=== PATIENT | male | born 1935 | race Caucasian/White ===

== ENCOUNTER → 2016-09-18 | Outpatient (CLI) | payer BC ==
[~2016-09-18] MED LIST: ACET-1256 PO; ALFU10TA30 PO; ALPHTAB4 PO; ASCA500 PO; ASPEC81 PO; CALCTAB13 PO; CHOL100010 PO; DVN80 PO; GLUC10007 PO; MECL1TAB42 PO; MELA1TAB9 PO; MRLP17 PO; MULT-506 PO; NTRGSL/4 UT; OMEG10007 PO
--- NOTE | 2016-09-18 12:08 | DIAGNOSTIC IMAGING REPORT ---
RENAL ULTRASOUND HISTORY: ACUTE CYSTITIS W/ HEMATURIA, BILATERAL FLANK PAIN COMPARISON: None. FINDINGS: Right kidney: 10.4 cm. No hydronephrosis. Normal corticomedullary differentiation and cortical thickness. Left kidney: 10.2 cm. No hydronephrosis. Normal corticomedullary differentiation and cortical thickness. Bladder: No bladder wall thickening. The bilateral ureteral jets were identified. Low level echoes identified within the bladder suggesting complex fluid. IMPRESSION: 1. Normal kidneys. 2. Low level echoes within the bladder suggesting complex fluid/blood products. Recommend correlation with urinalysis. Electronically signed by: Chin Saunders M.D. 09/18/2016 12:07 PM Dictated Date/Time: 09/18/2016 12:05 PM
== END | disposition home or self-care (01) ==
LOC: C.ULTR 11:23
PROVIDERS: ATTEND Family Medicine
DX: N30.01 Acute cystitis with hematuria (principal); R93.41 Abnormal radiologic findings on diagnostic imaging of renal pelvis, ureter, or bladder

== ENCOUNTER → 2016-10-08 | Outpatient (CLI) | payer BC | END | disposition home or self-care (01) | LOC: C.LABSPEC 16:55 | PROVIDERS: ATTEND Nurse Practitioner Adult Health | DX: R31.0 Gross hematuria (principal) ==

== ENCOUNTER → 2016-10-14 | Outpatient (CLI) | payer BC ==
[~2016-10-14] MED LIST changes: +ALFU10TA2 PO; -ALFU10TA30 PO; +OPTIRAY 320 IV PRN
--- NOTE | 2016-10-14 16:58 | DIAGNOSTIC IMAGING REPORT ---
CT OF THE ABDOMEN AND PELVIS WITH AND WITHOUT CONTRAST HEMATURIA PROTOCOL CLINICAL HISTORY: Gross hematuria. COMPARISON STUDY: Renal ultrasound September 28, 2016. TECHNIQUE: Unenhanced and split bolus phase imaging of the abdomen and pelvis was performed. Injection of 119 cc Optiray [address] DOSE: 2120.46 mGycm FINDINGS: Lung bases are clear. There is mild cardiomegaly. There is multifocal pericardial calcification. 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 Brachytherapy seeds are noted within the prostate. No enlarged abdominal or pelvic lymph nodes are identified. No upper tract urothelial lesions are identified. No solid renal lesions are present. A small capsular abnormality along the spleen is chronic. There is no evidence for a bowel obstruction. No suspicious osseous lesions are present. IMPRESSION: 1. 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 2. No acute process within the abdomen or pelvis. Electronically signed by: Chinmay Wooten M.D. 10/14/2016 4:57 PM Dictated Date/Time: 10/14/2016 2:31 PM
== END | disposition home or self-care (01) ==
LOC: C.CTS 13:17
PROVIDERS: ATTEND Nurse Practitioner Adult Health
DX: R31.0 Gross hematuria (principal); Z96.643 Presence of artificial hip joint, bilateral

== ENCOUNTER 2017-06-18 02:29 | Observation (INO) | payer BC ==
[~2017-06-18] VITALS: Ht 170.2 cm; Wt 93.7 kg
[~2017-06-18 02:29] MED LIST changes: -OPTIRAY 320 IV PRN
[2017-06-18 03:42] LABS: BASO % 0.4 %; BASO ABS # 0.03 K/uL (0-0.2); COMPLETE YES; EOS % 4.7 %; HEMATOCRIT 38.6 % (42-52); IG% 0.1 %; LYMPH % 35.5 %; LYMPH ABS # 2.58 K/uL (1.2-3.4); MEAN CELL VOLUME 104.6 fL (80-100); MEAN CORPUSCULAR HEMOGLOBIN 36.3 pg (25-34); MEAN CORPUSCULAR HGB CONC 34.7 g/dl (32-36); MEAN PLATELET VOLUME 10.4 fL (7.4-10.4); MONO % 13.4 %; NEUT % 45.9 %; PLATELET COUNT 164 K/uL (130-400); RED BLOOD COUNT 3.69 M/uL (4.7-6.1); WHITE BLOOD COUNT 7.26 K/uL (4.8-10.8)
[2017-06-18 03:47] LABS: PARTIAL THROMBOPLASTIN RATIO 0.9; PROTHROMBIN TIME (PATIENT) 10.7 SECONDS (9.0-12.0)
[2017-06-18 03:52] LABS: ALT/SGPT 55 U/L (12-78); AST/SGOT 36 U/L (15-37); BLOOD UREA NITROGEN 22 mg/dl (7-18); BUN/CREATININE RATIO 23.3 (10-20); CALCIUM 8.9 mg/dl (8.5-10.1); CARBON DIOXIDE 30 mmol/L (21-32); CHLORIDE 105 mmol/L (98-107); CREATININE 0.96 mg/dl (0.60-1.40); GLUCOSE 102 mg/dl (70-99); SODIUM 137 mmol/L (136-145)
[2017-06-18 03:57] LABS: ALKALINE PHOSPHATASE 66 U/L (45-117); CKMB/CK RATIO 3.5 (0-3.0)
[2017-06-18] MEDS ORDERED: ALFU10TA2 PO (04:41)
[2017-06-18] MEDS ORDERED: ASPI81TA28 PO (04:41)
[2017-06-18] MEDS ORDERED: CALC-354 PO (04:42)
[2017-06-18] MEDS ORDERED: GLUC-172 PO (04:43)
[2017-06-18] MEDS ORDERED: CHOL1000 PO (04:43)
[2017-06-18] MEDS ORDERED: MULTCHW PO (04:43)
[2017-06-18] MEDS ORDERED: HYDR1AER23 PR (04:44)
[2017-06-18] MEDS ORDERED: ACT/35 PO (04:44)
[2017-06-18] MEDS ORDERED: POLY335019 PO (04:44)
--- NOTE | 2017-06-18 04:54 | EMERGENCY ROOM VISIT NOTE ---
History Report prepared by Juan Carlos: Iman Pickett Under the Supervision of: Dr. Peggy Linn D.O. First contact with patient: 02:36 Chief Complaint: CHEST PAIN Stated Complaint: CHEST PAIN Nursing Triage Summary: At 0140 Pt states he developed mid-abdominal pain that moved into his chest and down right arm. Also c/o right arm numbness. History of Present Illness The patient is an 81 year old male who presents to the Emergency Room with complaints of persistent chest pain starting around 0040 today. The patient started having some abdominal pain when he was going to bed around 0040. He noticed that the pain moved up into his chest. The pain was constant and did not resolve. He waited 1 hour before calling EMS. He was given 4 baby aspirin and nitro which did not help. He felt the abdominal pain worsened with the medications. The chest pain does not radiate into his back or arm. The pain seemed to improve slightly while he was here, but it is now coming back again. He currently rates his discomfort as a 3-4/10 in severity. He has chronic right arm numbness which seemed to worsen with the chest pain. He still has some slight abdominal pain. He denies any diaphoresis, SOB, fever, nausea, vomiting, diarrhea, constipation, bloody stool, urinary symptoms, or weakness. He had chest pain 12 years ago at which time he had a stent. He has not had any cardiac issues since. He denies any history of GI problems. Source of History: patient Onset: 0040 Position: chest Symptom Intensity: 3-4/10 Quality: other (pain) Timing: other (persistent) Associated Symptoms: + abdominal pain, + numbness, No fevers, No diaphoresis , No SOB, No nausea, No vomiting, No hematochezia, No diarrhea, No urinary symptoms, No weakness Note: Pt denies constipation. Review of Systems See HPI for pertinent positives & negatives. A total of 10 systems reviewed and were otherwise negative. Past Medical & Surgical Medical Problems: (1) Chest pain Family History No pertinent family history stated. Social History Smoking Status: Never Smoker Marital Status: Housing Status: lives with significant other Occupation Status: retired Current/Historical Medications Scheduled Alfuzosin Hcl (Uroxatral), 10 MG PO DAILY Ascorbic Acid (Vitamin C), 1,000 MG PO QAM Aspirin (Aspirin Ec), 81 MG PO DAILY Calcium Carbonate-Cholecalcife (Caltrate 600+D), 1 TAB PO BID Cholecalciferol (Vitamin D3), 1 TAB PO DAILY Fish Oil ([place]-3), 1,000 MG PO QAM Glucosamine Sulfate (Glucosamine), 500 MG PO DAILY Hydrocortisone/Pramoxine (Proctofoam Hc), 1 APPL MT QID Multiple Vitamins W/ Minerals (Centrum Silver), 1 TAB PO DAILY Polyethylene Glycol 3350 (Miralax), 17 GM PO DAILY Ranitidine Hcl (Zantac), 1 TAB PO BID Risedronate Sod (Actonel), 35 MG PO WK Valsartan (Diovan), 80 MG PO QAM Scheduled PRN Acetaminophen (Tylenol), 1,000 MG PO DAILY PRN for Pain Lfqzj-U-Gjprvfrkylphu (Beano), 1 TAB PO DAILY PRN for GAS Meclizine Hcl (Meclizine Hcl), 1 TAB PO TID PRN for DIZZINESS Melatonin-Pyridoxine (Melatonin), 1 TAB PO HS PRN for Insomnia Nitroglycerin (Nitrostat), 0.4 MG UT UD PRN for Chest Pain Allergies Coded Allergies: Perflutren (Verified Allergy, Unknown, BODY GOT HOT AND BACK SPASMS, ) REACTION TO INJECTION IN BACK (DEFINITY TEST) AFTER FAILING A TREADMILL STRESS TEST - PT UNSURE NAME OF MEDICATION - PT STATES WENT ON TO PERFORMED NUCLEAR STRESS TEST Propylene Glycol (Verified Allergy, Unknown, BODY GOT HOT AND BACK SPASMS , 06/18/17) REACTION TO INJECTION IN BACK (DEFINITY TEST) AFTER FAILING A TREADMILL STRESS TEST - PT UNSURE NAME OF MEDICATION - PT STATES WENT ON TO PERFORMED NUCLEAR STRESS TEST Ragweed (Verified Allergy, Unknown, UNKNOWN, 06/18/17) Physical Exam Vital Signs Date Time Temp Pulse Resp B/P (MAP) Pulse Ox O2 Delivery O2 Flow Rate FiO2 06/18/17 05:50 36.8 61 20 150/84 Room Air 06/18/17 05:30 60 18 139/87 95 Room Air 06/18/17 04:30 60 18 129/71 98 Room Air 06/18/17 03:30 64 20 127/71 95 Room Air 06/18/17 03:00 68 13 135/73 98 Room Air 06/18/17 02:44 66 06/18/17 02:39 36.6 65 18 153/94 97 Room Air 97 06/18/17 02:39 97 Room Air Physical Exam HEENT: Head - normocephalic and atraumatic Pupils are equal, round, and reactive to light. Extraocular eye muscles are intact, and sclera are anicteric. Nose - moist nasal mucosa without discharge. Mouth - moist buccal mucosa. Oropharynx is nonerythematous and there is no tonsillar exudate or edema noted. Neck: Supple; no JVD, nuchal rigidity, cervical lymphadenopathy, or auscultated bruits. Heart: Regular rate and rhythm. There is a normal S1 and S2 with no murmurs, clicks, or gallops appreciated. Lungs: Clear to auscultation bilaterally with no wheezes, rales, or rhonchi. Abdomen: Soft, completely nontender, nondistended, with good bowel sounds. There are no palpable pulsatile masses or hepatosplenomegaly. There is no guarding, rigidity, or rebound noted. Extremities: No evidence of cyanosis, clubbing, or edema. There are easily palpable peripheral pulses. Skin: warm and dry with good turgor and no rashes. Medical Decision & Procedures ER Provider Diagnostic Interpretation: X-ray results as stated below per interpretation by me: Portable Chest X-ray: No obvious pleural effusion or pulmonary infiltrate. Laboratory Results 06/18/17 02:28 Red Blood Count 3.69, Mean Corpuscular Volume 104.6, Mean Corpuscular Hemoglobin 36.3, Mean Corpuscular Hemoglobin Concent 34.7, Mean Platelet Volume 10.4, Neutrophils (%) (Auto) 45.9, Lymphocytes (%) (Auto) 35.5, Monocytes (%) ( Auto) 13.4, Eosinophils (%) (Auto) 4.7, Basophils (%) (Auto) 0.4, Neutrophils # (Auto) 3.33, Lymphocytes # (Auto) 2.58, Monocytes # (Auto) 0.97, Eosinophils # ( Auto) 0.34, Basophils # (Auto) 0.03 06/18/17 02:28 Test 06/18/17 02:28 White Blood Count 7.26 K/uL (4.8-10.8) Red Blood Count 3.69 M/uL (4.7-6.1) Hemoglobin 13.4 g/dL (14.0-18.0) Hematocrit 38.6 % (42-52) Mean Corpuscular Volume 104.6 fL (80-100) Mean Corpuscular Hemoglobin 36.3 pg (25-34) Mean Corpuscular Hemoglobin Concent 34.7 g/dl (32-36) Platelet Count 164 K/uL (130-400) Mean Platelet Volume 10.4 fL (7.4-10.4) Neutrophils (%) (Auto) 45.9 % Lymphocytes (%) (Auto) 35.5 % Monocytes (%) (Auto) 13.4 % Eosinophils (%) (Auto) 4.7 % Basophils (%) (Auto) 0.4 % Neutrophils # (Auto) 3.33 K/uL (1.4-6.5) Lymphocytes # (Auto) 2.58 K/uL (1.2-3.4) Monocytes # (Auto) 0.97 K/uL (0.11-0.59) Eosinophils # (Auto) 0.34 K/uL (0-0.5) Basophils # (Auto) 0.03 K/uL (0-0.2) RDW Standard Deviation 47.8 fL (36.4-46.3) RDW Coefficient of Variation 12.5 % (11.5-14.5) Immature Granulocyte % (Auto) 0.1 % Immature Granulocyte # (Auto) 0.01 K/uL (0.00-0.02) Prothrombin Time 10.7 SECONDS (9.0-12.0) Prothromb Time International Ratio 1.0 (0.9-1.1) Activated Partial Thromboplast Time 24.3 SECONDS (21.0-31.0) Partial Thromboplastin Ratio 0.9 Anion Gap 2.0 mmol/L (3-11) Est Creatinine Clear Calc Drug Dose 65.9 ml/min Estimated GFR () 85.6 Estimated GFR (Non- 73.8 BUN/Creatinine Ratio 23.3 (10-20) Calcium Level 8.9 mg/dl (8.5-10.1) Total Bilirubin 0.3 mg/dl (0.2-1) Direct Bilirubin < 0.1 mg/dl (0-0.2) Aspartate Amino Transf (AST/SGOT) 36 U/L (15-37) Alanine Aminotransferase (ALT/SGPT) 55 U/L (12-78) Alkaline Phosphatase 66 U/L (45-117) Total Creatine Kinase 66 U/L (39-308) Creatine Kinase MB 2.3 ng/ml (0.5-3.6) Creatine Kinase MB Ratio 3.5 (0-3.0) Pro-B-Type Natriuretic Peptide 105 pg/ml (0-1800) Total Protein 7.1 gm/dl (6.4-8.2) Albumin 3.5 gm/dl (3.4-5.0) Lipase 80 U/L (73-393) Laboratory results per my review. Medications Administered Medications (Trade) Dose Ordered Sig/Elroy Route Start Time Stop Time Status Last Admin Dose Admin Fentanyl Citrate (Fentanyl Inj) 50 mcg NOW STAT IV 06/18/17 04:56 06/18/17 04:57 DC 06/18/17 05:28 50 MCG Procedure Medications: Fentanyl Inj 50 mcg IV. ECG Indication: chest pain Rate (beats per minute): 66 Rhythm: normal sinus Findings: 1st degree AV block, ST depression (slight in 1 and aVL), other (T wave flattening anterior and lateral) Comparison ECG Date: 12-Oct-2013 Change: Changes are new. ED Course 0238: The patient was evaluated by the student at this time. We discussed findings, differential, and treatment plan. A twelve-lead EKG was obtained and reviewed. 0331: The patient was evaluated in room A9B. A complete history and physical examination were performed. Nursing notes and previous electronic medical records were reviewed. IV lock was established and labs were drawn as above. The patient had a chest x-ray as described above. 0420: The patient was reevaluated by the student. He has not had any change in his pain. 0450: I reevaluated the patient. He is still having 3/10 pain. I discussed findings and results with him. He verbalized agreement of the treatment plan. The patient will be evaluated for further management and care. 0456: Fentanyl Inj 50 mcg IV. 0500: I discussed the patient's case with Dr. Nichols, [facility] hospitalist. The patient will be evaluated for further management. Medical Decision The patient is an 81 year old male who presents to the ED with chest pain. Differential diagnosis includes GERD, cardiac ischemia, STEMI, acute coronary syndrome, costochondritis, pleurisy. Labs: white count 7.2, stable H&H, BUN 22, creatinine 0.9, glucose 102, LFTs and lipase normal, troponin negative, normal coags. This is an 81-year-old male patient who presents to the emergency department with substernal chest discomfort. The patient had no other significant associated symptoms. Cardiac enzymes were negative but the patient did have some subtle EKG changes. I discussed the case with the [facility] hospitalist. The patient received some pain meds for the discomfort in the mid chest. He was comfortable at this time. Vitals remained stable. Medication Reconcilliation Current Medication List: was personally reviewed by me Blood Pressure Screening Patient's blood pressure: Normal blood pressure Blood pressure disposition: Did not require urgent referral Consults Time Called: 0455 Consulting Physician: Dr. Nichols [facility] hospitalist Returned Call: 0500 Discussed the patient's case. The patient will be evaluated for further management. Impression Primary Impression: Substernal chest pain Scribe Attestation The scribe's documentation has been prepared under my direction and personally reviewed by me in its entirety. I confirm that the note above accurately reflects all work, treatment, procedures, and medical decision making performed by me. Departure Information Dispostion Being Evaluated By Hospitalist Prescriptions Ranitidine Hcl (ZANTAC) 150 Mg Tab 1 TAB PO BID for 30 Days, #60 TAB 0 Refills Prov: Patrick Peralta, D.O. 06/18/17 Referrals Stan Banks MD (PCP) Patient Instructions My [facility]
[2017-06-18] MEDS ORDERED: FENTANYL CITRATE INJ 50 MCG/1 ML 2 ML VIAL IV STA (04:56)
[2017-06-18 05:50] VITALS: BP 150/84; PULSE 61; TEMP 36.8; Ht 170.2 cm; Wt 93.7 kg
[2017-06-18] MEDS ORDERED: MoRPHine SULFATE 2 MG/ML CARP IV PRN (06:00)
[2017-06-18] MEDS ORDERED: ACETAMINOPHEN 325 MG TAB PO PRN (06:00)
[2017-06-18] MEDS ORDERED: POLYETHYLENE (MIRALAX) 17 GM PACK PO PRN (06:00)
[2017-06-18] MEDS ORDERED: MECLIZINE HCL 12.5 MG TAB PO PRN (06:00)
[2017-06-18] MEDS ORDERED: MAGNESIUM HYDROXIDE SUSP 30 ML UDC PO PRN (06:00)
[2017-06-18] MEDS ORDERED: NITROGLYCERIN 0.4 MG SL PER TAB CHARGE SL PRN (06:00)
[2017-06-18] MEDS ORDERED: ONDANSETRON INJ 2 MG/ML 2 ML VIAL IV PRN (06:00)
--- NOTE | 2017-06-18 06:22 | History and Physical ---
History & Physical Date & Time of Service: Jun 18, 2017 at 06:05 Chief Complaint: Chest Pain Primary Care Physician: Stan Banks MD History of Present Illness Source: patient 81 y/o M Hx HTN, HPL, CAD - stent placement in 2004. Pt developed upper abdominal pain early AM which then localized to his central chest. He denies accompanying SOB, N/V or diaphoresis. Past Medical/Surgical History 1) CAD - presented with CP in 2004 leading to stent placement. He has not had any related issues since that time. 2) HTN 3) HPL 4) GERD 5) Osteoporosis Family History Noncontributory due to pts age Social History Nonsmoker, does not drink, maintains complete independence Smoking Status: Never Smoker Immunizations History of Influenza Vaccine: Yes Influenza Vaccine Date: Mar 06, 2013 History of Tetanus Vaccine?: Unknown History of Pneumococcal: Yes Pneumococcal Date: Feb 23, 2007 History of Hepatitis B Vaccine: Unknown Multi-Drug Resistant Organisms History of MDRO: No Allergies Coded Allergies: Perflutren (Verified Allergy, Unknown, BODY GOT HOT AND BACK SPASMS, ) REACTION TO INJECTION IN BACK (DEFINITY TEST) AFTER FAILING A TREADMILL STRESS TEST - PT UNSURE NAME OF MEDICATION - PT STATES WENT ON TO PERFORMED NUCLEAR STRESS TEST Propylene Glycol (Verified Allergy, Unknown, BODY GOT HOT AND BACK SPASMS , 06/18/17) REACTION TO INJECTION IN BACK (DEFINITY TEST) AFTER FAILING A TREADMILL STRESS TEST - PT UNSURE NAME OF MEDICATION - PT STATES WENT ON TO PERFORMED NUCLEAR STRESS TEST Ragweed (Verified Allergy, Unknown, UNKNOWN, 06/18/17) Home Medications Scheduled Alfuzosin Hcl (Uroxatral), 10 MG PO DAILY Ascorbic Acid (Vitamin C), 1,000 MG PO QAM Aspirin (Aspirin Ec), 81 MG PO DAILY Calcium Carbonate-Cholecalcife (Caltrate 600+D), 1 TAB PO BID Cholecalciferol (Vitamin D3), 1 TAB PO DAILY Fish Oil ([place]-3), 1,000 MG PO QAM Glucosamine Sulfate (Glucosamine), 500 MG PO DAILY Hydrocortisone/Pramoxine (Proctofoam Hc), 1 APPL [place] QID Multiple Vitamins W/ Minerals (Centrum Silver), 1 TAB PO DAILY Polyethylene Glycol 3350 (Miralax), 17 GM PO DAILY Risedronate Sod (Actonel), 35 MG PO WK Valsartan (Diovan), 80 MG PO QAM Scheduled PRN Acetaminophen (Tylenol), 1,000 MG PO DAILY PRN for Pain Pylot-A-Asgblaozisbrd (Beano), 1 TAB PO DAILY PRN for GAS Meclizine Hcl (Meclizine Hcl), 1 TAB PO TID PRN for DIZZINESS Melatonin-Pyridoxine (Melatonin), 1 TAB PO HS PRN for Insomnia Nitroglycerin (Nitrostat), 0.4 MG UT UD PRN for Chest Pain Review of Systems Constitutional: No fever, No chills, No sweats Eyes: No worsening of vision ENT: No hearing loss, No unusual epistaxis, No nasal symptoms Respiratory: No cough, No sputum, No wheezing Cardiovascular: + chest pain, No orthopnea, No PND Abdomen: No pain, No vomiting Musculoskeletal: No joint pain, No muscle pain Genitourinary - Male: No hematuria, No dysuria, No urinary frequency Neurologic: No memory loss, No paralysis, No weakness Psychiatric: No depression symptoms Endocrine: No fatigue Hematologic / Lymphatic: No abnormal bleeding/bruising Integumentary: No rash Allergic / Immunologic: No environmental allergies Physical Exam Vital Signs Date Time Temp Pulse Resp B/P (MAP) Pulse Ox O2 Delivery O2 Flow Rate FiO2 06/18/17 05:30 60 18 139/87 95 Room Air 06/18/17 04:30 60 18 129/71 98 Room Air 06/18/17 03:30 64 20 127/71 95 Room Air 06/18/17 03:00 68 13 135/73 98 Room Air 06/18/17 02:44 66 06/18/17 02:39 36.6 65 18 153/94 97 Room Air 97 06/18/17 02:39 97 Room Air General Appearance: + pertinent finding (Pleasant elderly male in no distress) Head: normocephalic Eyes: normal inspection, EOMI ENT: normal ENT inspection, + pertinent finding (Pt is hard of hearing) Neck: supple, no JVD Respiratory/Chest: chest non-tender, lungs clear, normal breath sounds Cardiovascular: regular rate, rhythm, no edema, no gallop Abdomen/GI: normal bowel sounds, non tender, soft Back: normal inspection, no CVA tenderness, no muscle spasm, normal range of motion Extremities/Musculoskelatal: normal inspection Neurologic/Psych: rack cleaner II-XII nml as tested, no motor/sensory deficits, alert, normal mood/affect, normal reflexes, oriented x 3 Skin: normal color, warm/dry Diagnostics Laboratory Results Results Past 24 Hours Test 06/18/17 02:28 Range/Units White Blood Count 7.26 4.8-10.8 K/uL Red Blood Count 3.69 4.7-6.1 M/uL Hemoglobin 13.4 14.0-18.0 g/dL Hematocrit 38.6 42-52 % Mean Corpuscular Volume 104.6 80-100 fL Mean Corpuscular Hemoglobin 36.3 25-34 pg Mean Corpuscular Hemoglobin Concent 34.7 32-36 g/dl Platelet Count 164 130-400 K/uL Mean Platelet Volume 10.4 7.4-10.4 fL Neutrophils (%) (Auto) 45.9 % Lymphocytes (%) (Auto) 35.5 % Monocytes (%) (Auto) 13.4 % Eosinophils (%) (Auto) 4.7 % Basophils (%) (Auto) 0.4 % Neutrophils # (Auto) 3.33 1.4-6.5 K/uL Lymphocytes # (Auto) 2.58 1.2-3.4 K/uL Monocytes # (Auto) 0.97 0.11-0.59 K/uL Eosinophils # (Auto) 0.34 0-0.5 K/uL Basophils # (Auto) 0.03 0-0.2 K/uL RDW Standard Deviation 47.8 36.4-46.3 fL RDW Coefficient of Variation 12.5 11.5-14.5 % Immature Granulocyte % (Auto) 0.1 % Immature Granulocyte # (Auto) 0.01 0.00-0.02 K/uL Prothrombin Time 10.7 9.0-12.0 SECONDS Prothromb Time International Ratio 1.0 0.9-1.1 Activated Partial Thromboplast Time 24.3 21.0-31.0 SECONDS Partial Thromboplastin Ratio 0.9 Sodium Level 137 136-145 mmol/L Potassium Level 4.0 3.5-5.1 mmol/L Chloride Level 105 98-107 mmol/L Carbon Dioxide Level 30 21-32 mmol/L Anion Gap 2.0 3-11 mmol/L Blood Urea Nitrogen 22 7-18 mg/dl Creatinine 0.96 0.60-1.40 mg/dl Est Creatinine Clear Calc Drug Dose 65.9 ml/min Estimated GFR () 85.6 Estimated GFR (Non- 73.8 BUN/Creatinine Ratio 23.3 10-20 Random Glucose 102 70-99 mg/dl Calcium Level 8.9 8.5-10.1 mg/dl Total Bilirubin 0.3 0.2-1 mg/dl Direct Bilirubin < 0.1 0-0.2 mg/dl Aspartate Amino Transf (AST/SGOT) 36 15-37 U/L Alanine Aminotransferase (ALT/SGPT) 55 12-78 U/L Alkaline Phosphatase 66 45-117 U/L Total Creatine Kinase 66 39-308 U/L Creatine Kinase MB 2.3 0.5-3.6 ng/ml Creatine Kinase MB Ratio 3.5 0-3.0 Troponin I < 0.015 0-0.045 ng/ml Pro-B-Type Natriuretic Peptide 105 0-1800 pg/ml Total Protein 7.1 6.4-8.2 gm/dl Albumin 3.5 3.4-5.0 gm/dl Lipase 80 73-393 U/L EKG NSR Impression Assessment and Plan 81 y/o M Hx HTN, HPL, CAD - stent placement in 2004. Pt developed upper abdominal pain early AM which then localized to his central chest. He denies accompanying SOB, N/V or diaphoresis. 1) CP - will obtain serial enzymes. NTG provided PRN, he will rremain on ASA. Dr Kelley is his certified pharmacy tech and should be contacted prior to planning additional testing. It is noted that he does not take a Statin - presumably due to sensitivity although this will need clarification. 2) HTN - cont Valsartan 3) HPL - currently untreated - address with primary or certified pharmacy tech Full code - Heparin prophylaxis Total time for this admit including review opf labs, meds, available records - discussion with pt and ER attending - 35 min Level of Care Telemetry VTE Prophylaxis VTE Risk Assessment Done? Y/N: Yes Risk Level: Moderate Given or contraindicated: Unfractionated heparin SQ
[2017-06-18 06:32] VITALS: O2SAT 95
--- NOTE | 2017-06-18 06:36 | DIAGNOSTIC IMAGING REPORT ---
CHEST ONE VIEW PORTABLE CLINICAL HISTORY: Atypical chest pain COMPARISON STUDY: 04/19/2013 FINDINGS: The cardiac and mediastinal contours are normal. There is no evidence of focal pulmonary consolidation. There is no evidence of failure. No pleural effusions are visualized.[ There are advanced arthritic changes in the left shoulder. There are postsurgical changes of a right shoulder arthroplasty. There is a calcified granuloma within the left mid to lower lung zone. IMPRESSION: No active disease in the chest. Electronically signed by: Mickey Longo M.D. 06/18/2017 6:35 AM Dictated Date/Time: 06/18/2017 6:35 AM
[2017-06-18] MEDS ORDERED: IV FLUIDS COMPLETED PRN (07:00)
[2017-06-18 07:58] VITALS: BP 151/71; PULSE 60; TEMP 36.6; O2SAT 98
[2017-06-18] MEDS ORDERED: ASPIRIN 81 MG ECTAB PO SCH (09:00)
[2017-06-18] MEDS ORDERED: VALSARTAN 80 MG TAB PO SCH (09:00)
[2017-06-18] MEDS ORDERED: ALFUZosin TAB 10 MG TAB PO SCH ×2 (09:00→21:00)
[2017-06-18] MEDS ORDERED: NURSING VERBAL MED ORDER ONE (11:00)
[2017-06-18 12:05] VITALS: BP 154/89; PULSE 64; TEMP 36.6; O2SAT 97
[2017-06-18] MEDS ORDERED: HEPARIN SOD 5000 UNIT/0.5 ML CARP SQ SCH (14:00)
[2017-06-18] MEDS ORDERED: RANI150T3 PO (15:03)
[2017-06-18 15:07] VITALS: BP 154/89; PULSE 64; TEMP 36.6; O2SAT 97
--- NOTE | 2017-06-18 15:08 | Discharge Instructions ---
Discharge Instructions Date of Service Jun 18, 2017. Admission Reason for Admission: Chest Pain Discharge Discharge Diagnosis / Problem: Chest pain rule out acute coronary syndrome Discharge Goals Goal(s): Decrease discomfort, Improve function, Increase independence, Improve disease control, Learn about illness, Diagnostic testing, Therapeutic intervention Activity Recommendations Activity Limitations: resume your previous activity Exercise/Sports Limitations: as tolerated . Instructions / Follow-Up Instructions / Follow-Up Patient presented with chest pain Likely atypical in nature, likely related to reflux Can discharge home Prescription sent to pharmacy for zantac 150 mg tablet twice a day If worsening chest pain, please report to ER Current Hospital Diet Patient's current hospital diet: Discharge Diet Recommended Diet: AHA Diet (Heart Healthy) Pending Studies Studies pending at discharge: no Medical Emergencies . Who to Call and When: Medical Emergencies: If at any time you feel your situation is an emergency, please call 911 immediately. . Non-Emergent Contact Non-Emergency issues call your: Primary Care Provider Call Non-Emergent contact if: your pain is worsening . . "Provider Documentation" section prepared by Patrick Peralta. . VTE Core Measure Inpt VTE Proph given/why not?: Unfractionated heparin SQ
--- NOTE | 2017-06-18 15:38 | Discharge Summary ---
Discharge Summary Date of Service Jun 18, 2017. Discharge Summary Admission Date: Jun 18, 2017 at 05:54 Discharge Date: Jun 18, 2017 Discharge Disposition: Home Principal Diagnosis: Chest pain Immunizations: Have You Had Influenza Vaccine: Yes Influenza Vaccine Date: Mar 06, 2013 History of Tetanus Vaccine?: Unknown History of Pneumococcal: Yes Pneumococcal Date: Feb 23, 2007 History of Hepatitis B Vaccine: Unknown Medication Reconciliation New Medications: Ranitidine Hcl (Zantac) 150 Mg Tab 1 TAB PO BID for 30 Days, #60 TAB 0 Refills Continued Medications: Acetaminophen (Tylenol) 500 Mg Tab 1000 MG PO DAILY PRN for Pain, TAB Alfuzosin Hcl (Uroxatral) 10 Mg Tab 10 MG PO DAILY, TAB Ruuso-A-Ihsndfzcetzbi (Beano) 1 Tab Tab 1 TAB PO DAILY PRN for GAS Ascorbic Acid (Vitamin C) 500 Mg Tab 1000 MG PO QAM Aspirin (Aspirin Ec) 81 Mg Tab 81 MG PO DAILY Calcium Carbonate-Cholecalcife (Caltrate 600+D) 1 Tab Tab 1 TAB PO BID Cholecalciferol (Vitamin D3) 1,000 Unit Tab 1 TAB PO DAILY, TAB 3 Refills Fish Oil (Tomball-3) 1 Ea Cap 1000 MG PO QAM Glucosamine Sulfate (Glucosamine) 500 Mg Cap 500 MG PO DAILY Hydrocortisone/Pramoxine (Proctofoam Hc) Aer 1 APPL ME QID Meclizine Hcl (Meclizine Hcl) 25 Mg Tab 1 TAB PO TID PRN for DIZZINESS Melatonin-Pyridoxine (Melatonin) 1 Tab Tab 1 TAB PO HS PRN for Insomnia Multiple Vitamins W/ Minerals (Centrum Silver) 1 Chw Chw 1 TAB PO DAILY Nitroglycerin (Nitrostat) 0.4 Mg Tab 0.4 MG UT UD PRN for Chest Pain Polyethylene Glycol 3350 (Miralax) 1 Pow Pow 17 GM PO DAILY, GM Risedronate Sod (Actonel) 35 Mg Tab 35 MG PO WK, TAB Valsartan (Diovan) 80 Mg Tab 80 MG PO QAM, TAB Discharge Exam Review of Systems: Constitutional: No fever, No chills, No sweats, No weakness Eyes: No worsening of vision, No eye pain, No redness, No discharge ENT: No hearing loss, No unusual epistaxis, No nasal symptoms, No sore throat, No tinnitus, No trouble swallowing Respiratory: No cough, No sputum, No wheezing, No shortness of breath Cardiovascular: No chest pain, No orthopnea, No PND, No edema Abdomen: No pain, No nausea, No vomiting, No diarrhea Musculoskeletal: No joint pain, No muscle pain, No swelling, No calf pain Genitourinary - Male: No hematuria, No dysuria, No urinary frequency, No urinary urgency Neurologic: No memory loss, No paralysis, No weakness, No numbness/tingling Psychiatric: No depression symptoms, No anhedonism, No anxiety, No insomnia Endocrine: No fatigue, No excessive thirst, No excessive urination Integumentary: No rash, No itch Physical Exam: General Appearance: WD/WN, no apparent distress Eyes: normal inspection, PERRL, EOMI, sclerae normal ENT: normal ENT inspection, hearing grossly normal, TMs normal, pharynx normal Neck: supple, no adenopathy, thyroid normal, no JVD Respiratory/Chest: chest non-tender, lungs clear, normal breath sounds, no respiratory distress Cardiovascular: regular rate, rhythm, no edema, no gallop, no JVD Abdomen / GI: normal bowel sounds, non tender, soft, no organomegaly Extremities: normal inspection, no calf tenderness, normal capillary refill , no pedal edema 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 Pt developed upper abdominal pain early AM which then localized to his central chest. He denies accompanying SOB, N/V or diaphoresis. 1) Chest pain - EKG NSR, serial trop x 2 sets WNL. Central chest pain at rest, worse at night, but started in upper quadrants in abd and proceeded upwards. Likely GI in nature. DC on zantac 150 mg PO BID 2) HTN - cont Valsartan 3) HPL - currently untreated - address with primary or academic guidance specialist Full code - Heparin prophylaxis Total Time Spent: Greater than 30 minutes This includes examination of the patient, discharge planning, medication reconciliation, and communication with other providers. Discharge Instructions Please refer to the electronic Patient Visit Report (Discharge Instructions) for additional information. Additional Copies To Stan Banks MD
== END 2017-06-18 16:32 | disposition home or self-care (01) ==
LOC: EDBD 02:29 → C.EDA 02:30 → C.2T 05:54 → ENRESERV 06:19
PROVIDERS: ADMIT Internal Medicine; ATTEND Internal Medicine
DX: R07.89 Other chest pain (principal); I10 Essential (primary) hypertension; I25.10 Atherosclerotic heart disease of native coronary artery without angina pectoris; K21.9 Gastro-esophageal reflux disease without esophagitis; M81.0 Age-related osteoporosis without current pathological fracture; Z79.82 Long term (current) use of aspirin

== ENCOUNTER → 2017-10-22 | Outpatient (CLI) | payer BC ==
[~2017-10-22] MED LIST changes: +ACT/35 PO; -ASPEC81 PO; +ASPI81TA28 PO; +CALC-354 PO; -CALCTAB13 PO; +CHOL1000 PO; -CHOL100010 PO; +GLUC-172 PO; -GLUC10007 PO; +HYDR1AER23 PR; -MRLP17 PO; -MULT-506 PO; +MULTCHW PO; +POLY335019 PO; +RANI150T3 PO
== END | disposition home or self-care (01) ==
LOC: C.LABVPSUW 09:18
PROVIDERS: ATTEND Urology
DX: R31.9 Hematuria, unspecified (principal); R39.9 Unspecified symptoms and signs involving the genitourinary system

== ENCOUNTER 2020-06-04 23:29 | Inpatient (IN) ==
[2020-06-04] MEDS ORDERED: SODIUM CHLORIDE 0.9% 1000ML 1,000 ML IV ONE (23:53)
--- NOTE | 2020-06-05 | Emergency Department Note ---
Impression & Plan Sepsis, Acute UTI (urinary tract infection), Acidosis, lactic, Atrial fib/flutter, transient ED Provider Note Name: BJ ARNETT Age: 84 Sex: M Arrives Via: Ambulance Informant: Patient ED Provider: Jluis Doherty MD Chief Complaint: Shaking Impression: Sepsis Acute UTI Acidosis, Lactic Atrial Fib/Flutter, transient Medical Decision Making: Pleasant 84 yr old male with history of CAD, HTN, DLP arrives for evaluation of rigors and chills. Rigors on my initial evaluation and ill appearing. Labs, cultures obtained. Looking much improved with IV fluids. Noted though to be having episodes of tachycardia which on repeat EKG appear to be brief episodes of Aflutter. No cp, sob, syncope no other symptoms with these. With further fluids noted to have less episodes of these. Trop negative and no evidence ACS. Likely brought on by sepsis thus will hold on anticoagulant at this time. UA reveals UTI consistent with his complaint of increased urination the last few days and urgency. WBC OK though lactate elevated in setting of infection and ri gors will treat as sepsis. He was given 30ml/kg IV fluids. He feels much improved with these as well as 2 gm IV rocephin given. Abdomen soft on initial and repeat evaluations. Lungs clear with normal CXR. Covid negative without exposures nor sob, cp, cough. Hospitalist in to evaluate further given findings. Prior Medical Record and Triage/Nursing Notes reviewed by Me Additional history obtained from chart Differentials:Viral syndrome, otitis, pharyngitis, pneumonia, influenza, meningitis, urinary tract infection, sepsis, bacteremia, as well as other p athologies. Vital Signs: reviewed and remarkable for Tachy Interventions: Saline lock, NSS bolus IV, Rocephin 2gm IV Labs:Reviewed and remarkable for elevated lactic acid Imaging:X ray results are stated below per my interpretation: Chest: 1 view: No infiltrate, no effusion, normal cardiac border. EKG:Per My Interpretation: Indication Sepsis: NSR 93 bpm, qtc 412. No Ectopy. No Ischemia. Compared to EKG 06/18/17, no significant changes. Per My Interpretation: Indication Rhythm Change from arrival: NSR with transient Aflutter 135 bpm, qtc 489. No Ectopy. No Ischemia. Compared to EKG earlier on 06/04/20 aflutter is new Cardiac/Tele Monitoring: Cardiac Monitoring: An Order was placed for continuous cardiac monitoring. The monitor shows a rate of 90 with a normal sinus rhythm with episode of Aflutter 150 bpm Consults:Dr Aretha CLARK Hospitalist Plan: Disposition:Hospitalization. Condition: Good Prescriptions:None PDMP: n/a History of Present Illness:84 yr old male arrives for evaluation of shaking. Patient notes several hours of feeling like his legs are cold. Notes this started while watching TV. After getting in to bed leg didn't warm up. He started feeling shakes and tremors over the last hour. Mild associated nausea. States he feels very weak and shaky with trying to stand. No trauma/injuries/falls/loc. No chest pain, sob, cough (other than chronic for years), syncope, back pain, abdominal pain, diarrhea, rashes, leg swelling, headache, neck pain, sore throat, loss smell nor other symptoms. Notes he has not been able to taste for several months to years. Took tylenol earlier without improvement. Nothing makes better nor worse. No sick contacts. No known covid exposures. ROS: See above HPI for pertinent positives & negatives. A total of 10 systems reviewed and were otherwise negative. Past Medical History:CAD, DLP, HTN, Prostate cancer, arthritis Past Surgical History:Right shoulder, hip replacements, cardiac stents Family History:Father/Mother - CAD Social History:Lives with with at [place], no smoker, no drugs, no alcohol Home Medications:See Below Allergies:IV dye, perflutren, propylene glycol, sanjay inhibitor Vitals:Blood Pressure: 179/90, Pulse 90, RR 16, T 36.3C, O2 99% on RA Physical Exam: GENERAL: Patient is unwell appearing and in moderate distress with diffuse rigors EYES: No scleral icterus, unremarkable pupils. ENT: Mucous membranes moist, no nasal congestion. NECK: No masses appreciated, nomeningismus, trachea is midline. RESPIRATORY: No dyspnea. Clear to auscultation and equal bilaterally. No wheeze, no rhonchi. CARDIOVASCULAR: Tachy.No murmurs, rubs, gallops appreciated. GASTROINTESTINAL: Abdomen soft, non-tender, no peritonitis.Bowel sounds positive.No masses appreciated. BACK: No midline tenderness, no CVA tenderness EXTREMITIES: Normal motion all extremities, no cyanosis, no edema. NEUROLOGIC: Alert and oriented, no acute motor or sensory deficits, no focal weakness, cranial nerves grossly intact. SKIN: No rash, no jaundice, no diaphoresis. PSYCH: Appropriate GCS: 15 ED Course: Times/Reassessments: Improved with fluids. Critical Care: I have personally spent 35 minutes of critical care time in the direct management of this patient. Septic with UTI with lactic acidosis and aflutter RVR requiring Fluid resus. This was a life/limb threatening event. This 35 minutes is in excess of all separately billable procedures. Jluis Doherty MD Past Med/Surg History Medical History (Updated 06/05/20 @ 03:31 by Neil Carias MD) Coronary artery disease FH: bilateral hip replacements Hip pain, bilateral Hx of prostatic malignancy Hyperlipidemia Lumbar pain Osteoarthritis Osteoporosis Restless leg syndrome Shoulder pain, bilateral Surgical History H/O heart artery stent History of arthroplasty of right shoulder Family History Father Cardiac disorder Mother Cardiac disorder Social History Smoking Status: Never smoker Hx Alcohol Use: No Hx Substance Use: No Communication Ability: Effective Visual Impairment: No Limitations Hearing Ability: Hard of Hearing Lath Hand Required: No Beliefs That Will Affect Care: None Current Living Situation Comment: [place] current occupational status: retired Feels Safe at Home: Yes Allergies Allergies Allergy/AdvReac Type Severity Reaction Status Date / Time Iodinated Contrast Media Allergy Intermediate " Feels Verified 06/05/20 00:11 [Iodinated Contrast- Oral eliza hot and IV Dye] and painful" perflutren Allergy Unknown BODY GOT Verified 06/05/20 00:11 HOT AND BACK SPASMS propylene glycol Allergy Unknown BODY GOT Verified 06/05/20 00:11 HOT AND BACK SPASMS ragweed pollen Allergy Unknown UNKNOWN Verified 06/05/20 00:11 SANJAY Inhibitors AdvReac Cough Verified 06/05/20 00:11 Home Meds Home Medications Medication Instructions Recorded Confirmed glucosamine sulfate 500 mg capsule 500 mg PO DAILY cap 12/22/18 06/05/20 rzneaxhi-mbn-zozjj acid 300 1 tab PO DAILY 12/22/18 06/05/20 mcg-lycopene 600 mcg-lutein 300 mcg tablet polyethylene glycol 3350 17 17 gm PO DAILY 12/22/18 06/05/20 gram/dose oral powder cholecalciferol (vitamin D3) 25 1,000 units PO DAILY 02/24/19 06/05/20 mcg (1,000 unit) capsule meclizine 25 mg tablet 12.5 mg PO TID PRN tab 02/24/19 06/05/20 risedronate 35 mg tablet 35 mg PO WEEKLY tab 02/24/19 06/05/20 melatonin 3 mg capsule 3 mg PO HS PRN 10/19/19 06/05/20 nitroglycerin 0.4 mg sublingual 0.4 mg SL .DISSOLVE 1 TABLET UNDER 10/19/19 06/05/20 tablet THE TONGUE NEEDED FOR CHEST PAIN. PRN ascorbic acid (vitamin C) 1 g PO DAILY 06/05/20 06/05/20 aspirin [Aspir-Low] 81 mg PO DAILY 06/05/20 06/05/20 calcium carbonate-vitamin D3 1 tab PO BID 06/05/20 06/05/20 [Calcium 600 + D(3)] duloxetine 20 mg PO DAILY 06/05/20 06/05/20 olmesartan 10 mg PO DAILY 06/05/20 06/05/20 omega 2-yql-ykp-fish oil [Fish Oil] 1 cap PO DAILY 06/05/20 06/05/20 Previous Rx's Medication Instructions Recorded celecoxib 100 mg capsule 100 mg PO BID #180 cap 03/28/19 alfuzosin 10 mg tablet,extended 10 mg PO DAILY #90 tab 09/29/19 release 24 hr Results & Data (ED) Vital Signs Vital Signs - 24 hr 06/04/20 23:42 06/05/20 00:30 06/05/20 03:03 Temperature 36.3 C L Temperature Source Oral Pulse Rate 90 91 H Pulse Rate [Right Finger] 90 Pulse Rhythm Regular Pulse Strength Normal Respiratory Rate 16 16 18 Respiratory Depth Normal Normal Blood Pressure 179/90 H 134/71 Blood Pressure [Right Arm] 132/74 Blood Pressure Mean 119 Blood Pressure Mean [Right Arm] 93 Blood Pressure Position Lying Pulse Oximetry 99 100 97 Oxygen Delivery Method Room Air Room Air Room Air Sepsis Recent Fever Within 48 Hours No Sepsis New/Unexplained Change in Mental Status No Sepsis Action Taken by Nursing No Action Required Laboratory Data Result diagrams: 06/05/20 00:17 06/05/20 00:17 Lab Results 06/05/20 06/05/20 06/05/20 Range/Units 00:17 00:17 00:17 WBC 9.45 (4.8-10.8) K/uL RBC 3.27 L (4.7-6.1) M/uL Hgb 11.5 L (14.0-18.0) g/dL Hct 33.8 L (42-52) % MCV 103.4 H (80-100) fL MCH 35.2 H (25-34) pg MCHC 34.0 (32-36) g/dL RDW Std Deviation 46.5 H (36.4-46.3) fL RDW Coeff of Saeed 12.3 (11.5-14.5) % Plt Count 160 (130-400) K/uL MPV 10.4 (7.4-10.4) fL Immature Gran % (Auto) 0.1 % Neut % (Auto) 75.3 % Lymph % (Auto) 13.5 % Christian % (Auto) 9.4 % Eos % (Auto) 1.6 % Baso % (Auto) 0.1 % Neut # (Auto) 7.11 H (1.4-6.5) K/uL Lymph # (Auto) 1.28 (1.2-3.4) K/uL Christian # (Auto) 0.89 H (0.11-0.59) K/uL Eos # (Auto) 0.15 (0-0.5) K/uL Baso # (Auto) 0.01 (0-0.2) K/uL Immature Gran # (Auto) 0.01 (0.00-0.02) K/uL PT 11.3 (9.0-12.0) Seconds INR 1.1 (0.9-1.1) Sodium (136-145) mmol/L Potassium (3.5-5.1) mmol/L Chloride (98-107) mmol/L Carbon Dioxide (21-32) mmol/L Anion Gap (3-11) BUN (7-18) mg/dl Creatinine (0.6-1.4) mg/dl Est Cr Clr Drug Dosing ml/min Est GFR ( Amer) Est GFR (Non-Af Amer) BUN/Creatinine Ratio (10-20) Glucose (70-99) mg/dl Lactate 2.9 H* (0.4-2.0) mmol/L Calcium (8.5-10.1) mg/dl Magnesium (1.8-2.4) mg/dl Total Bilirubin (0.2-1) mg/dl Direct Bilirubin (0-0.2) mg/dl AST (15-37) U/L ALT (12-78) U/L Alkaline Phosphatase (45-117) U/L Troponin I (0-0.045) ng/ml Total Protein (6.4-8.2) gm/dl Albumin (3.4-5.0) gm/dl Urine Color Urine Appearance (Clear) Urine pH (4.5-7.5) Ur Specific [place] (1.000-1.030) Urine Protein (Negative) Urine Glucose (UA) (Negative) Urine Ketones (Negative) Urine Blood (Negative) Urine Nitrite (Negative) Urine Bilirubin (Negative) Urine Urobilinogen (Negative) Ur Leukocyte Esterase (Negative) Urine WBC (Auto) (0-5) /hpf Urine RBC (Auto) (0-4) /hpf U Hyaline Cast (Auto) (0-5) /lpf U Epithel Cells (Auto) (0-5) /lpf Urine Bacteria (Auto) (Negative) SARS-CoV-2 Ag (Rapid) (Negative) 06/05/20 06/05/20 06/05/20 Range/Units 00:17 00:55 Unknown WBC (4.8-10.8) K/uL RBC (4.7-6.1) M/uL Hgb (14.0-18.0) g/dL Hct (42-52) % MCV (80-100) fL MCH (25-34) pg MCHC (32-36) g/dL RDW Std Deviation (36.4-46.3) fL RDW Coeff of Saeed (11.5-14.5) % Plt Count (130-400) K/uL MPV (7.4-10.4) fL Immature Gran % (Auto) % Neut % (Auto) % Lymph % (Auto) % Christian % (Auto) % Eos % (Auto) % Baso % (Auto) % Neut # (Auto) (1.4-6.5) K/uL Lymph # (Auto) (1.2-3.4) K/uL Christian # (Auto) (0.11-0.59) K/uL Eos # (Auto) (0-0.5) K/uL Baso # (Auto) (0-0.2) K/uL Immature Gran # (Auto) (0.00-0.02) K/uL PT (9.0-12.0) Seconds INR (0.9-1.1) Sodium 139 (136-145) mmol/L Potassium 4.6 (3.5-5.1) mmol/L Chloride 106 (98-107) mmol/L Carbon Dioxide 27 (21-32) mmol/L Anion Gap 6.0 (3-11) BUN 28 H (7-18) mg/dl Creatinine 0.95 (0.6-1.4) mg/dl Est Cr Clr Drug Dosing 61.6 ml/min Est GFR ( Amer) 84.9 Est GFR (Non-Af Amer) 73.2 BUN/Creatinine Ratio 29.4 H (10-20) Glucose 124 H (70-99) mg/dl Lactate (0.4-2.0) mmol/L Calcium 9.7 (8.5-10.1) mg/dl Magnesium 1.7 L (1.8-2.4) mg/dl Total Bilirubin 0.6 (0.2-1) mg/dl Direct Bilirubin 0.2 (0-0.2) mg/dl AST 73 H (15-37) U/L ALT 73 (12-78) U/L Alkaline Phosphatase 85 (45-117) U/L Troponin I < 0.015 (0-0.045) ng/ml Total Protein 7.1 (6.4-8.2) gm/dl Albumin 3.1 L (3.4-5.0) gm/dl Urine Color Yellow Urine Appearance Cloudy A (Clear) Urine pH 8.5 H (4.5-7.5) Ur Specific [place] 1.017 (1.000-1.030) Urine Protein Negative (Negative) Urine Glucose (UA) Negative (Negative) Urine Ketones Negative (Negative) Urine Blood Negative (Negative) Urine Nitrite Positive A (Negative) Urine Bilirubin Negative (Negative) Urine Urobilinogen Negative (Negative) Ur Leukocyte Esterase 1+ H (Negative) Urine WBC (Auto) 10-30 H (0-5) /hpf Urine RBC (Auto) 0-4 (0-4) /hpf U Hyaline Cast (Auto) 1-5 (0-5) /lpf U Epithel Cells (Auto) 0-5 (0-5) /lpf Urine Bacteria (Auto) 3+ H (Negative) SARS-CoV-2 Ag (Rapid) Negative (Negative) Administered Medications Discontinued Medications Sodium Chloride (Nss 1000ml) 1,000 mls @ 999 mls/hr IV .Q1H1M ONE Stop: 06/05/20 00:53 Last Infusion: 06/05/20 03:06 Dose: 0 mls/hr Documented by: [id number] Admin: 06/05/20 00:28 Dose: 999 mls/hr Documented by: [id number] Ceftriaxone Sodium (Rocephin) 2,000 mg in 70 mls @ 140 mls/hr IV NOW STA Stop: 06/05/20 01:47 Last Infusion: 06/05/20 03:06 Dose: 0 mls/hr Documented by: [id number] Admin: 06/05/20 01:37 Dose: 140 mls/hr Documented by: [id number] Sodium Chloride (Nss 1000ml) 1,000 mls @ 999 mls/hr IV .Q1H1M ONE Stop: 06/05/20 02:18 Last Infusion: 06/05/20 03:06 Dose: 0 mls/hr Documented by: [id number] Admin: 06/05/20 01:36 Dose: 999 mls/hr Documented by: [id number] Sodium Chloride (Nss 1000ml) 500 mls @ 999 mls/hr IV .Q31M ONE Stop: 06/05/20 01:48 Last Infusion: 06/05/20 03:06 Dose: 0 mls/hr Documented by: [id number] Admin: 06/05/20 01:37 Dose: 999 mls/hr Documented by: [id number] Discharge Plan Visit Data Chief Complaint: Illness Stated Complaint: FEELS COLD/LOSS OF APPETITE ED Provider: Jluis Doherty Discharge Problem: Sepsis, Acute UTI (urinary tract infection), Acidosis, lactic, Atrial fib/flutter, transient Patient Disposition: Admitted As Inpatient Discharge Instructions Interventions: ED Discharge Assessment Last Done: 06/05/20 03:03 Forms Stand Alone Forms: My [facility] Prescriptions Prescriptions: No Action glucosamine sulfate 500 mg capsule 500 mg PO DAILY RF: 0 Centrum Silver Men 300-600-300 mcg tablet 1 tab PO DAILY RF: 0 polyethylene glycol 3350 [Miralax] 17 gram/dose powder 17 gm PO DAILY RF: 0 meclizine 25 mg tablet 12.5 mg PO TID PRN (Reason: Vertigo) RF: 0 risedronate [Actonel] 35 mg tablet 35 mg PO WEEKLY RF: 0 celecoxib [Celebrex] 100 mg capsule 100 mg PO BID Qty: 180 RF: 0 cholecalciferol (vitamin D3) 1,000 unit capsule 1,000 units PO DAILY RF: 0 alfuzosin [Uroxatral] 10 mg tablet extended release 24 hr 10 mg PO DAILY Qty: 90 RF: 0 melatonin 3 mg capsule 3 mg PO HS PRN (Reason: Insomnia) RF: 0 nitroglycerin 0.4 mg tablet, sublingual 0.4 mg SL .DISSOLVE 1 TABLET UNDER THE TONGUE NEEDED FOR CHEST PAIN. PRN (Reason: Chest Pain) RF: 0 duloxetine 20 mg capsule,delayed release(DR/EC) 20 mg PO DAILY RF: 0 olmesartan 20 mg tablet 10 mg PO DAILY RF: 0 ascorbic acid (vitamin C) 1,000 mg Tablet 1 g PO DAILY RF: 0 aspirin [Aspir-Low] 81 mg Tablet,Delayed Release (Dr/Ec) 81 mg PO DAILY RF: 0 calcium carbonate-vitamin D3 [Calcium 600 + D(3)] 600 mg(1,500mg) -400 unit Tablet 1 tab PO BID RF: 0 omega 0-ugz-rik-fish oil [Fish Oil] 1,000 mg (120 mg-180 mg) Capsule 1 cap PO DAILY RF: 0 Referrals Referrals: [facility] [Primary Care Provider] - Discharge Problem: Sepsis Qualifiers: Sepsis type: sepsis due to unspecified organism Sepsis acute organ dysfunction status: with acute organ dysfunction Severe sepsis acute organ dysfunction type: unspecified Severe sepsis shock status: without septic shock Qualified Code(s): A41.9 - Sepsis, unspecified organism
[2020-06-05 00:37] LABS: Basophils # (auto) 0.01 K/uL (0-0.2); Basophils % (auto) 0.1 %; Eosinophils # (auto) 0.15 K/uL (0-0.5); Eosinophils % (auto) 1.6 %; Hematocrit (blood only) 33.8 % (42-52); Hemoglobin 11.5 g/dL (14.0-18.0); Immature Granulocytes # (auto) 0.01 K/uL (0.00-0.02); Immature Granulocytes % (auto) 0.1 %; Lymphocytes # (auto) 1.28 K/uL (1.2-3.4); Lymphocytes % (auto) 13.5 %; Mean Corpuscular Hemoglobin 35.2 pg (25-34); Mean Corpuscular Volume 103.4 fL (80-100); Mean Platelet Volume 10.4 fL (7.4-10.4); Monocytes # (auto) 0.89 K/uL (0.11-0.59); Monocytes % (auto) 9.4 %; Neutrophils # (auto) 7.11 K/uL (1.4-6.5); Neutrophils % (auto) 75.3 %; Platelet Count 160 K/uL (130-400); RDW Coefficient of Variation 12.3 % (11.5-14.5); RDW Standard Deviation 46.5 fL (36.4-46.3); Red Blood Count 3.27 M/uL (4.7-6.1); White Blood Count 9.45 K/uL (4.8-10.8)
[2020-06-05 00:53] LABS: INR 1.1 (0.9-1.1); Prothrombin Time 11.3 Seconds (9.0-12.0)
[2020-06-05 00:55] LABS: Alanine Aminotransferase 73 U/L (12-78); Albumin Level 3.1 gm/dl (3.4-5.0); Aspartate Aminotransferase 73 U/L (15-37); BUN Creatinine Ratio 29.4 (10-20); Bilirubin Direct 0.2 mg/dl (0-0.2); Blood Urea Nitrogen 28 mg/dl (7-18); Calcium 9.7 mg/dl (8.5-10.1); Carbon Dioxide 27 mmol/L (21-32); Chloride 106 mmol/L (98-107); Creatinine Clr Calc Pharmacy 61.6 ml/min; Est GFR (African American) 84.9; Est GFR (Non-African American) 73.2; Glucose 124 mg/dl (70-99); Magnesium 1.7 mg/dl (1.8-2.4); Potassium 4.6 mmol/L (3.5-5.1); Sodium 139 mmol/L (136-145)
[2020-06-05 00:59] LABS: Alkaline Phosphatase 85 U/L (45-117); Bilirubin,Total 0.6 mg/dl (0.2-1); Total Protein 7.1 gm/dl (6.4-8.2); Troponin I < 0.015 ng/ml (0-0.045)
[2020-06-05 01:02] LABS: Appearance Urine Cloudy (Clear); Bacteria Urine Automated 3+ (Negative); Bilirubin Urine Negative (Negative); Blood Urine Negative (Negative); Color Urine Yellow; Epithelial Cell Urine Auto 0-5 /lpf (0-5); Glucose Urine UA Negative (Negative); Ketones Urine Negative (Negative); Leukocyte Esterase Urine 1+ (Negative); Nitrite Urine Positive (Negative); Protein Urine Negative (Negative); RBC Urine Automated 0-4 /hpf (0-4); Specific Gravity Urine 1.017 (1.000-1.030); Urobilinogen Urine Negative (Negative); pH Urine 8.5 (4.5-7.5)
[2020-06-05] MEDS ORDERED: SODIUM CHLORIDE 0.9% 1000ML 500 ML IV ONE (01:18)
[2020-06-05] MEDS ORDERED: SODIUM CHLORIDE 0.9% 1000ML 1,000 ML IV ONE (01:18)
[2020-06-05] MEDS ORDERED: cefTRIAXone SODIUM 2,000 MG/70 ML BAG IV STA (01:18)
--- NOTE | 2020-06-05 02:27 | History & Physical Report ---
Date of Service June 05, 2020 Assessment & Plan (1) Sepsis due to urinary tract infection: Given 2.5 L of normal saline in the ED. Continue ceftriaxone 1 g IV daily begun in the ED. Follow urine culture and sensitivities. Follow blood culture and sensitivities. Placed on NSS + KCl 20 mEq at 80 mils per hour Zofran 4 mg IV every 6 hours as needed Present on Admission?: Yes (2) Atrial fib/flutter, transient: Transient A. fib flutter/CAD Continue aspirin 81 mg daily, olmesartan 10 mg daily, and nitroglycerin sublingual as needed Improved with IV fluid hydration as noted above. Self-limited in the ED. Admit to monitored bed Give magnesium sulfate 2 g IV x1 now NSS + KCl 20 mEq at 80 mils per hour Repeat laboratories in a.m. Present on Admission?: Yes (3) Coronary artery disease: See above Present on Admission?: Yes (4) Hyperlipidemia: Continue omega-3 fish oil 1 capsule daily Present on Admission?: Yes (5) Hx of prostatic malignancy: Continue alfuzosin 10 mg p.o. daily. Present on Admission?: Yes History of Present Illness Chief Complaint: The patient is referred from the [facility] at [facility] for assessment of rigors and chills, with increased urination frequency and urgency. Primary Care Provider: [facility] The patient is an 84-year-old male resident of the [facility] of [facility], with a past medical history including coronary disease, right total shoulder arthroplasty, bilateral hip replacements, stented coronary artery, RLS, prostate cancer, lumbar pain, osteoporosis, and hyperlipidemia. He presents to the emergency department with symptoms of increased urine for urinary frequency and urgency over the past couple days, rigors and chills, and reports that he has had generalized achiness for a few months. In the emergency department the patient was noted on monitor by ED staff to be in episodic atrial flutter, it was self-limited, and seemed to improve with the 2 and half liters of normal saline he was given. Significant laboratories included: Hemoglobin 11.5, glucose 124, lactate 2.9, magnesium 1.7, AST 73, albumin 3.1 and an abnormal urinalysis. He was noted to be SARSCoV-2 Ag (Rapid) negative in the ED. Allergies Allergy/AdvReac Type Severity Reaction Status Date / Time Iodinated Contrast Media Allergy Intermediate " Feels Verified 06/05/20 00:11 [Iodinated Contrast- Oral eliza hot and IV Dye] and painful" perflutren Allergy Unknown BODY GOT Verified 06/05/20 00:11 HOT AND BACK SPASMS propylene glycol Allergy Unknown BODY GOT Verified 06/05/20 00:11 HOT AND BACK SPASMS ragweed pollen Allergy Unknown UNKNOWN Verified 06/05/20 00:11 SANJAY Inhibitors AdvReac Cough Verified 06/05/20 00:11 Home Medications Medication Instructions Recorded Confirmed Type glucosamine sulfate 500 mg capsule 500 mg PO DAILY cap 12/22/18 06/05/20 History sfuphwli-maa-hvmsn acid 300 1 tab PO DAILY 12/22/18 06/05/20 History mcg-lycopene 600 mcg-lutein 300 mcg tablet polyethylene glycol 3350 17 17 gm PO DAILY 12/22/18 06/05/20 History gram/dose oral powder cholecalciferol (vitamin D3) 25 1,000 units PO DAILY 02/24/19 06/05/20 History mcg (1,000 unit) capsule meclizine 25 mg tablet 12.5 mg PO TID PRN tab 02/24/19 06/05/20 History risedronate 35 mg tablet 35 mg PO WEEKLY tab 02/24/19 06/05/20 History celecoxib 100 mg capsule 100 mg PO BID #180 cap 03/28/19 06/05/20 Rx alfuzosin 10 mg tablet,extended 10 mg PO DAILY #90 tab 09/29/19 06/05/20 Rx release 24 hr melatonin 3 mg capsule 3 mg PO HS PRN 10/19/19 06/05/20 History nitroglycerin 0.4 mg sublingual 0.4 mg SL .DISSOLVE 1 TABLET UNDER 10/19/19 06/05/20 History tablet THE TONGUE NEEDED FOR CHEST PAIN. PRN ascorbic acid (vitamin C) 1 g PO DAILY 06/05/20 06/05/20 History aspirin [Aspir-Low] 81 mg PO DAILY 06/05/20 06/05/20 History calcium carbonate-vitamin D3 1 tab PO BID 06/05/20 06/05/20 History [Calcium 600 + D(3)] duloxetine 20 mg PO DAILY 06/05/20 06/05/20 History olmesartan 10 mg PO DAILY 06/05/20 06/05/20 History omega 9-wov-ufd-fish oil [Fish Oil] 1 cap PO DAILY 06/05/20 06/05/20 History Past Med/Surg History Medical History (Updated 06/05/20 @ 03:31 by Neil Carias MD) Coronary artery disease FH: bilateral hip replacements Hip pain, bilateral Hx of prostatic malignancy Hyperlipidemia Lumbar pain Osteoarthritis Osteoporosis Restless leg syndrome Shoulder pain, bilateral Surgical History H/O heart artery stent History of arthroplasty of right shoulder Family History Father Cardiac disorder Mother Cardiac disorder Social History Smoking Status: Never smoker Hx Alcohol Use: No Hx Substance Use: No Communication Ability: Effective Visual Impairment: No Limitations Hearing Ability: Hard of Hearing 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 Supervisor Required: No Beliefs That Will Affect Care: None Current Living Situation Comment: [place] current occupational status: retired Feels Safe at Home: Yes Review of Systems Review of Systems: The patient denies chest pain, palpitations, shortness of breath, dyspnea on exertion, cough, lower extremity swelling, sore throat, sweats, nausea, vomiting, diarrhea , constipation, abdominal pain, pelvic pain, blood in urine or stool, lightheadedness, dizziness, headache, memory loss, loss of consciousness, rash, abnormal bruising or bleeding, imbalance, focal weakness, numbness or tingling in arms or legs, neck pain, or night sweats. The review of systems is otherwise negative other than for that already noted above, and at least 10 systems have been reviewed. Physical Exam Physical Exam: The patient is awake, alert and oriented 3, well developed and well nourished, normocephalic and atraumatic, lying in bed and in no acute distress. HEENT--PERRL, EOMI, mucous membranes and oropharynx dry. Neck--supple. No JVD. No bruits. Thyroid normal, trachea midline, no adenopathy. Heart--normal S1 and S2. No murmurs, rubs or gallops. Lungs--clear bilaterally, no respiratory distress, no accessory muscle use. Abdomen--normal bowel sounds and soft. Nontender. Nondistended. Extremities--no cyanosis or clubbing. No edema. Dermatologic--normal skin turgor, normal color, no abnormal lymph nodes, no rash. Neurologic--cranial nerves II through XII grossly intact. Rheumatologic--normal range of motion. Psychiatric--normal affect. Results & Data Results & Data ([facility]) Vital Signs (Past 12 Hours) Vital Signs Temp Pulse Pulse Resp BP BP Pulse Ox 06/05/20 00:30 90 16 132/74 100 06/04/20 23:42 97.3 F L 90 16 179/90 H 99 Laboratory Results Laboratory Results WBC 9.45 K/uL (4.8-10.8) 06/05/20 00:17 RBC 3.27 M/uL (4.7-6.1) L 06/05/20 00:17 Hgb 11.5 g/dL (14.0-18.0) L 06/05/20 00:17 Hct 33.8 % (42-52) L 06/05/20 00:17 MCV 103.4 fL (80-100) H 06/05/20 00:17 MCH 35.2 pg (25-34) H 06/05/20 00:17 MCHC 34.0 g/dL (32-36) 06/05/20 00:17 RDW Std Deviation 46.5 fL (36.4-46.3) H 06/05/20 00:17 RDW Coeff of Saeed 12.3 % (11.5-14.5) 06/05/20 00:17 Plt Count 160 K/uL (130-400) 06/05/20 00:17 MPV 10.4 fL (7.4-10.4) 06/05/20 00:17 Immature Gran % (Auto) 0.1 % 06/05/20 00:17 Neut % (Auto) 75.3 % 06/05/20 00:17 Lymph % (Auto) 13.5 % 06/05/20 00:17 Rice % (Auto) 9.4 % 06/05/20 00:17 Eos % (Auto) 1.6 % 06/05/20 00:17 Baso % (Auto) 0.1 % 06/05/20 00:17 Neut # (Auto) 7.11 K/uL (1.4-6.5) H 06/05/20 00:17 Lymph # (Auto) 1.28 K/uL (1.2-3.4) 06/05/20 00:17 Rice # (Auto) 0.89 K/uL (0.11-0.59) H 06/05/20 00:17 Eos # (Auto) 0.15 K/uL (0-0.5) 06/05/20 00:17 Baso # (Auto) 0.01 K/uL (0-0.2) 06/05/20 00:17 Immature Gran # (Auto) 0.01 K/uL (0.00-0.02) 06/05/20 00:17 PT 11.3 Seconds (9.0-12.0) 06/05/20 00:17 INR 1.1 (0.9-1.1) 06/05/20 00:17 Sodium 139 mmol/L (136-145) 06/05/20 00:17 Potassium 4.6 mmol/L (3.5-5.1) 06/05/20 00:17 Chloride 106 mmol/L (98-107) 06/05/20 00:17 Carbon Dioxide 27 mmol/L (21-32) 06/05/20 00:17 Anion Gap 6.0 (3-11) 06/05/20 00:17 BUN 28 mg/dl (7-18) H 06/05/20 00:17 Creatinine 0.95 mg/dl (0.6-1.4) 06/05/20 00:17 Est Cr Clr Drug Dosing 61.6 ml/min 06/05/20 00:17 Est GFR ( Amer) 84.9 06/05/20 00:17 Est GFR (Non-Af Amer) 73.2 06/05/20 00:17 BUN/Creatinine Ratio 29.4 (10-20) H 06/05/20 00:17 Glucose 124 mg/dl (70-99) H 06/05/20 00:17 Lactate 2.9 mmol/L (0.4-2.0) H* 06/05/20 00:17 Calcium 9.7 mg/dl (8.5-10.1) 06/05/20 00:17 Magnesium 1.7 mg/dl (1.8-2.4) L 06/05/20 00:17 Total Bilirubin 0.6 mg/dl (0.2-1) 06/05/20 00:17 Direct Bilirubin 0.2 mg/dl (0-0.2) 06/05/20 00:17 AST 73 U/L (15-37) H 06/05/20 00:17 ALT 73 U/L (12-78) 06/05/20 00:17 Alkaline Phosphatase 85 U/L (45-117) 06/05/20 00:17 Troponin I < 0.015 ng/ml (0-0.045) 06/05/20 00:17 Total Protein 7.1 gm/dl (6.4-8.2) 06/05/20 00:17 Albumin 3.1 gm/dl (3.4-5.0) L 06/05/20 00:17 Urine Color Yellow 06/05/20 00:55 Urine Appearance Cloudy (Clear) A 06/05/20 00:55 Urine pH 8.5 (4.5-7.5) H 06/05/20 00:55 Ur Specific [place] 1.017 (1.000-1.030) 06/05/20 00:55 Urine Protein Negative (Negative) 06/05/20 00:55 Urine Glucose (UA) Negative (Negative) 06/05/20 00:55 Urine Ketones Negative (Negative) 06/05/20 00:55 Urine Blood Negative (Negative) 06/05/20 00:55 Urine Nitrite Positive (Negative) A 06/05/20 00:55 Urine Bilirubin Negative (Negative) 06/05/20 00:55 Urine Urobilinogen Negative (Negative) 06/05/20 00:55 Ur Leukocyte Esterase 1+ (Negative) H 06/05/20 00:55 Urine WBC (Auto) 10-30 /hpf (0-5) H 06/05/20 00:55 Urine RBC (Auto) 0-4 /hpf (0-4) 06/05/20 00:55 U Hyaline Cast (Auto) 1-5 /lpf (0-5) 06/05/20 00:55 U Epithel Cells (Auto) 0-5 /lpf (0-5) 06/05/20 00:55 Urine Bacteria (Auto) 3+ (Negative) H 06/05/20 00:55 SARS-CoV-2 Ag (Rapid) Negative (Negative) 06/05/20 Unknown Code Status & VTE Plan Code Status Full code VTE Prophylaxis Plan VTE Prophylaxis will be ordered: Yes PG Care Time/CCT Total # of Minutes Spent Total Time Spent with Patient: Total time spent is greater than 50% in coordination of care (as documented) at patient's floor/unit and/or counseling patient: Coding Level of Care Code 27870 Initial Inpt Care Lvl 3 Diagnoses Sepsis due to urinary tract infection A41.9; N39.0 Atrial fib/flutter, transient Coronary artery disease I25.10 Hyperlipidemia E78.5 Hx of prostatic malignancy Z85.46
[2020-06-05] MEDS ORDERED: MAGNESIUM SULFATE / D5W 1 GM/100 ML BAG IV STA (03:35)
[2020-06-05] MEDS ORDERED: ACETAMINOPHEN 325 MG TAB PO PRN (04:47)
[2020-06-05] MEDS ORDERED: MECLIZINE HCL 25 MG TAB PO PRN (04:47)
[2020-06-05] MEDS ORDERED: ONDANSETRON INJ 2 MG/ML 2 ML VIAL IV PRN (04:47)
[2020-06-05] MEDS ORDERED: NITROGLYCERIN SL 0.4 MG/TAB TAB SL PRN ×2 (04:47)
[2020-06-05] MEDS ORDERED: MELATONIN 3 MG TAB PO PRN (05:04)
[2020-06-05] MEDS: MAGNESIUM SULFATE / D5W 1 GM/100 ML BAG IV SCH ×2 (06:13→08:18)
[2020-06-05] MEDS: ENOXAPARIN INJ 30 MG/0.3 ML SYR SQ SCH (06:13)
[2020-06-05] MEDS: NSS + 20MEQ KCL 20 MEQ/1,000 ML BAG IV SCH ×2 (06:14→20:53)
--- NOTE | 2020-06-05 06:49 | XRay Report ---
XR chest 1V portable HISTORY: 84 years-old Male Sepsis acute sepsis COMPARISON: Chest radiograph 06/18/2017 TECHNIQUE: Portable AP view of the chest FINDINGS: Calcified hilar lymph nodes. Cardiac silhouette is normal in size. No pneumothorax, pleural effusion, airspace consolidation or overt pulmonary edema. Unchanged calcified granuloma of the left midlung, 6 mm. Severe left glenohumeral osteoarthritis. Ossified bodies project over the left proximal humeral diaphysis. Right shoulder arthroplasty. Demineralized appearance of the bones with degenerative fournier ges of the spine. IMPRESSION: No acute process. ACT 112: Negative or not required by law. The above report was generated using voice recognition software. It may contain grammatical, syntax o r spelling errors. Electronically signed by: Bonifacio Garcia M.D. 06/05/2020 6:48 AM
[2020-06-05] MEDS: CALCIUM 600MG + VIT D 400 IU TAB PO SCH ×2 (08:20→20:51)
[2020-06-05] MEDS: OMEGA-3 (PURIFIED FISH OIL) 1 GM CAP PO SCH (08:21)
[2020-06-05] MEDS: CEROVITE ADV FORMULA TAB PO SCH (08:22)
[2020-06-05] MEDS: ASCORBIC ACID 500 MG TAB PO SCH (08:22)
[2020-06-05] MEDS: OLMESARTAN MEDOXOMIL 20 MG TAB PO SCH (08:22)
[2020-06-05] MEDS: DULoxetine HCL 20 MG CAP PO SCH (08:23)
[2020-06-05] MEDS: ASPIRIN 81 MG ECTAB PO SCH (08:23)
[2020-06-05] MEDS: CHOLECALCIFEROL 1,000 UNITS 25 MCG TAB PO SCH (08:23)
[2020-06-05] MEDS: POLYETHYLENE (MIRALAX) 17 GM PACK PO SCH (08:24)
[2020-06-05] MEDS: ALFUZOSIN HCL 10 MG TAB PO SCH (08:24)
[2020-06-05] MEDS: GLUCOSAMINE SULFATE 500 MG CAP PO SCH (08:24)
--- NOTE | 2020-06-05 14:17 | History & Physical Bridge Note ---
Date of Service June 05, 2020 History & Physical Bridge Note I have examined the patient, reviewed the History & Physical and in the interval since the performance of the History & Physical I have noted the following changes of clinical significance: no changes noted Doing well this morning. Very responsive and pleasant. No major pain. Already back in sinus rhythm. - Continue ceftriaxone while we await cultures - For afib, will need to discuss anticoagulation with the patient prior to discharge and consider beta-mikki if needed. - Will speak with Dr. Kelley who is his home crm consultant. He and his is not sure if he has ever had afib or not.
[2020-06-06] MEDS: cefTRIAXone SODIUM 2,000 MG in DEXTROSE 5% 50 ML IV SCH (01:20)
--- NOTE | 2020-06-06 04:47 | Electrocardiogram Report ---
Test Reason : Blood Pressure : / mmHG Vent. Rate : 093 BPM Atrial Rate : 093 BPM P-R Int : 150 ms QRS Dur : 076 ms QT Int : 332 ms P-R-T Axes : 000 -08 047 degrees QTc Int : 412 ms Normal sinus rhythm Normal ECG When compared with ECG of 18-JUN-2017 02:35, TN interval has decreased Nonspecific T wave abnormality no longer evident in Inferior leads Confirmed by Je Dye ([id number]) on 06/06/2020 4:47:12 AM Referred By: [facility] Confirmed By:Je Dye
--- NOTE | 2020-06-06 04:48 | Electrocardiogram Report ---
Test Reason : Blood Pressure : / mmHG Vent. Rate : 135 BPM Atrial Rate : 150 BPM P-R Int : 000 ms QRS Dur : 072 ms QT Int : 326 ms P-R-T Axes : 000 -18 -01 degrees QTc Int : 489 ms Atrial fibrillation with rapid ventricular response Nonspecific ST abnormality Abnormal ECG When compared with ECG of 05-JUN-2020 00:09, Atrial fibrillation has replaced Sinus rhythm Confirmed by Je Dye ([id number]) on 06/06/2020 4:48:17 AM Referred By: [facility] Confirmed By:Je Dye
[2020-06-06] MEDS: ENOXAPARIN INJ 30 MG/0.3 ML SYR SQ SCH (05:44)
[2020-06-06] MEDS: CEROVITE ADV FORMULA TAB PO SCH (08:52)
[2020-06-06] MEDS: ASCORBIC ACID 500 MG TAB PO SCH (08:52)
[2020-06-06] MEDS: CALCIUM 600MG + VIT D 400 IU TAB PO SCH ×2 (08:52→21:27)
[2020-06-06] MEDS: OLMESARTAN MEDOXOMIL 20 MG TAB PO SCH (08:53)
[2020-06-06] MEDS: DULoxetine HCL 20 MG CAP PO SCH (08:56)
[2020-06-06] MEDS: ASPIRIN 81 MG ECTAB PO SCH (08:57)
[2020-06-06] MEDS: POLYETHYLENE (MIRALAX) 17 GM PACK PO SCH (08:57)
[2020-06-06] MEDS: ALFUZOSIN HCL 10 MG TAB PO SCH (08:57)
[2020-06-06] MEDS: CHOLECALCIFEROL 1,000 UNITS 25 MCG TAB PO SCH (08:57)
[2020-06-06] MEDS: OMEGA-3 (PURIFIED FISH OIL) 1 GM CAP PO SCH (08:58)
[2020-06-06] MEDS: GLUCOSAMINE SULFATE 500 MG CAP PO SCH (08:58)
[2020-06-06] MEDS: NSS + 20MEQ KCL 20 MEQ/1,000 ML BAG IV SCH ×2 (08:59→20:54)
[2020-06-06 09:03] LABS: Hematocrit (blood only) 30.3 % (42-52); Hemoglobin 10.1 g/dL (14.0-18.0); Mean Corpuscular Hemoglobin 34.7 pg (25-34); Mean Corpuscular Hgb Conc 33.3 g/dL (32-36); Mean Corpuscular Volume 104.1 fL (80-100); Mean Platelet Volume 10.1 fL (7.4-10.4); Platelet Count 129 K/uL (130-400); RDW Coefficient of Variation 12.6 % (11.5-14.5); RDW Standard Deviation 48.1 fL (36.4-46.3); Red Blood Count 2.91 M/uL (4.7-6.1); White Blood Count 5.29 K/uL (4.8-10.8)
[2020-06-06 09:36] LABS: BUN Creatinine Ratio 28.1 (10-20); Calcium 8.7 mg/dl (8.5-10.1); Creatinine Clr Calc Pharmacy 84.4 ml/min; Est GFR (African American) 104.9; Est GFR (Non-African American) 90.5; Magnesium 1.8 mg/dl (1.8-2.4); Phosphorus 3.1 mg/dl (2.5-4.9); Potassium 4.3 mmol/L (3.5-5.1)
--- NOTE | 2020-06-06 22:38 | Hospitalist Progress Note ---
Date of Service June 06, 2020 Assessment & Plan (1) Sepsis due to urinary tract infection: Given 2.5 L of normal saline in the ED. Continue ceftriaxone 1 g IV daily begun in the ED. Follow urine culture and sensitivities. Follow blood culture and sensitivities. will continue with his antibiotics, awaiting cultures. Zofran 4 mg IV every 6 hours as needed (2) Atrial fib/flutter, transient: Transient A. fib flutter/CAD Continue aspirin 81 mg daily, olmesartan 10 mg daily, and nitroglycerin sublingual as needed Improved with IV fluid hydration as noted above. Self-limited in the ED. Admit to monitored bed HR appears better. will monitor his HR for now. (3) Coronary artery disease: See above (4) Hyperlipidemia: Continue omega-3 fish oil 1 capsule daily (5) Hx of prostatic malignancy: Continue alfuzosin 10 mg p.o. daily. Admission and Anticipated Discharge Date Admission Date: June 05, 2020 Subjective Patient reports feeling well. He has no new complaints at this time. Review of Systems Review of Systems: The patient denies chest pain, palpitations, shortness of breath, dyspnea on exertion, cough, lower extremity swelling, sore throat, sweats, nausea, vomiting, diarrhea , constipation, abdominal pain, pelvic pain, blood in urine or stool, lightheadedness, dizziness, headache, memory loss, loss of consciousness, rash, abnormal bruising or bleeding, imbalance, focal weakness, numbness or tingling in arms or legs, neck pain, or night sweats. The review of systems is otherwise negative other than for that already noted above, and at least 10 systems have been reviewed. Physical Exam Physical Exam: The patient is karla in bed and in no acute distress. HEENT--PERRL, EOMI, mucous membranes and oropharynx dry. Neck--supple. No JVD. No bruits. Thyroid normal, trachea midline, no adeno patria. Heart--normal S1 and S2. No murmurs, rubs or gallops. Lungs--clear bilaterally, no respiratory distress, no accessory muscle use. Abdomen--normal bowel sounds and soft. Nontender. Nondistended. Extremities--no cyanosis or clubbing. No edema. Dermatologic--normal skin turgor, normal color, no abnormal lymph nodes, no rash. Neurologic--cranial nerves II through XII grossly intact. Rheumatologic--normal range of motion. Psychiatric--normal affect. AAO x3. Results & Data Results & Data ([facility]) Vital Signs (Past 12 Hours) Vital Signs Temp Pulse Resp BP Pulse Ox 06/06/20 19:00 36.7 C 76 20 159/80 H 96 06/06/20 15:00 36.7 C 74 18 152/76 H 98 06/06/20 11:26 36.7 C 74 18 150/77 H 97 PG Care Time/CCT Total # of Minutes Spent Total Time Spent with Patient: Total time spent is greater than 50% in coordination of care (as documented) at patient's floor/unit and/or counseling patient: Coding Level of Care Code 85473 Subseq Hosp Care Lvl 3 Diagnoses Sepsis due to urinary tract infection A41.9; N39.0 Atrial fib/flutter, transient Coronary artery disease I25.10 Hyperlipidemia E78.5 Hx of prostatic malignancy Z85.46 Time Spent (min) 35
[2020-06-07] MEDS ORDERED: CEFDINIR 300 MG CAP PO SCH
[2020-06-07] MEDS: cefTRIAXone SODIUM 2,000 MG in DEXTROSE 5% 50 ML IV SCH (01:28)
[2020-06-07] MEDS: ENOXAPARIN INJ 30 MG/0.3 ML SYR SQ SCH (06:32)
[2020-06-07 08:27] LABS: Basophils # (auto) 0.01 K/uL (0-0.2); Basophils % (auto) 0.2 %; Eosinophils # (auto) 0.27 K/uL (0-0.5); Hematocrit (blood only) 30.3 % (42-52); Hemoglobin 10.2 g/dL (14.0-18.0); Lymphocytes # (auto) 1.43 K/uL (1.2-3.4); Lymphocytes % (auto) 26.3 %; Mean Corpuscular Hemoglobin 34.9 pg (25-34); Mean Corpuscular Hgb Conc 33.7 g/dL (32-36); Mean Corpuscular Volume 103.8 fL (80-100); Mean Platelet Volume 10.1 fL (7.4-10.4); Monocytes # (auto) 0.73 K/uL (0.11-0.59); Monocytes % (auto) 13.4 %; Neutrophils # (auto) 2.99 K/uL (1.4-6.5); Neutrophils % (auto) 55.1 %; Platelet Count 132 K/uL (130-400); RDW Coefficient of Variation 12.2 % (11.5-14.5); RDW Standard Deviation 46.6 fL (36.4-46.3); Red Blood Count 2.92 M/uL (4.7-6.1); White Blood Count 5.43 K/uL (4.8-10.8)
[2020-06-07] MEDS: NSS + 20MEQ KCL 20 MEQ/1,000 ML BAG IV SCH (09:23)
[2020-06-07] MEDS: OLMESARTAN MEDOXOMIL 20 MG TAB PO SCH (09:28)
[2020-06-07] MEDS: DULoxetine HCL 20 MG CAP PO SCH (09:31)
[2020-06-07] MEDS: POLYETHYLENE (MIRALAX) 17 GM PACK PO SCH (09:32)
[2020-06-07] MEDS: ASPIRIN 81 MG ECTAB PO SCH (09:32)
[2020-06-07] MEDS: GLUCOSAMINE SULFATE 500 MG CAP PO SCH (09:32)
[2020-06-07] MEDS: ALFUZOSIN HCL 10 MG TAB PO SCH (09:33)
[2020-06-07] MEDS: OMEGA-3 (PURIFIED FISH OIL) 1 GM CAP PO SCH (09:33)
[2020-06-07] MEDS: CEROVITE ADV FORMULA TAB PO SCH (09:33)
[2020-06-07] MEDS: ASCORBIC ACID 500 MG TAB PO SCH (09:34)
[2020-06-07] MEDS: CHOLECALCIFEROL 1,000 UNITS 25 MCG TAB PO SCH (09:34)
[2020-06-07 09:39] LABS: BUN Creatinine Ratio 22.1 (10-20); Calcium 8.8 mg/dl (8.5-10.1); Creatinine Clr Calc Pharmacy 90.2 ml/min; Est GFR (African American) 104.2; Est GFR (Non-African American) 89.9; Potassium 4.3 mmol/L (3.5-5.1)
[2020-06-07 09:40] LABS: Magnesium 1.8 mg/dl (1.8-2.4); Phosphorus 3.8 mg/dl (2.5-4.9)
[2020-06-07] MEDS: CALCIUM 600MG + VIT D 400 IU TAB PO SCH (10:14)
--- NOTE | 2020-06-11 07:49 | Discharge Summary ---
Date of Service June 07, 2020 Admission HPI Per Admitting Provider The patient is an 84-year-old male resident of the [facility], with a past medical history including coronary disease, right total shoulder arthroplasty, bilateral hip replacements, stented coronary artery, RLS, prostate cancer, lumbar pain, osteoporosis, and hyperlipidemia. He presents to the emergency department with symptoms of increased urine for urinary frequency and urgency over the past couple days, rigors and chills, and reports that he has had generalized achiness for a few months. In the emergency department the patient was noted on monitor by ED staff to be in episodic atrial flutter, it was self-limited, and seemed to improve with the 2 and half liters of normal saline he was given. Significant laboratories included: Hemoglobin 11.5, glucose 124, lactate 2.9, magnesium 1.7, AST 73, albumin 3.1 and an abnormal urinalysis. He was noted to be SARSCoV-2 Ag (Rapid) negative in the ED. Principal Diagnosis sepsis due to UTI Discharge Exam The patient is karla in bed and in no acute distress. HEENT--PERRL, EOMI, mucous membranes and oropharynx dry. Neck--supple. No JVD. No bruits. Thyroid normal, trachea midline, no adenopathy. Heart--normal S1 and S2. No murmurs, rubs or gallops. Lungs--clear bilaterally, no respiratory distress, no accessory muscle use. Abdomen--normal bowel sounds and soft. Nontender. Nondistended. Extremities--no cyanosis or clubbing. No edema. Dermatologic--normal skin turgor, normal color, no abnormal lymph nodes, no rash. Neurologic--cranial nerves II through XII grossly intact. Rheumatologic--normal range of motion. Psychiatric--normal affect. AAO x3. Discharge Data Allergies Allergy/AdvReac Type Severity Reaction Status Date / Time Iodinated Contrast Media Allergy Intermediate " Feels Verified 06/05/20 00:11 [Iodinated Contrast- Oral eliza hot and IV Dye] and painful" perflutren Allergy Unknown BODY GOT Verified 06/05/20 00:11 HOT AND BACK SPASMS propylene glycol Allergy Unknown BODY GOT Verified 06/05/20 00:11 HOT AND BACK SPASMS ragweed pollen Allergy Unknown UNKNOWN Verified 06/05/20 00:11 SANJAY Inhibitors AdvReac Cough Verified 11/24/20 00:11 Consultations 06/05/20 01:19 ED Decision to Admit Stat 06/05/20 04:47 Consult Case Management - Discharge Planning Routine Hospital Course (1) Sepsis due to urinary tract infection: treated with ceftriaxone 1 g IV daily. cultures returned: citrobacter koseri. Ok to discharge on cephalosporin. (2) Atrial fib/flutter, transient: Transient A. fib flutter/CAD Continue aspirin 81 mg daily, olmesartan 10 mg daily, and nitroglycerin sublingual as needed Improved with IV fluid hydration as noted above. Self-limited in the ED. Admit to monitored bed HR appears better. (3) Coronary artery disease: See above (4) Hyperlipidemia: Continue omega-3 fish oil 1 capsule daily (5) Hx of prostatic malignancy: Continue alfuzosin 10 mg p.o. daily. Total Time Total Time Spent Total Time Spent (In Minutes): 32 Total Time Includes: Examination of the Patient, Discharge Planning and Medication Reconciliation Discharge Plan Discharge Items Patient Disposition: Home - Self-Care Reason For Visit: SEPSIS D/T UTI, ATRIAL FLUTTER Discharge Diagnosis: Sepsis/ UTI Activity: Resume your previous activity Non-emergency contact: Primary Care Provider Call non-emergency contact if: you have any medication questions Follow-up/Referrals: [facility]ks[facility] Blanca Abraham [Primary Care Provider] - Diet: Heart Healthy Addtl Attending Provider Instructions: You have been hospitalized for an acute medical problem. During your stay at [facility], we have made an effort to correct the problem that brought you to the hospital while keeping you as comfortable as possible. Medications were used to bring your condition under control and your discharge instructions will include directions for any medications you should take after leaving the hospital. Please make sure you see your Primary Care Provider as part of your follow up plan. Start first dose of antibiotic tonight after dinner. Pending Studies at Discharge: No Stand-Alone Forms: [facility], Smoking Cessation Medications and DC Order Prescriptions: New cefdinir 300 mg capsule 300 mg PO BID 11 Days Qty: 22 RF: 0 Continued glucosamine sulfate 500 mg capsule 500 mg PO DAILY RF: 0 Centrum Silver Men 300-600-300 mcg tablet 1 tab PO DAILY RF: 0 polyethylene glycol 3350 [Miralax] 17 gram/dose powder 17 gm PO DAILY RF: 0 meclizine 25 mg tablet 12.5 mg PO TID PRN (Reason: Vertigo) RF: 0 risedronate [Actonel] 35 mg tablet 35 mg PO WEEKLY RF: 0 celecoxib [Celebrex] 100 mg capsule 100 mg PO BID Qty: 180 RF: 0 cholecalciferol (vitamin D3) 1,000 unit capsule 1,000 units PO DAILY RF: 0 alfuzosin [Uroxatral] 10 mg tablet extended release 24 hr 10 mg PO DAILY Qty: 90 RF: 0 melatonin 3 mg capsule 3 mg PO HS PRN (Reason: Insomnia) RF: 0 nitroglycerin 0.4 mg tablet, sublingual 0.4 mg SL .DISSOLVE 1 TABLET UNDER THE TONGUE NEEDED FOR CHEST PAIN. PRN (Reason: Chest Pain) RF: 0 duloxetine 20 mg capsule,delayed release(DR/EC) 20 mg PO DAILY RF: 0 olmesartan 20 mg tablet 10 mg PO DAILY RF: 0 ascorbic acid (vitamin C) 1,000 mg Tablet 1 g PO DAILY RF: 0 aspirin 81 mg Tablet,Delayed Release (Dr/Ec) 81 mg PO DAILY RF: 0 calcium carbonate-vitamin D3 [Calcium 600 + D(3)] 600 mg(1,500mg) -400 unit Tablet 1 tab PO BID RF: 0 omega 1-ofn-sgk-fish oil [Fish Oil] 1,000 mg (120 mg-180 mg) Capsule 1 cap PO DAILY RF: 0 Discharge Orders: Discharge Order (Routine); Ordered 06/07/20 Ordered By: Kyler Zepeda Admission Data Admit Date/Time: 06/05/20 02:26 Attending Provider: Kyler Zepeda Admit Provider: Neil Carias Primary Care Provider: [facility] Other Providers: Emre Carbajal Other Interventions: Discharge Summary Assessment (RN) Last Done: 06/07/20 11:19 Coding Level of Care Code D/C Day Management >30 mins Diagnoses Sepsis due to urinary tract infection A41.9; N39.0 Atrial fib/flutter, transient Coronary artery disease I25.10 Hyperlipidemia E78.5 Hx of prostatic malignancy Z85.46
== END 2020-06-07 13:11 | disposition home or self-care (01) | DRG 872 ==
LOC: ED 23:29 → SUATTDRO 06-05 02:26 → 2W 06-05 02:26

== ENCOUNTER 2020-09-05 18:13 | Inpatient (IN) ==
[2020-09-05] MEDS ORDERED: METOPROLOL TARTRATE 1 MG/ML VIAL IV STA ×2 (18:33→20:25)
--- NOTE | 2020-09-05 18:38 | Emergency Department Note ---
Impression & Plan Atrial fibrillation with rapid ventricular response, Elevated troponin ED Provider Note INFORMANT: Patient ED PROVIDER(S): Jacques Bills MD CHIEF COMPLAINT: Chest pain PLAN: Disposition: Admitted Condition: Good Outpatient prescription management: none Referral: None MEDICAL DECISION MAKING: Patient presented with chest pain. He was found to be in rapid atrial fibrillation. Blood work was obtained. He was given IV Lopressor which helped control his rate. He was feeling better with this. Patient was given oral metoprolol and had Nitropaste applied. He had already taken aspirin. The patient's CBC and chemistry panel were unremarkable except a mild anemia. The patient did have mildly positive troponin. Consultation was made with the hospitalist service, Dr. Carvajal. Patient was admitted for further management. Triage Nursing notes reviewed and agree them. Vital Signs: reviewed and remarkable for tachycardia Differential diagnosis: Cardiac ischemia, aortic dissection, pulmonary embolism, pneumothorax, pneumonia, pericarditis, myocarditis, esophageal rupture, GERD, cholecystitis, pancreatitis, musculoskeletal, as well as other pathologies. Diagnostics interpreted by me: ECG: Twelve-lead ECG reveals rapid atrial fibrillation with rapid ventricular response at 135 bpm. There is no ST elevation or depression. Nonspecific ST. Normal axis and QRS. Cardiac Monitoring:Cardiac monitoring ordered by me: The patient was placed on continuous cardiac monitoring and observed. It revealed atrial fibrillation at 160 bpm. Imaging studies: Chest x-ray. Findings: A chest x-ray was performed and revealed no pneumothorax, effusion, infiltrate, pulmonary edema, free air under the diaph ragm, or wide mediastinum. Impression: No acute disease. Consultation(s): none HPI: The patient is a 84 year old male who presents to the Emergency Room with complaints of chest pain. This started 1700 this evening and is fluctuating. The patient also notes the following associated symptoms, palpitations, shortness of breath. The patient has taken 1 nitro and 4 baby aspirin for relieving factors. Current pain is rated as 5/10. Patient was found to be hypertensive and in rapid atrial fibrillation by EMS. He was transported to the ER for further management. The patient does have a history of CAD. Possibly a history of A. fib as well. Pt denies LOC, headache, fevers, chills, diaphoresis, visual changes, neck pain, breathing difficulties, nausea, vomiting, abdominal pain, back pain, melena, hematochezia, numbness, weakness, lymphadenopathy, rash, or other complaints. ROS: See above HPI for pertinent positives & negatives. A total of 10 systems reviewed and were otherwise negative. PAST MEDICAL HISTORY:See Below , hypertension, CAD PAST SURGICAL HISTORY:See Below, FAMILY HISTORY:See Below SOCIAL HISTORY:See Below, [facility] HOME MEDICATIONS:See Below ALLERGIES:See Below VITALS:See Below PHYSICAL EXAMINATION: GENERAL: Awake, alert, uncomfortable-appearing, in no distress HENT: Normocephalic, atraumatic. Oropharynx unremarkable. EYES: Normal conjunctiva. Sclera non-icteric. NECK: Inspection normal. Non-tender. Supple. No nuchal rigidity. FROM. No masses. RESPIRATORY: Clear to auscultation. No wheezes. No rales. Normal respiratory effort. CARDIAC: Tachycardic rate. Irregular rhythm. No murmurs. No rubs. Extremities warm and well perfused. Pulses equal. No JVD. GI: Soft, non-distended. No tenderness to palpation. No rebound or guarding. No masses. RECTAL: Deferred. MUSCULOSKELETAL: Atraumatic. Chest examination reveals no tenderness. The back is symmetrical on inspection without obvious abnormality. There is no CVA tenderness to palpation. No joint edema. LOWER EXTREMITIES: Calves are equal size bilaterally and non-tender. No edema. No discoloration. NEURO: Normal sensorium. No sensory or motor deficits noted. SKIN: No rash or jaundice noted. ED COURSE: [Critical Care:] I have personally spent greater than 25 minutes of critical care time in the direct management of this patient. This includes bedside care, interpretation of diagnostic studies, and testing, discussion with consultants, patient, and other required patient management activities. These minutes are in excess of all separately billable procedures. Jacques Bills MD Past Med/Surg History Medical History (Updated 09/06/20 @ 02:22 by Jacques Bills MD) Acidosis, lactic Atrial fib/flutter, transient Coronary artery disease FH: bilateral hip replacements Hip pain, bilateral Hx of prostatic malignancy Hyperlipidemia Lumbar pain Osteoarthritis Osteoporosis Restless leg syndrome Shoulder pain, bilateral Surgical History H/O heart artery stent History of arthroplasty of right shoulder Family History Father Cardiac disorder Mother Cardiac disorder Social History Smoking Status: Never smoker Hx Alcohol Use: No Hx Substance Use: No Preferred Language: Macedonian Communication Ability: Effective Visual Impairment: No Limitations Hearing Ability: Hard of Hearing Safety Assistant Required: No Beliefs That Will Affect Care: None marital status: Current Living Situation: Spouse and Personal Care Facility Current Living Situation Comment: [facility] current occupational status: retired How many Children do You have: 2 Other Information That Helps Us Care for You: No Feels Safe at Home: Yes Safety Concerns: Feels Safe At This Time Assistive Devices: Glasses, Hearing Aid - Left and Hearing Aid - Right Allergies Allergies Allergy/AdvReac Type Severity Reaction Status Date / Time Iodinated Contrast Media Allergy Intermediate " Feels Verified 09/05/20 21:17 [Iodinated Contrast- Oral eliza hot and IV Dye] and painful" perflutren Allergy Unknown BODY GOT Verified 06/05/20 00:11 HOT AND BACK SPASMS propylene glycol Allergy Unknown BODY GOT Verified 06/05/20 00:11 HOT AND BACK SPASMS ragweed pollen Allergy Unknown UNKNOWN Verified 09/05/20 21:17 SANJAY Inhibitors AdvReac Cough Verified 09/05/20 21:17 Home Meds Home Medications Medication Instructions Recorded Confirmed glucosamine sulfate 500 mg capsule 500 mg PO DAILY cap 12/22/18 09/05/20 [id number] acid 300 1 tab PO DAILY 12/22/18 09/05/20 mcg-lycopene 600 mcg-lutein 300 mcg tablet polyethylene glycol 3350 17 17 gm PO DAILY 12/22/18 09/05/20 gram/dose oral powder cholecalciferol (vitamin D3) 25 1,000 units PO DAILY 02/24/19 09/05/20 mcg (1,000 unit) capsule meclizine 25 mg tablet 12.5 mg PO TID PRN tab 02/24/19 09/05/20 risedronate 35 mg tablet 35 mg PO WEEKLY tab 02/24/19 06/05/20 melatonin 3 mg capsule 3 mg PO HS PRN 10/19/19 09/05/20 nitroglycerin 0.4 mg sublingual 0.4 mg SL DIRECTED PRN 10/19/19 09/05/20 tablet ascorbic acid (vitamin C) 1,000 mg PO DAILY 06/05/20 09/05/20 aspirin 81 mg PO DAILY 06/05/20 09/05/20 calcium carbonate-vitamin D3 0.5 tab PO BID 06/05/20 09/05/20 [Calcium 600 + D(3)] duloxetine 20 mg PO DAILY 06/05/20 09/05/20 olmesartan 10 mg PO DAILY 06/05/20 09/05/20 omega 5-[id number]-[id number]-fish oil [Fish Oil] 1 cap PO DAILY 06/05/20 09/05/20 acetaminophen 1,000 mg PO DIRECTED PRN 09/05/20 09/05/20 Previous Rx's Medication Instructions Recorded celecoxib 100 mg capsule 100 mg PO BID #180 cap 03/28/19 alfuzosin 10 mg tablet,extended 10 mg PO DAILY #90 tab 09/29/19 release 24 hr Results & Data (ED) Vital Signs Vital Signs - 24 hr 09/05/20 18:19 09/05/20 18:26 09/05/20 18:29 Temperature 36.7 C Temperature Source Oral Pulse Rate 136 H 125 H 130 H Pulse Rate from SpO2 Sensor Respiratory Rate 16 20 24 Respiratory Effort / Characteristics Non-Labored Respiratory Depth Normal Blood Pressure 166/107 H 166/107 H Blood Pressure Mean 126 126 Blood Pressure Position Sitting Pulse Oximetry 100 Oxygen Delivery Method Room Air Sepsis Recent Fever Within 48 Hours No Sepsis New/Unexplained Change in Mental Status No Sepsis Action Taken by Nursing Physician Notified 09/05/20 18:30 09/05/20 18:40 09/05/20 18:50 Temperature Temperature Source Pulse Rate 133 H 122 H 134 H Pulse Rate from SpO2 Sensor 128 H 130 H Respiratory Rate 21 22 15 Respiratory Effort / Characteristics Respiratory Depth Blood Pressure Blood Pressure Mean Blood Pressure Position Pulse Oximetry 100 100 Oxygen Delivery Method Sepsis Recent Fever Within 48 Hours Sepsis New/Unexplained Change in Mental Status Sepsis Action Taken by Nursing 09/05/20 19:00 09/05/20 19:10 09/05/20 19:14 Temperature Temperature Source Pulse Rate 130 H 123 H 126 H Pulse Rate from SpO2 Sensor 119 H 124 H 127 H Respiratory Rate 25 H 20 21 Respiratory Effort / Characteristics Respiratory Depth Blood Pressure 147/88 H Blood Pressure Mean 107 Blood Pressure Position Pulse Oximetry 99 100 100 Oxygen Delivery Method Sepsis Recent Fever Within 48 Hours Sepsis New/Unexplained Change in Mental Status Sepsis Action Taken by Nursing 09/05/20 19:15 09/05/20 19:20 09/05/20 19:30 Temperature Temperature Source Pulse Rate 120 H 119 H 103 H Pulse Rate from SpO2 Sensor 129 H 102 H 103 H Respiratory Rate 27 H 21 18 Respiratory Effort / Characteristics Respiratory Depth Blood Pressure Blood Pressure Mean Blood Pressure Position Pulse Oximetry 100 98 100 Oxygen Delivery Method Sepsis Recent Fever Within 48 Hours Sepsis New/Unexplained Change in Mental Status Sepsis Action Taken by Nursing 09/05/20 19:31 09/05/20 19:32 09/05/20 19:40 Temperature Temperature Source Pulse Rate 97 H 99 H 104 H Pulse Rate from SpO2 Sensor 95 H 105 H Respiratory Rate 16 18 19 Respiratory Effort / Characteristics Respiratory Depth Blood Pressure 134/86 Blood Pressure Mean 102 Blood Pressure Position Pulse Oximetry 100 100 Oxygen Delivery Method Sepsis Recent Fever Within 48 Hours Sepsis New/Unexplained Change in Mental Status Sepsis Action Taken by Nursing 09/05/20 19:50 09/05/20 20:00 09/05/20 20:01 Temperature Temperature Source Pulse Rate 112 H 101 H 106 H Pulse Rate from SpO2 Sensor Respiratory Rate 29 H 23 22 Respiratory Effort / Characteristics Respiratory Depth Blood Pressure 164/94 H Blood Pressure Mean 117 Blood Pressure Position Pulse Oximetry Oxygen Delivery Method Sepsis Recent Fever Within 48 Hours Sepsis New/Unexplained Change in Mental Status Sepsis Action Taken by Nursing 09/05/20 20:02 09/05/20 20:10 09/05/20 20:20 Temperature Temperature Source Pulse Rate 111 H 112 H 120 H Pulse Rate from SpO2 Sensor Respiratory Rate 25 H 26 H 26 H Respiratory Effort / Characteristics Respiratory Depth Blood Pressure Blood Pressure Mean Blood Pressure Position Pulse Oximetry Oxygen Delivery Method Sepsis Recent Fever Within 48 Hours Sepsis New/Unexplained Change in Mental Status Sepsis Action Taken by Nursing 09/05/20 20:30 09/05/20 20:31 Temperature Temperature Source Pulse Rate 100 H 107 H Pulse Rate from SpO2 Sensor Respiratory Rate 25 H 23 Respiratory Effort / Characteristics Respiratory Depth Blood Pressure 154/80 H Blood Pressure Mean 104 Blood Pressure Position Pulse Oximetry 99 Oxygen Delivery Method Room Air Sepsis Recent Fever Within 48 Hours Sepsis New/Unexplained Change in Mental Status Sepsis Action Taken by Nursing Laboratory Data Result diagrams: 09/05/20 18:45 09/05/20 18:45 Lab Results 09/05/20 09/05/20 09/05/20 Range/Units 18:45 18:45 18:45 WBC 7.53 (4.8-10.8) K/uL RBC 3.22 L (4.7-6.1) M/uL Hgb 11.2 L (14.0-18.0) g/dL Hct 32.5 L (42-52) % MCV 100.9 H (80-100) fL MCH 34.8 H (25-34) pg MCHC 34.5 (32-36) g/dL RDW Std Deviation 47.0 H (36.4-46.3) fL RDW Coeff of Saeed 12.7 (11.5-14.5) % Plt Count 210 (130-400) K/uL MPV 10.6 H (7.4-10.4) fL Immature Gran % (Auto) 0.1 % Neut % (Auto) 55.6 % Lymph % (Auto) 34.3 % [place] % (Auto) 8.4 % Eos % (Auto) 1.3 % Baso % (Auto) 0.3 % Neut # (Auto) 4.19 (1.4-6.5) K/uL Lymph # (Auto) 2.58 (1.2-3.4) K/uL [place] # (Auto) 0.63 H (0.11-0.59) K/uL Eos # (Auto) 0.10 (0-0.5) K/uL Baso # (Auto) 0.02 (0-0.2) K/uL Immature Gran # (Auto) 0.01 (0.00-0.02) K/uL PT (9.0-12.0) Seconds INR (0.9-1.1) APTT (21.0-31.0) Seconds PTT Ratio Sodium 137 (136-145) mmol/L Potassium 4.8 (3.5-5.1) mmol/L Chloride 104 (98-107) mmol/L Carbon Dioxide 24 (21-32) mmol/L Anion Gap 9.0 (3-11) BUN 24 H (7-18) mg/dl Creatinine 0.97 (0.6-1.4) mg/dl Est Cr Clr Drug Dosing 54.8 ml/min Est GFR ( Amer) 82.7 Est GFR (Non-Af Amer) 71.4 BUN/Creatinine Ratio 24.8 H (10-20) Glucose 182 H (70-99) mg/dl Calcium 10.0 (8.5-10.1) mg/dl Phosphorus 1.7 L (2.5-4.9) mg/dl Magnesium 1.9 (1.8-2.4) mg/dl Total Bilirubin 0.5 (0.2-1) mg/dl AST 76 H (15-37) U/L ALT 77 (12-78) U/L Alkaline Phosphatase 82 (45-117) U/L Troponin I 0.064 H* (0-0.045) ng/ml Total Protein 7.1 (6.4-8.2) gm/dl Albumin 2.9 L (3.4-5.0) gm/dl Globulin 4.2 H (2.5-4.0) gm/dl Albumin/Globulin Ratio 0.7 L (0.9-2) Lipase 48 L (73-393) U/L COVID-19 Eval Order SARS-CoV-2, RNA, NAAT (NEGATIVE) 09/05/20 09/05/20 09/05/20 Range/Units 18:45 20:00 20:00 WBC (4.8-10.8) K/uL RBC (4.7-6.1) M/uL Hgb (14.0-18.0) g/dL Hct (42-52) % MCV (80-100) fL MCH (25-34) pg MCHC (32-36) g/dL RDW Std Deviation (36.4-46.3) fL RDW Coeff of Saeed (11.5-14.5) % Plt Count (130-400) K/uL MPV (7.4-10.4) fL Immature Gran % (Auto) % Neut % (Auto) % Lymph % (Auto) % [place] % (Auto) % Eos % (Auto) % Baso % (Auto) % Neut # (Auto) (1.4-6.5) K/uL Lymph # (Auto) (1.2-3.4) K/uL [place] # (Auto) (0.11-0.59) K/uL Eos # (Auto) (0-0.5) K/uL Baso # (Auto) (0-0.2) K/uL Immature Gran # (Auto) (0.00-0.02) K/uL PT 11.2 (9.0-12.0) Seconds INR 1.1 (0.9-1.1) APTT 22.7 (21.0-31.0) Seconds PTT Ratio 0.9 Sodium (136-145) mmol/L Potassium (3.5-5.1) mmol/L Chloride (98-107) mmol/L Carbon Dioxide (21-32) mmol/L Anion Gap (3-11) BUN (7-18) mg/dl Creatinine (0.6-1.4) mg/dl Est Cr Clr Drug Dosing ml/min Est GFR ( Amer) Est GFR (Non-Af Amer) BUN/Creatinine Ratio (10-20) Glucose (70-99) mg/dl Calcium (8.5-10.1) mg/dl Phosphorus (2.5-4.9) mg/dl Magnesium (1.8-2.4) mg/dl Total Bilirubin (0.2-1) mg/dl AST (15-37) U/L ALT (12-78) U/L Alkaline Phosphatase (45-117) U/L Troponin I (0-0.045) ng/ml Total Protein (6.4-8.2) gm/dl Albumin (3.4-5.0) gm/dl Globulin (2.5-4.0) gm/dl Albumin/Globulin Ratio (0.9-2) Lipase (73-393) U/L COVID-19 Eval Order Covid19 IDNow [id number] SARS-CoV-2, RNA, NAAT NEGATIVE (NEGATIVE) Administered Medications Heparin Sodium/Dextrose (Heparin Sodium/Dextrose) 25,000 units in 500 mls @ 26 mls/hr IV .[id number] [facility]; Protocol Stop: 10/05/20 22:04 Last Admin: 09/05/20 23:12 Dose: 1,300 units/hr, 26 mls/hr Documented by: [id number] Cosigned by: [id number] Discontinued Medications Metoprolol Tartrate (Metoprolol Tartrate 1 Mg/Ml Vial) 5 mg IV NOW STA Stop: 09/05/20 18:34 Last Admin: 09/05/20 19:14 Dose: 5 mg Documented by: [id number] Metoprolol Tartrate (Metoprolol Tartrate 50 Mg Tab) 25 mg PO NOW STA Stop: 09/05/20 19:52 Last Admin: 09/05/20 19:57 Dose: 25 mg Documented by: [id number] Metoprolol Tartrate (Metoprolol Tartrate 1 Mg/Ml Vial) 5 mg IV NOW STA Stop: 09/05/20 20:26 Last Admin: 09/05/20 20:42 Dose: 5 mg Documented by: [id number] Morphine Sulfate (Morphine Sulfate 2 Mg/Ml Carp) 1 mg IV NOW STA Stop: 09/05/20 20:26 Last Admin: 09/05/20 20:41 Dose: 1 mg Documented by: [id number] Nitroglycerin (Nitroglycerin 2% Ointment 30gm Tube) 0.5 inch EXT NOW STA Stop: 09/05/20 19:41 Last Admin: 09/05/20 19:57 Dose: 0.5 inch Documented by: [id number] Discharge Plan Visit Data Chief Complaint: Chest Pain Stated Complaint: CHEST PAIN ED Provider: Jacques Bills Discharge Problem: Atrial fibrillation with rapid ventricular response, Elevated troponin Patient Disposition: Admitted As Inpatient Discharge Instructions Interventions: ED Discharge Assessment Last Done: 09/05/20 21:46
[2020-09-05 18:53] LABS: Basophils # (auto) 0.02 K/uL (0-0.2); Basophils % (auto) 0.3 %; Eosinophils % (auto) 1.3 %; Hematocrit (blood only) 32.5 % (42-52); Hemoglobin 11.2 g/dL (14.0-18.0); Immature Granulocytes # (auto) 0.01 K/uL (0.00-0.02); Immature Granulocytes % (auto) 0.1 %; Lymphocytes # (auto) 2.58 K/uL (1.2-3.4); Lymphocytes % (auto) 34.3 %; Mean Corpuscular Hemoglobin 34.8 pg (25-34); Mean Corpuscular Hgb Conc 34.5 g/dL (32-36); Mean Corpuscular Volume 100.9 fL (80-100); Mean Platelet Volume 10.6 fL (7.4-10.4); Monocytes # (auto) 0.63 K/uL (0.11-0.59); Monocytes % (auto) 8.4 %; Neutrophils # (auto) 4.19 K/uL (1.4-6.5); Neutrophils % (auto) 55.6 %; Platelet Count 210 K/uL (130-400); RDW Coefficient of Variation 12.7 % (11.5-14.5); Red Blood Count 3.22 M/uL (4.7-6.1); White Blood Count 7.53 K/uL (4.8-10.8)
[2020-09-05 19:16] LABS: Albumin Level 2.9 gm/dl (3.4-5.0); BUN Creatinine Ratio 24.8 (10-20); Creatinine Clr Calc Pharmacy 54.8 ml/min; Est GFR (African American) 82.7; Est GFR (Non-African American) 71.4; Potassium 4.8 mmol/L (3.5-5.1)
[2020-09-05 19:23] LABS: Albumin Globulin Ratio 0.7 (0.9-2); Bilirubin,Total 0.5 mg/dl (0.2-1); Globulin 4.2 gm/dl (2.5-4.0); Total Protein 7.1 gm/dl (6.4-8.2); Troponin I 0.064 ng/ml (0-0.045)
--- NOTE | 2020-09-05 19:26 | XRay Report ---
XR chest 1V portable HISTORY: 84 years-old Male Chest Pain . Acute atypical chest pain COMPARISON: Chest radiograph 06/05/2020 TECHNIQUE: Portable AP view the chest FINDINGS: Severe left glenohumeral osteoarthritis with multiple loose bodies projecting over the left humeral n kali. Right shoulder total joint arthroplasty. Spondylitic spurring of the spine. Cardiac mediastinal and hilar silhouettes are within normal limits. Calcified left hilar lymph nodes. Calcified plaque of the thoracic aortic arch. Calcific granuloma of the left midlung. No pneumothorax, pleural effusion, overt pulmonary edema or airspace consolidation typical for pneumonia. Mild chronic interstitial coa rsening. IMPRESSION: No acute process. ACT 112: Negative or not required by law. The above report was generated using voice recognition software. It may contain grammatical, syntax o r spelling errors. Electronically signed by: Bonifacio Garcia M.D. 09/05/2020 7:25 PM
[2020-09-05] MEDS ORDERED: NITROGLYCERIN 2% OINTMENT 30GM TUBE EXT STA (19:40)
[2020-09-05] MEDS ORDERED: METOPROLOL TARTRATE 50 MG TAB PO STA (19:51)
[2020-09-05] MEDS ORDERED: MoRPHine SULFATE 2 MG/ML CARP IV STA (20:25)
--- NOTE | 2020-09-05 20:37 | History & Physical Report ---
Date of Service September 05, 2020 Assessment & Plan (1) NSTEMI (non-ST elevated myocardial infarction): 84yo C male with history of CAD, AF presenting with CP, EKG changes and mildly elevated troponin (0.064 --> 3.91 at time of note completion). Patient is currently CP free. Findings concerning for NSTEMI -Admitted to PCU -Trend troponin -Heparin gtt -2D echo -Continue ASA -Metoprolol 5mg IV q 5 minutes as needed for tachycardia -Nitro PRN -Morphine PRN pain -EKG as needed with chest pain -Cardiology consultation appreciated - will keep patient NPO for possible cardiac catheterization in AM Present on Admission?: Yes (2) Atrial fibrillation with rapid ventricular response: Rate improved with IV and PO Metoprolol -IV metoprolol PRN -Patient not on anticoagulation. Heparin gtt as above Present on Admission?: Yes (3) Coronary artery disease: Chronic. Concern for NSTEMI at present. -Management as above -Continue ASA, fish oil and olmesartan. Uncertain why no statin or BB at home Present on Admission?: Yes History of Present Illness Chief Complaint: chest pain Primary Care Provider: [facility] Guerrero Sauceda is an 84yo C male with history of CAD, PAF presenting with acute onset chest pain and abdominal pain. Patient was eating dinner around 17:00 this evening when he developed bandlike chest discomfort, 10/10 in severity with radiation into bilateral arms. Patient had associated diaphoresis. He took a Nitro at home with no relief - medication was , however. AF on arrival. Still with CP, however, improved. ER Course: ASA en route, Nitro paste, Metoprolol Allergies Allergy/AdvReac Type Severity Reaction Status Date / Time Iodinated Contrast Media Allergy Intermediate " Feels Verified 09/05/20 21:17 [Iodinated Contrast- Oral eliza hot and IV Dye] and painful" perflutren Allergy Unknown BODY GOT Verified 06/05/20 00:11 HOT AND BACK SPASMS propylene glycol Allergy Unknown BODY GOT Verified 06/05/20 00:11 HOT AND BACK SPASMS ragweed pollen Allergy Unknown UNKNOWN Verified 09/05/20 21:17 SANJAY Inhibitors AdvReac Cough Verified 09/05/20 21:17 Home Medications Medication Instructions Recorded Confirmed Type glucosamine sulfate 500 mg capsule 500 mg PO DAILY cap 12/22/18 09/05/20 History diyrmxsg-dyb-bwimd acid 300 1 tab PO DAILY 12/22/18 09/05/20 History mcg-lycopene 600 mcg-lutein 300 mcg tablet polyethylene glycol 3350 17 17 gm PO DAILY 12/22/18 09/05/20 History gram/dose oral powder cholecalciferol (vitamin D3) 25 1,000 units PO DAILY 02/24/19 09/05/20 History mcg (1,000 unit) capsule meclizine 25 mg tablet 12.5 mg PO TID PRN tab 02/24/19 09/05/20 History risedronate 35 mg tablet 35 mg PO WEEKLY tab 02/24/19 06/05/20 History celecoxib 100 mg capsule 100 mg PO BID #180 cap 03/28/19 06/05/20 Rx alfuzosin 10 mg tablet,extended 10 mg PO DAILY #90 tab 09/29/19 09/05/20 Rx release 24 hr melatonin 3 mg capsule 3 mg PO HS PRN 10/19/19 09/05/20 History nitroglycerin 0.4 mg sublingual 0.4 mg SL DIRECTED PRN 10/19/19 09/05/20 History tablet ascorbic acid (vitamin C) 1,000 mg PO DAILY 06/05/20 09/05/20 History aspirin 81 mg PO DAILY 06/05/20 09/05/20 History calcium carbonate-vitamin D3 0.5 tab PO BID 06/05/20 09/05/20 History [Calcium 600 + D(3)] duloxetine 20 mg PO DAILY 06/05/20 09/05/20 History olmesartan 10 mg PO DAILY 06/05/20 09/05/20 History omega 8-ple-qjp-fish oil [Fish Oil] 1 cap PO DAILY 06/05/20 09/05/20 History acetaminophen 1,000 mg PO DIRECTED PRN 09/05/20 09/05/20 History Past Med/Surg History Medical History (Updated 09/06/20 @ 03:43 by Bambi Carvajal DO) Acidosis, lactic Atrial fib/flutter, transient Coronary artery disease FH: bilateral hip replacements Hip pain, bilateral Hx of prostatic malignancy Hyperlipidemia Lumbar pain Osteoarthritis Osteoporosis Restless leg syndrome Shoulder pain, bilateral Surgical History H/O heart artery stent History of arthroplasty of right shoulder Family History Father Cardiac disorder Mother Cardiac disorder Social History Smoking Status: Never smoker Hx Alcohol Use: No Hx Substance Use: No Preferred Language: Persian Communication Ability: Effective Visual Impairment: No Limitations Hearing Ability: Hard of Hearing [employer] Consultant Required: No Beliefs That Will Affect Care: None marital status: Current Living Situation: Spouse and Personal Care Facility Current Living Situation Comment: lives with at [facility] current occupational status: retired How many Children do You have: 2 Other Information That Helps Us Care for You: No Feels Safe at Home: Yes Safety Concerns: Feels Safe At This Time Assistive Devices: Glasses, Hearing Aid - Left and Hearing Aid - Right Review of Systems Review of Systems: All systems reviewed & are unremarkable except as noted in HPI & below Physical Exam Physical Exam: General: patient resting comfortably, NAD, non-toxic in appearance, AA&O x 4 Skin: warm, dry, intact, no rashes or lesions HEENT: NC/AT, PERRL, EOMI, anicteric sclera, conjunctiva without injection, external ear normal to inspection and nontender, nares patent, moist mucus membranes, dentition intact, no oropharyngeal lesions, neck supple, trachea midline, no LAD, no thyromegaly, no JVD Heart: +S1/S2, irregularly irregular, no m/r/g Lungs: equal air entry bilaterally, no rales/rhonchi/wheezes Abd: +BS, soft, NT/ND, no masses/organomegaly/ascites Ext: warm, 2+ pulses in UE/LE bilaterally, no clubbing/cyanosis or edema Neuro: nonfocal, patient AA&O x 4, speech intact, no facial droop, moving all extremities on command with equal strength 5/5 Results & Data Results & Data ([facility]) Vital Signs (Past 12 Hours) Vital Signs Temp Pulse Resp BP Pulse Ox 09/05/20 20:01 106 H 22 164/94 H 09/05/20 20:00 101 H 23 09/05/20 19:50 112 H 29 H 09/05/20 19:40 104 H 19 09/05/20 19:32 99 H 18 100 09/05/20 19:31 97 H 16 134/86 100 09/05/20 19:30 103 H 18 100 09/05/20 19:20 119 H 21 98 09/05/20 19:15 120 H 27 H 100 09/05/20 19:14 126 H 21 147/88 H 100 09/05/20 19:10 123 H 20 100 09/05/20 19:00 130 H 25 H 99 09/05/20 18:50 134 H 15 100 09/05/20 18:40 122 H 22 100 09/05/20 18:30 133 H 21 09/05/20 18:29 36.7 C 130 H 24 166/107 H 100 09/05/20 18:26 125 H 20 09/05/20 18:19 136 H 16 166/107 H Laboratory Results Lab Results 09/05/20 09/05/20 09/05/20 Range/Units 18:45 18:45 18:45 WBC 7.53 (4.8-10.8) K/uL RBC 3.22 L (4.7-6.1) M/uL Hgb 11.2 L (14.0-18.0) g/dL Hct 32.5 L (42-52) % MCV 100.9 H (80-100) fL MCH 34.8 H (25-34) pg MCHC 34.5 (32-36) g/dL RDW Std Deviation 47.0 H (36.4-46.3) fL RDW Coeff of Saeed 12.7 (11.5-14.5) % Plt Count 210 (130-400) K/uL MPV 10.6 H (7.4-10.4) fL Immature Gran % (Auto) 0.1 % Neut % (Auto) 55.6 % Lymph % (Auto) 34.3 % Lake % (Auto) 8.4 % Eos % (Auto) 1.3 % Baso % (Auto) 0.3 % Neut # (Auto) 4.19 (1.4-6.5) K/uL Lymph # (Auto) 2.58 (1.2-3.4) K/uL Lake # (Auto) 0.63 H (0.11-0.59) K/uL Eos # (Auto) 0.10 (0-0.5) K/uL Baso # (Auto) 0.02 (0-0.2) K/uL Immature Gran # (Auto) 0.01 (0.00-0.02) K/uL PT (9.0-12.0) Seconds INR (0.9-1.1) APTT (21.0-31.0) Seconds PTT Ratio Sodium 137 (136-145) mmol/L Potassium 4.8 (3.5-5.1) mmol/L Chloride 104 (98-107) mmol/L Carbon Dioxide 24 (21-32) mmol/L Anion Gap 9.0 (3-11) BUN 24 H (7-18) mg/dl Creatinine 0.97 (0.6-1.4) mg/dl Est Cr Clr Drug Dosing 54.8 ml/min Est GFR ( Amer) 82.7 Est GFR (Non-Af Amer) 71.4 BUN/Creatinine Ratio 24.8 H (10-20) Glucose 182 H (70-99) mg/dl Calcium 10.0 (8.5-10.1) mg/dl Phosphorus 1.7 L (2.5-4.9) mg/dl Magnesium 1.9 (1.8-2.4) mg/dl Total Bilirubin 0.5 (0.2-1) mg/dl AST 76 H (15-37) U/L ALT 77 (12-78) U/L Alkaline Phosphatase 82 (45-117) U/L Troponin I 0.064 H* (0-0.045) ng/ml Total Protein 7.1 (6.4-8.2) gm/dl Albumin 2.9 L (3.4-5.0) gm/dl Globulin 4.2 H (2.5-4.0) gm/dl Albumin/Globulin Ratio 0.7 L (0.9-2) Lipase 48 L (73-393) U/L Nasal Screen MRSA (PCR) (Negative) COVID-19 Eval Order SARS-CoV-2, RNA, NAAT (NEGATIVE) 09/05/20 09/05/20 09/05/20 Range/Units 18:45 20:00 20:00 WBC (4.8-10.8) K/uL RBC (4.7-6.1) M/uL Hgb (14.0-18.0) g/dL Hct (42-52) % MCV (80-100) fL MCH (25-34) pg MCHC (32-36) g/dL RDW Std Deviation (36.4-46.3) fL RDW Coeff of Saeed (11.5-14.5) % Plt Count (130-400) K/uL MPV (7.4-10.4) fL Immature Gran % (Auto) % Neut % (Auto) % Lymph % (Auto) % Lake % (Auto) % Eos % (Auto) % Baso % (Auto) % Neut # (Auto) (1.4-6.5) K/uL Lymph # (Auto) (1.2-3.4) K/uL Lake # (Auto) (0.11-0.59) K/uL Eos # (Auto) (0-0.5) K/uL Baso # (Auto) (0-0.2) K/uL Immature Gran # (Auto) (0.00-0.02) K/uL PT 11.2 (9.0-12.0) Seconds INR 1.1 (0.9-1.1) APTT 22.7 (21.0-31.0) Seconds PTT Ratio 0.9 Sodium (136-145) mmol/L Potassium (3.5-5.1) mmol/L Chloride (98-107) mmol/L Carbon Dioxide (21-32) mmol/L Anion Gap (3-11) BUN (7-18) mg/dl Creatinine (0.6-1.4) mg/dl Est Cr Clr Drug Dosing ml/min Est GFR ( Amer) Est GFR (Non-Af Amer) BUN/Creatinine Ratio (10-20) Glucose (70-99) mg/dl Calcium (8.5-10.1) mg/dl Phosphorus (2.5-4.9) mg/dl Magnesium (1.8-2.4) mg/dl Total Bilirubin (0.2-1) mg/dl AST (15-37) U/L ALT (12-78) U/L Alkaline Phosphatase (45-117) U/L Troponin I (0-0.045) ng/ml Total Protein (6.4-8.2) gm/dl Albumin (3.4-5.0) gm/dl Globulin (2.5-4.0) gm/dl Albumin/Globulin Ratio (0.9-2) Lipase (73-393) U/L Nasal Screen MRSA (PCR) (Negative) COVID-19 Eval [facility] SARS-CoV-2, RNA, NAAT NEGATIVE (NEGATIVE) 09/06/20 09/06/20 Range/Units 00:22 00:26 WBC (4.8-10.8) K/uL RBC (4.7-6.1) M/uL Hgb (14.0-18.0) g/dL Hct (42-52) % MCV (80-100) fL MCH (25-34) pg MCHC (32-36) g/dL RDW Std Deviation (36.4-46.3) fL RDW Coeff of Saeed (11.5-14.5) % Plt Count (130-400) K/uL MPV (7.4-10.4) fL Immature Gran % (Auto) % Neut % (Auto) % Lymph % (Auto) % Lake % (Auto) % Eos % (Auto) % Baso % (Auto) % Neut # (Auto) (1.4-6.5) K/uL Lymph # (Auto) (1.2-3.4) K/uL Lake # (Auto) (0.11-0.59) K/uL Eos # (Auto) (0-0.5) K/uL Baso # (Auto) (0-0.2) K/uL Immature Gran # (Auto) (0.00-0.02) K/uL PT (9.0-12.0) Seconds INR (0.9-1.1) APTT (21.0-31.0) Seconds PTT Ratio Sodium (136-145) mmol/L Potassium (3.5-5.1) mmol/L Chloride (98-107) mmol/L Carbon Dioxide (21-32) mmol/L Anion Gap (3-11) BUN (7-18) mg/dl Creatinine (0.6-1.4) mg/dl Est Cr Clr Drug Dosing ml/min Est GFR ( Amer) Est GFR (Non-Af Amer) BUN/Creatinine Ratio (10-20) Glucose (70-99) mg/dl Calcium (8.5-10.1) mg/dl Phosphorus (2.5-4.9) mg/dl Magnesium (1.8-2.4) mg/dl Total Bilirubin (0.2-1) mg/dl AST (15-37) U/L ALT (12-78) U/L Alkaline Phosphatase (45-117) U/L Troponin I 3.910 H* (0-0.045) ng/ml Total Protein (6.4-8.2) gm/dl Albumin (3.4-5.0) gm/dl Globulin (2.5-4.0) gm/dl Albumin/Globulin Ratio (0.9-2) Lipase (73-393) U/L Nasal Screen MRSA (PCR) Negative (Negative) COVID-19 Eval Order SARS-CoV-2, RNA, NAAT (NEGATIVE) Diagnostic Findings XR chest 1V portable HISTORY: 84 years-old Male Chest Pain . Acute atypical chest pain COMPARISON: Chest radiograph 06/05/2020 TECHNIQUE: Portable AP view the chest FINDINGS: Severe left glenohumeral osteoarthritis with multiple loose bodies projecting over the left humeral neck. Right shoulder total joint arthroplasty. Spondylitic spurring of the spine. Cardiac mediastinal and hilar silhouettes are within normal limits. Calcified left hilar lymph nodes. Calcified plaque of the thoracic aortic arch. Calcific granuloma of the left midlung. No pneumothorax, pleural effusion, overt pulmonary edema or airspace consolidation typical for pneumonia. Mild chronic interstitial coarsening. IMPRESSION: No acute process. ACT 112: Negative or not required by law. The above report was generated using voice recognition software. It may contain grammatical, syntax or spelling errors. Electronically signed by: Bonifacio Garcia M.D. 09/05/2020 7:25 PM Dictated: 09/05/201923Transcribed: 09/05/201923 ECG Additional Comments: EKG with atrial fibrillation, rate of 135, QRS=74, XJh=092, nonspecific ST changes, no STEMI PG Care Time/CCT Total # of Minutes Spent Total Time Spent with Patient: Total time spent is greater than 50% in coordination of care (as documented) at patient's floor/unit and/or counseling patient: Coding Level of Care Code 93358 Initial Inpt Care Lvl 3 Diagnoses NSTEMI (non-ST elevated myocardial infarction) I21.4 Atrial fibrillation with rapid ventricular response I48.91 Coronary artery disease I25.10 Coronary Disease-Associated Artery/Lesion type: [place] artery [place] vs. transplanted heart: [place] heart Associated angina: angina presence unspecified (1) Coronary artery disease Coronary Disease-Associated Artery/Lesion type: [place] artery [place] vs. transplanted heart: [place] heart Associated angina: angina presence unspecified Qualified Code(s): I25.10 - Atherosclerotic heart disease of [place] coronary artery without angina pectoris
[2020-09-05] MEDS ORDERED: METOPROLOL TARTRATE 1 MG/ML VIAL IV PRN (21:38)
[2020-09-05] MEDS ORDERED: ACETAMINOPHEN 325 MG TAB PO PRN (21:38)
[2020-09-05] MEDS ORDERED: ONDANSETRON INJ 2 MG/ML 2 ML VIAL IV PRN (21:38)
[2020-09-05] MEDS ORDERED: NITROGLYCERIN SL 0.4 MG/TAB TAB SL PRN (21:38)
[2020-09-05] MEDS ORDERED: MoRPHine SULFATE 2 MG/ML CARP IV PRN (21:38)
[2020-09-05] MEDS ORDERED: Heparin IV Adult Wt-Based Standard *NO* Bolus Protocol IV SCH (21:45)
[2020-09-05] MEDS ORDERED: ACETAMINOPHEN 500 MG TAB PO PRN (21:50)
[2020-09-05] MEDS ORDERED: MELATONIN 3 MG TAB PO PRN (21:51)
[2020-09-05 21:57] LABS: Magnesium 1.9 mg/dl (1.8-2.4); Phosphorus 1.7 mg/dl (2.5-4.9)
[2020-09-05 22:34] LABS: INR 1.1 (0.9-1.1); Partial Thromboplastin Ratio 0.9; Partial Thromboplastin Time 22.7 Seconds (21.0-31.0); Prothrombin Time 11.2 Seconds (9.0-12.0)
[2020-09-05] MEDS: HEPARIN SODIUM/DEXTROSE 25,000 UNITS/500 ML BAG IV SCH (23:12)
[2020-09-06 06:51] LABS: Partial Thromboplastin Ratio 1.9
[2020-09-06 07:18] LABS: Partial Thromboplastin Time 49.8 Seconds (21.0-31.0)
[2020-09-06] MEDS: ALFUZOSIN HCL 10 MG TAB PO SCH (08:12)
[2020-09-06] MEDS: ASPIRIN 81 MG ECTAB PO SCH (08:12)
[2020-09-06] MEDS: POLYETHYLENE (MIRALAX) 17 GM PACK PO SCH (08:12)
[2020-09-06] MEDS: OMEGA-3 (PURIFIED FISH OIL) 1 GM CAP PO SCH (08:12)
[2020-09-06] MEDS: GLUCOSAMINE SULFATE 500 MG CAP PO SCH (08:12)
[2020-09-06] MEDS: DULoxetine HCL 20 MG CAP PO SCH (08:15)
[2020-09-06] MEDS ORDERED: OLMESARTAN MEDOXOMIL 20 MG TAB PO SCH (09:00)
[2020-09-06 09:05] LABS: Basophils # (auto) 0.01 K/uL (0-0.2); Basophils % (auto) 0.1 %; Eosinophils # (auto) 0.07 K/uL (0-0.5); Eosinophils % (auto) 0.8 %; Hematocrit (blood only) 30.2 % (42-52); Hemoglobin 10.5 g/dL (14.0-18.0); Immature Granulocytes # (auto) 0.02 K/uL (0.00-0.02); Immature Granulocytes % (auto) 0.2 %; Lymphocytes # (auto) 3.15 K/uL (1.2-3.4); Lymphocytes % (auto) 38.1 %; Mean Corpuscular Hemoglobin 34.5 pg (25-34); Mean Corpuscular Hgb Conc 34.8 g/dL (32-36); Mean Corpuscular Volume 99.3 fL (80-100); Mean Platelet Volume 10.3 fL (7.4-10.4); Monocytes # (auto) 1.15 K/uL (0.11-0.59); Monocytes % (auto) 13.9 %; Neutrophils # (auto) 3.87 K/uL (1.4-6.5); Neutrophils % (auto) 46.9 %; Platelet Count 184 K/uL (130-400); RDW Coefficient of Variation 13.3 % (11.5-14.5); RDW Standard Deviation 48.2 fL (36.4-46.3); Red Blood Count 3.04 M/uL (4.7-6.1); White Blood Count 8.27 K/uL (4.8-10.8)
[2020-09-06 09:37] LABS: Albumin Level 2.7 gm/dl (3.4-5.0); BUN Creatinine Ratio 35.1 (10-20); Calcium 10.1 mg/dl (8.5-10.1); Creatinine Clr Calc Pharmacy 50.4 ml/min; Est GFR (African American) 84.9; Est GFR (Non-African American) 73.2; Potassium 3.8 mmol/L (3.5-5.1)
[2020-09-06 09:53] LABS: Albumin Globulin Ratio 0.7 (0.9-2); Bilirubin,Total 1.3 mg/dl (0.2-1); Globulin 3.7 gm/dl (2.5-4.0); Total Protein 6.4 gm/dl (6.4-8.2)
[2020-09-06] MEDS ORDERED: SODIUM PHOSPHATE 3 MMOL/1 ML INFUSION IV STA (10:19)
--- NOTE | 2020-09-06 10:24 | Hospitalist Progress Note ---
Date of Service September 06, 2020 Assessment & Plan (1) NSTEMI (non-ST elevated myocardial infarction): 84yo C male with history of CAD s/p stent to OM3, HLD, HTN and A-fib (not on anticoag) who was admitted with chest pain, thought to be consistent with an NSTEMI. - Trops peaked at 15, downtrending - EKG showing ST segment depressions on admision - Echo - study limited, normal LV systolic function and EF noted - on heparin drip - cards consulted, plan for cath tomorrow - metoprolol tartrate initiated - continue ASA - risk factors include known CAD, HTN, HLD (2) Atrial fibrillation with rapid ventricular response: - present on admission EKG - rate control achieved with IV Metoprolol - started on oral metoprolol tartrate - Patient not on chronic anticoagulation. On Heparin gtt as above - [id number] 3, HAS-BLED 2. Would recommend anticoagulation upon discharge for stroke prevention (3) Hypertension: - home dose olmesartan held in anticipation of cath - BP running low today at 105/55. Recommend no further nitroglyceirn use (4) Elevated troponin: - peaked at 15, now downtrending - suspect secondary to NSTEMI as above (5) Coronary artery disease: - history of stent placed in OM3 in 2012 - home regimen consists of daily baby ASA, metoprolol and ARB - patient is not on a statin - unclear reason. consider starting at discharge - HbA1c ordered (6) Hypophosphatemia: - level low at 1.7 on admission - replacement ordered (7) Hyperlipidemia: - on a home fish oil supplement - unclear why patient is not on a statin; consider starting on admission - lipid panel ordered Diet: Heart Health; NPO after midnight Dispo: Tele DVT ppx: on heparin ggt Code: DNR/DNI Admission and Anticipated Discharge Date Admission Date: September 05, 2020 Supervising Physician Co-Signing Physician Notes Patient seen and examined with PGY-2 Dr. Barnes. Agree with history, exam fi ndings, assessment and plan of care as outlined. In brief, Mr. Sauceda is an 84 year old male with history of CAD and AFib admitted with chest pain and epigastric pain that started the evening of adm ission while eating. Admitted with NSTEMI. Today, reports that chest pain has resolved. Denies dyspnea. VS and nursing notes reviewed. Well appearing. 1. NSTEMI. Troponins 0.064-->3.91-->15-->13.9. EKG on admission without ischemic changes. Repeat EKG this morning with inverted t waves in V3-6. Continue heparin gtt, nitro PRN. LDL 68, A1C < 6.5. TTE was limited but showed preserved EF, no major wall motion abnormalities. Holding ARB. Start metoprolol. NPO at midnight for cath tomorrow. Does have a contrast alllery--pred and benadryl per cardiology prior to cath. Appreciate cardiology recommendations. 2. afib with RVR. RVR resolved with metoprolol. Now rate controlled. CHADS VASC = 4. Await results of cath, but may need to consider anticoagulation. 3. hypophos. repleated. 4. elevated AST. Likely secondary to elevated trop. Will repeat CMP in the AM. Dispo: pending cardiac cath tomorrow. Subjective chest pain has resolved. Further history reveals pain started after eating dinner last night. He endorsees a feeling of heartburn. + associated SOB, nausea and diaphoresis. would like to have him go to the [facility] for rehab after hospital stay if able ([facility]). Lifetime non-smoker Review of Systems Gastrointestinal: + heartburn Physical Exam Constitutional: WD/WN, vitals as above cooperative; no acute distress Eyes: + anicteric sclerae ENMT: external ear and nose normal, oropharynx normal Neck: normal visual inspection and trachea midline Respiratory: normal respiratory effort, lungs clear to auscultation Auscultation: no crackles and no wheezes Cardiovascular: RRR, no murmur, no edema Heart Sounds: normal S1 and normal S2 Extremities: no pedal edema Chest (Breasts): Additional Comments: chest wall non-tender Gastrointestinal (Abdomen): normal bowel sounds, soft, nontender, no hepatosplenomegaly Skin: no rashes, warm and dry Psychiatric: A+Ox3, euthymic affect Results & Data Results & Data ([facility]) Vital Signs (Past 12 Hours) Vital Signs Temp Pulse Pulse Resp BP BP Pulse Ox 09/06/20 08:40 85 09/06/20 07:35 36.7 C 80 18 111/48 L 98 09/06/20 07:00 87 09/06/20 03:28 36.4 C L 109 H 18 103/61 100 09/06/20 00:00 36.4 C L 106 H 20 142/81 H 100 09/05/20 22:40 106 H Resident Activity Tracking Resident Involvement: Resident Care Provided Care Provided: Adult [facility] Medicine (1) Coronary artery disease Associated angina: angina presence unspecified Coronary Disease-Associated Artery/Lesion type: [place] artery [place] vs. transplanted heart: [place] heart Qualified Code(s): I25.10 - Atherosclerotic heart disease of [place] coronary artery without angina pectoris
[2020-09-06] MEDS ORDERED: SODIUM PHOSPHATE 21 MMOL in SODIUM CHLORIDE 0.9% 500 ML IV ONE (10:45)
--- NOTE | 2020-09-06 10:53 | XCELERA ---
[id number]
[2020-09-06] MEDS: MAGNESIUM SULFATE / D5W 1 GM/100 ML BAG IV SCH ×2 (10:57→13:00)
[2020-09-06] MEDS: SODIUM CHLORIDE 0.9% 1000ML 1,000 ML IV SCH (10:57)
[2020-09-06 13:00] LABS: Estimated Average Glucose 111 mg/dl; Hemoglobin A1C 5.5 % (4.5-5.6)
[2020-09-06] MEDS ORDERED: PANTOprazole 40 MG TAB PO ONE (13:00)
[2020-09-06 13:10] LABS: Chol HDL Ratio 3; Cholesterol 118 mg/dl (0-200); HDL Cholesterol 35 mg/dl; LDL Cholesterol Calculated 68 mg/dl; Triglycerides 74 mg/dl (0-150); VLDL Cholesterol 15 mg/dl
--- NOTE | 2020-09-06 16:47 | Electrocardiogram Report ---
Test Reason : Blood Pressure : / mmHG Vent. Rate : 135 BPM Atrial Rate : 156 BPM P-R Int : 000 ms QRS Dur : 074 ms QT Int : 278 ms P-R-T Axes : 000 006 096 degrees QTc Int : 417 ms Atrial fibrillation with rapid ventricular response Nonspecific ST and T wave abnormality Abnormal ECG When compared with ECG of 05-JUN-2020 01:33, ST elevation has replaced ST depression in Inferior leads Nonspecific T wave abnormality no longer evident in Inferior leads Nonspecific T wave abnormality now evident in Lateral leads Confirmed by Kayode Galdamez ([id number]) on 09/06/2020 4:47:29 PM Referred By: [facility] Confirmed By:Glenn Galdamez
--- NOTE | 2020-09-06 16:52 | Electrocardiogram Report ---
Test Reason : Blood Pressure : / mmHG Vent. Rate : 091 BPM Atrial Rate : 091 BPM P-R Int : 168 ms QRS Dur : 084 ms QT Int : 390 ms P-R-T Axes : 008 -05 099 degrees QTc Int : 479 ms Normal sinus rhythm with sinus arrhythmia Nonspecific T wave abnormality Abnormal ECG When compared with ECG of 05-SEP-2020 18:19, (unconfirmed) Sinus rhythm has replaced Atrial fibrillation ST no longer elevated in Inferior leads Nonspecific T wave abnormality, worse in Lateral leads Confirmed by Kayode Galdamez ([id number]) on 09/06/2020 4:52:35 PM Referred By: [facility] Confirmed By:Glenn Galdamez
--- NOTE | 2020-09-06 17:03 | Cardiology Consultation ---
Date of Consultation September 06, 2020 Assessment & Plan (1) NSTEMI (non-ST elevated myocardial infarction): 1. Coronary disease status post angioplasty and stenting of OM3 with a residdual 40% mid LAD lesion. 2. Negative nuclear stress test for ischemia preoperatively 04/2013 3. Lyperlipidemia 4. Hypertension 5. Normal biventricular size and function with ejection fraction in the range of 70% by echo June 2019. 6. Significant osteoarthritis impacting his quality of life Mr. Sauceda presented with chest pain 10/10 and his troponin peaked at 15.1. The pain across his chest has now resolved, he has 2/10 pain across his upper belly, no further diaphoresis or nausea. He appears comfortable though tired in bed. His echo was technically difficulty but showed normal left ventricular function. ECG this morning showed normal sinus rhythm with sinus arrhythmia with nonspecific T wave abnormality. Discussed his case with Dr. Bailon from interventional cardiology who will plan to take patient to medical lab assistant tomorrow. - continue heparin gtt - NPO after MN - hold olmesartan for cath - start metoprolol tartrate 12.5 mg bid - Patient has a iodine contrast allergy - will give 50 mg prednisone 13h prior, then 7h prior, then 1h prior to cath, will give famotidine 20 mg bid, and 50 mg po Benedryl tonight and tomorrow morning. - will hold off on nitro paste given low normal bps - if patient has increase in pain overnight would give Plavix load - Continue ASA (2) Atrial fibrillation with rapid ventricular response: (3) Coronary artery disease: (4) Hyperlipidemia: (5) Hypertension: History of Present Illness Reason for Consultation: Chest pain Requesting Physician: Dr. Adriana Carvajal Attending Physician: Nino Dillon DO History of Present Illness Mr. Sauceda presented evening of 09/05 for chest pain 10/10 that went across his chest, bilateral arms and upper belly. He did have associated nausea and sob. His troponin peaked at 15.1, it has begun to trend back down this afternoon. He continues to have some lightheadedness/vertigo but this is chronic. He was initially in A fib RVR on admission, he converted to SR at 0415 this morning and his rates have been controlled today. 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 Allergies Allergy/AdvReac Type Severity Reaction Status Date / Time Iodinated Contrast Media Allergy Intermediate " Feels Verified 09/05/20 21:17 [Iodinated Contrast- Oral eliza hot and IV Dye] and painful" perflutren Allergy Unknown BODY GOT Verified 06/05/20 00:11 HOT AND BACK SPASMS propylene glycol Allergy Unknown BODY GOT Verified 06/05/20 00:11 HOT AND BACK SPASMS ragweed pollen Allergy Unknown UNKNOWN Verified 09/05/20 21:17 SANJAY Inhibitors AdvReac Cough Verified 09/05/20 21:17 Home Medications Medication Instructions Recorded Confirmed Type glucosamine sulfate 500 mg capsule 500 mg PO DAILY cap 12/22/18 09/05/20 History mfpgexml-dxx-uohnj acid 300 1 tab PO DAILY 12/22/18 09/05/20 History mcg-lycopene 600 mcg-lutein 300 mcg tablet polyethylene glycol 3350 17 17 gm PO DAILY 12/22/18 09/05/20 History gram/dose oral powder cholecalciferol (vitamin D3) 25 1,000 units PO DAILY 02/24/19 09/05/20 History mcg (1,000 unit) capsule meclizine 25 mg tablet 12.5 mg PO TID PRN tab 02/24/19 09/05/20 History risedronate 35 mg tablet 35 mg PO WEEKLY tab 02/24/19 06/05/20 History celecoxib 100 mg capsule 100 mg PO BID #180 cap 03/28/19 06/05/20 Rx alfuzosin 10 mg tablet,extended 10 mg PO DAILY #90 tab 09/29/19 09/05/20 Rx release 24 hr melatonin 3 mg capsule 3 mg PO HS PRN 10/19/19 09/05/20 History nitroglycerin 0.4 mg sublingual 0.4 mg SL DIRECTED PRN 10/19/19 09/05/20 History tablet ascorbic acid (vitamin C) 1,000 mg PO DAILY 06/05/20 09/05/20 History aspirin 81 mg PO DAILY 06/05/20 09/05/20 History calcium carbonate-vitamin D3 0.5 tab PO BID 06/05/20 09/05/20 History [Calcium 600 + D(3)] duloxetine 20 mg PO DAILY 06/05/20 09/05/20 History olmesartan 10 mg PO DAILY 06/05/20 09/05/20 History omega 8-neq-dio-fish oil [Fish Oil] 1 cap PO DAILY 06/05/20 09/05/20 History acetaminophen 1,000 mg PO DIRECTED PRN 09/05/20 09/05/20 History Patient History Medical History (Updated 09/06/20 @ 17:26 by HERI Mosley) Acidosis, lactic Atrial fib/flutter, transient Coronary artery disease FH: bilateral hip replacements Hip pain, bilateral Hx of prostatic malignancy Hyperlipidemia Lumbar pain Osteoarthritis Osteoporosis Restless leg syndrome Shoulder pain, bilateral Surgical History H/O heart artery stent History of arthroplasty of right shoulder Family History Father Cardiac disorder Mother Cardiac disorder Social History Smoking Status: Never smoker Hx Alcohol Use: No Hx Substance Use: No Preferred Language: Nauruan Communication Ability: Effective Visual Impairment: No Limitations Hearing Ability: Hard of Hearing Insecticide Sprayer Required: No Beliefs That Will Affect Care: None marital status: Current Living Situation: Spouse and Personal Care Facility Current Living Situation Comment: lives with at [facility] current occupational status: retired How many Children do You have: 2 Other Information That Helps Us Care for You: No Feels Safe at Home: Yes Safety Concerns: Feels Safe At This Time Assistive Devices: Glasses, Hearing Aid - Bilateral and Walker Review of Systems Respiratory: + cough; no dyspnea Cardiovascular: + lightheadedness; no chest pain, no palpitations and no edema (right calf > left which patient reports is his baseline ) Gastrointestinal: + abdominal pain; no nausea Physical Exam Constitutional: WD/WN, vitals as above Respiratory: normal respiratory effort and + cough (dry); no respiratory distress Auscultation: lungs clear to auscultation bilaterally Cardiovascular: RRR, no murmur, no edema Gastrointestinal (Abdomen): Inspection/Auscultation: abdomen normal to inspection; abdomen not distended Percussion/Palpation: abdomen nontender Skin: no rashes, warm and dry Neurologic: moves all extremities and awake Psychiatric: A+Ox3, euthymic affect Results & Data ([facility]) Vital Signs (Past 12 Hours) Vital Signs Temp Pulse Pulse Resp BP Pulse Ox 09/06/20 15:46 36.5 C 88 18 105/55 L 97 09/06/20 14:56 88 09/06/20 11:30 36.7 C 76 18 109/41 L 97 09/06/20 08:40 85 09/06/20 07:35 36.7 C 80 18 111/48 L 98 09/06/20 07:00 87 (1) Coronary artery disease Associated angina: angina presence unspecified Coronary Disease-Associated Artery/Lesion type: [place] artery [place] vs. transplanted heart: [place] heart Qualified Code(s): I25.10 - Atherosclerotic heart disease of [place] coronary artery without angina pectoris
[2020-09-06] MEDS: HEPARIN SODIUM/DEXTROSE 25,000 UNITS/500 ML BAG IV SCH (18:07)
[2020-09-06] MEDS: FAMOTIDINE 20 MG TAB PO SCH (20:37)
[2020-09-06] MEDS: diphenhydrAMINE Capsule 25 MG CAP PO SCH (20:38)
[2020-09-06] MEDS: METOPROLOL TARTRATE 25 MG TAB PO SCH (20:38)
[2020-09-06] MEDS: predniSONE 50 MG TAB PO SCH (20:40)
[2020-09-07] MEDS: predniSONE 50 MG TAB PO SCH ×2 (02:09→15:47)
[2020-09-07] MEDS: SODIUM CHLORIDE 0.9% 1000ML 1,000 ML IV SCH (02:11)
[2020-09-07 07:05] LABS: Hematocrit (blood only) 27.5 % (42-52); Hemoglobin 9.4 g/dL (14.0-18.0); Immature Granulocytes # (auto) 0.01 K/uL (0.00-0.02); Immature Granulocytes % (auto) 0.3 %; Lymphocytes # (auto) 0.92 K/uL (1.2-3.4); Lymphocytes % (auto) 28.2 %; Mean Corpuscular Hemoglobin 34.2 pg (25-34); Mean Corpuscular Hgb Conc 34.2 g/dL (32-36); Mean Platelet Volume 10.4 fL (7.4-10.4); Monocytes % (auto) 3.1 %; Neutrophils # (auto) 2.23 K/uL (1.4-6.5); Neutrophils % (auto) 68.4 %; Partial Thromboplastin Ratio 4.2; Platelet Count 169 K/uL (130-400); RDW Coefficient of Variation 13.6 % (11.5-14.5); RDW Standard Deviation 49.4 fL (36.4-46.3); Red Blood Count 2.75 M/uL (4.7-6.1); White Blood Count 3.26 K/uL (4.8-10.8)
[2020-09-07 07:11] LABS: BUN Creatinine Ratio 40.2 (10-20); Creatinine Clr Calc Pharmacy 61.3 ml/min; Est GFR (African American) 96.1; Est GFR (Non-African American) 82.9; Potassium 4.4 mmol/L (3.5-5.1)
[2020-09-07 07:19] LABS: Partial Thromboplastin Time 111.1 Seconds (21.0-31.0)
[2020-09-07] MEDS: DULoxetine HCL 20 MG CAP PO SCH (08:37)
--- NOTE | 2020-09-07 08:37 | Hospitalist Progress Note ---
Date of Service September 07, 2020 Assessment & Plan (1) NSTEMI (non-ST elevated myocardial infarction): 84yo C male with history of CAD s/p stent to OM3, HLD, HTN and A-fib (not on anticoag) who was admitted with chest pain, thought to be consistent with an NSTEMI. - Trops peaked at 15, and down trended to 13.9 yesterday - EKG showing ST segment depressions on admission - Echo - study limited, normal LV systolic function and EF noted - on heparin drip - cards consulted, plan for cath today - metoprolol tartrate initiated - continue ASA - risk factors include known age,CAD, HTN, HLD. Hgb A1C of 5.5, not diabetic. (2) Atrial fibrillation with rapid ventricular response: - present on admission EKG - rate control achieved with IV Metoprolol - started on oral metoprolol tartrate BID - Patient not on chronic anticoagulation. On Heparin gtt as above - [id number] 3, HAS-BLED 2. Would recommend anticoagulation upon discharge for stroke prevention - HR WNL overnight (3) Hypertension: - home dose olmesartan held in anticipation of cath today - BP running softly low at 105/55. With recommendation of holding NTG use starting 09/06, BP this AM 121/62 WNL. (4) Elevated troponin: - peaked at 15, then downtrended - suspect secondary to NSTEMI as above (5) Coronary artery disease: - history of stent placed in 3 in 2012 - home regimen consists of daily baby ASA, metoprolol and ARB - patient is not on a statin - unclear reason. consider starting at discharge - HbA1c 5.5% (6) Hypophosphatemia: - 2/ level low at 1.7 on admission, replaced (7) Hyperlipidemia: - on a home fish oil supplement - unclear why patient is not on a statin; consider starting on admission - lipid panel with LDL 68 and HDL 35 Diet: Heart Health Dispo: Tele DVT ppx: on heparin ggt Code: DNR/DNI Admission and Anticipated Discharge Date Admission Date: September 05, 2020 Supervising Physician Co-Signing Physician Notes Attending attestation Pt seen and examined in concert with Dr. Burch. In agreement with the documented findings as noted in the resident documentation with any exceptions or additions as noted here. Resting in bed with resolution of central chest pressure present on admission. On examination, S1/S2 nl IRR no MCG. CTAB. Abd NT/ND BS+ve NSTEMI - cardiology consultation - continue metoprolol, ASA. Per cardiology recs, Plavix load and IMDUR if BP can tolerate. AF w/ RVR - continue metoprolol. [id number] 3, HAS-BLED 2 would recommend AC HTN - still mildly elevated while off olmesartan, space to use IMDUR Else see resident documentation as noted. Subjective Mr. Sauceda had no acute events overnight. He notes that chest pain has completely resolved. He denies shortness of breath, nausea. He noted that he was waiting for someone to assist him to use toilet. He notes he slept well overnight. Physical Exam Constitutional: cooperative; no acute distress sitting in bed side chair, sleeping but easily arousable Eyes: PERRL, conjunctivae normal, anicteric sclerae ENMT: external ear and nose normal, oropharynx normal Neck: normal visual inspection and trachea midline Respiratory: no respiratory distress, no labored breathing and does not use accessory muscles Auscultation: + diminished lung sounds (poor respiratory effort) Cardiovascular: Rate/Rhythm: regular rate and regular rhythm Musculoskeletal: Head/Neck/Chest: normocephalic and head atraumatic Skin: no rashes, warm and dry Neurologic: moves all extremities Psychiatric: appears sleepy but is easily arousable, was alert and oriented on team rounds about one hour later and appeared at baseline. Results & Data Results & Data ([facility]) Vital Signs (Past 12 Hours) Vital Signs Temp Pulse Resp BP BP Pulse Ox 09/07/20 07:27 36.6 C 87 19 121/62 97 09/07/20 04:28 36.4 C L 92 H 18 134/67 96 Laboratory Results Laboratory Results - last 24 hr 09/06/20 09/06/20 09/06/20 12:20 12:20 12:20 WBC RBC Hgb Hct MCV MCH MCHC RDW Std Deviation RDW Coeff of Saeed Plt Count MPV Immature Gran % (Auto) Neut % (Auto) Lymph % (Auto) [place] % (Auto) Eos % (Auto) Baso % (Auto) Neut # (Auto) Lymph # (Auto) [place] # (Auto) Eos # (Auto) Baso # (Auto) Immature Gran # (Auto) APTT PTT Ratio Sodium Potassium Chloride Carbon Dioxide Anion Gap BUN Creatinine Est Cr Clr Drug Dosing Est GFR ( Amer) Est GFR (Non-Af Amer) BUN/Creatinine Ratio Glucose Estimat Average Glucose 111 Hemoglobin A1c 5.5 Calcium AST Troponin I 13.900 H* Triglycerides 74 Cholesterol 118 LDL Cholesterol, Calc 68 VLDL Cholesterol, Calc 15 HDL Cholesterol 35 Cholesterol/HDL Ratio 3 09/07/20 09/07/20 09/07/20 06:05 06:05 06:05 WBC 3.26 L D RBC 2.75 L Hgb 9.4 L Hct 27.5 L MCV 100.0 MCH 34.2 H MCHC 34.2 RDW Std Deviation 49.4 H RDW Coeff of Saeed 13.6 Plt Count 169 MPV 10.4 Immature Gran % (Auto) 0.3 Neut % (Auto) 68.4 Lymph % (Auto) 28.2 [place] % (Auto) 3.1 Eos % (Auto) 0.0 Baso % (Auto) 0.0 Neut # (Auto) 2.23 Lymph # (Auto) 0.92 L [place] # (Auto) 0.10 L Eos # (Auto) 0.00 Baso # (Auto) 0.00 Immature Gran # (Auto) 0.01 APTT 111.1 H* PTT Ratio 4.2 Sodium 139 Potassium 4.4 D Chloride 108 H Carbon Dioxide 25 Anion Gap 6.0 BUN 31 H Creatinine 0.78 Est Cr Clr Drug Dosing 61.3 Est GFR ( Amer) 96.1 Est GFR (Non-Af Amer) 82.9 BUN/Creatinine Ratio 40.2 H Glucose 151 H Estimat Average Glucose Hemoglobin A1c Calcium 9.0 AST 94 H Troponin I Triglycerides Cholesterol LDL Cholesterol, Calc VLDL Cholesterol, Calc HDL Cholesterol Cholesterol/HDL Ratio Medications Administered Alfuzosin HCl (Alfuzosin Hcl 10 Mg Tab) 10 mg PO DAILY [facility] Stop: 10/06/20 08:59 Last Admin: 09/07/20 08:41 Dose: 10 mg Documented by: [id number] Admin: 09/06/20 08:12 Dose: 10 mg Documented by: [id number] Aspirin (Aspirin 81 Mg Ectab) 81 mg PO DAILY [facility] Stop: 10/06/20 08:59 Last Admin: 09/07/20 08:38 Dose: 81 mg Documented by: [id number] Admin: 09/06/20 08:12 Dose: 81 mg Documented by: [id number] Duloxetine HCl (Duloxetine Hcl 20 Mg Cap) 20 mg PO DAILY [facility] Stop: 10/06/20 08:59 Last Admin: 09/07/20 08:37 Dose: 20 mg Documented by: [id number] Admin: 09/06/20 08:15 Dose: 20 mg Documented by: [id number] Famotidine (Famotidine 20 Mg Tab) 20 mg PO BID [facility] Stop: 10/06/20 20:59 Last Admin: 09/06/20 20:37 Dose: 20 mg Documented by: [id number] Fish Oil (Lester-3 (Purified Fish Oil) 1 Gm Cap) 1 gm PO DAILY [facility] Stop: 10/06/20 08:59 Last Admin: 09/07/20 08:41 Dose: Not Given Documented by: [id number] Admin: 09/06/20 08:12 Dose: 1 gm Documented by: [id number] Glucosamine Sulfate (Glucosamine Sulfate 500 Mg Cap) 500 mg PO DAILY [facility] Stop: 10/06/20 08:59 Last Admin: 09/07/20 08:39 Dose: Not Given Documented by: [id number] Admin: 09/06/20 08:12 Dose: 500 mg Documented by: [id number] Heparin Sodium/Dextrose (Heparin Sodium/Dextrose) 25,000 units in 500 mls @ 22 mls/hr IV .[id number] [facility]; Protocol Stop: 10/05/20 22:04 Last Titration: 09/07/20 07:34 Dose: 1,100 units/hr, 22 mls/hr Documented by: [id number] Cosigned by: [id number] Admin: 09/06/20 18:07 Dose: 1,300 units/hr, 26 mls/hr Documented by: [id number] Cosigned by: [id number] Titration: 09/06/20 18:07 Dose: 1,300 units/hr, 26 mls/hr Documented by: [id number] Cosigned by: [id number] Titration: 09/06/20 07:19 Dose: 1,300 units/hr, 26 mls/hr Documented by: [id number] Cosigned by: [id number] Titration: 09/06/20 07:12 Dose: 1,300 units/hr, 26 mls/hr Documented by: [id number] Cosigned by: [id number] Admin: 09/05/20 23:12 Dose: 1,300 units/hr, 26 mls/hr Documented by: [id number] Cosigned by: [id number] Metoprolol Tartrate (Metoprolol Tartrate 25 Mg Tab) 12.5 mg PO BID [facility] Stop: 10/06/20 20:59 Last Admin: 09/07/20 08:40 Dose: 12.5 mg Documented by: [id number] Admin: 09/06/20 20:38 Dose: 12.5 mg Documented by: [id number] Olmesartan (Olmesartan Medoxomil 20 Mg Tab) 10 mg PO DAILY [facility] Stop: 10/06/20 08:59 Last Admin: 09/06/20 08:12 Dose: 10 mg Documented by: [id number] Pantoprazole Sodium (Pantoprazole 40 Mg Tab) 40 mg PO QAM [facility] Stop: 10/07/20 08:59 Last Admin: 09/07/20 08:41 Dose: 40 mg Documented by: [id number] Polyethylene Glycol (Polyethylene (Miralax) 17 Gm Pack) 17 gm PO DAILY [facility] Stop: 10/06/20 08:59 Last Admin: 09/07/20 08:41 Dose: Not Given Documented by: [id number] Admin: 09/06/20 08:12 Dose: Not Given Documented by: [id number] Prednisone (Prednisone 50 Mg Tab) 50 mg PO 0200,0800,2000 [facility] Stop: 09/07/20 18:00 Last Admin: 09/07/20 02:09 Dose: 50 mg Documented by: [id number] Admin: 09/06/20 20:40 Dose: 50 mg Documented by: [id number] Resident Activity Tracking Resident Involvement: Resident Care Provided Care Provided: Adult Hospital Medicine (1) Coronary artery disease Associated angina: angina presence unspecified Coronary Disease-Associated Artery/Lesion type: [place] artery [place] vs. transplanted heart: [place] heart Qualified Code(s): I25.10 - Atherosclerotic heart disease of [place] coronary artery without angina pectoris
[2020-09-07] MEDS: ASPIRIN 81 MG ECTAB PO SCH (08:38)
[2020-09-07] MEDS: GLUCOSAMINE SULFATE 500 MG CAP PO SCH (08:39)
[2020-09-07] MEDS: METOPROLOL TARTRATE 25 MG TAB PO SCH ×2 (08:40→19:39)
[2020-09-07] MEDS: POLYETHYLENE (MIRALAX) 17 GM PACK PO SCH (08:41)
[2020-09-07] MEDS: ALFUZOSIN HCL 10 MG TAB PO SCH (08:41)
[2020-09-07] MEDS: PANTOprazole 40 MG TAB PO SCH (08:41)
[2020-09-07] MEDS: OMEGA-3 (PURIFIED FISH OIL) 1 GM CAP PO SCH (08:41)
--- NOTE | 2020-09-07 09:28 | Cardiology Consultation ---
Date of Consultation September 07, 2020 Assessment & Plan (1) NSTEMI (non-ST elevated myocardial infarction): 1. Coronary disease status post angioplasty and stenting of OM3 with a residdual 40% mid LAD lesion. 2. Negative nuclear stress test for ischemia preoperatively 04/2013 3. Lyperlipidemia 4. Hypertension 5. Normal biventricular size and function with ejection fraction in the range of 70% by echo June 2019. 6. Significant osteoarthritis impacting his quality of life Mr. Sauceda presented with chest pain 04/21 and his troponin peaked at 15.1. The pain across his chest has now resolved, he has 2/10 pain across his upper belly, no further diaphoresis or nausea. He appears comfortable though tired in bed. His echo was technically difficulty but showed normal left ventricular function. ECG this morning showed normal sinus rhythm with sinus arrhythmia with nonspecific T wave abnormality. Discussed his case with Dr. Bailon from interventional cardiology who will plan to take patient to lab rep tomorrow. - continue heparin gtt - NPO after MN - hold olmesartan for cath - start metoprolol tartrate 12.5 mg bid - Patient has a iodine contrast allergy - will give 50 mg prednisone 13h prior, then 7h prior, then 1h prior to cath, will give famotidine 20 mg bid, and 50 mg po Benedryl tonight and tomorrow morning. - will hold off on nitro paste given low normal bps - if patient has increase in pain overnight would give Plavix load - Continue ASA (2) Atrial fibrillation with rapid ventricular response: (3) Coronary artery disease: (4) Hyperlipidemia: (5) Hypertension: History of Present Illness Attending Physician: Gama Casiano MD Allergies Allergy/AdvReac Type Severity Reaction Status Date / Time Iodinated Contrast Media Allergy Intermediate " Feels Verified 09/05/20 21:17 [Iodinated Contrast- Oral eliza hot and IV Dye] and painful" perflutren Allergy Unknown BODY GOT Verified 06/05/20 00:11 HOT AND BACK SPASMS propylene glycol Allergy Unknown BODY GOT Verified 06/05/20 00:11 HOT AND BACK SPASMS ragweed pollen Allergy Unknown UNKNOWN Verified 09/05/20 21:17 SANJAY Inhibitors AdvReac Cough Verified 09/05/20 21:17 Home Medications Medication Instructions Recorded Confirmed Type glucosamine sulfate 500 mg capsule 500 mg PO DAILY cap 12/22/18 09/05/20 History pjdozear-xkr-aeoop acid 300 1 tab PO DAILY 12/22/18 09/05/20 History mcg-lycopene 600 mcg-lutein 300 mcg tablet polyethylene glycol 3350 17 17 gm PO DAILY 12/22/18 09/05/20 History gram/dose oral powder cholecalciferol (vitamin D3) 25 1,000 units PO DAILY 02/24/19 09/05/20 History mcg (1,000 unit) capsule meclizine 25 mg tablet 12.5 mg PO TID PRN tab 02/24/19 09/05/20 History risedronate 35 mg tablet 35 mg PO WEEKLY tab 02/24/19 06/05/20 History celecoxib 100 mg capsule 100 mg PO BID #180 cap 03/28/19 06/05/20 Rx alfuzosin 10 mg tablet,extended 10 mg PO DAILY #90 tab 09/29/19 09/05/20 Rx release 24 hr melatonin 3 mg capsule 3 mg PO HS PRN 10/19/19 09/05/20 History nitroglycerin 0.4 mg sublingual 0.4 mg SL DIRECTED PRN 10/19/19 09/05/20 History tablet ascorbic acid (vitamin C) 1,000 mg PO DAILY 06/05/20 09/05/20 History aspirin 81 mg PO DAILY 06/05/20 09/05/20 History calcium carbonate-vitamin D3 0.5 tab PO BID 06/05/20 09/05/20 History [Calcium 600 + D(3)] duloxetine 20 mg PO DAILY 06/05/20 09/05/20 History olmesartan 10 mg PO DAILY 06/05/20 09/05/20 History omega 0-yty-xas-fish oil [Fish Oil] 1 cap PO DAILY 06/05/20 09/05/20 History acetaminophen 1,000 mg PO DIRECTED PRN 09/05/20 09/05/20 History Patient History Medical History (Updated 09/06/20 @ 18:13 by Monica Barnes MD) Acidosis, lactic Atrial fib/flutter, transient Coronary artery disease FH: bilateral hip replacements Hip pain, bilateral Hx of prostatic malignancy Hyperlipidemia Lumbar pain Osteoarthritis Osteoporosis Restless leg syndrome Shoulder pain, bilateral Surgical History H/O heart artery stent History of arthroplasty of right shoulder Family History Father Cardiac disorder Mother Cardiac disorder Social History Smoking Status: Never smoker Hx Alcohol Use: No Hx Substance Use: No Preferred Language: Telugu Communication Ability: Effective Visual Impairment: No Limitations Hearing Ability: Hard of Hearing Job Compositor Required: No Beliefs That Will Affect Care: None marital status: Current Living Situation: Spouse and Personal Care Facility Current Living Situation Comment: lives with at [facility] current occupational status: retired How many Children do You have: 2 Other Information That Helps Us Care for You: No Feels Safe at Home: Yes Safety Concerns: Feels Safe At This Time Assistive Devices: Glasses, Hearing Aid - Left, Hearing Aid - Right and Walker Results & Data ([facility]) Vital Signs (Past 12 Hours) Vital Signs Temp Pulse Resp BP BP Pulse Ox 09/07/20 07:27 36.6 C 87 19 121/62 97 09/07/20 04:28 36.4 C L 92 H 18 134/67 96 (1) Coronary artery disease Coronary Disease-Associated Artery/Lesion type: [place] artery [place] vs. transplanted heart: [place] heart Associated angina: angina presence unspecified Qualified Code(s): I25.10 - Atherosclerotic heart disease of [place] coronary artery without angina pectoris
--- NOTE | 2020-09-07 10:21 | Cardiology Progress Note ---
Date of Service September 07, 2020 Assessment & Plan (1) NSTEMI (non-ST elevated myocardial infarction): 1. Coronary disease status post angioplasty and stenting of OM3 with a residdual 40% mid LAD lesion. 2. Negative nuclear stress test for ischemia preoperatively 04/2013 3. Lyperlipidemia 4. Hypertension 5. Normal biventricular size and function with ejection fraction in the range of 70% by echo June 2019. 6. Significant osteoarthritis impacting his quality of life Mr. Sauceda presented with chest pain 04/21 and his troponin peaked at 15.1. The pain across his chest has now resolved, no further diaphoresis or nausea. His echo was technically difficulty but showed normal left ventricular function. ECG 09/06 showed normal sinus rhythm with sinus arrhythmia with nonspecific T wave abnormality. Discussed his case with Dr. Bailon from interventional cardiology who will plan to take patient to laboratory [facility] 09/07. - continue heparin gtt - NPO until cath - hold olmesartan for cath - continue metoprolol tartrate 12.5 mg bid - Patient has a iodine contrast allergy - given 50 mg prednisone 13h prior, then 7h prior, then 1h prior to cath, famotidine 20 mg bid, and 50 mg po Benedryl - will hold off on nitro paste given low normal bps - Continue ASA (2) Atrial fibrillation with rapid ventricular response: Rates are controlled. Patient appears to be going in and out of A fib on the monitor which is not causing him to become symptomatic. The question will be whether to anticoagulate following his likely need for a stent today given that he will be on dual platelet therapy. He is a higher risk for bleeding and has a history of falls. CHADS- VASc is 4. At this point with his falls and vertigo, risks for anticoagulation likely outweigh benefit and would recommend dual platelet therapy following stent but not anticoagulation. (3) Coronary artery disease: (4) Hyperlipidemia: Will look back through patient's outpatient record to see if he has a history of not tolerating statins as he is not on them. Would also need patient to repeat lipid panel in 6-8 weeks when off of heparin gtt (5) Hypertension: Admission and Anticipated Discharge Date Admission Date: September 05, 2020 Subjective Mr. Sauceda has no further pain today, belly and chest pain have resolved. No sob. He is overall feeling well today Review of Systems Respiratory: + cough; no dyspnea Cardiovascular: as per Subjective / HPI Gastrointestinal: no abdominal pain and no nausea Physical Exam Constitutional: WD/WN, vitals as above Respiratory: normal respiratory effort, lungs clear to auscultation Cardiovascular: Rate/Rhythm: + irregularly irregular Heart Sounds: normal S1 and normal S2; no murmur Extremities: no edema Skin: no rashes, warm and dry Neurologic: moves all extremities and awake Psychiatric: A+Ox3, euthymic affect Results & Data ([facility]) Vital Signs (Past 12 Hours) Vital Signs Temp Pulse Resp BP BP Pulse Ox 09/07/20 07:27 36.6 C 87 19 121/62 97 09/07/20 04:28 36.4 C L 92 H 18 134/67 96 (1) Coronary artery disease Coronary Disease-Associated Artery/Lesion type: [place] artery [place] vs. transplanted heart: [place] heart Associated angina: angina presence unspecified Qualified Code(s): I25.10 - Atherosclerotic heart disease of [place] coronary artery without angina pectoris
[2020-09-07] MEDS: diphenhydrAMINE Capsule 25 MG CAP PO SCH (13:00)
[2020-09-07] MEDS: FAMOTIDINE 20 MG TAB PO SCH ×2 (13:00→19:39)
[2020-09-07] MEDS ORDERED: MIDAZOLAM HCL 1 MG/ML 2ML VIAL ONE (13:53)
[2020-09-07] MEDS ORDERED: fentaNYL citrate 100 MCG/2 ML VIAL ONE (13:54)
[2020-09-07] MEDS ORDERED: HEPARIN (PORCINE) 1000 UNIT/ML 10 ML (CATH LAB USE ONLY) ONE (13:54)
[2020-09-07] MEDS ORDERED: niCARdipine HCL INJ 2.5 MG/ML 10 ML AMP ONE (13:54)
[2020-09-07] MEDS ORDERED: NITROGLYCERIN/D5W 100MCG/ML 20ML SYR ONE (13:55)
[2020-09-07] MEDS ORDERED: diphenhydrAMINE Capsule 25 MG CAP PO SCH (14:00)
[2020-09-07] MEDS ORDERED: predniSONE 50 MG TAB PO ONE (14:00)
--- NOTE | 2020-09-07 14:14 | Pre Anesthesia Assessment ---
Date of Service September 07, 2020 Pre Sedation Assessment Vital Signs Temp Pulse Pulse Resp BP BP Pulse Ox 09/07/20 11:04 97.9 F 93 H 18 117/64 100 09/07/20 07:27 97.9 F 87 19 121/62 97 09/07/20 04:28 97.5 F L 92 H 18 134/67 96 09/06/20 19:31 97.7 F 96 H 18 104/55 L 99 09/06/20 15:46 97.7 F 88 18 105/55 L 97 09/06/20 14:56 88 Cardiovascular RRR, no murmur, no edema Respiratory normal respiratory effort, lungs clear to auscultation Pre-Sedation Airway Assessment Smoking Status: Never smoker Hx Sleep Apnea: No Hx Difficult Intubation: No Short, Thick Neck: No Thyromental Distance: > or= 3.5 Finger Breadths Oral Cavity: + WNL Mallampati Class: III ASA: ASA4 NPO Status Date of Last Intake of Fluids: 09/07/20 Time of Last Intake of Fluids: 08:00 Last Oral Intake of Fluids Comment: sip with meds Date of Last Intake of Solid Food: 09/06/20 Time of Last Intake of Solid Foods: 18:30 Procedure Planning Contraindications for Sedation: none Current Medications Reviewed: Yes Notes The planned sedation has been discussed with the patient. Informed Consent was obtained. I have identified the patient, determined the appropriateness of sedation and have assessed the patient immediately prior to the procedure. All medicine(s) and interventions are by my order.
--- NOTE | 2020-09-07 14:50 | Post Anesthesia Assessment ---
Date of Service September 07, 2020 Post Sedation Assessment Vital Signs Temp Pulse Pulse Resp BP BP Pulse Ox 09/07/20 11:04 97.9 F 93 H 18 117/64 100 09/07/20 07:27 97.9 F 87 19 121/62 97 09/07/20 04:28 97.5 F L 92 H 18 134/67 96 09/06/20 19:31 97.7 F 96 H 18 104/55 L 99 09/06/20 15:46 97.7 F 88 18 105/55 L 97 09/06/20 14:56 88 Recovery Score Activity: Moves 4 extremities Respiration: Deep Breath/Cough Circulation: +/-20% PreAnes Value Consciousness: Fully Awake Oxygen Saturation: O2 needed for >90% Discharge Sedation Level of Care: Fast Track Phase II Post Sedation Plan On clinical assessment, the patient appears to have tolerated the sedation without complications. Patient is recovering as anticipated. Patient will continue to be monitored by nursing and may be discharged when sedation discharge criteria are met per below protocol. Upon Completions of procedure up to 15 minutes continue every 5 minute vital signs and the P.A.R. score; then discharge to a Phase I or Fast Track to Phase II per the following guidelines: * Discharge Patient to appropriate Phase II area if PAR is 8 or greater or return to pre- procedure baseline. The post - procedure orders will be as directed. * If PAR score is less than 8 or not return to pre-procedure baseline then patient will follow Phase I monitoring till PAR is reached for Phase II. The Phase I may be done in procedure room or may call to secure a Phase I area. * If naloxone or flumazenil are used for reversal, hold in Phase I for continued monitoring from when last reversal dose was given for a minimum of 60 minutes or longer pending the nurse and/or physician discretion of patient condition before discharge to Phase II. Please call the Sedation Physician to re-evaluate and complete post-note for discharge to Phase II area. Do NOT discharge from procedure sedation or Phase 1 until post- sedation evaluation note is complete by procedure /sedation MD Sedation Discharge Instructions to be given to the patient at discharge to home.
[2020-09-07] MEDS ORDERED: SODIUM CHLORIDE 0.9% 1000ML 1,000 ML IV SCH (15:30)
--- NOTE | 2020-09-07 15:37 | Post Operative Brief Note ---
Cardiology Brief Post Op Date of Surgery September 07, 2020 Pre & Post Diagnosis Coronary artery disease Procedure -- Land Survey Technician Kayode Bailon MD Fmd Teacher Yrn Estimated Blood Loss 10 Findings See Below LM short without significant disease Small to medium caliber LAD 30-40% proximal LAD. High D1, D2 without significant disease. Large, dominant circumflex, no significant disease Small, non-dominant RCA, 95% proximal, RAMIRO 3 flow (acute culprit). Recommend medical management of small, non-dominant RCA Anesthesia Type RN Sedation Complications none Disposition Accompanied Patient To Recovery: No Disposition: PCU Overlapping Procedure I was present for: the critical portions of procedure. I was immediately available: during the entire case. Back up surgeon: was not required during procedure.
[2020-09-07] MEDS: HEPARIN SODIUM/DEXTROSE 25,000 UNITS/500 ML BAG IV SCH (15:47)
[2020-09-07] MEDS ORDERED: CLOPIDOGREL BISULFATE 300 MG TAB PO STA (16:53)
--- NOTE | 2020-09-07 23:26 | Cardiac Catheterization ---
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 Cardiac Status Clinical evaluation leading to the procedure CAD Presenation: Non STEMI Anginal Classification: CCS IV Heart Failure: No Cardiogenic Shock within 24 Hours: No Cardiac Arrest within 24 Hours: No Imaging Studies Past 6 Months: Yes Stress Studies Past 6 Months: No Diagnostic Physicians Name: Kayode Bailon MD Status: Elective Closure Device Percutaneous Entry Location: Radial Closure Device: Radial Band Recommendations: Medical Therapy and/or Counseling Intraprocedure Events Significant Disection: No Perforation: No Cardiac Cath Procedure Full Procedure Date September 07, 2020 Pre-Procedure Diagnosis Pre-Procedure Diagnosis: Non STEMI AUC Score AUC Score: 8 Post-Procedure Diagnosis Post-Procedure Diagnosis: Severe CAD and Normal Intracardiac Pressures Procedure(s) Performed Procedure(s) Performed: Coronary Angiography and Left Heart Cath Spa Technician Kayode Bailon MD Dockmaster(s) Yrn Estimated Blood Loss Estimated Blood Loss: 15 Medication(s) Medication(s): Fentanyl, Heparin, Lidocaine 1%, Nicardipine, Nitroglycerin and Versed Summary of Findings Indication: NSTEMI Access: 6F right radial artery Catheters: [place] Findings: LM -Short, no significant disease LAD -small to medium caliber, proximal segment with 30 to 40% disease, distal vessel without significant disease. Medium caliber high D1, D2 without significant disease. Circumflex -large, dominant circumflex without significant disease. RCA -small, nondominant, 95% proximal (acute culprit), RAMIRO-3 flow. LVEDP -11 Arterial Closure: TR band Summary: 1. 95% acute proximal stenosis in small, nondominant RCA 2. Mild to moderate nonobstructive proximal LAD disease (30 to 40%) 3. Normal intracardiac filling pressure Recommendations: Patient chest pain-free and troponin has peaked. Nondominant RCA is likely too small for stenting and recommend medical management. DAPT with aspirin, clopidogrel for 1 year post NSTEMI. Can discontinue heparin. Hemodynamics Rest Ao:: 120/60/106 Final Ao: 105/57/77 LV: 129/11 Recommendations Recommendations: Medical Therapy and/or Counseling Specimens Specimens: None Radiation Exposure (mGy) 674 Contrast (mls) 40 Fluids (cc crystalloids) Fluids (cc crystalloids): 100 Drains Drains: none Anesthesia moderate Procedural Complication(s) None Disposition PCU I attest to the content of the Intraoperative Record and any orders documented therein. Any exceptions are noted below. [facility] Card Cath Procedure Codes Cardiac Catheterization Procedure 1: Cardiovascular Cath Procedures: 55602 Coronaries and LHC (+/-LV) Moderate Sedation Procedure 1: Sedation/Anesthesia: 15470 Mod Sedation by the same physician;Init15 Min Child Age 5 & Up PG Care Time/CCT Total # of Minutes Spent Total Time Spent with Patient: Total time spent is greater than 50% in coordination of care (as documented) at patient's floor/unit and/or counseling patient:
[2020-09-08 06:28] LABS: Hematocrit (blood only) 27.3 % (42-52); Hemoglobin 9.3 g/dL (14.0-18.0); Mean Corpuscular Hemoglobin 34.7 pg (25-34); Mean Corpuscular Hgb Conc 34.1 g/dL (32-36); Mean Corpuscular Volume 101.9 fL (80-100); Platelet Count 169 K/uL (130-400); RDW Coefficient of Variation 13.5 % (11.5-14.5); RDW Standard Deviation 50.3 fL (36.4-46.3); Red Blood Count 2.68 M/uL (4.7-6.1); White Blood Count 11.41 K/uL (4.8-10.8)
[2020-09-08 07:01] LABS: Calcium 9.1 mg/dl (8.5-10.1); Creatinine Clr Calc Pharmacy 53.1 ml/min; Est GFR (African American) 90.6; Est GFR (Non-African American) 78.2; Potassium 4.1 mmol/L (3.5-5.1)
[2020-09-08] MEDS: METOPROLOL TARTRATE 25 MG TAB PO SCH ×2 (08:31→20:59)
[2020-09-08] MEDS: OMEGA-3 (PURIFIED FISH OIL) 1 GM CAP PO SCH (08:32)
[2020-09-08] MEDS: ALFUZOSIN HCL 10 MG TAB PO SCH (08:32)
[2020-09-08] MEDS: GLUCOSAMINE SULFATE 500 MG CAP PO SCH (08:32)
[2020-09-08] MEDS: FAMOTIDINE 20 MG TAB PO SCH ×2 (08:32→21:00)
[2020-09-08] MEDS: ASPIRIN 81 MG ECTAB PO SCH (08:33)
[2020-09-08] MEDS: PANTOprazole 40 MG TAB PO SCH (08:33)
[2020-09-08] MEDS: DULoxetine HCL 20 MG CAP PO SCH (08:33)
[2020-09-08] MEDS: POLYETHYLENE (MIRALAX) 17 GM PACK PO SCH (08:35)
[2020-09-08] MEDS: CLOPIDOGREL BISULFATE 75 MG TAB PO SCH (12:29)
--- NOTE | 2020-09-08 13:23 | Discharge Summary ---
Date of Service September 09, 2020 Admission HPI Per Admitting Provider Guerrero Sauceda is an 84yo C male with history of CAD, PAF presenting with acute onset chest pain and abdominal pain. Patient was eating dinner around 17:00 this evening when he developed bandlike chest discomfort, 10/10 in severity with radiation into bilateral arms. Patient had associated diaphoresis. He took a Nitro at home with no relief - medication was , however. AF on arrival. Still with CP, however, improved. ER Course: ASA en route, Nitro paste, Metoprolol Admission Exam Per Admitting Provider General: patient resting comfortably, NAD, non-toxic in appearance, AA&O x 4 Skin: warm, dry, intact, no rashes or lesions HEENT: NC/AT, PERRL, EOMI, anicteric sclera, conjunctiva without injection, external ear normal to inspection and nontender, nares patent, moist mucus membranes, dentition intact, no oropharyngeal lesions, neck supple, trachea midline, no LAD, no thyromegaly, no JVD Heart: +S1/S2, irregularly irregular, no m/r/g Lungs: equal air entry bilaterally, no rales/rhonchi/wheezes Abd: +BS, soft, NT/ND, no masses/organomegaly/ascites Ext: warm, 2+ pulses in UE/LE bilaterally, no clubbing/cyanosis or edema Neuro: nonfocal, patient AA&O x 4, speech intact, no facial droop, moving all extremities on command with equal strength 5/5 Principal Diagnosis NSTEMI Discharge Exam General: Alert, oriented. No acute distress Skin: No noted rashes or bruises Psych: Appropriate mood and affect Neuro: No gross deficits HEENT: NC/AT Chest: Nontender to palpation. CV: RRR, Normal s1, s2. Resp: Breath sounds clear bilaterally, no increased effort of breathing. Abdomen: Soft, nontender, nondistended. No guarding. Extremities: Trace edema in lower extremities bilaterally. Discharge Data Allergies Allergy/AdvReac Type Severity Reaction Status Date / Time Iodinated Contrast Media Allergy Intermediate " Feels Verified 09/05/20 21:17 [Iodinated Contrast- Oral eliza hot and IV Dye] and painful" perflutren Allergy Unknown BODY GOT Verified 06/05/20 00:11 HOT AND BACK SPASMS propylene glycol Allergy Unknown BODY GOT Verified 06/05/20 00:11 HOT AND BACK SPASMS ragweed pollen Allergy Unknown UNKNOWN Verified 09/05/20 21:17 SANJAY Inhibitors AdvReac Cough Verified 09/05/20 21:17 Consultations 09/05/20 19:40 ED Decision to Admit Stat 09/05/20 21:38 Consult Cardiology Routine 09/06/20 17:27 Consult Cardiology Routine 09/07/20 15:31 Consult Cardiac Rehabilitation Routine Procedures Performed Operation Date: 09/07/20 12:00 Actual Procedures p Cath, Left with Cors and Vent - Gmaa Bailon MD s Cineradiography w/Routine Exam - Gama Bailon MD Ordered Studies 09/07/20 07:52 CL Cath Imgs for PACS use only Routine 09/07/20 13:56 CL Cath Imgs for PACS use only Routine Hospital Course (1) NSTEMI (non-ST elevated myocardial infarction): 84yo C male with history of CAD s/p stent to OM3, HLD, HTN and A-fib (not on anticoag) who was admitted with chest pain, thought to be consistent with an NSTEMI. Stable for discharge to SNF. - Trops peaked at 15, and down trended to 13.9 - EKG showing ST segment depressions on admission - Echo - study limited, normal LV systolic function and EF noted - cards consulted, s/p cardiac cath on 09/07/2020. Noted 95% stenosis of RCA but too small for stent so advised medical management. -heparin discontinued -continue dual antiplatelet therapy with aspirin and plavix. -continue metoprolol tartrate 12.5mg -continue olmesartan 5mg and titrate up as needed. - risk factors include known age, CAD, HTN, HLD. Hgb A1C of 5.5, not diabetic. Atrial fibrillation with rapid ventricular response: - present on admission EKG - rate control achieved with IV Metoprolol and currently in sinus rhythm. - started on oral metoprolol tartrate 12.5mg BID - Patient not on chronic anticoagulation. Per cardiology, risk of bleed higher while on dual antiplatelet therapy, so anticoagulation not recommended for him. Hypertension: -Given normotensive pressures will restart home olmesartan at half the home dose. Discharged on olmesartan 5mg. Continue metoprolol tartrate 12.5mg BID Elevated troponin: - peaked at 15, then downtrended - suspect secondary to NSTEMI as above Coronary artery disease: - history of stent placed in OM3 in 2012 -s/p cardiac cath 09/07 as above. Noted 95% stenosis of RCA but too small for stent so advised medical management. - home regimen consists of daily baby ASA, metoprolol, ARB and now Plavix. - patient is not on a statin - unclear reason. He will follow up with cardiology for this. - HbA1c 5.5% Hypophosphatemia: -resolved - 09/06 level low at 1.7 on admission, replaced Hyperlipidemia: - on a home fish oil supplement - unclear why patient is not on a statin. he will follow up with Cardiology for this. - lipid panel with LDL 68 and HDL 35 (2) Atrial fibrillation with rapid ventricular response: (3) Hypertension: (4) Elevated troponin: (5) Coronary artery disease: (6) Hypophosphatemia: (7) Hyperlipidemia: Total Time Total Time Spent Total Time Spent (In Minutes): See attending attestation Discharge Plan Discharge Items Patient Disposition: Transfer [facility] Reason For Visit: CHEST PAIN, ELEVATED TROPONIN Discharge Diagnosis: NSTEMI Activity: Per Instructions section Non-emergency contact: Primary Care Provider and Jockey Agent Call non-emergency contact if: your symptoms worsen Follow-up/Referrals: Rohith Kelley DO [Physician] - [facility] [Primary Care Provider] - Diet: Heart Healthy Addtl Attending Provider Instructions: 84yo C male with history of CAD s/p stent to 3, HLD, HTN and A-fib (not on anticoag) who was admitted with chest pain, thought to be consistent with an NSTEMI. Stable for discharge to SNF. - Trops peaked at 15, and down trended to 13.9 - EKG showing ST segment depressions on admission - Echo - study limited, normal LV systolic function and EF noted - cards consulted, s/p cardiac cath on 09/07/2020. Noted 95% stenosis of RCA but too small for stent so advised medical management. -heparin discontinued -continue dual antiplatelet therapy with aspirin and plavix. -continue metoprolol tartrate 12.5mg -continue olmesartan 5mg and titrate up as needed. - risk factors include known age, CAD, HTN, HLD. Hgb A1C of 5.5, not diabetic. (2) Atrial fibrillation with rapid ventricular response: - present on admission EKG - rate control achieved with IV Metoprolol and currently in sinus rhythm. - started on oral metoprolol tartrate 12.5mg BID - Patient not on chronic anticoagulation. Per cardiology, risk of bleed higher while on dual antiplatelet therapy, so anticoagulation not recommended for him. (3) Hypertension: -Given normotensive pressures will restart home olmesartan at half the home dose. Discharged on olmesartan 5mg. Continue metoprolol tartrate 12.5mg BID (4) Elevated troponin: - peaked at 15, then downtrended - suspect secondary to NSTEMI as above (5) Coronary artery disease: - history of stent placed in 3 in 2012 -s/p cardiac cath 09/07 as above. Noted 95% stenosis of RCA but too small for stent so advised medical management. - home regimen consists of daily baby ASA, metoprolol, ARB and now Plavix. - patient is not on a statin - unclear reason. He will follow up with cardiology for this. - HbA1c 5.5% (6) Hypophosphatemia: -resolved - 09/06 level low at 1.7 on admission, replaced (7) Hyperlipidemia: - on a home fish oil supplement - unclear why patient is not on a statin. he will follow up with Cardiology for this. - lipid panel with LDL 68 and HDL 35 Pending Studies at Discharge: No Stand-Alone Forms: My [facility] Skilled Items Patient informed of condition?: Yes DNR: Yes Discharge Level of Care: Skilled Communicable Disease: No Discharge Prognosis: Stable Lines: None Urinary Catheter: No Medications and DC Order Prescriptions: New clopidogrel 75 mg Tablet 75 mg PO QAM 30 Days Qty: 30 RF: 0 olmesartan [Benicar] 5 mg Tablet 5 mg PO QAM Qty: 30 RF: 0 metoprolol tartrate 25 mg Tablet 12.5 mg PO BID Qty: 30 RF: 0 Continued glucosamine sulfate 500 mg capsule 500 mg PO DAILY RF: 0 Centrum Silver Men 300-600-300 mcg tablet 1 tab PO DAILY RF: 0 polyethylene glycol 3350 [Miralax] 17 gram/dose powder 17 gm PO DAILY RF: 0 meclizine 25 mg tablet 12.5 mg PO TID PRN (Reason: Vertigo) RF: 0 risedronate [Actonel] 35 mg tablet 35 mg PO WEEKLY RF: 0 celecoxib [Celebrex] 100 mg capsule 100 mg PO BID Qty: 180 RF: 0 cholecalciferol (vitamin D3) 1,000 unit capsule 1,000 units PO DAILY RF: 0 alfuzosin [Uroxatral] 10 mg tablet extended release 24 hr 10 mg PO DAILY Qty: 90 RF: 0 melatonin 3 mg capsule 3 mg PO HS PRN (Reason: Insomnia) RF: 0 nitroglycerin 0.4 mg tablet, sublingual 0.4 mg SL DIRECTED PRN (Reason: Chest Pain) RF: 0 acetaminophen 500 mg Tablet 1,000 mg PO DIRECTED PRN (Reason: Arthritis Pain) RF: 0 duloxetine 20 mg capsule,delayed release(DR/EC) 20 mg PO DAILY RF: 0 ascorbic acid (vitamin C) 1,000 mg Tablet 1,000 mg PO DAILY RF: 0 aspirin 81 mg Tablet,Delayed Release (Dr/Ec) 81 mg PO DAILY RF: 0 calcium carbonate-vitamin D3 [Calcium 600 + D(3)] 600 mg(1,500mg) -400 unit Tablet 0.5 tab PO BID RF: 0 omega [id number] oil [Fish Oil] 1,000 mg (120 mg-180 mg) Capsule 1 cap PO DAILY RF: 0 Discontinued olmesartan 20 mg tablet 10 mg PO DAILY RF: 0 Discharge Orders: Discharge Order (Routine); Ordered 09/09/20 Ordered By: June Guzman Admission Data Admit Date/Time: 09/05/20 20:36 Attending Provider: Gama Casiano Admit Provider: Bambi Carvajal Primary Care Provider: [facility] Other Providers: Bambi Carvajal ; Gama Galdamez ; Gama Bailon Other Interventions: Discharge Summary Assessment (RN) Last Done: 09/09/20 10:08 Supervising Physician Co-Signing Physician Notes Attending attestation Pt seen and examined in concert with Dr. Guzman. In agreement with the documented findings as noted in the resident documentation with any exceptions or additions as noted here. Presenting chest pain complaint remains resolved. On examination, S1/S2 nl IRR no MCG. CTAB. Abd NT/ND BS+ve NSTEMI - cardiology consultation - continue metoprolol, ASA. Tolerating Plavix s/p load and IMDUR. Continue olmesartan 5mg, uptitrate as tolerated in outpatient. AF w/ RVR - continue metoprolol. [id number] 3, HAS-BLED 2 but risks > benefits per cardiology HTN - controlled with addition of imdur off olmesartan. Monitor BP and avoid hypotension where possible. Else see resident documentation as noted. Total attending time spent with this patients case on day of discharge including counseling and coordination of care elements: 20 minutes. Resident Activity Tracking Resident Involvement: Resident Care Provided Care Provided: Adult Hospital Medicine
--- NOTE | 2020-09-08 16:21 | Hospitalist Progress Note ---
Date of Service September 08, 2020 Assessment & Plan (1) NSTEMI (non-ST elevated myocardial infarction): 84yo C male with history of CAD s/p stent to OM3, HLD, HTN and A-fib (not on anticoag) who was admitted with chest pain, thought to be consistent with an NSTEMI. Stable for discharge to the [facility]. - Trops peaked at 15, and down trended to 13.9 - EKG showing ST segment depressions on admission - Echo - study limited, normal LV systolic function and EF noted - cards consulted, s/p cardiac cath on 09/07/2020 -heparin discontinued -continue dual antiplatelet therapy with aspirin and plavix. -continue metoprolol tartrate 12.5mg - risk factors include known age,CAD, HTN, HLD. Hgb A1C of 5.5, not diabetic. (2) Atrial fibrillation with rapid ventricular response: - present on admission EKG - rate control achieved with IV Metoprolol and currently in sinus rhythm. - started on oral metoprolol tartrate 12.5mg BID - Patient not on chronic anticoagulation. Per cardiology, risk of bleed higher while on dual antiplatelet therapy, so anticoagulation not recommended for him. (3) Hypertension: -Given normotensive pressures will restart home olmesartan at half the home dose. olmesartan 5mg (4) Elevated troponin: - peaked at 15, then downtrended - suspect secondary to NSTEMI as above (5) Coronary artery disease: - history of stent placed in 3 in 2012 - home regimen consists of daily baby ASA, metoprolol and ARB - patient is not on a statin - unclear reason. -appreciate cardiology recs - HbA1c 5.5% (6) Hypophosphatemia: -resolved - /25 level low at 1.7 on admission, replaced (7) Hyperlipidemia: - on a home fish oil supplement - unclear why patient is not on a statin; appreciate cardiology recs. - lipid panel with LDL 68 and HDL 35 Diet: Heart Healthy Dispo: Tele DVT ppx: on aspirin/plavix Code: DNR/DNI Admission and Anticipated Discharge Date Admission Date: September 05, 2020 Supervising Physician Co-Signing Physician Notes Attending attestation Pt seen and examined in concert with Dr. Guzman. In agreement with the documented findings as noted in the resident documentation with any exceptions or additions as noted here. No further chest complaint symptoms. On examination, S1/S2 nl IRR no MCG. CTAB. Abd NT/ND BS+ve NSTEMI - cardiology consultation - continue metoprolol, ASA. Tolerating Plavix s/p load and IMDUR. Restart olmesartan. AF w/ RVR - continue metoprolol. [id number] 3, HAS-BLED 2 but risks > benefits per cardiology HTN - controlled with addition of imdur. Olmesartan restarted as above. Monitor BP and avoid hypotension where possible. Else see resident documentation as noted. Subjective Mr. Sauceda seen this AM, sattes he is doing well. Denied any chest pain, SOB or discomfort. Had been flipping into a fib overnight and had a run of PVCs yesterday evening as well. Review of Systems Constitutional: no fever, no chills and no sweats Eyes: no worsening vision Ear, Nose, Mouth, Throat: no nasal congestion Respiratory: no cough and no dyspnea Cardiovascular: no chest pain, no dyspnea, no palpitations and no edema Gastrointestinal: no nausea and no vomiting Neurologic: no headache(s) Psychiatric: + confusion Physical Exam Physical Exam: General: Alert, oriented. No acute distress Skin: No noted rashes or bruises Psych: Appropriate mood and affect Neuro: No gross deficits HEENT: NC/AT, Chest: Nontender to palpation. CV: RRR, Normal s1, s2. No murmurs appreciated Resp: Breath sounds clear bilaterally, no increased effort of breathing. Abdomen: Soft, nontender, nondistended. No guarding. Extremities: Trace edema in lower extremities bilaterally. Results & Data Results & Data ([facility]) Vital Signs (Past 12 Hours) Vital Signs Temp Pulse Resp BP BP Pulse Ox 09/08/20 15:06 36.4 C L 77 18 127/59 L 98 09/08/20 10:49 36.4 C L 89 18 124/59 L 96 09/08/20 08:01 36.4 C L 95 H 18 137/63 98 Resident Activity Tracking Resident Involvement: Resident Care Provided Care Provided: Adult Hospital Medicine (1) Coronary artery disease Associated angina: angina presence unspecified Coronary Disease-Associated Artery/Lesion type: [place] artery [place] vs. transplanted heart: [place] heart Qualified Code(s): I25.10 - Atherosclerotic heart disease of [place] coronary artery without angina pectoris
[2020-09-09] MEDS ORDERED: OLMESARTAN MEDOXOMIL 5 MG TAB PO SCH (09:00)
[2020-09-09] MEDS: METOPROLOL TARTRATE 25 MG TAB PO SCH (09:42)
[2020-09-09] MEDS: ALFUZOSIN HCL 10 MG TAB PO SCH (09:43)
[2020-09-09] MEDS: FAMOTIDINE 20 MG TAB PO SCH (09:43)
[2020-09-09] MEDS: CLOPIDOGREL BISULFATE 75 MG TAB PO SCH (09:43)
[2020-09-09] MEDS: GLUCOSAMINE SULFATE 500 MG CAP PO SCH (09:44)
[2020-09-09] MEDS: ASPIRIN 81 MG ECTAB PO SCH (09:44)
[2020-09-09] MEDS: POLYETHYLENE (MIRALAX) 17 GM PACK PO SCH (09:45)
[2020-09-09] MEDS: OMEGA-3 (PURIFIED FISH OIL) 1 GM CAP PO SCH (09:45)
[2020-09-09] MEDS: PANTOprazole 40 MG TAB PO SCH (09:46)
[2020-09-09] MEDS: DULoxetine HCL 20 MG CAP PO SCH (09:46)
== END 2020-09-09 10:41 ==
LOC: ED 18:13 → SUATTDRO 20:36 → 2E 20:36

== ENCOUNTER 2022-10-08 15:52 | Inpatient (IN) ==
[2022-10-08] MEDS ORDERED: fentaNYL citrate PF 100 MCG/2 ML VIAL IV STA ×2 (16:02→17:14)
--- NOTE | 2022-10-08 16:04 | Emergency Department Note ---
Impression & Plan Fall, Periprosthetic hip fracture, Osteoporosis, A-fib ED Provider Note Provider: Binh Melgar MD DATE OF SERVICE: 10/08/2022 CHIEF COMPLAINT: Fall HISTORY OF PRESENT ILLNESS: Patient is a 86-year-old gentleman past medical history including atrial fibrillation, UTI, bilateral hip replacements, and osteoarthritis and osteoporosis presenting here today after a fall. Was reaching to bend over to pick something up and lost his balance and fell forward striking his head on the ground. Denies loss of consciousness. Denies significant headache or dizziness right now. Denies any nausea or vomiting. States he was not on the ground for very long his lives with him at the [facility]. EMS was called and brought him here for further evaluation. No pain medicine prior to arrival. Significant pain located around the left hip with movement. Denies injury to the upper extremities or chest pain or shortness of breath. Denies abdominal pain or right lower leg pain. Pain of the left hip but not real pain of the left knee or left foot. States he had some transient numbness of his left foot that has resolved at this time. Reports a history again of hip replacements in the past by orthopedics and followed recently with orthopedics for left hip trochanteric bursitis. Left hip replacement from their note that was reviewed indicate replacement was approximately 17 years ago. PAST MEDICAL HISTORY: As noted above MEDICATIONS: Reviewed home medications includes aspirin, denies other blood thinners SOCIAL HISTORY: Lives with in assisted living PHYSICAL EXAM: GENERAL: alert and oriented in no acute distress on stretcher Head: Patient with evidence of an approximately 3 x 6 cm contusion with some swelling and probable hematoma of the right scalp forehead area without active bleeding. EYES: No injection, discharge or icterus. PERRL, EOMI. NECK: Trachea midline. Supple no significant midline tenderness ENT: Mucous membranes pink and moist. Pharynx without erythema or exudate. Midface is stable LUNGS: Airway patent. No retractions. Breath sounds clear with good air entry bilaterally. HEART: Irregular rate and rhythm. No chest wall tenderness ABDOMEN: Soft and non-tender, without guarding or rebound. Stable pelvis SKIN: Acyanotic, warm, dry, without rashes EXTREMITIES: Without swelling, tenderness or deformity except for some 1+ bilat eral lower extremity swelling. Palpable bilateral DP pulses although diminished in nature symmetrically. Feels gross sensation in lower legs. Soft compartments of the lower legs. Pain with ROM attempts at the left hip. NEUROLOGICAL: No focal deficits. No aphasia. No facial droop or slurred speech. Normal strength and tone in the extremities. Sensation to gross touch normal. Ambulatory. EK bpm atrial fibrillation without acute ST segment elevation or depression with QTc of 462 CONTINUOUS CARDIAC MONITORING: was ordered and showed a heart rate of 80s-100s bpm in atrial fibrillation GCS 15. Patient's laboratory studies and imaging reviewed. Differential includes Fracture, dislocation, contusion, intra-abdominal, pneumothorax, intrathoracic, intracranial, neurologic, compartment syndrome, rhabdomyolysis, as well as other pathologies. IMPRESSION/MEDICAL DECISION MAKIN-year-old gentleman on aspirin no other blood thinners presenting after a fall without LOC. Denies significant prodromal symptoms seems like he is more lost his balance. Was on the ground for any length of time and doubt rhabdomyolysis. Has evidence of a right forehead and scalp contusion and likely subcutaneous hematoma. On aspirin. Given the evidence of head trauma CT head obtained. Will obtain cervical spine x-ray given his age and history of osteoporosis as well. Denies significant chest pain. Reports significant pain around the left hip with movement. Intact sensation and movement of the toes in the left foot no significant tenderness of the left knee leg or ankle. We will obtain x-rays around the left hip. Does have a history of fracture here and replacement in the past. Stable pelvis otherwise. Benign abdomen. No significant chest wall tenderness but will obtain a chest x-ray. Low suspicion for acute intrathoracic or significant acute intra-abdominal pathology or bleeding from traumatic injury. Basic blood work will be obtained. Given some IV fentanyl for pain. Blood work with slight anemia chronic. No significant leukocytosis. No severe electrolyte abnormalities signs of renal dysfunction today. CT of the head per radiology with evidence of intracranial abnormality or fracture with a scalp hematoma. CT of the cervical spine does not report any significant traumatic injury of the demineralization by the report questions some limitations and sensitivity. Not having any significant midline tenderness or neck pain or other neurological symptoms and will defer additional work-up at this point. CT abdomen pelvis and hip shows a acute comminuted displaced periprosthetic fracture of the left femur without other acute intra-abdominal bleeding or trauma noted by report. Discussed with patient and his at bedside. Discussed with orthopedic team and Dr. Carvajal will evaluate for possible surgery on Thursday. Discussed with the hospitalist. DIAGNOSIS: Fall, head contusion, left periprosthetic hip fracture DISPOSITION: Hospitalist will evaluate Patient was agreeable with this plan. Past Med/Surg History Medical History Acidosis, lactic Atrial fib/flutter, transient Coronary artery disease FH: bilateral hip replacements Hip pain, bilateral Hx of prostatic malignancy Hyperlipidemia Lumbar pain Osteoarthritis Osteoporosis Prostate cancer Restless leg syndrome Shoulder pain, bilateral Urinary symptom or sign Surgical History H/O heart artery stent History of arthroplasty of right shoulder Family History Father Cardiac disorder Mother Cardiac disorder Social History Smoking Status: Never smoker Hx Alcohol Use: No Hx Substance Use: No Preferred Language: Ugandan Communication Ability: Effective Visual Impairment: No Limitations Hearing Ability: Hard of Hearing [place] Tm1 Developer Required: No Beliefs That Will Affect Care: None marital status: Current Living Situation: Spouse and Personal Care Facility Current Living Situation Comment: lives with at [facility] current occupational status: retired How many Children do You have: 2 Feels Safe at Home: Yes Assistive Devices: Glasses, Hearing Aid - Bilateral and Walker Allergies Allergies Allergy/AdvReac Type Severity Reaction Status Date / Time Iodinated Contrast Media Allergy Intermediate " Feels Verified 10/08/22 19:07 [Iodinated Contrast- Oral eliza hot and IV Dye] and painful" perflutren Allergy Unknown BODY GOT Verified 10/08/22 19:07 HOT AND BACK SPASMS propylene glycol Allergy Unknown BODY GOT Verified 10/08/22 19:07 HOT AND BACK SPASMS ragweed pollen Allergy Unknown UNKNOWN Verified 10/08/22 19:07 SANJAY Inhibitors AdvReac Intermediate Cough Verified 10/08/22 19:07 Home Meds Home Medications Medication Instructions Recorded Confirmed glucosamine sulfate 500 mg capsule 500 mg PO DAILY 12/22/18 10/08/22 [id number] acid 300 1 tab PO DAILY 12/22/18 10/08/22 mcg-lycopene 600 mcg-lutein 300 mcg tablet (Centrum Silver Men) melatonin 3 mg capsule 3 mg PO HS PRN Insomnia 10/19/19 10/08/22 nitroglycerin 0.4 mg sublingual 0.4 mg sublingual DIRECTED PRN 10/19/19 10/08/22 tablet Chest Pain aspirin 81 mg tablet,delayed 81 mg PO DAILY 06/05/20 10/08/22 release duloxetine 20 mg capsule,delayed 20 mg PO Q OTHER DAY 06/05/20 10/08/22 release omega 3-hld-mci-fish oil 1,000 mg 1 cap PO DAILY 06/05/20 10/08/22 (120 mg-180 mg) capsule (Fish Oil) acetaminophen 500 mg tablet 1,000 mg PO DIRECTED PRN 09/05/20 10/08/22 Arthritis Pain metoprolol succinate 25 mg 12.5 mg PO DAILY 10/08/22 10/08/22 tablet,extended release 24 hr polyethylene glycol 3350 17 17 g PO QPM 10/08/22 10/08/22 gram/dose oral powder (Miralax) pravastatin 20 mg tablet 20 mg PO DAILY 10/08/22 10/08/22 Previous Rx's Medication Instructions Recorded alfuzosin 10 mg tablet,extended 10 mg PO DAILY #90 tabs 03/21/22 release 24 hr (Uroxatral) Results & Data (ED) Vital Signs Vital Signs - 24 hr 10/08/22 15:55 10/08/22 16:24 10/08/22 16:24 Temperature 36.4 C L Temperature Source Oral Pulse Rate 93 H Pulse Rate [Apical] 80 Respiratory Rate 18 16 Respiratory Effort / Characteristics Non-Labored Respiratory Depth Normal Blood Pressure 147/100 H Blood Pressure [Right Arm] 157/94 H Blood Pressure Mean 115 Blood Pressure Mean [Right Arm] 115 Pulse Oximetry 98 99 99 Oxygen Delivery Method Room Air Room Air Room Air Sepsis Recent Fever Within 48 Hours No Sepsis New/Unexplained Change in Mental Status No Sepsis Action Taken by Nursing No Action Required 10/08/22 16:27 10/08/22 17:19 10/08/22 18:37 Temperature Temperature Source Pulse Rate 74 Pulse Rate [Apical] 83 101 H Respiratory Rate 16 18 Respiratory Effort / Characteristics Respiratory Depth Blood Pressure Blood Pressure [Right Arm] 135/90 110/87 Blood Pressure Mean Blood Pressure Mean [Right Arm] 105 94 Pulse Oximetry 97 100 Oxygen Delivery Method Room Air Room Air Sepsis Recent Fever Within 48 Hours Sepsis New/Unexplained Change in Mental Status Sepsis Action Taken by Nursing Laboratory Data 10/08/22 16:13 Lab Results 10/08/22 10/08/22 10/08/22 Range/Units 16:13 16:13 16:13 WBC 6.70 (4.8-10.8) K/ul RBC 3.25 L (4.70-6.10) M/uL Hgb 12.2 L (14.0-18.0) g/dl Hct 34.2 L (42.0-52.0) % MCV 105.2 H (80.0-100.0) fL MCH 37.5 H (25.0-34.0) pg MCHC 35.7 (32.0-36.0) g/dL RDW Std Deviation 50.1 H (36.4-46.3) fL RDW Coeff of Saeed 13.1 (11.5-14.5) % Plt Count 161 (130-400) K/uL MPV 10.4 (9.4-12.4) fL Immature Gran % (Auto) 0.3 % Neut % (Auto) 48.2 % Lymph % (Auto) 36.1 % Billings % (Auto) 13.4 % Eos % (Auto) 1.6 % Baso % (Auto) 0.4 % Neut # (Auto) 3.22 (1.40-6.50) K/uL Lymph # (Auto) 2.42 (1.2-3.4) K/uL Billings # (Auto) 0.90 H (0.11-0.59) K/uL Eos # (Auto) 0.11 (0-0.50) K/uL Baso # (Auto) 0.03 (0-0.2) K/uL Immature Gran # (Auto) 0.02 (0.01-0.20) K/uL PT 12.1 H (9.0-12.0) Seconds INR 1.1 (0.9-1.1) Sodium 138 (136-145) mmol/L Potassium 4.9 (3.5-5.1) mmol/L Chloride 105 (98-107) mmol/L Carbon Dioxide 27 (21-32) mmol/L Anion Gap 6 (3-11) BUN 20 (6-23) mg/dl Creatinine 0.77 (0.6-1.4) mg/dl Est Cr Clr Drug Dosing Not Reportable Est GFR ( Amer) 95.2 ml/min Est GFR (Non-Af Amer) 82.2 ml/min BUN/Creatinine Ratio 26.0 H (10-20) Glucose 107 H (70-99(Fasting)) mg/dl Calcium 9.4 (8.6-10.3) mg/dl Magnesium 2.0 (1.7-2.4) mg/dl Total Bilirubin 0.6 (0.2-1.0) mg/dl AST 47 H (13-39) U/L ALT 36 (7-52) U/L Alkaline Phosphatase 79 (34-104) U/L Total Protein 6.3 (6.0-8.3) gm/dl Albumin 3.5 (3.4-5.0) gm/dl Globulin 2.8 (2.5-4.0) gm/dl Albumin/Globulin Ratio 1.3 (0.9-2) SARS-CoV-2, RNA, NAAT (NEGATIVE) 10/08/22 10/08/22 Range/Units 17:35 19:27 WBC (4.8-10.8) K/ul RBC (4.70-6.10) M/uL Hgb (14.0-18.0) g/dl Hct (42.0-52.0) % MCV (80.0-100.0) fL MCH (25.0-34.0) pg MCHC (32.0-36.0) g/dL RDW Std Deviation (36.4-46.3) fL RDW Coeff of Saeed (11.5-14.5) % Plt Count (130-400) K/uL MPV (9.4-12.4) fL Immature Gran % (Auto) % Neut % (Auto) % Lymph % (Auto) % Billings % (Auto) % Eos % (Auto) % Baso % (Auto) % Neut # (Auto) (1.40-6.50) K/uL Lymph # (Auto) (1.2-3.4) K/uL Billings # (Auto) (0.11-0.59) K/uL Eos # (Auto) (0-0.50) K/uL Baso # (Auto) (0-0.2) K/uL Immature Gran # (Auto) (0.01-0.20) K/uL PT (9.0-12.0) Seconds INR (0.9-1.1) Sodium (136-145) mmol/L Potassium (3.5-5.1) mmol/L Chloride (98-107) mmol/L Carbon Dioxide (21-32) mmol/L Anion Gap (3-11) BUN (6-23) mg/dl Creatinine (0.6-1.4) mg/dl Est Cr Clr Drug Dosing Est GFR ( Amer) ml/min Est GFR (Non-Af Amer) ml/min BUN/Creatinine Ratio (10-20) Glucose (70-99(Fasting)) mg/dl Calcium (8.6-10.3) mg/dl Magnesium 2.0 (1.7-2.4) mg/dl Total Bilirubin (0.2-1.0) mg/dl AST (13-39) U/L ALT (7-52) U/L Alkaline Phosphatase (34-104) U/L Total Protein (6.0-8.3) gm/dl Albumin (3.4-5.0) gm/dl Globulin (2.5-4.0) gm/dl Albumin/Globulin Ratio (0.9-2) SARS-CoV-2, RNA, NAAT NEGATIVE (NEGATIVE) Administered Medications Sodium Chloride (Nss 1000ml) 1,000 mls @ 80 mls/hr IV .[id number] [facility] Stop: 10/09/22 09:31 Last Admin: 10/08/22 22:55 Dose: 80 mls/hr Documented By: MAC Metoprolol Succinate (Metoprolol Succ 25mg Ext Rel Tab) 12.5 mg PO QPM [facility] Stop: 11/07/22 21:01 Last Admin: 10/08/22 22:54 Dose: 12.5 mg Documented By: MAC Morphine Sulfate (Morphine Sulfate 2 Mg/Ml Carp) 2 mg IV Q3H PRN PRN Reason: Pain (7,8,9,10) Stop: 10/22/22 21:07 Last Admin: 10/08/22 21:12 Dose: 2 mg Documented By: DELIA Polyethylene Glycol (Polyethylene (Miralax) 17 Gm Pack) 17 gm PO QPM MARLENA Stop: 11/07/22 21:01 Last Admin: 10/08/22 22:54 Dose: 17 gm Documented By: JESÚS Discontinued Medications Fentanyl Citrate (Fentanyl Citrate Pf 100 Mcg/2 Ml Vial) 100 mcg IV NOW STA Stop: 10/08/22 16:03 Last Admin: 10/08/22 16:25 Dose: 100 mcg Documented By: DELIA Fentanyl Citrate (Fentanyl Citrate Pf 100 Mcg/2 Ml Vial) 50 mcg IV NOW STA Stop: 10/08/22 17:15 Last Admin: 10/08/22 17:40 Dose: 50 mcg Documented By: DELIA Sodium Chloride (Nss 1000ml) 500 mls @ 999 mls/hr IV .Q31M ONE Stop: 10/08/22 22:14 Last Infusion: 10/08/22 22:37 Dose: 0 mls/hr Documented By: Admin: 10/08/22 21:50 Dose: 999 mls/hr Documented By: DELIA Imaging Data Radiologist's Impression: Cervical Spine CT 10/08/22 16:02 CT SCAN OF THE CERVICAL SPINE CLINICAL HISTORY: Fall. COMPARISON STUDY: MRI of the cervical spine dated 09/26/2014 TECHNIQUE: CT scan of the cervical spine is performed from the skull base to the upper thoracic spine. Images are reviewed in the axial, sagittal, and coronal planes. IV contrast was not administered for this examination. A dose lowering technique was utilized adhering to the principles of ALARA. FINDINGS: Skeletal structures: The skeletal structures are heterogeneously osteopenic. There is no evidence of fracture or subluxation involving the cervical spine. Vertebral body height and alignment are maintained. Anterior osteophytes are seen throughout. There is straightening of the cervical lordosis. The odontoid process and lateral masses are intact. The atlantoaxial articulation is preserved noting advanced productive degenerative change. The spinous processes appear intact. Intervertebral discs: There is severe disc space narrowing at all cervical levels between C3-C4 and C7-T1. Central canal: Posterior disc osteophyte complexes are seen at all cervical levels between C3-C4 and C7-T1. This likely contributes to multilevel acquired compromise of the central canal. Soft tissues: The prevertebral and paraspinous soft tissues are within normal limits. There is calcification of the nuchal ligament. Calvarium: The visualized calvarium at the skull base appears intact. Brain parenchyma: Partially visualized brain parenchyma at the skull base is within normal limits. Sinuses and mastoids: There is trace mucosal thickening within the left maxillary antrum. The mastoid air cells are well pneumatized. Lung apices: Clear as visualized. IMPRESSION: 1. There is no CT evidence of fracture or subluxation involving the cervical spine. The skeletal structures are heterogeneous and significantly demineralized, making the examination difficult to interpret. Note that MRI is more sensitive for vertebral body fracture if there is clinical concern for occult injury. 2. Spondylotic change as above. ACT 112: Negative or not required by law. Electronically signed by: Julito Jovel M.D. 10/08/2022 5:[address] 10/08/22 16:02 CT SCAN OF THE BRAIN WITHOUT IV CONTRAST CLINICAL HISTORY: Fall. COMPARISON STUDY: MRI of the brain dated 10/24/2020. TECHNIQUE: Unenhanced axial CT scan of the brain is performed from the vertex to the skull base. A dose lowering technique was utilized adhering to the principles of ALARA. FINDINGS: Brain parenchyma: There is age-related involutional change noting mild to moderate subcortical and periventricular microangiopathic disease. There is no hemorrhage, mass effect, or evidence of acute territorial ischemia by CT criteria. Garcia-white matter differentiation is preserved. No extra-axial fluid collection is seen. Ventricles, sulci, cisterns: Prominent secondary to involutional change. Caval septum pellucidum is incidentally noted. Intracranial vasculature: There is mild atherosclerotic calcification of the cavernous carotid artery. Calvarium: The skeletal structures are osteopenic. No depressed calvarial fracture is seen. Soft tissues: There is a large right frontoparietal scalp hematoma. Sinuses and mastoids: There is trace mucosal thickening in the left maxillary sinus. The remaining paranasal sinuses are clear. The mastoid air cells are well pneumatized. Orbits: The bony orbits are grossly intact. There are bilateral ocular lens implants. IMPRESSION: 1. There is no hemorrhage, mass effect, or evidence of acute territorial ischemia by CT criteria. 2. Large right frontoparietal scalp hematoma. ACT 112: Negative or not required by law. Electronically signed by: Julito Jovel M.D. 10/08/2022 5:29 PM Hip/Pelvis X-Ray 10/08/22 16:02 SINGLE VIEW PELVIS; 2 VIEWS LEFT HIP CLINICAL HISTORY: Fall. FINDINGS: An AP view of the pelvis with AP and crosstable lateral views of the left hip are compared to study dated 12/01/2014 and correlated with pelvic CT da jaydon 06/04/2022. The skeletal structures are osteopenic. There is a periprosthetic fracture of the left proximal femur, best seen on the crosstable lateral views. No additional acute fracture is seen involving the right hip or the bony pelvis. Bilateral hip arthroplasties are in place. Sclerotic change is noted in the sacroiliac joints. Advanced lumbosacral spondylosis is partially imaged. Brachytherapy implants and phleboliths are noted in the pelvis. IMPRESSION: Periprosthetic fracture of the left proximal femur. Electronically signed by: Julito Jovel M.D. 10/08/2022 4:48 PM Chest X-Ray 10/08/22 16:06 SINGLE VIEW CHEST CLINICAL HISTORY: Fall. FINDINGS: An AP, portable, supine chest radiograph is compared to study dated 10/03/2020. The heart is mildly enlarged noting atherosclerotic calcification of the thoracic aorta. The pulmonary vasculature is noncongested. Calcified hilar nodes are again noted. Chronic interstitial thickening similar to previous. There is mild bibasilar scarring/atelectasis. Scattered calcified granulomas are observed. No airspace consolidation or large pleural effusion is identified No pneumothorax is seen. The bony thorax is grossly intact. A right shoulder ar throplasty is in place. Advanced arthritic change is seen in the left shoulder. IMPRESSION: Cardiomegaly with no acute cardiopulmonary abnormality. ACT 112: Negative or not required by law. Electronically signed by: Julito Jovel M.D. 10/08/2022 4:44 PM Abdomen/Pelvis CT 10/08/22 16:[address] WITHOUT CONTRAST; CT LEFT HIP WITHOUT CONTRAST CT DOSE: 2226.18 mGy.cm HISTORY: Acute pain of the abdomen and left hip status post fall fall, L hip/pelvis pain TECHNIQUE: Multiaxial CT images of the abdomen, pelvis and left hip were performed without contrast. A dose lowering technique was utilized adhering to the principles of ALARA. COMPARISON STUDY: Pelvis and hip radiographs of same day, CT abdomen and pelvis 06/04/2022 FINDINGS: CT ABDOMEN/PELVIS: Limited exam secondary to positioning and respiratory motion artifact. Mild c ardiomegaly. Prominent pericardial calcifications are noted in addition to extensive coronary arterial calcifications. Calcified granuloma of the inferior segment lingula. No pneumatosis or pneumoperitoneum. Scattered calcified granulomata of the spleen. Pancreatic parenchymal calcifications compatible with chronic pancreatitis. Moderate to severe pancreatic atrophy. Unremarkable adrenal glands. Distended gallbladder is unchanged. Cirrhotic liver. No hydronephrosis. Mild nonspecific urinary bladder wall thickening. Prostamegaly with brachytherapy seeds. Atherosclerosis of the aorta. No bowel obstruction or bowel wall thickening. Mild colonic fecal retention. Normal appendix. Pelvic structures are suboptimally visualized secondary to streak artifact from the bilateral hip total joint arthroplasties. Demineralized appearance of the bones with degenerative changes of the spine. CT LEFT HIP: There is an acute comminuted and displaced periprosthetic fracture of the proximal left hip which extends from the intertrochanteric distribution distally into the mid diaphysis. Fracture fragments are displaced anteriorly measuring up to 2.7 cm. No dislocation or additional acute fracture identified. IMPRESSION: 1. Acute comminuted and displaced periprosthetic fracture of the left femur extends from the intertrochanteric distribution distally into the mid diaphysis. 2. No acute intra-abdominal or intrapelvic abnormality. 3. Incidental findings as above. ACT 112: Negative or not required by law. The above report was generated using voice recognition software. It may contain grammatical, syntax or spelling errors. Electronically signed by: Polo Garcia M.D. 10/08/2022 5:[address] 10/08/22 16:[address] WITHOUT CONTRAST; CT LEFT HIP WITHOUT CONTRAST CT DOSE: 2226.18 mGy.cm HISTORY: Acute pain of the abdomen and left hip status post fall fall, L hip/pelvis pain TECHNIQUE: Multiaxial CT images of the abdomen, pelvis and left hip were performed without contrast. A dose lowering technique was utilized adhering to the principles of ALARA. COMPARISON STUDY: Pelvis and hip radiographs of same day, CT abdomen and pelvis 06/04/2022 FINDINGS: CT ABDOMEN/PELVIS: Limited exam secondary to positioning and respiratory motion artifact. Mild card iomegaly. Prominent pericardial calcifications are noted in addition to extensive coronary arterial calcifications. Calcified granuloma of the inferior segment lingula. No pneumatosis or pneumoperitoneum. Scattered calcified granulomata of the spleen. Pancreatic parenchymal calcifications compatible with chronic pancreatitis. Moderate to severe pancreatic atrophy. Unremarkable adrenal glands. Distended gallbladder is unchanged. Cirrhotic liver. No hydronephrosis. Mild nonspecific urinary bladder wall thickening. Prostamegaly with brachytherapy seeds. Atherosclerosis of the aorta. No bowel obstruction or bowel wall thickening. Mild colonic fecal retention. Normal appendix. Pelvic structures are suboptimally visualized secondary to streak artifact from the bilateral hip total joint arthroplasties. Demineralized appearance of the bones with degenerative changes of the spine. CT LEFT HIP: There is an acute comminuted and displaced periprosthetic fracture of the proximal left hip which extends from the intertrochanteric distribution distally into the mid diaphysis. Fracture fragments are displaced anteriorly measuring up to 2.7 cm. No dislocation or additional acute fracture identified. IMPRESSION: 1. Acute comminuted and displaced periprosthetic fracture of the left femur extends from the intertrochanteric distribution distally into the mid diaphysis. 2. No acute intra-abdominal or intrapelvic abnormality. 3. Incidental findings as above. ACT 112: Negative or not required by law. The above report was generated using voice recognition software. It may contain grammatical, syntax or spelling errors. Electronically signed by: Polo Garcia M.D. 10/08/2022 5:29 PM Discharge Plan Visit Data Chief Complaint: Fall Stated Complaint: FALL, HIP PAIN ED Provider: Binh Melgar Discharge Problem: Fall, Periprosthetic hip fracture, Osteoporosis, A-fib Patient Disposition: Admitted As Inpatient Discharge Instructions Interventions: ED Discharge Assessment Last Done: 10/08/22 21:02
--- NOTE | 2022-10-08 16:45 | XRay Report ---
SINGLE VIEW CHEST CLINICAL HISTORY: Fall. FINDINGS: An AP, portable, supine chest radiograph is compared to study dated 10/03/2020. The heart is mildly enlarged noting atherosclerotic calcification of the thoracic aorta. The pulmonary vasculatur e is noncongested. Calcified hilar nodes are again noted. Chronic interstitial thickening similar to previous. There is mild bibasilar scarring/atelectasis. Scattered calcified granulomas are observed. No airspace consolidation or large pleural effusion is identified No pneumothorax is seen. The bony t horax is grossly intact. A right shoulder arthroplasty is in place. Advanced arthritic change is seen in the left shoulder. IMPRESSION: Cardiomegaly with no acute cardiopulmonary abnormality. ACT 112: Negative or not required by law. Electronically signed by: Julito Jovel M.D. 10/08/2022 4:44 PM
--- NOTE | 2022-10-08 16:50 | XRay Report ---
SINGLE VIEW PELVIS; 2 VIEWS LEFT HIP CLINICAL HISTORY: Fall. FINDINGS: An AP view of the pelvis with AP and crosstable lateral views of the left hip are compared to study dated 12/01/2014 and correlated with pelvic CT dated 06/04/2022. The skeletal structures are osteopenic. There is a periprosthetic fracture of the left proximal femur, best seen on the crosstabl e lateral views. No additional acute fracture is seen involving the right hip or the bony pelvis. Paulino ateral hip arthroplasties are in place. Sclerotic change is noted in the sacroiliac joints. Advanced lumbosacral spondylosis is partially imaged. Brachytherapy implants and phleboliths are noted in the pelvis. IMPRESSION: Periprosthetic fracture of the left proximal femur. Electronically signed by: Julito Jovel M.D. 10/08/2022 4:48 PM
[2022-10-08 16:52] LABS: Basophils # (auto) 0.03 K/uL (0-0.2); Basophils % (auto) 0.4 %; Eosinophils # (auto) 0.11 K/uL (0-0.50); Eosinophils % (auto) 1.6 %; Hematocrit (blood only) 34.2 % (42.0-52.0); Hemoglobin 12.2 g/dl (14.0-18.0); Immature Granulocytes # (auto) 0.02 K/uL (0.01-0.20); Immature Granulocytes % (auto) 0.3 %; Lymphocytes # (auto) 2.42 K/uL (1.2-3.4); Lymphocytes % (auto) 36.1 %; Mean Corpuscular Hemoglobin 37.5 pg (25.0-34.0); Mean Corpuscular Hgb Conc 35.7 g/dL (32.0-36.0); Mean Corpuscular Volume 105.2 fL (80.0-100.0); Mean Platelet Volume 10.4 fL (9.4-12.4); Monocytes % (auto) 13.4 %; Neutrophils # (auto) 3.22 K/uL (1.40-6.50); Neutrophils % (auto) 48.2 %; Platelet Count 161 K/uL (130-400); RDW Coefficient of Variation 13.1 % (11.5-14.5); RDW Standard Deviation 50.1 fL (36.4-46.3); Red Blood Count 3.25 M/uL (4.70-6.10)
[2022-10-08 17:03] LABS: INR 1.1 (0.9-1.1); Prothrombin Time 12.1 Seconds (9.0-12.0)
[2022-10-08 17:21] LABS: Alanine Aminotransferase 36 U/L (7-52); Albumin Globulin Ratio 1.3 (0.9-2); Albumin Level 3.5 gm/dl (3.4-5.0); Alkaline Phosphatase 79 U/L (34-104); Anion Gap 6 (3-11); Aspartate Aminotransferase 47 U/L (13-39); Bilirubin,Total 0.6 mg/dl (0.2-1.0); Blood Urea Nitrogen 20 mg/dl (6-23); Calcium 9.4 mg/dl (8.6-10.3); Carbon Dioxide 27 mmol/L (21-32); Chloride 105 mmol/L (98-107); Est GFR (African American) 95.2 ml/min; Est GFR (Non-African American) 82.2 ml/min; Globulin 2.8 gm/dl (2.5-4.0); Glucose 107 mg/dl (70-99(Fasting)); Potassium 4.9 mmol/L (3.5-5.1); Sodium 138 mmol/L (136-145); Total Protein 6.3 gm/dl (6.0-8.3)
--- NOTE | 2022-10-08 17:24 | CT Scan Report ---
CT SCAN OF THE CERVICAL SPINE CLINICAL HISTORY: Fall. COMPARISON STUDY: MRI of the cervical spine dated 09/26/2014 TECHNIQUE: CT scan of the cervical spine is performed from the skull base to the upper thoracic spine . Images are reviewed in the axial, sagittal, and coronal planes. IV contrast was not administered fo r this examination. A dose lowering technique was utilized adhering to the principles of ALARA. FINDINGS: Skeletal structures: The skeletal structures are heterogeneously osteopenic. There is no evidence of fracture or subluxation involving the cervical spine. Vertebral body height and alignment are maintai abby. Anterior osteophytes are seen throughout. There is straightening of the cervical lordosis. The o dontoid process and lateral masses are intact. The atlantoaxial articulation is preserved noting adva nced productive degenerative change. The spinous processes appear intact. Intervertebral discs: There is severe disc space narrowing at all cervical levels between C3-C4 and C 7-T1. Central canal: Posterior disc osteophyte complexes are seen at all cervical levels between C3-C4 and C7-T1. This likely contributes to multilevel acquired compromise of the central canal. Soft tissues: The prevertebral and paraspinous soft tissues are within normal limits. There is calcif ication of the nuchal ligament. Calvarium: The visualized calvarium at the skull base appears intact. Brain parenchyma: Partially visualized brain parenchyma at the skull base is within normal limits. Sinuses and mastoids: There is trace mucosal thickening within the left maxillary antrum. The mastoid air cells are well pneumatized. Lung apices: Clear as visualized. IMPRESSION: 1. There is no CT evidence of fracture or subluxation involving the cervical spine. The skeletal stru ctures are heterogeneous and significantly demineralized, making the examination difficult to interpr et. Note that MRI is more sensitive for vertebral body fracture if there is clinical concern for occu lt injury. 2. Spondylotic change as above. ACT 112: Negative or not required by law. Electronically signed by: Julito Jovel M.D. 10/08/2022 5:21 PM
--- NOTE | 2022-10-08 17:30 | CT Scan Report ---
ABDOMEN AND PELVIS CT WITHOUT CONTRAST; CT LEFT HIP WITHOUT CONTRAST CT DOSE: 2226.18 mGy.cm HISTORY: Acute pain of the abdomen and left hip status post fall fall, L hip/pelvis pain TECHNIQUE: Multiaxial CT images of the abdomen, pelvis and left hip were performed without contrast. A dose lowering technique was utilized adhering to the principles of ALARA. COMPARISON STUDY: Pelvis and hip radiographs of same day, CT abdomen and pelvis 06/04/2022 FINDINGS: CT ABDOMEN/PELVIS: Limited exam secondary to positioning and respiratory motion artifact. Mild cardiomegaly. Prominent p ericardial calcifications are noted in addition to extensive coronary arterial calcifications. Calcif ied granuloma of the inferior segment lingula. No pneumatosis or pneumoperitoneum. Scattered calcified granulomata of the spleen. Pancreatic parenchymal calcifications compatible with chronic pancreatitis. Moderate to severe pancreatic atrophy. Unremarkable adrenal glands. Distended g allbladder is unchanged. Cirrhotic liver. No hydronephrosis. Mild nonspecific urinary bladder wall th ickening. Prostamegaly with brachytherapy seeds. Atherosclerosis of the aorta. No bowel obstruction o r bowel wall thickening. Mild colonic fecal retention. Normal appendix. Pelvic structures are subopti ashok visualized secondary to streak artifact from the bilateral hip total joint arthroplasties. Mel neralized appearance of the bones with degenerative changes of the spine. CT LEFT HIP: There is an acute comminuted and displaced periprosthetic fracture of the proximal left hip which ext ends from the intertrochanteric distribution distally into the mid diaphysis. Fracture fragments are displaced anteriorly measuring up to 2.7 cm. No dislocation or additional acute fracture identified. IMPRESSION: 1. Acute comminuted and displaced periprosthetic fracture of the left femur extends from the intertro chanteric distribution distally into the mid diaphysis. 2. No acute intra-abdominal or intrapelvic abnormality. 3. Incidental findings as above. ACT 112: Negative or not required by law. The above report was generated using voice recognition software. It may contain grammatical, syntax o r spelling errors. Electronically signed by: Polo Garcia M.D. 10/08/2022 5:29 PM
--- NOTE | 2022-10-08 17:30 | CT Scan Report ---
CT SCAN OF THE BRAIN WITHOUT IV CONTRAST CLINICAL HISTORY: Fall. COMPARISON STUDY: MRI of the brain dated 10/24/2020. TECHNIQUE: Unenhanced axial CT scan of the brain is performed from the vertex to the skull base. A do se lowering technique was utilized adhering to the principles of ALARA. FINDINGS: Brain parenchyma: There is age-related involutional change noting mild to moderate subcortical and pe riventricular microangiopathic disease. There is no hemorrhage, mass effect, or evidence of acute ter ritorial ischemia by CT criteria. Garcia-white matter differentiation is preserved. No extra-axial flui d collection is seen. Ventricles, sulci, cisterns: Prominent secondary to involutional change. Caval septum pellucidum is i ncidentally noted. Intracranial vasculature: There is mild atherosclerotic calcification of the cavernous carotid artery . Calvarium: The skeletal structures are osteopenic. No depressed calvarial fracture is seen. Soft tissues: There is a large right frontoparietal scalp hematoma. Sinuses and mastoids: There is trace mucosal thickening in the left maxillary sinus. The remaining pa ranasal sinuses are clear. The mastoid air cells are well pneumatized. Orbits: The bony orbits are grossly intact. There are bilateral ocular lens implants. IMPRESSION: 1. There is no hemorrhage, mass effect, or evidence of acute territorial ischemia by CT criteria. 2. Large right frontoparietal scalp hematoma. ACT 112: Negative or not required by law. Electronically signed by: Julito Jovel M.D. 10/08/2022 5:29 PM
--- NOTE | 2022-10-08 19:35 | History & Physical Report ---
Date of Service October 08, 2022 Assessment & Plan (1) Periprosthetic hip fracture: Plan: Guerrero Sauceda is an 86-year-old male with past medical history of paroxysmal A- fib, bilateral hip replacement, osteoarthritis, osteoporosis who presented due to a fall. Found to have a left periprosthetic hip fracture. Left periprosthetic hip fracture CT showing acute comminuted and displaced periprosthetic fracture of the left femur extending from the intertrochanteric distribution distally into the mid diaphysis We will provide analgesia as needed Ortho consult Per ED provider, Ortho planning for surgical intervention on Tuesday 10/10 n.p.o. at midnight on that date Atrial fibrillation Currently with rapid ventricular response at rate in low 100s to 120s Per [facility] chart review, patient's social problems specialist, Dr. Kelley, had recently discontinued patient's metoprolol However, given his current A-fib with RVR will continue metoprolol succinate 12.5 mg daily with hold parameters ordered to start tonight Prior to his scheduled dose, patient relatively hypotensive given NSS 500 cc bolus Plan to administer medication when blood pressure improves Patient not on anticoagulation due to recurrent falls CAD/hypertension/hyperlipidemia Continue aspirin 81 mg daily Metoprolol as above Continue pravastatin 20 mg daily Depression Continue home duloxetine 20 mg p.o. every other day BPH Continue home alfuzosin 10 mg daily Insomnia Melatonin as needed Chronic constipation MiraLAX 1 cap qPM DVT prophylaxis: No chemoprophylaxis at this time, SCDsdefer further to Ortho Diet: Heart healthy, n.p.o. at midnight 10/10 Dispo: Admit to med telemetry for A-fib monitoring CODE STATUS: DNR/DNI (2) Hyperlipidemia: (3) Atrial fibrillation with rapid ventricular response: History of Present Illness Primary Care Provider: Annemarie Tomas PA-C Guerrero Sauceda is an 86-year-old male with past medical history of paroxysmal A- fib, bilateral hip replacement, osteoarthritis, osteoporosis who presented today after a fall. He bent over to pick something up and lost his balance. Fell forward and did sustain some head trauma. He denies loss of consciousness, headache, dizziness, neurologic deficit at this time. No nausea or vomiting. [facility] and they do have assistance. He was brought by EMS. Work-up in the ED significant for acute comminuted and displaced periprosthetic fracture of the left femur extending from the intertrochanteric distribution distally into the mid diaphysis noted on CT and x-ray. Head CT negative for acute abnormalities. Cervical spine CT without CT evidence of fracture or subluxation skeletal structures are heterogeneous and significantly demineralized, making the examination difficult to interpret. MRI more sensitive for vertebral body fracture if there is clinical concern for occult injury. No acute abnormalities on blood work. EKG did show atrial fibrillation with rate of 88 at that time. However, patient has had a rapid ventricular response in the low 100s to 120s since that time. He denies chest pain, palpitations, nausea, vomiting, abdominal pain, shortness of breath, headache, dizziness. Allergies Allergy/AdvReac Type Severity Reaction Status Date / Time Iodinated Contrast Media Allergy Intermediate " Feels Verified 10/08/22 19:07 [Iodinated Contrast- Oral eliza hot and IV Dye] and painful" perflutren Allergy Unknown BODY GOT Verified 10/08/22 19:07 HOT AND BACK SPASMS propylene glycol Allergy Unknown BODY GOT Verified 10/08/22 19:07 HOT AND BACK SPASMS ragweed pollen Allergy Unknown UNKNOWN Verified 10/08/22 19:07 SANJAY Inhibitors AdvReac Intermediate Cough Verified 10/08/22 19:07 Home Medications Medication Instructions Recorded Confirmed Type glucosamine sulfate 500 mg capsule 500 mg PO DAILY 12/22/18 10/08/22 History bpbpdtok-kxd-dpvzn acid 300 1 tab PO DAILY 12/22/18 10/08/22 History mcg-lycopene 600 mcg-lutein 300 mcg tablet (Centrum Silver Men) melatonin 3 mg capsule 3 mg PO HS PRN Insomnia 10/19/19 10/08/22 History nitroglycerin 0.4 mg sublingual 0.4 mg sublingual DIRECTED PRN 10/19/19 10/08/22 History tablet Chest Pain aspirin 81 mg tablet,delayed 81 mg PO DAILY 06/05/20 10/08/22 History release duloxetine 20 mg capsule,delayed 20 mg PO Q OTHER DAY 06/05/20 10/08/22 History release omega 4-ofx-dot-fish oil 1,000 mg 1 cap PO DAILY 06/05/20 10/08/22 History (120 mg-180 mg) capsule (Fish Oil) acetaminophen 500 mg tablet 1,000 mg PO DIRECTED PRN 09/05/20 10/08/22 Histor y Arthritis Pain alfuzosin 10 mg tablet,extended 10 mg PO DAILY #90 tabs 03/21/22 10/08/22 Rx release 24 hr (Uroxatral) metoprolol succinate 25 mg 12.5 mg PO DAILY 10/08/22 10/08/22 History tablet,extended release 24 hr polyethylene glycol 3350 17 17 g PO QPM 10/08/22 10/08/22 History gram/dose oral powder (Miralax) pravastatin 20 mg tablet 20 mg PO DAILY 10/08/22 10/08/22 History Past Med/Surg History Medical History Acidosis, lactic Atrial fib/flutter, transient Coronary artery disease FH: bilateral hip replacements Hip pain, bilateral Hx of prostatic malignancy Hyperlipidemia Lumbar pain Osteoarthritis Osteoporosis Prostate cancer Restless leg syndrome Shoulder pain, bilateral Urinary symptom or sign Surgical History H/O heart artery stent History of arthroplasty of right shoulder Family History Father Cardiac disorder Mother Cardiac disorder Social History Smoking Status: Never smoker Hx Alcohol Use: No Hx Substance Use: No Preferred Language: Nepali Communication Ability: Effective Visual Impairment: No Limitations Hearing Ability: Hard of Hearing [employer] Associate Required: No Beliefs That Will Affect Care: None marital status: Current Living Situation: Spouse and Personal Care Facility Current Living Situation Comment: lives with at [facility] current occupational status: retired How many Children do You have: 2 Other Information That Helps Us Care for You: No Feels Safe at Home: Yes Safety Concerns: Feels Safe At This Time Assistive Devices: Cane, Walker and Wheelchair Review of Systems Review of Systems: Per HPI Physical Exam Physical Exam: GENERAL: Alert and oriented, cooperative. NAD. HEENT: PERRL, EOMI. Moist mucous membranes. NECK: No JVD. No lymphadenopathy. CHEST/LUNGS: CTAB A/P. No crackles, wheezes, rales, rhonchi. HEART: Irregularly irregular, no murmurs gallops or rubs. ABDOMEN: NT/ND, soft. BS+ x4 EXTREMITIES: 2+ pulses in bilateral lower extremities. Pain with motion of left hip. No cyanosis, no clubbing, no edema SKIN: Warm and dry. No rashes or lesions. PSYCHIATRIC: Euthymic affect, no SI, no pressured speech, no hallucinations NEUROLOGIC: No FND. CN II-XII grossly intact. Results & Data Results & Data Vital Signs (Past 12 Hours) Vital Signs Temp Pulse Pulse Resp BP BP Pulse Ox 10/08/22 18:37 101 H 18 110/87 100 10/08/22 17:19 83 16 135/90 97 10/08/22 16:27 74 10/08/22 16:24 99 10/08/22 16:24 80 16 157/94 H 99 10/08/22 15:55 36.4 C L 93 H 18 147/100 H 98 O2 Del Method 10/08/22 18:37 Room Air 10/08/22 17:19 Room Air 10/08/22 16:27 10/08/22 16:24 Room Air 10/08/22 16:24 Room Air 10/08/22 15:55 Room Air Code Status & VTE Plan VTE Prophylaxis Plan VTE Prophylaxis will be ordered: Yes Supervising Physician Co-Signing Physician Notes Attending addendum: I have physically seen this patient, have supervised the medical residents activities, and agree with the H&P unless as otherwise noted. Assessment and Plan: Left periprosthetic hip fracture- Acute comminuted and displaced periprosthetic fracture left femur noted on CT NPO Consult orthopedic surgery Per orthopedic discussion with the ED, potential surgery for Tuesday 10/10 Pain management as noted IV fluids Atrial fibrillation/CAD/hypertension- Admit to monitored bed Resume metoprolol Hold aspirin Depression- Continue duloxetine BPH- Continue alfuzosin Insomnia- Melatonin as needed Remaining orders and notations as noted Resident Activity Tracking Resident Involvement: Resident Care Provided Care Provided: Adult [facility] Medicine
[2022-10-08] MEDS ORDERED: ONDANSETRON INJ 2 MG/ML 2 ML VIAL IV PRN (21:02)
[2022-10-08] MEDS ORDERED: SODIUM CHLORIDE 0.9% 1000ML 1,000 ML IV SCH (21:02)
[2022-10-08] MEDS ORDERED: MoRPHine SULFATE 2 MG/ML CARP IV PRN (21:02)
[2022-10-08] MEDS ORDERED: NITROGLYCERIN SL 0.4 MG/TAB TAB SL PRN (21:02)
[2022-10-08] MEDS: MoRPHine SULFATE 2 MG/ML CARP IV PRN (21:12)
[2022-10-08] MEDS ORDERED: SODIUM CHLORIDE 0.9% 1000ML 500 ML IV ONE (21:44)
[2022-10-08] MEDS ORDERED: MELATONIN 3 MG TAB PO PRN (21:44)
[2022-10-08] MEDS: METOPROLOL SUCC 25MG EXT REL TAB PO SCH (22:54)
[2022-10-08] MEDS: POLYETHYLENE (MIRALAX) 17 GM PACK PO SCH (22:54)
[2022-10-09 01:51] LABS: Appearance Urine Clear (Clear); Bilirubin Urine Negative (Negative); Blood Urine Negative (Negative); Color Urine Dark Yellow; Glucose Urine UA Negative (Negative); Ketones Urine 1+ (Negative); Leukocyte Esterase Urine Negative (Negative); Nitrite Urine Negative (Negative); Protein Urine Negative (Negative); Specific Gravity Urine 1.018 (1.000-1.030); Urobilinogen Urine Negative (Negative); pH Urine >= 9.0 (4.5-7.5)
[2022-10-09 06:27] LABS: Basophils # (auto) 0.02 K/uL (0-0.2); Basophils % (auto) 0.2 %; Hematocrit (blood only) 29.4 % (42.0-52.0); Hemoglobin 10.3 g/dl (14.0-18.0); Immature Granulocytes # (auto) 0.05 K/uL (0.01-0.20); Immature Granulocytes % (auto) 0.4 %; Lymphocytes # (auto) 1.52 K/uL (1.2-3.4); Lymphocytes % (auto) 13.4 %; Mean Corpuscular Hemoglobin 37.5 pg (25.0-34.0); Mean Corpuscular Volume 106.9 fL (80.0-100.0); Mean Platelet Volume 10.2 fL (9.4-12.4); Monocytes % (auto) 9.7 %; Neutrophils # (auto) 8.68 K/uL (1.40-6.50); Neutrophils % (auto) 76.3 %; Platelet Count 158 K/uL (130-400); RDW Coefficient of Variation 13.7 % (11.5-14.5); Red Blood Count 2.75 M/uL (4.70-6.10); White Blood Count 11.37 K/ul (4.8-10.8)
[2022-10-09 06:53] LABS: Albumin Globulin Ratio 1.2 (0.9-2); Albumin Level 3.1 gm/dl (3.4-5.0); BUN Creatinine Ratio 31.3 (10-20); Bilirubin,Total 0.9 mg/dl (0.2-1.0); Calcium 8.6 mg/dl (8.6-10.3); Creatinine Clr Calc Pharmacy 59.2 ml/min; Est GFR (African American) 82.6 ml/min; Est GFR (Non-African American) 71.3 ml/min; Globulin 2.6 gm/dl (2.5-4.0); Potassium 5.5 mmol/L (3.5-5.1); Total Protein 5.7 gm/dl (6.0-8.3)
--- NOTE | 2022-10-09 07:18 | Orthopedic Consultation ---
Date of Service October 09, 2022 Assessment & Plan (1) Periprosthetic hip fracture: Patient has a periprosthetic femur fracture. He has been been admitted by the hospitalist service this is up and was going to require surgical fixation. The treatment options were explained and he would like to proceed. The risk meant the procedure were explained. This is an open reduction internal fixation of left periprosthetic femur fracture. Although the fracture is around the implant I am sure the implants fixed to some of the bone. I do think open reduction internal fixation is the best option for this gentleman considering his age and medical status. To try and remove this implant and place a diaphyseal fitting extended implant would be an extremely large perfusion procedure for this gentleman. I think we can appropriately treat this with open reduction internal fixation. The risk meant this procedure were explained to the patient and certainly are at risk of this a gentleman. He understands and desires to proceed. Informed consent was obtained. He is then a little bit of a rapid rate of his heart. We will get him medically optimized today and plan on this tomorrow. N.p.o. after midnight. DVT prophylax include teds SCDs and likely postoperative aspirin. History of Present Illness Reason for Consultation: . Left periprosthetic femur fracture. Requesting Physician: . Attending Physician: Archie Rush DO . 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 Patient is well- known to me from a previous right hip replacement that I did on him about 10 years ago. He has had some intermittent on and off hip pain and discomfort treated most recently by my physician trade sales assistant with some injections. Yesterday he was bent over lost his balance and fell and had the cute onset of pain in his left hip. She brought to emergency room where x-rays of the left hip periprosthetic femur fracture. He has been admitted by the hospitalist service. We have been asked to manage his hip problem. He has had some on and off hip pain but did not sound like it was really related to his hip replacement. This hip replacement was done about 18 years ago. Allergies Allergy/AdvReac Type Severity Reaction Status Date / Time Iodinated Contrast Media Allergy Intermediate " Feels Verified 10/08/22 19:07 [Iodinated Contrast- Oral eliza hot and IV Dye] and painful" perflutren Allergy Unknown BODY GOT Verified 10/08/22 19:07 HOT AND BACK SPASMS propylene glycol Allergy Unknown BODY GOT Verified 10/08/22 19:07 HOT AND BACK SPASMS ragweed pollen Allergy Unknown UNKNOWN Verified 10/08/22 19:07 SANJAY Inhibitors AdvReac Intermediate Cough Verified 10/08/22 19:07 Home Medications Medication Instructions Recorded Confirmed Type glucosamine sulfate 500 mg capsule 500 mg PO DAILY 12/22/18 10/08/22 History lopfeobt-tki-xhkgg acid 300 1 tab PO DAILY 12/22/18 10/08/22 History mcg-lycopene 600 mcg-lutein 300 mcg tablet (Centrum Silver Men) melatonin 3 mg capsule 3 mg PO HS PRN Insomnia 10/19/19 10/08/22 History nitroglycerin 0.4 mg sublingual 0.4 mg sublingual DIRECTED PRN 10/19/19 10/08/22 History tablet Chest Pain aspirin 81 mg tablet,delayed 81 mg PO DAILY 06/05/20 10/08/22 History release duloxetine 20 mg capsule,delayed 20 mg PO Q OTHER DAY 06/05/20 10/08/22 History release omega 8-ecv-asy-fish oil 1,000 mg 1 cap PO DAILY 06/05/20 10/08/22 History (120 mg-180 mg) capsule (Fish Oil) acetaminophen 500 mg tablet 1,000 mg PO DIRECTED PRN 09/05/20 10/08/22 History Arthritis Pain alfuzosin 10 mg tablet,extended 10 mg PO DAILY #90 tabs 03/21/22 10/08/22 Rx release 24 hr (Uroxatral) metoprolol succinate 25 mg 12.5 mg PO DAILY 10/08/22 10/08/22 History tablet,extended release 24 hr polyethylene glycol 3350 17 17 g PO QPM 10/08/22 10/08/22 History gram/dose oral powder (Miralax) pravastatin 20 mg tablet 20 mg PO DAILY 10/08/22 10/08/22 History Past Med/Surg History Medical History Acidosis, lactic Atrial fib/flutter, transient Coronary artery disease FH: bilateral hip replacements Hip pain, bilateral Hx of prostatic malignancy Hyperlipidemia Lumbar pain Osteoarthritis Osteoporosis Prostate cancer Restless leg syndrome Shoulder pain, bilateral Urinary symptom or sign Surgical History H/O heart artery stent History of arthroplasty of right shoulder Family History Father Cardiac disorder Mother Cardiac disorder Social History Smoking Status: Never smoker Hx Alcohol Use: No Hx Substance Use: No Preferred Language: Burundian Communication Ability: Effective Visual Impairment: No Limitations Hearing Ability: Hard of Hearing [place] Required: No Beliefs That Will Affect Care: None marital status: Current Living Situation: Spouse and Personal Care Facility Current Living Situation Comment: lives with at [facility] current occupational status: retired How many Children do You have: 2 Other Information That Helps Us Care for You: No Feels Safe at Home: Yes Safety Concerns: Feels Safe At This Time Assistive Devices: Cane, Glasses, Hearing Aid - Bilateral and Wheelchair Review of Systems All systems reviewed & are unremarkable except as noted in HPI & below. Physical Exam . Physical examination reveals a pleasant elderly male. He is lying in bed. He looks in moderate discomfort. Examination of the left lower extremity reveals the leg to be slightly shortened and externally rotated. There is some moderate thigh swelling. He can dorsiflex and plantarflex his foot appropriate currently. He is neurologically intact. Has marked pain with any type of hip motion. Results & Data Results & Data Laboratory Results . Diagnostic Findings . X-rays of the left hip and pelvis and femur reveal a left periprosthetic femur fracture. Extends from up in the trochanteric area to just around the distal end of the prosthesis. Is somewhat comminuted. Just some displaced and some nondisplaced. The hip replacement otherwise looks to be in acceptable position. Previously it looked a well fixed. PG Care Time/CCT Total # of Minutes Spent Total Time Spent with Patient: Total time spent is greater than 50% in coordination of care (as documented) at patient's floor/unit and/or counseling patient: Coding Level of Care Code 15538 IN/OBS CONSULT LVL 5,80M Diagnoses Periprosthetic hip fracture M97.8XXA; Z96.649 Encounter type: initial encounter (1) Periprosthetic hip fracture Encounter type: initial encounter Qualified Code(s): M97.8XXA - Periprosthetic fracture around other internal prosthetic joint, initial encounter; Z96.649 - Presence of unspecified artificial hip joint
[2022-10-09] MEDS: GLUCOSAMINE SULFATE 500 MG CAP PO SCH (08:21)
[2022-10-09] MEDS: ALFUZOSIN HCL 10 MG TAB PO SCH (08:22)
[2022-10-09] MEDS: OMEGA-3 (PURIFIED FISH OIL) 1 GM CAP PO SCH (08:22)
[2022-10-09] MEDS: CEROVITE ADV FORMULA TAB PO SCH (08:22)
[2022-10-09] MEDS: PRAVASTATIN SOD 20 MG TAB PO SCH (08:22)
[2022-10-09] MEDS: ASPIRIN 81 MG ECTAB PO SCH (08:22)
--- NOTE | 2022-10-09 08:22 | Hospitalist Progress Note ---
Date of Service October 09, 2022 Assessment & Plan (1) Periprosthetic hip fracture: Plan: Guerrero Sauceda is an 86-year-old male with past medical history of paroxysmal A- fib, bilateral hip replacement, osteoarthritis, osteoporosis who presented due to a fall. Found to have a left periprosthetic hip fracture. Left periprosthetic hip fracture CT showing acute comminuted and displaced periprosthetic fracture of the left femur extending from the intertrochanteric distribution distally into the mid diaphysis PRN morphine for pain control Ortho consult, planning for surgical intervention on Tuesday 10/10 n.p.o. at midnight on that date Atrial fibrillation on admit rapid ventricular response at rate in low 100s to 120s Per 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 Kelley, had recently discontinued patient's metoprolol However, given his current A-fib with RVR will continue metoprolol succinate 12.5 mg daily with hold parameters given NSS 500 cc bolus in ED for hypotension, continue to monitor Patient not on anticoagulation due to recurrent falls CAD/hypertension/hyperlipidemia Continue aspirin 81 mg daily Metoprolol as above Continue pravastatin 20 mg daily Depression Continue home duloxetine 20 mg p.o. every other day BPH Continue home alfuzosin 10 mg daily Insomnia Melatonin as needed Chronic constipation MiraLAX 1 cap qPM DVT prophylaxis: No chemoprophylaxis at this time, SCDsdefer further to Ortho Diet: Heart healthy, n.p.o. at midnight 10/10 Dispo: Admit to med telemetry for A-fib monitoring CODE STATUS: DNR/DNI (2) Hyperlipidemia: (3) Atrial fibrillation with rapid ventricular response: Admission and Anticipated Discharge Date Admission Date: October 08, 2022 Supervising Physician Co-Signing Physician Notes I personally examined the patient and verified all ingram points of history and exam, discussed case, and agree with decision making with Dr Argueta. Sleeping. Appears comfortable. Given that he is overall stable, for surgery tomorrow, and has a significant amount of pain with movement, allowed patient to rest. Vitals noted, in general he is resting comfortably appears to be in no distress. Breathing unlabored no accessory muscle use good effort spontaneously. Otherwise exam as above. Periprosthetic hip fracturepresumed osteoporoticfor surgery tomorrow. Outpatient bone health management. Acute blood loss anemia expectedno indications for transfusion. Atrial fibrillation now rate reasonably controlled. Otherwise as above. Subjective Patient seen at bedside, calm comfortable cooperative. States his pain is under control so long as he does not move, understands that his surgery is scheduled for tomorrow. 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 Patient states he has ongoing lightheadedness and word finding difficulties since before his fall. For afib patient follows Dr. Kelley, uncertain why he was taken off metoprolol originally states his usually handles medical stuff. Physical Exam Constitutional: WD/WN, vitals as above Eyes: PERRL, conjunctivae normal, anicteric sclerae ENMT: external ear and nose normal, oropharynx normal Neck: trachea midline, no thyromegaly Respiratory: normal respiratory effort, lungs clear to auscultation Cardiovascular: RRR, no murmur, no edema pedal pulse faint but palpable in b/l LE, both feet chronically colder with discoloration on skin of b/l lower legs, no swelling noted Gastrointestinal (Abdomen): Inspection/Auscultation: abdomen normal to inspection Percussion/Palpation: abdomen soft; abdomen nontender Musculoskeletal: able to move b/l feet and toes Skin: no rashes, warm and dry Neurologic: CN's II-XI intact bilaterally sensation intact in b/l lower extremities Results & Data Results & Data Vital Signs (Past 12 Hours) Vital Signs Temp Pulse Pulse Resp BP Pulse Ox O2 Del Method 10/09/22 08:00 36.8 C 97 H 18 99/64 L 96 Room Air 10/09/22 04:00 36.8 C 107 H 18 96/59 L 96 Room Air 10/08/22 23:00 111 H 10/08/22 22:32 36.4 C L 113 H 18 112/80 99 Room Air 10/08/22 22:03 36.4 C L 107 H 18 125/88 97 Room Air 10/08/22 21:41 103 H 16 91/57 L 98 Room Air 10/08/22 21:03 109 H 20 103/66 100 Room Air Resident Activity Tracking Resident Involvement: Resident Care Provided Care Provided: Adult Hospital Medicine (1) Periprosthetic hip fracture Encounter type: initial encounter Qualified Code(s): M97.8XXA - Periprosthetic fracture around other internal prosthetic joint, initial encounter; Z96.649 - Presence of unspecified artificial hip joint
[2022-10-09] MEDS: MoRPHine SULFATE 2 MG/ML CARP IV PRN ×2 (13:40→17:55)
[2022-10-09 15:59] LABS: BUN Creatinine Ratio 35.4 (10-20); Calcium 8.5 mg/dl (8.6-10.3); Creatinine Clr Calc Pharmacy 59.2 ml/min; Est GFR (African American) 82.6 ml/min; Est GFR (Non-African American) 71.3 ml/min; Potassium 5.1 mmol/L (3.5-5.1)
--- NOTE | 2022-10-09 17:09 | Billing Data ---
Date of Service October 09, 2022 Coding Level of Care Code 63167 SUB INP/OBS CARE
--- NOTE | 2022-10-09 19:50 | Billing Data ---
Date of Service October 09, 2022 Coding Level of Care Code 56358 INT INP/OBS CARE
[2022-10-09] MEDS: POLYETHYLENE (MIRALAX) 17 GM PACK PO SCH (20:38)
[2022-10-09] MEDS: METOPROLOL SUCC 25MG EXT REL TAB PO SCH (20:38)
--- NOTE | 2022-10-09 21:55 | Electrocardiogram Report ---
Test Reason : Blood Pressure : / mmHG Vent. Rate : 088 BPM Atrial Rate : 101 BPM P-R Int : 000 ms QRS Dur : 078 ms QT Int : 382 ms P-R-T Axes : 000 -10 048 degrees QTc Int : 462 ms Atrial fibrillation Low voltage QRS Abnormal ECG When compared with ECG of 04-JUN-2022 12:16, No significant change was found Confirmed by Je Dye ([id number]) on 10/09/2022 9:55:03 PM Referred By: Confirmed By:Je Dye
[2022-10-10] MEDS: MoRPHine SULFATE 2 MG/ML CARP IV PRN ×2 (03:10→09:43)
[2022-10-10 07:20] LABS: Hematocrit (blood only) 27.3 % (42.0-52.0); Hemoglobin 9.5 g/dl (14.0-18.0); Mean Corpuscular Hemoglobin 37.8 pg (25.0-34.0); Mean Corpuscular Hgb Conc 34.8 g/dL (32.0-36.0); Mean Corpuscular Volume 108.8 fL (80.0-100.0); Mean Platelet Volume 10.2 fL (9.4-12.4); Platelet Count 135 K/uL (130-400); RDW Coefficient of Variation 13.5 % (11.5-14.5); RDW Standard Deviation 54.3 fL (36.4-46.3); Red Blood Count 2.51 M/uL (4.70-6.10); White Blood Count 10.79 K/ul (4.8-10.8)
--- NOTE | 2022-10-10 07:25 | Progress Notes ---
SUBJECTIVE: This is an 86-year-old gentleman admitted with a left periprosthetic femur fracture, sta tus post a fall. He has no new complaints this morning. Complains of isolated left thigh pain. Den ies any chest pain or shortness of breath. OBJECTIVE: VITAL SIGNS: Temperature is 36.8. Vital signs are stable. GENERAL: Shows a pleasant, elderly male. He looks pretty sleepy this morning. EXTREMITIES: Examination of the left leg reveals leg to be slightly shortened and externally rotated . He does have some moderate thigh swelling. He can dorsiflex and plantarflex his foot appropriatel y. LABORATORY DATA: Labs are pending. ASSESSMENT: An 86-year-old gentleman with a left periprosthetic femur fracture. PLAN: We will take him to the operating room today and do an ORIF of a left periprosthetic femur fra cture. Informed consent has been obtained. This is a fairly high risk procedure for this gentleman, but best option to mobilize him and get him better. All questions answered. Job ID: [id number]
--- NOTE | 2022-10-10 07:26 | Hospitalist Progress Note ---
Date of Service October 10, 2022 Assessment & Plan (1) Periprosthetic hip fracture: Plan: 86yo male with paroxysmal afib, HTN, HLD, bilateral hip replacement, osteoarthritis, and osteoporosis who presented after a fall, then to have a left periprosthetic hip fracture. Left periprosthetic hip fracture CT showed an acute comminuted and displaced periprosthetic fracture of the left femur extending from the intertrochanteric distribution distally into the mid diaphysis Orthopedic surgery consulted, planning to take patient to the OR today (10/10/22) Morphine as-needed for pain control Atrial fibrillation On admission, patient was in afib with RVR (rates 100-120s) Of note, patient's metoprolol had been recently discontinued by his basic acoustic analyst (Dr. Kelley); however, given patient was in RVR on admission, metoprolol 12.5mg daily was added Patient is not on anticoagulation due to recurrent falls Continue telemetry monitoring HTN, HLD, CAD Continue home ASA and pravastatin Metoprolol added as noted above BPH: continue home alfuzosin MDD: continue home duloxetine Chronic constipation: continue miralax 1 cap qPM Insomnia: melatonin prn FEN: heart healthy diet Code status: DNR/DNI DVT ppx: SCDs PT/OT: ordered Dispo: med/telemetry; awaiting symptomatic/functional improvement prior to DC (2) Hyperlipidemia: (3) Atrial fibrillation with rapid ventricular response: Admission and Anticipated Discharge Date Admission Date: October 08, 2022 Subjective Patient seen and evaluated at bedside this morning. Patient reports feeling well and has no acute complaints. Hip pain is minimal at rest and moderate with any movement. Patient denies other concerns or complaints at this time including CP, SOB, abdominal pain, nausea, vomiting, lightheadedness, dizziness, and diarrhea. Review of Systems Review of Systems: See HPI Physical Exam Physical Exam: Constitutional: well-appearing, no acute distress CV: irregularly irregular rhythm, no murmur appreciated, extremities well-perfu sed, no LE edema Resp: CTABL, no wheezes/rales/rhonchi appreciated, no increased work of breathing MSK: left hip tender to palpation Skin: warm, dry, no rash appreciated Neuro: alert, oriented, no focal neurologic deficit appreciated Results & Data Results & Data Vital Signs (Past 12 Hours) Vital Signs Temp Pulse Resp BP Pulse Ox O2 Del Method 10/10/22 02:59 36.8 C 99 H 16 113/66 96 Room Air 10/10/22 02:45 36.8 C 99 H 16 113/66 96 Room Air 10/09/22 22:53 36.7 C 104 H 18 108/70 95 Room Air 10/09/22 19:32 36.6 C 104 H 18 116/75 94 Room Air Resident Activity Tracking Resident Involvement: Resident Care Provided Care Provided: Adult Hospital Medicine (1) Periprosthetic hip fracture Encounter type: initial encounter Qualified Code(s): M97.8XXA - Periprosthetic fracture around other internal prosthetic joint, initial encounter; Z96.649 - Presence of unspecified artificial hip joint
[2022-10-10 07:36] LABS: BUN Creatinine Ratio 42.4 (10-20); Calcium 8.4 mg/dl (8.6-10.3); Creatinine Clr Calc Pharmacy 60.4 ml/min; Est GFR (African American) 91.4 ml/min; Est GFR (Non-African American) 78.9 ml/min; Potassium 5.2 mmol/L (3.5-5.1)
[2022-10-10] MEDS: OMEGA-3 (PURIFIED FISH OIL) 1 GM CAP PO SCH ×2 (09:39→09:49)
[2022-10-10] MEDS: ASPIRIN 81 MG ECTAB PO SCH ×2 (09:39→09:49)
[2022-10-10] MEDS: PRAVASTATIN SOD 20 MG TAB PO SCH ×2 (09:39→09:49)
[2022-10-10] MEDS: GLUCOSAMINE SULFATE 500 MG CAP PO SCH ×2 (09:39→09:49)
[2022-10-10] MEDS: CEROVITE ADV FORMULA TAB PO SCH ×2 (09:39→09:49)
[2022-10-10] MEDS: DULoxetine HCL 20 MG CAP PO SCH ×2 (09:39→09:49)
[2022-10-10] MEDS: ALFUZOSIN HCL 10 MG TAB PO SCH ×2 (09:39→09:49)
[2022-10-10] MEDS ORDERED: ONDANSETRON INJ 2 MG/ML 2 ML VIAL ONE (11:52)
[2022-10-10] MEDS ORDERED: ROCURONIUM BROMIDE 10 MG/ML 5 ML VIAL IV ONE ×2 (11:52→13:46)
[2022-10-10] MEDS ORDERED: fentaNYL citrate PF 100 MCG/2 ML VIAL ONE ×2 (11:52→15:43)
[2022-10-10] MEDS ORDERED: LIDOCAINE 2% MPF LOCAL 5 ML VIAL ONE (11:52)
[2022-10-10] MEDS ORDERED: PROPOFOL IV EMULSION 10 MG/ML 20 ML VIAL IV ONE (11:52)
[2022-10-10] MEDS ORDERED: ePHEDrine sulfate 50 MG/ML AMP IV PRN (11:54)
[2022-10-10] MEDS ORDERED: ONDANSETRON INJ 2 MG/ML 2 ML VIAL IV PRN ×2 (11:54→18:11)
[2022-10-10] MEDS ORDERED: fentaNYL citrate PF 100 MCG/2 ML VIAL IV PRN (11:54)
[2022-10-10] MEDS ORDERED: ATROPINE SULFATE 0.1 MG/ML 10ML SYR IV PRN (11:54)
--- NOTE | 2022-10-10 11:54 | Anesthesiology Consultation ---
Date of Service October 10, 2022 Assessment & Plan Chart Review Chart Review: Acceptable Risk for Surgery and Patient NOT seen in Pre Admission Testing Consults Requested none ASA ASA3 Proposed Anesthesia Anesthesia Type: General Risk / Benefits Reviewed With: PT / POA / Parent / Guardian, Accepts Plan and Informed Consent Obtained History Surgery Operation Date: 10/10/22 12:00 Proposed Procedures p Open Reduction Internal Fixation Left Periprosthetic Femur Fracture - Hao Carvajal MD Height/Weight Height: 5 ft 8 in Weight: 81.6 kg Allergies Allergy/AdvReac Type Severity Reaction Status Date / Time Iodinated Contrast Media Allergy Intermediate " Feels Verified 10/08/22 19:07 [Iodinated Contrast- Oral eliza hot and IV Dye] and painful" perflutren Allergy Unknown BODY GOT Verified 10/08/22 19:07 HOT AND BACK SPASMS propylene glycol Allergy Unknown BODY GOT Verified 10/08/22 19:07 HOT AND BACK SPASMS ragweed pollen Allergy Unknown UNKNOWN Verified 10/08/22 19:07 SANJAY Inhibitors AdvReac Intermediate Cough Verified 10/08/22 19:07 Medications Home Medications Medication Instructions Recorded Confirmed Last Taken glucosamine sulfate 500 mg capsule 500 mg PO DAILY 12/22/18 10/08/22 12/01/20 [id number]-[id number] acid 300 1 tab PO DAILY 12/22/18 10/08/22 12/01/20 mcg-lycopene 600 mcg-lutein 300 mcg tablet (Centrum Silver Men) melatonin 3 mg capsule 3 mg PO HS PRN Insomnia 10/19/19 10/08/22 Unknown nitroglycerin 0.4 mg sublingual 0.4 mg sublingual DIRECTED PRN 10/19/19 10/08/22 Unknown tablet Chest Pain aspirin 81 mg tablet,delayed 81 mg PO DAILY 06/05/20 10/08/22 12/01/20 release duloxetine 20 mg capsule,delayed 20 mg PO Q OTHER DAY 06/05/20 10/08/22 11/30/20 release omega 7-mwd-nzs-fish oil 1,000 mg 1 cap PO DAILY 06/05/20 10/08/22 12/01/20 (120 mg-180 mg) capsule (Fish Oil) acetaminophen 500 mg tablet 1,000 mg PO DIRECTED PRN 09/05/20 10/08/22 Unknown Arthritis Pain alfuzosin 10 mg tablet,extended 10 mg PO DAILY #90 tabs 03/21/22 10/08/22 Unknown release 24 hr (Uroxatral) metoprolol succinate 25 mg 12.5 mg PO DAILY 10/08/22 10/08/22 Unknown tablet,extended release 24 hr polyethylene glycol 3350 17 17 g PO QPM 10/08/22 10/08/22 Unknown gram/dose oral powder (Miralax) pravastatin 20 mg tablet 20 mg PO DAILY 10/08/22 10/08/22 Unknown Active Medications Generic Name Dose Route Start Last Admin Trade Name Freq PRN Reason Stop Dose Admin Alfuzosin HCl 10 mg 10/09/22 09:00 10/10/22 09:49 Alfuzosin Hcl 10 Mg Tab PO 11/08/22 08:59 Not Given DAILY MARLENA Aspirin 81 mg 10/09/22 09:00 10/10/22 09:49 Aspirin 81 Mg Ectab PO 11/08/22 08:59 Not Given DAILY MARLENA Duloxetine HCl 20 mg 10/10/22 09:00 10/10/22 09:49 Duloxetine Hcl 20 Mg Cap PO 11/09/22 08:59 Not Given Q2D@0900 [facility] Fish Oil 1 gm 10/09/22 09:00 10/10/22 09:49 Eldridge-3 (Purified Fish Oil) 1 Gm Cap PO 11/08/22 08:59 Not Given DAILY MARLENA Glucosamine Sulfate 500 mg 10/09/22 09:00 10/10/22 09:49 Glucosamine Sulfate 500 Mg Cap PO 11/08/22 08:59 Not Given DAILY MARLENA Melatonin 3 mg 10/08/22 21:44 10/09/22 20:38 Melatonin 3 Mg Tab PO 11/07/22 21:43 3 mg HS PRN Administration Insomnia Metoprolol Succinate 12.5 mg 10/08/22 21:02 10/09/22 20:38 Metoprolol Succ 25mg Ext Rel Tab PO 11/07/22 21:01 12.5 mg QPM MARLENA Administration Morphine Sulfate 2 mg 10/08/22 21:08 10/10/22 09:43 Morphine Sulfate 2 Mg/Ml Carp IV 10/22/22 21:07 2 mg Q3H PRN Administration Pain (7,8,9,10) Morphine Sulfate 1 mg 10/08/22 21:02 10/09/22 20:52 Morphine Sulfate 2 Mg/Ml Carp IV 10/22/22 21:01 1 mg Q3H PRN Administration Pain (4,5,6) & Pre PT Multivitamins/Minerals 1 tab 10/09/22 09:00 10/10/22 09:49 Cerovite Adv Formula Tab PO 11/08/22 08:59 Not Given DAILY MARLENA Polyethylene Glycol 17 gm 10/08/22 21:02 10/09/22 20:38 Polyethylene (Miralax) 17 Gm Pack PO 11/07/22 21:01 17 gm QPM MARLENA Administration Pravastatin Sodium 20 mg 10/09/22 09:00 10/10/22 09:49 Pravastatin Sod 20 Mg Tab PO 11/08/22 08:59 Not Given DAILY MARLENA NPO Date Last Intake of Fluids: 10/09/22 Time Last Intake of Fluids: 23:59 Date Last Intake of Solids: 10/09/22 Time Last Intake of Solids: 18:00 Past Medical History Medical History Acidosis, lactic Atrial fib/flutter, transient Coronary artery disease FH: bilateral hip replacements Hip pain, bilateral Hx of prostatic malignancy Hyperlipidemia Lumbar pain Osteoarthritis Osteoporosis Prostate cancer Restless leg syndrome Shoulder pain, bilateral Urinary symptom or sign Exercise / Class Metabolic Activity II 4-5 Yardwork/Stairs/Walk up hill Past Family History Family History Father Cardiac disorder Mother Cardiac disorder Past Surgical History Surgical History H/O heart artery stent History of arthroplasty of right shoulder Past Anesthesia History No Hx of Anesthesia Complications and No Family Hx of Anesthesia Complications History of PONV No Hx of PONV and No Hx of Motion Sickness Social History Smoking Status: Never smoker Hx Alcohol Use: No Hx Substance Use: No substance use type: does not use Physical Exam Vital Signs Last Vital Signs Temp 37.9 C H 10/10/22 11:16 Pulse 98 H 10/10/22 11:16 Resp 22 10/10/22 11:16 BP 119/62 10/10/22 11:16 Pulse Ox 100 10/10/22 11:16 O2 Del Method Room Air 10/10/22 11:16 ENMT Mouth: no dentition abnormality Thyromental Distance: > or= 3.5 Finger Breadths Mallampati Class: II Neck normal visual inspection Respiratory normal respiratory effort Auscultation: lungs clear to auscultation bilaterally Cardiovascular Rate/Rhythm: regular rate; + abnormal rhythm (a-futter on monitor) Psychiatric Orientation: alert Testing Laboratory Results 10/10/22 06:50 10/10/22 06:50 PT 12.1 Seconds (9.0-12.0) H 10/08/22 16:13 INR 1.1 (0.9-1.1) 10/08/22 16:13 Urine Color Dark Yellow 10/09/22 01:31 Urine Appearance Clear (Clear) 10/09/22 01:31 Urine pH >= 9.0 (4.5-7.5) H 10/09/22 01:31 Ur Specific [place] 1.018 (1.000-1.030) 10/09/22 01:31 Urine Protein Negative (Negative) 10/09/22 01:31 Urine Glucose (UA) Negative (Negative) 10/09/22 01:31 Urine Ketones 1+ (Negative) H 10/09/22 01:31 Urine Nitrite Negative (Negative) 10/09/22 01:31 Ur Leukocyte Esterase Negative (Negative) 10/09/22 01:31 Blood Type A Positive 10/08/22 22:39 Antibody Screen NEGATIVE 10/08/22 22:39
[2022-10-10] MEDS ORDERED: BUPIVACAINE/EPINEPHRINE 0.5% MPF 1:200,000 30 ML VIAL ONE (12:02)
[2022-10-10] MEDS ORDERED: TRANEXAMIC ACID / 0.7% NACL 1000MG/100ML BAG IV ONE (13:14)
[2022-10-10] MEDS ORDERED: ceFAZolin 2000MG 2,000 MG/15 ML SYR IV ONE (13:33)
[2022-10-10] MEDS ORDERED: ceFAZolin 330 MG/ML 1 GM VIAL ONE (13:39)
[2022-10-10] MEDS ORDERED: PHENYLEPHRINE HCL 10 MG/ML VIAL ONE (13:39)
[2022-10-10] MEDS ORDERED: ACETAMINOPHEN 1000 MG/100 ML IV IV ONE (14:15)
[2022-10-10] MEDS ORDERED: LABETALOL HCL IV 5 MG/ML 20ML IV ONE (14:47)
--- NOTE | 2022-10-10 16:00 | Fluoroscopy Report ---
FL femur LT 2V CLINICAL HISTORY: LT ORIF PERIPROSTHETIC FX COMPARISON STUDY: Left hip 10/08/2022. FLUOROSCOPY TIME: 112 seconds. FLUOROSCOPY IMAGES: 6 Ka,r: 3.3 mGy FINDINGS: A lateral cortical plate transfixed with screws and multiple cerclage wires surrounding the proximal femoral periprosthetic fracture. The hardware appears intact. Alignment appears near-anatom ic. A left total hip arthroplasties again noted. IMPRESSION: Fluoroscopic assistance as above. ACT 112: Negative or not required by law. Electronically signed by: Chin Saunders M.D. 10/10/2022 3:59 PM
--- NOTE | 2022-10-10 16:25 | Operative Report ---
PG Post Operative Report Pre & Post Diagnosis Operation Date: 10/10/22 12:00 Pre-Op Diagnosis: Left periprosthetic femur/HIP FX. Post-Op Diagnosis: Left periprosthetic femur/HIP FX I identified the patient and participated in the time-out.: Yes Procedure Operation Date: 10/10/22 12:00 Actual Procedures p Open Reduction Internal Fixation Left Periprosthetic Femur Fracture(Left) - Hao Carvajal MD Surgeon Hao Carvajal MD Manager Sales Support Andreas Sales PA-C Estimated Blood Loss 200 Findings Consistent with Post-Op Diagnosis Fluids 2100 cc Specimens None Anesthesia Type General Complications none Disposition Accompanied Patient To Recovery: No Indications Patient is an 86-year-old gentleman who said history of bilateral hip replacements. He sustained a fall about 2 days ago when he stumbled up. The cute onset of pain was unable to ambulate. X-rays revealed slightly displaced comminuted Justice B periprosthetic femur fracture. The patient was medically optimized indicated for surgical management. Description of Procedure Operative implants consisted of: 1. Synthes at 3.5/4.5 proximal femoral 9 hole periprosthetic locking plate with a greater trochanteric ring attachment plate. 2. 3.5 variable-angle locking screws x4. 3. 3.5 fully threaded cortical screws x2. 4. 5.0 variable locking screws x3 5. 4.5 cortical screws x2. 6. Synthes 4.5 mm cables x7. 7. Arte Manifiesto cable pins for the plate x3. The patient was taken the operating, identified, placed on the operating table supine position protectors were properly padded. IV antibiotics arrived by anesthesia team. Patient also received 1 g of tranexamic acid. A general anesthetic was implemented. A Goldsmith catheter was then placed in a sterile fashion. The left lower extremity was then scrubbed with Hibiclens, prepped with ChloraPrep and then draped in usual sterile fashion. A direct lateral approach to the proximal femur was then performed through a large longitudinal incision. Sharp dissection Through subcutaneous tissues to the IT band. He did have quite a bit of edema in the subcu tissues. The IT band was incised longitudinally. The vastus lateralis was retracted anteriorly. I did inject locally with 40 cc of half percent Marcaine with epinephrine primarily to limit bleeding. Vastus lateralis was retracted anteriorly. The fracture was exposed. I applied some longitudinal traction to the fracture and then the knee rotated and reduced this and held it with a reduction 2 reduction clamps. We then placed 3 a Synthes cables around the fracture site. Position these were verified and felt to be optimal. We then used the Synthes periprosthetic proximal femoral locking plate with the trochanteric extension. This was fixed initially proximally with 2 cortical screws to the trochanter and then distally with some cortical screws to snugged down to the bone. Once position was verified we filled an additional screw holes with the both variable angle locking screws along with fixed angle locking screws. I also placed for additional cables approximately to maximize stability. I was fully aware that the trochanter was pulled off and we did not grasp this piece as I could palpate that medially it was pretty far medially and I was concerned about potential damage to the femoral artery and I did not think it would provide any increased ability based on the very osteoporotic nature of this. Once all the hardware was placed and lateral final x-rays were obtained. The reduction was perfect. Attention was then drawn toward closing. The wounds irrigated cosigns of pulsatile lavage solution. The IT band was then closed with combination #1 Vicryl #1 PDS suture in a running fashion for the subcutaneous tissues then closed with 2 Dexon suture in buried interrupted fashion skin was closed with skin marin. A Prevena VAC dressing was applied. The patient then to brought out of general incision transferred to the recovery room in stable condition. Patient tolerated procedure well no complications. Andreas Salse, physician assistant quality manager, was present for the entire procedure. His assistance was required for proper patient positioning, prepping and draping, surgical exposure, retraction, reduction of the fracture, placement of the hardware, closure of the incision site and placement of the sterile wound VAC. I attest to the content of the Intraoperative Record and any orders documented therein. Any exceptions are noted below.
--- NOTE | 2022-10-10 17:16 | XRay Report ---
XR femur LT 2V routine CLINICAL HISTORY: S/P surgery TECHNIQUE: 2 radiographic views of the left femur were obtained. Comparison: Comparison is made to hip fluoroscopy 10/10/2022 FINDINGS: Postoperative changes of lateral cortical plate placement with multiple cerclage wires and fixation s crews noted. Patient is status post total hip arthroplasty. IMPRESSION: Expected postoperative appearance. ACT 112: Negative or not required by law. Electronically signed by: Monico Naranjo M.D. 10/10/2022 5:15 PM
[2022-10-10] MEDS ORDERED: ALUMINUM/MAGNESIUM SUSP 30 ML UDC PO PRN (18:11)
[2022-10-10] MEDS ORDERED: MAGNESIUM HYDROXIDE SUSP 30 ML UDC PO PRN (18:11)
[2022-10-10] MEDS ORDERED: NALOXONE HCL 0.4 MG/1 ML VIAL/CARP IV PRN (18:11)
[2022-10-10] MEDS ORDERED: HYDROmorphone INJ 0.5 MG/0.5 ML SYR IV PRN (18:11)
[2022-10-10] MEDS ORDERED: METOCLOPRAMIDE HCL INJ 5 MG/ML 2 ML VIAL IV PRN (18:11)
[2022-10-10] MEDS ORDERED: bisacodyL 10 MG SUPP PR PRN (18:11)
[2022-10-10] MEDS ORDERED: traMADol HCL 50 MG TABLET PO PRN (18:11)
[2022-10-10] MEDS ORDERED: TAMSULOSIN HCL 0.4 MG CAP PO PRN (18:11)
--- NOTE | 2022-10-10 18:38 | Anesthesiology Progress Note ---
Date of Service October 10, 2022 Anesthesia Post Procedure Vital Signs Vital Signs: Temp Pulse Pulse Pulse Resp BP Pulse Ox 10/10/22 18:10 10/10/22 18:10 36.4 C L 100 H 18 123/81 100 10/10/22 17:20 99 H 23 129/79 94 10/10/22 17:10 101 H 14 118/73 94 10/10/22 17:00 101 H 15 123/84 96 10/10/22 17:30 100 H 15 111/64 98 10/10/22 16:50 100 H 16 125/78 95 10/10/22 16:30 105 H 15 106/71 100 10/10/22 16:40 98 H 14 114/74 100 10/10/22 16:20 37.2 C 91 H 22 100/62 100 10/10/22 11:16 37.9 C H 98 H 22 119/62 100 10/10/22 08:21 100 H 10/10/22 07:24 36.4 C L 104 H 18 107/61 96 10/10/22 02:59 36.8 C 99 H 16 113/66 96 10/10/22 02:45 36.8 C 99 H 16 113/66 96 10/09/22 22:53 36.7 C 104 H 18 108/70 95 10/09/22 19:32 36.6 C 104 H 18 116/75 94 O2 Del Method O2 Flow Rate 10/10/22 18:10 Nasal Cannula 2 10/10/22 18:10 Nasal Cannula 3 10/10/22 17:20 Nasal Cannula 2 10/10/22 17:10 Nasal Cannula 2 10/10/22 17:00 Nasal Cannula 2 10/10/22 17:30 Nasal Cannula 2 10/10/22 16:50 Nasal Cannula 2 10/10/22 16:30 Oxymask 9 10/10/22 16:40 Nasal Cannula 2 10/10/22 16:20 Oxymask 9 10/10/22 11:16 Room Air 10/10/22 08:21 10/10/22 07:24 Room Air 10/10/22 02:59 Room Air 10/10/22 02:45 Room Air 10/09/22 22:53 Room Air 10/09/22 19:32 Room Air Pain Intensity Left Hip: Pain Intensity: 5 Transfer of Care Handoff Completed per policy Notes Mental Status: alert / awake / arousable and participated in evaluation Patient Amnestic to Procedure: Yes Nausea / Vomiting: adequately controlled Pain: adequately controlled Airway Patency, RR, SpO2: stable & adequate BP & HR: stable & adequate Hydration State: stable & adequate Anesthetic Complications: no major complications apparent and Pt Satisfied with anesthetic care
--- NOTE | 2022-10-10 18:53 | Billing Data ---
Date of Service October 10, 2022 Coding Level of Care Code 99645 SUB INP/OBS CARE
[2022-10-10] MEDS: SODIUM CHLORIDE 0.9% 1000ML 1,000 ML IV SCH (20:20)
[2022-10-10] MEDS: KETOROLAC TROMETHAMINE 15 MG/ML VIAL IV SCH (20:22)
[2022-10-10] MEDS: ceFAZolin 2000MG 2,000 MG/15 ML SYR IV SCH (20:26)
[2022-10-10] MEDS: DOCUSATE SODIUM 100 MG CAP PO SCH (20:51)
[2022-10-10] MEDS: ACETAMINOPHEN 500 MG TAB PO SCH (20:52)
[2022-10-10] MEDS: SENNA 8.6 MG TAB PO SCH (20:52)
[2022-10-10] MEDS: POLYETHYLENE (MIRALAX) 17 GM PACK PO SCH (20:52)
[2022-10-10] MEDS: METOPROLOL SUCC 25MG EXT REL TAB PO SCH (20:53)
[2022-10-10] MEDS ORDERED: TRANEXAMIC ACID / 0.7% NACL 1,000 MG/100 ML BAG IV SCH (22:30)
[2022-10-11] MEDS: MoRPHine SULFATE 2 MG/ML CARP IV PRN ×2 (00:15→10:16)
[2022-10-11] MEDS: KETOROLAC TROMETHAMINE 15 MG/ML VIAL IV SCH ×4 (01:20→17:30)
[2022-10-11] MEDS: ceFAZolin 2000MG 2,000 MG/15 ML SYR IV SCH (05:41)
[2022-10-11] MEDS: SODIUM CHLORIDE 0.9% 1000ML 1,000 ML IV SCH (05:41)
[2022-10-11] MEDS: ACETAMINOPHEN 500 MG TAB PO SCH ×3 (05:42→20:50)
[2022-10-11 07:14] LABS: Hematocrit (blood only) 22.5 % (42.0-52.0); Hemoglobin 7.5 g/dl (14.0-18.0); Mean Corpuscular Hemoglobin 37.5 pg (25.0-34.0); Mean Corpuscular Hgb Conc 33.3 g/dL (32.0-36.0); Mean Corpuscular Volume 112.5 fL (80.0-100.0); Mean Platelet Volume 10.6 fL (9.4-12.4); Platelet Count 140 K/uL (130-400); RDW Coefficient of Variation 13.9 % (11.5-14.5); RDW Standard Deviation 56.4 fL (36.4-46.3); White Blood Count 12.96 K/ul (4.8-10.8)
[2022-10-11 07:32] LABS: BUN Creatinine Ratio 45.2 (10-20); Calcium 7.8 mg/dl (8.6-10.3); Creatinine Clr Calc Pharmacy 60.3 ml/min; Est GFR (African American) 85.9 ml/min; Est GFR (Non-African American) 74.1 ml/min; Potassium 5.2 mmol/L (3.5-5.1)
--- NOTE | 2022-10-11 07:42 | Hospitalist Progress Note ---
Date of Service October 11, 2022 Assessment & Plan (1) Periprosthetic hip fracture: Plan: 86yo male with paroxysmal afib, HTN, HLD, bilateral hip replacement, osteoarthritis, and osteoporosis who presented after a fall, then to have a left periprosthetic hip fracture. Left periprosthetic hip fracture CT showed an acute comminuted and displaced periprosthetic fracture of the left femur extending from the intertrochanteric distribution distally into the mid diaphysis Underwent left periprosthetic hip replacement (10/10) Pain control: APAP 1000mg PO q8h scheduled Morphine 1mg IV q3h prn moderate pain Morphine 2mg IV q3h prn moderate-severe pain Dilaudid 0.5mg IV q4h prn severe pain Atrial fibrillation On admission, patient was in afib with RVR (rates 100-120s) Of note, patient's metoprolol had been recently discontinued by his building energy retrofit technician (Dr. Kelley); however, given patient was in RVR on admission, metoprolol 12.5mg daily was added Patient is not on anticoagulation due to recurrent falls Continue telemetry monitoring HTN, HLD, CAD Continue home ASA and pravastatin Metoprolol added as noted above BPH: continue home alfuzosin MDD: continue home duloxetine Chronic constipation: continue miralax 1 cap qPM Insomnia: melatonin prn FEN: heart healthy diet Code status: DNR/DNI DVT ppx: SCDs PT/OT: ordered Dispo: med/telemetry; awaiting symptomatic/functional improvement prior to DC (2) Hyperlipidemia: (3) Atrial fibrillation with rapid ventricular response: Admission and Anticipated Discharge Date Admission Date: October 08, 2022 Supervising Physician Co-Signing Physician Notes I personally examined the patient and verified all ingram points of history and exam, discussed case, and agree with decision making with Dr Betts. pain reasaonably well controlled. family updated at bedside. Vitals noted, in general awake and talkative, no distress. cardio reg no r/m/g lungs cta b/l no rr//w good effort skin no rashes no pallor or icterus Periprosthetic hip fracturepresumed osteoporoticnow post op, stable. pain reasonably well controlled. PT/OT almost certainly will need rehab. Outpatient bone health management. Acute blood loss anemia expectedstill no indications for transfusion but Hgb somewhat lower - continue to follow. Atrial fibrillation remains reasonably controlled. DVT proph asa and SCDs. Otherwise as above. Subjective Patient seen and evaluated at bedside this morning. Patient complains only of minimal left hip pain at rest, worse with movement. Overall patient feels well and has no additional concerns or complaints. Patient denies CP, SOB, abdominal pain, nausea, vomiting, lightheadedness, dizziness, and diarrhea. Review of Systems Review of Systems: See HPI Physical Exam Physical Exam: Constitutional: well-appearing, no acute distress CV: irregularly irregular rhythm, no murmur appreciated, extremities well- perfused Resp: CTABL, no wheezes/rales/rhonchi appreciated, no increased work of breathing MSK: left hip dressing in place Neuro: alert, oriented, no focal neurologic deficit appreciated Results & Data Results & Data Vital Signs (Past 12 Hours) Vital Signs Temp Pulse Pulse Resp BP BP Pulse Ox 10/11/22 07:28 36.8 C 88 18 115/71 100 10/11/22 04:25 36.9 C 99 H 18 127/83 96 10/10/22 23:05 36.6 C 102 H 18 111/66 100 10/10/22 23:25 O2 Del Method O2 Flow Rate 10/11/22 07:28 Nasal Cannula 3 10/11/22 04:25 Nasal Cannula 3 10/10/22 23:05 Nasal Cannula 3 10/10/22 23:25 Room Air Resident Activity Tracking Resident Involvement: Resident Care Provided Care Provided: Adult Hospital Medicine (1) Periprosthetic hip fracture Encounter type: initial encounter Qualified Code(s): M97.8XXA - Periprosthetic fracture around other internal prosthetic joint, initial encounter; Z96.649 - Presence of unspecified artificial hip joint
[2022-10-11] MEDS ORDERED: dexAMETHasone 10 MG in SYRINGE 0 ML IV SCH (08:00)
--- NOTE | 2022-10-11 08:35 | Progress Notes ---
SUBJECTIVE: An 86-year-old gentleman postoperative day 1 from an ORIF of a left periprosthetic femur fracture. He is doing okay this morning. Seems a bit groggy, but he is awake and responding approp riately and answers questions appropriately. He denies much in the way of pain. OBJECTIVE: VITAL SIGNS: Temperature 36.8. Vital signs are stable. GENERAL: Physical exam shows a pleasant, elderly male. He is sitting up in his bed this morning. H e responds appropriately, but pretty groggy. EXTREMITIES: Examination of the left leg reveals the leg to be well aligned. The Prevena dres sing is in place. He has got moderate thigh swelling. Certainly no worse than it was before surgery . He can dorsiflex and plantarflex his foot appropriately. LABORATORY DATA: Hemoglobin 7.5, hematocrit 22.5. Electrolytes are stable. Potassium is just a lit tle bit elevated. ASSESSMENT: An 86-year-old elderly gentleman, postoperative day 1 from open reduction and internal f ixation of a fairly large periprosthetic femur fracture surgery. He is doing quite well considering everything. His hemoglobin is down, which is not unexpected and consistent with blood loss. His arya n is controlled. He is neurologically intact. He is a bit groggy, which is not too unexpected eithe r. PLAN: 1. DVT prophylaxis includes thigh-high TEDs, SCDs and we would recommend a baby aspirin twice a day. He does have atrial fibrillation, but not on anticoagulation. 2. PT/OT. He is touch weightbearing on this left leg for the next 6 weeks. 3. Wound care. He has got a Prevena dressing in place. We will leave that on for 7 days. 4. Medical management as per medicine service. 5. Disposition. He will likely need a stay at the [facility] postoperatively. Management may be transfe r early next week. Job ID: [id number]
[2022-10-11] MEDS: ALFUZOSIN HCL 10 MG TAB PO SCH (08:58)
[2022-10-11] MEDS: PRAVASTATIN SOD 20 MG TAB PO SCH (08:58)
[2022-10-11] MEDS: GLUCOSAMINE SULFATE 500 MG CAP PO SCH (08:58)
[2022-10-11] MEDS: CEROVITE ADV FORMULA TAB PO SCH (08:58)
[2022-10-11] MEDS: OMEGA-3 (PURIFIED FISH OIL) 1 GM CAP PO SCH (08:58)
[2022-10-11] MEDS: ASPIRIN 81 MG ECTAB PO SCH (08:58)
[2022-10-11] MEDS: MULTIVITAMIN TAB PO SCH (08:59)
[2022-10-11] MEDS: DOCUSATE SODIUM 100 MG CAP PO SCH ×2 (09:03→20:50)
--- NOTE | 2022-10-11 17:52 | Billing Data ---
Date of Service October 11, 2022 Coding Level of Care Code 79062 SUB INP/OBS CARE
[2022-10-11] MEDS: SENNA 8.6 MG TAB PO SCH (20:50)
[2022-10-11] MEDS: METOPROLOL SUCC 25MG EXT REL TAB PO SCH (20:51)
[2022-10-11] MEDS: POLYETHYLENE (MIRALAX) 17 GM PACK PO SCH (20:51)
[2022-10-12] MEDS: KETOROLAC TROMETHAMINE 15 MG/ML VIAL IV SCH ×3 (00:21→13:02)
[2022-10-12] MEDS: ACETAMINOPHEN 500 MG TAB PO SCH ×3 (05:10→21:13)
[2022-10-12 06:36] LABS: BUN Creatinine Ratio 58.1 (10-20); Creatinine Clr Calc Pharmacy 65.7 ml/min; Est GFR (Non-African American) 78.5 ml/min; Potassium 5.1 mmol/L (3.5-5.1)
--- NOTE | 2022-10-12 06:39 | Hospitalist Progress Note ---
Date of Service October 12, 2022 Assessment & Plan (1) Periprosthetic hip fracture: Plan: 86yo male with paroxysmal afib, HTN, HLD, bilateral hip replacement, osteoarthritis, and osteoporosis who presented after a fall, then to have a left periprosthetic hip fracture. Left periprosthetic hip fracture CT showed an acute comminuted and displaced periprosthetic fracture of the left femur extending from the intertrochanteric distribution distally into the mid diaphysis Underwent left periprosthetic hip replacement (10/10) Pain control: APAP 1000mg PO q8h scheduled Morphine 1mg IV q3h prn moderate pain Morphine 2mg IV q3h prn moderate-severe pain Dilaudid 0.5mg IV q4h prn severe pain Acute anemia 10/12: patient's Hgb fell from 7.5 to 7.0 (pre-op Hgb was 9.5) Patient reports fatigue but is otherwise asymptomatic and hemodynamically stable Will transfuse 1u pRBC - consent signed Will recheck H/H ~2 hours after transfusion completes Trend CBC Atrial fibrillation On admission, patient was in afib with RVR (rates 100-120s) Of note, patient's metoprolol had been recently discontinued by his direct marketing analyst (Dr. Kelley); however, given patient was in RVR on admission, metoprolol 12.5mg daily was added Patient is not on anticoagulation due to recurrent falls Continue telemetry monitoring HTN, HLD, CAD Continue home ASA and pravastatin Metoprolol added as noted above BPH: continue home alfuzosin MDD: continue home duloxetine Chronic constipation: continue miralax 1 cap qPM Insomnia: melatonin prn FEN: heart healthy diet Code status: DNR/DNI DVT ppx: SCDs PT/OT: ordered Dispo: med/telemetry; awaiting symptomatic/functional improvement prior to DC (2) Hyperlipidemia: (3) Atrial fibrillation with rapid ventricular response: Admission and Anticipated Discharge Date Admission Date: October 08, 2022 Subjective Patient seen and evaluated at bedside this morning. Patient reports fatigue this morning but otherwise feels well. Patient reports he is pain-free at rest but movement causes left hip pain, though he does note the pain is manageable. Patient is hoping his can come in today. Patient denies CP, SOB, abdominal pain, nausea, vomiting, lightheadedness, dizziness, and diarrhea. Review of Systems Review of Systems: See HPI Physical Exam Physical Exam: Constitutional: tired-appearing, no acute distress CV: irregularly irregular rhythm, no murmur appreciated, extremities well- perfused Resp: CTABL, no wheezes/rales/rhonchi appreciated, no increased work of breathing MSK: left hip dressing in place Neuro: alert, oriented, no focal neurologic deficit appreciated Results & Data Results & Data Vital Signs (Past 12 Hours) Vital Signs Temp Pulse Pulse Resp BP Pulse Ox O2 Del Method 10/12/22 03:58 36.8 C 84 16 163/77 H 94 Room Air 10/12/22 00:00 36.5 C 93 H 18 104/68 93 Room Air 10/11/22 19:00 37.0 C 91 H 18 107/60 95 Room Air Resident Activity Tracking Resident Involvement: Resident Care Provided Care Provided: Adult Hospital Medicine (1) Periprosthetic hip fracture Encounter type: initial encounter Qualified Code(s): M97.8XXA - Periprosthetic fracture around other internal prosthetic joint, initial encounter; Z96.649 - Presence of unspecified artificial hip joint
[2022-10-12 07:27] LABS: Hematocrit (blood only) 20.6 % (42.0-52.0); Mean Corpuscular Hemoglobin 37.8 pg (25.0-34.0); Mean Corpuscular Volume 111.4 fL (80.0-100.0); Mean Platelet Volume 10.7 fL (9.4-12.4); Nucleated RBC # (auto) 0.07 K/uL (0-0.12); Nucleated RBC % (auto) 0.5 %; Platelet Count 143 K/uL (130-400); RDW Coefficient of Variation 14.2 % (11.5-14.5); RDW Standard Deviation 56.7 fL (36.4-46.3); Red Blood Count 1.85 M/uL (4.70-6.10); White Blood Count 14.41 K/ul (4.8-10.8)
[2022-10-12] MEDS ORDERED: SODIUM CHLORIDE 0.9% 250 ML IV PRN (08:12)
[2022-10-12] MEDS: GLUCOSAMINE SULFATE 500 MG CAP PO SCH (08:55)
[2022-10-12] MEDS: OMEGA-3 (PURIFIED FISH OIL) 1 GM CAP PO SCH (08:55)
[2022-10-12] MEDS: ASPIRIN 81 MG ECTAB PO SCH (08:55)
[2022-10-12] MEDS: DOCUSATE SODIUM 100 MG CAP PO SCH ×2 (08:55→21:13)
[2022-10-12] MEDS: ALFUZOSIN HCL 10 MG TAB PO SCH (08:55)
[2022-10-12] MEDS: DULoxetine HCL 20 MG CAP PO SCH (08:55)
[2022-10-12] MEDS: CEROVITE ADV FORMULA TAB PO SCH (08:56)
[2022-10-12] MEDS: MULTIVITAMIN TAB PO SCH (08:56)
[2022-10-12] MEDS: PRAVASTATIN SOD 20 MG TAB PO SCH (08:56)
--- NOTE | 2022-10-12 15:38 | Billing Data ---
Date of Service October 12, 2022 Coding Level of Care Code 03197 SUB INP/OBS CARE
[2022-10-12 16:07] LABS: Hematocrit (blood only) 23.7 % (42.0-52.0); Hemoglobin 8.2 g/dl (14.0-18.0)
[2022-10-12] MEDS: POLYETHYLENE (MIRALAX) 17 GM PACK PO SCH (21:10)
[2022-10-12] MEDS: SENNA 8.6 MG TAB PO SCH (21:13)
[2022-10-12] MEDS: METOPROLOL SUCC 25MG EXT REL TAB PO SCH (21:13)
[2022-10-13] MEDS: ACETAMINOPHEN 500 MG TAB PO SCH ×3 (06:06→21:37)
--- NOTE | 2022-10-13 08:05 | Hospitalist Progress Note ---
Date of Service October 13, 2022 Assessment & Plan (1) Periprosthetic hip fracture: Plan: 86yo male with paroxysmal afib, HTN, HLD, bilateral hip replacement, osteoarthritis, and osteoporosis who presented after a fall, then to have a left periprosthetic hip fracture. Left periprosthetic hip fracture CT showed an acute comminuted and displaced periprosthetic fracture of the left femur extending from the intertrochanteric distribution distally into the mid diaphysis Underwent left periprosthetic hip replacement (10/10) Pain control: APAP 1000mg PO q8h scheduled Morphine 1mg IV q3h prn moderate pain Morphine 2mg IV q3h prn moderate-severe pain - outpatient bone health management Delirium -ongoing 2 days with hallucinations, oriented only to self -likely 2/2 to recent surgery, hospitalization, pain medication Acute blood loss anemia /: patient's Hgb fell from 7.5 to 7.0 (pre-op Hgb was 9.5) transfused 1u pRBC hbg recheck 8.7 Trend CBC Atrial fibrillation On admission, patient was in afib with RVR (rates 100-120s) Of note, patient's metoprolol had been recently discontinued by his real estate investor (Dr. Kelley); however, given patient was in RVR on admission, metoprolol 12.5mg daily was added Patient is not on anticoagulation due to recurrent falls Continue telemetry monitoring HTN, HLD, CAD Continue home ASA and pravastatin Metoprolol added as noted above BPH: continue home alfuzosin MDD: continue home duloxetine Chronic constipation: continue miralax 1 cap qPM Insomnia: melatonin prn FEN: heart healthy diet Code status: DNR/DNI DVT ppx: SCDs PT/OT: ordered Dispo: med/telemetry; awaiting symptomatic/functional improvement prior to DC (2) Hyperlipidemia: (3) Atrial fibrillation with rapid ventricular response: Admission and Anticipated Discharge Date Admission Date: October 08, 2022 Supervising Physician Co-Signing Physician Notes Resident Physician Supervision Note: I independently interviewed and examined the patient and verified the ingram history and physical, reviewed labs and image studies and agree with resident findings and care plan. Subjective Patient seen at bedside, asleep easily arousable to voice. Patient denies any pain at this time, states he is eating well, has equal sensation in both legs. Per nursing he has had increased confusion hallucinations overnight all weekend. Review of Systems Review of Systems: All systems reviewed & are unremarkable except as noted in HPI & below Physical Exam Constitutional: well developed, well nourished, cooperative and comfortable Eyes: PERRL, conjunctivae normal, anicteric sclerae ENMT: external ear and nose normal, oropharynx normal Neck: trachea midline, no thyromegaly Respiratory: normal respiratory effort, lungs clear to auscultation Cardiovascular: Rate/Rhythm: + irregularly irregular Gastrointestinal (Abdomen): Inspection/Auscultation: abdomen normal to inspection Percussion/Palpation: abdomen soft; abdomen nontender Musculoskeletal: wound dressing intact on left hip Skin: no rashes, warm and dry Neurologic: sensation intact in b/l feet, able to move both feet Results & Data Results & Data Vital Signs (Past 12 Hours) Vital Signs Temp Pulse Pulse Resp BP Pulse Ox O2 Del Method 10/13/22 07:23 37.1 C 104 H 18 115/65 96 Room Air 10/13/22 07:14 92 H 10/13/22 03:00 36.8 C 114 H 18 122/82 99 Room Air 10/12/22 23:12 36.9 C 91 H 18 131/80 96 Room Air 10/12/22 22:41 115 H Resident Activity Tracking Resident Involvement: Resident Care Provided Care Provided: Adult Hospital Medicine (1) Periprosthetic hip fracture Encounter type: initial encounter Qualified Code(s): M97.8XXA - Periprosthetic fracture around other internal prosthetic joint, initial encounter; Z96.649 - Presence of unspecified artificial hip joint
[2022-10-13 08:43] LABS: Hematocrit (blood only) 25.2 % (42.0-52.0); Hemoglobin 8.7 g/dl (14.0-18.0); Mean Corpuscular Hemoglobin 36.1 pg (25.0-34.0); Mean Corpuscular Hgb Conc 34.5 g/dL (32.0-36.0); Mean Corpuscular Volume 104.6 fL (80.0-100.0); Mean Platelet Volume 10.2 fL (9.4-12.4); Nucleated RBC # (auto) 0.23 K/uL (0-0.12); Platelet Count 169 K/uL (130-400); RDW Coefficient of Variation 18.3 % (11.5-14.5); Red Blood Count 2.41 M/uL (4.70-6.10); White Blood Count 11.51 K/ul (4.8-10.8)
[2022-10-13] MEDS: CEROVITE ADV FORMULA TAB PO SCH (08:56)
[2022-10-13] MEDS: PRAVASTATIN SOD 20 MG TAB PO SCH (08:56)
[2022-10-13] MEDS: GLUCOSAMINE SULFATE 500 MG CAP PO SCH (08:56)
[2022-10-13] MEDS: OMEGA-3 (PURIFIED FISH OIL) 1 GM CAP PO SCH (08:56)
[2022-10-13] MEDS: ALFUZOSIN HCL 10 MG TAB PO SCH (08:56)
[2022-10-13] MEDS: DOCUSATE SODIUM 100 MG CAP PO SCH ×2 (08:57→21:37)
[2022-10-13] MEDS: MULTIVITAMIN TAB PO SCH (08:57)
[2022-10-13] MEDS: ASPIRIN 81 MG ECTAB PO SCH (08:57)
[2022-10-13 10:19] LABS: BUN Creatinine Ratio 58.2 (10-20); Calcium 8.1 mg/dl (8.6-10.3); Creatinine Clr Calc Pharmacy 72.2 ml/min; Est GFR (African American) 94.2 ml/min; Est GFR (Non-African American) 81.3 ml/min
[2022-10-13] MEDS: METOPROLOL SUCC 25MG EXT REL TAB PO SCH (21:36)
[2022-10-13] MEDS: SENNA 8.6 MG TAB PO SCH (21:37)
[2022-10-13] MEDS: POLYETHYLENE (MIRALAX) 17 GM PACK PO SCH (21:38)
[2022-10-14] MEDS: ACETAMINOPHEN 500 MG TAB PO SCH ×3 (06:12→21:26)
[2022-10-14 07:01] LABS: Hematocrit (blood only) 24.1 % (42.0-52.0); Hemoglobin 8.1 g/dl (14.0-18.0); Mean Corpuscular Hemoglobin 36.5 pg (25.0-34.0); Mean Corpuscular Hgb Conc 33.6 g/dL (32.0-36.0); Mean Corpuscular Volume 108.6 fL (80.0-100.0); Nucleated RBC # (auto) 0.14 K/uL (0-0.12); Nucleated RBC % (auto) 1.6 %; Platelet Count 156 K/uL (130-400); RDW Coefficient of Variation 18.5 % (11.5-14.5); RDW Standard Deviation 69.3 fL (36.4-46.3); Red Blood Count 2.22 M/uL (4.70-6.10); White Blood Count 8.84 K/ul (4.8-10.8)
[2022-10-14 07:20] LABS: Creatinine Clr Calc Pharmacy 90.4 ml/min; Est GFR (African American) 102.8 ml/min; Est GFR (Non-African American) 88.7 ml/min
--- NOTE | 2022-10-14 07:33 | Hospitalist Progress Note ---
Date of Service October 14, 2022 Assessment & Plan (1) Periprosthetic hip fracture: Plan: 86yo male with paroxysmal afib, HTN, HLD, bilateral hip replacement, osteoarthritis, and osteoporosis who presented after a fall, then to have a left periprosthetic hip fracture. Left periprosthetic hip fracture CT showed an acute comminuted and displaced periprosthetic fracture of the left femur extending from the intertrochanteric distribution distally into the mid diaphysis Underwent left periprosthetic hip replacement (10/10) Pain control: APAP 1000mg PO q8h scheduled Morphine 1mg IV q3h prn moderate pain Morphine 2mg IV q3h prn moderate-severe pain - outpatient bone health management - per ortho: Prevena VAC dressing on for 1 week post-surgery, Delirium -ongoing since thursday with hallucinations, oriented only to self -likely /2 to recent surgery, hospitalization, pain medication Acute blood loss anemia 10/12: patient's Hgb fell from 7.5 to 7.0 (pre-op Hgb was 9.5) transfused 1u pRBC hbg recheck 8.1 Trend CBC Atrial fibrillation On admission, patient was in afib with RVR (rates 100-120s) Of note, patient's metoprolol had been recently discontinued by his works manager (Dr. Kelley); however, given patient was in RVR on admission, metoprolol 12.5mg daily was added Patient is not on anticoagulation due to recurrent falls Continue telemetry monitoring HTN, HLD, CAD Continue home ASA and pravastatin Metoprolol added as noted above BPH: continue home alfuzosin MDD: continue home duloxetine Chronic constipation: continue miralax 1 cap qPM Insomnia: melatonin prn FEN: heart healthy diet Code status: DNR/DNI DVT ppx: SCDs PT/OT: ordered Dispo: med/telemetry; awaiting symptomatic/functional improvement prior to DC (2) Hyperlipidemia: (3) Atrial fibrillation with rapid ventricular response: Admission and Anticipated Discharge Date Admission Date: October 08, 2022 Supervising Physician Co-Signing Physician Notes Resident Physician Supervision Note: I independently interviewed and examined the patient and verified the ingram history and physical, reviewed labs and image studies and agree with resident findings and care plan. Subjective Patient seen at bedside, asleep. Arousable to voice, quickly falls back asleep. Denies any pain at this time, states his left hip is not bothering him. Per nursing he was still confused when woken up in the middle of the night but otherwise slept through the night. Physical Exam Constitutional: WD/WN, vitals as above well developed, well nourished, cooperative and comfortable Eyes: PERRL, conjunctivae normal, anicteric sclerae ENMT: external ear and nose normal, oropharynx normal Neck: trachea midline, no thyromegaly Respiratory: normal respiratory effort, lungs clear to auscultation Cardiovascular: RRR, no murmur, no edema Gastrointestinal (Abdomen): Inspection/Auscultation: abdomen normal to inspection Percussion/Palpation: abdomen soft; abdomen nontender Skin: no rashes, warm and dry Results & Data Results & Data Vital Signs (Past 12 Hours) Vital Signs Temp Pulse Pulse Resp BP BP Pulse Ox 10/14/22 02:47 36.9 C 115 H 18 122/72 98 10/13/22 22:39 36.8 C 118 H 18 128/72 97 10/13/22 23:06 119 H 10/13/22 19:35 36.4 C L 94 H 18 144/79 H 98 O2 Del Method 10/14/22 02:47 Room Air 10/13/22 22:39 Room Air 10/13/22 23:06 10/13/22 19:35 Room Air Resident Activity Tracking Resident Involvement: Resident Care Provided Care Provided: Adult Hospital Medicine (1) Periprosthetic hip fracture Encounter type: initial encounter Qualified Code(s): M97.8XXA - Per iprosthetic fracture around other internal prosthetic joint, initial encounter; Z96.649 - Presence of unspecified artificial hip joint
[2022-10-14] MEDS: CEROVITE ADV FORMULA TAB PO SCH (08:53)
[2022-10-14] MEDS: PRAVASTATIN SOD 20 MG TAB PO SCH (08:53)
[2022-10-14] MEDS: MULTIVITAMIN TAB PO SCH (08:53)
[2022-10-14] MEDS: ALFUZOSIN HCL 10 MG TAB PO SCH (08:53)
[2022-10-14] MEDS: OMEGA-3 (PURIFIED FISH OIL) 1 GM CAP PO SCH (08:53)
[2022-10-14] MEDS: DULoxetine HCL 20 MG CAP PO SCH (08:53)
[2022-10-14] MEDS: GLUCOSAMINE SULFATE 500 MG CAP PO SCH (08:53)
[2022-10-14] MEDS: ASPIRIN 81 MG ECTAB PO SCH (08:53)
[2022-10-14] MEDS: DOCUSATE SODIUM 100 MG CAP PO SCH ×2 (08:54→19:57)
--- NOTE | 2022-10-14 13:11 | Progress Notes ---
SUBJECTIVE: An 86-year-old gentleman now postop day 4 from open reduction internal fixation of a lef t periprosthetic femur fracture. He is quite confused today. He seems to be aware of that as well. He denies much pain. No chest pain or shortness of breath. OBJECTIVE: VITAL SIGNS: Temperature 36.8. Vital signs, fairly stable. ____ tachycardia about 103. EXTREMITIES: Examination of the left leg reveals the leg to be well aligned. The Prevena VAC dressi ngs in place. Swelling seems to be improving. He can dorsiflex and plantarflex his foot appropriate ly and he does follow commands. LABORATORY DATA: Hemoglobin 8.1. Hematocrit 24.1. Electrolytes are stable. ASSESSMENT: An 86-year-old gentleman with multiple medical comorbidities, postop day 4 from open red uction internal fixation of a left periprosthetic femur fracture. He has been a bit anemic, but noth ing out of the ordinary for this type of injury and surgery. He does not appear symptomatic currentl y. He is quite confused. Pain seems to be controlled. PLAN: 1. DVT prophylaxis includes thigh-high TEDs, SCDs, and recommend an aspirin twice a day. He has not been on anticoagulation at this time for atrial fibrillation. 2. Pain control, seems to be under control. I would really limit narcotics as this may contribute t o this confusion. 3. PT/OT. He can touch weightbear on this leg. He is going to be touch weightbearing for 6 weeks. 4. Wound care. The Prevena VAC dressing on for 1 week post-surgery, then we will remove and place a dry bandage. 5. Disposition: He is orthopedically okay for discharge any time, medically stable. He is certainl y quite confused and not ready for transfer yet. Likely need a rehab transfer/rehab stay. 6. Medical management as per the medicine service. Whether he needs blood, we will leave up to them . He does not appear symptomatic. Job ID: [id number]
[2022-10-14] MEDS: SENNA 8.6 MG TAB PO SCH (19:57)
[2022-10-14] MEDS: POLYETHYLENE (MIRALAX) 17 GM PACK PO SCH (19:57)
[2022-10-14] MEDS: METOPROLOL SUCC 25MG EXT REL TAB PO SCH (21:27)
[2022-10-15] MEDS: ACETAMINOPHEN 500 MG TAB PO SCH (05:35)
[2022-10-15 06:53] LABS: Hematocrit (blood only) 26.1 % (42.0-52.0); Hemoglobin 8.9 g/dl (14.0-18.0); Mean Corpuscular Hemoglobin 37.4 pg (25.0-34.0); Mean Corpuscular Hgb Conc 34.1 g/dL (32.0-36.0); Mean Corpuscular Volume 109.7 fL (80.0-100.0); Mean Platelet Volume 9.7 fL (9.4-12.4); Nucleated RBC # (auto) 0.08 K/uL (0-0.12); Platelet Count 149 K/uL (130-400); RDW Coefficient of Variation 18.6 % (11.5-14.5); RDW Standard Deviation 71.3 fL (36.4-46.3); Red Blood Count 2.38 M/uL (4.70-6.10); White Blood Count 8.04 K/ul (4.8-10.8)
[2022-10-15 07:09] LABS: Calcium 7.9 mg/dl (8.6-10.3); Creatinine Clr Calc Pharmacy 97.5 ml/min; Est GFR (African American) 105.5 ml/min; Potassium 4.2 mmol/L (3.5-5.1)
--- NOTE | 2022-10-15 07:58 | Hospitalist Progress Note ---
Date of Service October 15, 2022 Assessment & Plan Admission and Anticipated Discharge Date Admission Date: October 08, 2022 Results & Data Results & Data Vital Signs (Past 12 Hours) Vital Signs Temp Pulse Pulse Resp BP Pulse Ox O2 Del Method 10/15/22 07:44 37.3 C 94 H 16 134/82 99 Room Air 10/15/22 07:17 87 10/15/22 03:31 36.5 C 100 H 18 134/90 98 Room Air 10/15/22 00:00 120 H 10/14/22 22:30 36.4 C L 97 H 16 126/77 97 Room Air
[2022-10-15] MEDS: CEROVITE ADV FORMULA TAB PO SCH (09:15)
[2022-10-15] MEDS: GLUCOSAMINE SULFATE 500 MG CAP PO SCH (09:15)
[2022-10-15] MEDS: ASPIRIN 81 MG ECTAB PO SCH (09:15)
[2022-10-15] MEDS: ALFUZOSIN HCL 10 MG TAB PO SCH (09:15)
[2022-10-15] MEDS: PRAVASTATIN SOD 20 MG TAB PO SCH (09:15)
[2022-10-15] MEDS: OMEGA-3 (PURIFIED FISH OIL) 1 GM CAP PO SCH (09:15)
[2022-10-15] MEDS: DOCUSATE SODIUM 100 MG CAP PO SCH (09:16)
[2022-10-15] MEDS: MULTIVITAMIN TAB PO SCH (09:16)
--- NOTE | 2022-10-15 10:20 | Discharge Summary ---
Date of Service October 15, 2022 Admission HPI Per Admitting Provider Guerrero Sauceda is an 86-year-old male with past medical history of paroxysmal A- fib, bilateral hip replacement, osteoarthritis, osteoporosis who presented today after a fall. He bent over to pick something up and lost his balance. Fell forward and did sustain some head trauma. He denies loss of consciousness, headache, dizziness, neurologic deficit at this time. No nausea or vomiting. [facility] and [facility] do have assistance. He was brought by EMS. Work-up in the ED significant for acute comminuted and displaced periprosthetic fracture of the left femur extending from the intertrochanteric distribution distally into the mid diaphysis noted on CT and x-ray. Head CT negative for acute abnormalities. Cervical spine CT without CT evidence of fracture or subluxation skeletal structures are heterogeneous and significantly demineralized, making the examination difficult to interpret. MRI more sensitive for vertebral body fracture if there is clinical concern for occult injury. No acute abnormalities on blood work. EKG did show atrial fibrillation with rate of 88 at that time. However, patient has had a rapid ventricular response in the low 100s to 120s since that time. He denies chest pain, palpitations, nausea, vomiting, abdominal pain, shortness of breath, headache, dizziness. Admission Exam Per Admitting Provider GENERAL: Alert and oriented, cooperative. NAD. HEENT: PERRL, EOMI. Moist mucous membranes. NECK: No JVD. No lymphadenopathy. CHEST/LUNGS: CTAB A/P. No crackles, wheezes, rales, rhonchi. HEART: Irregularly irregular, no murmurs gallops or rubs. ABDOMEN: NT/ND, soft. BS+ x4 EXTREMITIES: 2+ pulses in bilateral lower extremities. Pain with motion of left hip. No cyanosis, no clubbing, no edema SKIN: Warm and dry. No rashes or lesions. PSYCHIATRIC: Euthymic affect, no SI, no pressured speech, no hallucinations NEUROLOGIC: No FND. CN II-XII grossly intact. Principal Diagnosis ORIF Left Periprosthetic Femur Fracture Discharge Exam Constitutional: well developed, well nourished, cooperative and comfortable Eyes: PERRL, conjunctivae normal, anicteric sclerae ENMT: external ear and nose normal, oropharynx normal Neck: trachea midline, no thyromegaly Respiratory: normal respiratory effort, lungs clear to auscultation Cardiovascular: Rate/Rhythm: + irregularly irregular Gastrointestinal (Abdomen): Inspection/Auscultation: abdomen normal to inspection Percussion/Palpation: abdomen soft; abdomen nontender Musculoskeletal: wound dressing intact on left hip Skin: no rashes, warm and dry Neurologic: sensation intact in b/l feet, able to move both feet Discharge Data Allergies Allergy/AdvReac Type Severity Reaction Status Date / Time Iodinated Contrast Media Allergy Intermediate " Feels Verified 10/08/22 19:07 [Iodinated Contrast- Oral eliza hot and IV Dye] and painful" perflutren Allergy Unknown BODY GOT Verified 10/08/22 19:07 HOT AND BACK SPASMS propylene glycol Allergy Unknown BODY GOT Verified 10/08/22 19:07 HOT AND BACK SPASMS ragweed pollen Allergy Unknown UNKNOWN Verified 10/08/22 19:07 SANJAY Inhibitors AdvReac Intermediate Cough Verified 10/08/22 19:07 Consultations 10/08/22 19:33 ED Decision to Admit Stat 10/08/22 19:33 Consult Orthopedic Surgery Routine Procedures Performed Operation Date: 10/10/22 12:00 Actual Procedures p Open Reduction Internal Fixation Left Periprosthetic Femur Fracture(Left) - Hao Carvajal MD Ordered Studies 10/08/22 16:02 CT cervical spine wo con Stat CT head/brain wo con Stat 10/08/22 16:38 CT abd pelvis wo con Stat CT hip LT wo con Stat 10/10/22 12:00 FL femur LT 2V Routine Hospital Course (1) Periprosthetic hip fracture: 86yo male with paroxysmal afib, HTN, HLD, bilateral hip replacement, osteoarthritis, and osteoporosis who presented after a fall, then to have a left periprosthetic hip fracture. Left periprosthetic hip fracture CT showed an acute comminuted and displaced periprosthetic fracture of the left femur extending from the intertrochanteric distribution distally into the mid diaphysis Underwent left periprosthetic hip replacement (10/10) Pain control: APAP 1000mg PO q8h scheduled PRN morphine 1-2mg q3h in hospital, not needed since 10/11 - outpatient bone health management - per ortho: Proveena wound VAC Management - leave in in place for 7 days from OR Date After 7 days - remove VAC and place dry dressing over incision sit e...change daily Increased ASA 81mg to BID for DVT prophylaxis - will add famotidine 10mg BID for GI prophylaxis given aspirin usage Delirium -ongoing since thursday with hallucinations, oriented only to self -likely 2/2 to recent surgery, hospitalization, pain medication -at time of discharge not confused. Suspect underlying dementia. 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 Kelley); however, given patient was in RVR on admission, metoprolol 12.5mg daily was added, will continue with metoprolol 12.5mg daily at this time. Patient is not on anticoagulation due to recurrent falls HTN, HLD, CAD Continue pravastatin Metoprolol added as noted above BPH: continue home alfuzosin MDD: continue home duloxetine Chronic constipation: continue miralax 1 cap qPM Insomnia: melatonin prn (2) Hyperlipidemia: (3) Atrial fibrillation with rapid ventricular response: Total Time Total Time Spent Total Time Spent (In Minutes): see attending attestation Discharge Plan Discharge Items Patient Disposition: Transfer Shelter Fac Reason For Visit: FALL, L HIP FX Discharge Diagnosis: ORIF Left Periprosthetic Femur Fracture Activity: Per Instructions section Activity Comment: Toe-touch Weightbearing left leg for 6 weeks Weightbearing: Left toe touch Weightbearing Comment: Toe-touch weightbearing left leg for 6 weeks Non-emergency contact: Primary Care Provider Call non-emergency contact if: you have any medication questions, your symptoms worsen, your pain is concerning for you and you have a fever Follow-up/Referrals: Hao Carvajal MD [Physician] - (Orthopedic follow-up 2-3 weeks from surgery date. No sooner than 2 weeks. Better closer to 3 weeks.) Annemarie Tomas PA-C [Primary Care Provider] - Diet: Regular Addtl Attending Provider Instructions: 86yo male with paroxysmal afib, HTN, HLD, bilateral hip replacement, osteoarthritis, and osteoporosis who presented after a fall, then to have a left periprosthetic hip fracture. Left periprosthetic hip fracture CT showed an acute comminuted and displaced periprosthetic fracture of the left femur extending from the intertrochanteric distribution distally into the mid diaphysis Underwent left periprosthetic hip replacement (10/10) Pain control: APAP 1000mg PO q8h scheduled PRN morphine 1-2mg q3h in hospital - outpatient bone health management - per ortho: Proveena wound VAC Management - leave in in place for 7 days from OR Date After 7 days - remove VAC and place dry dressing over incision site...change daily Increased ASA 81mg to BID for DVT prophylaxis - will add famotidine 10mg BID for GI prophylaxis given aspirin usage Delirium -ongoing since thursday with hallucinations, oriented only to self -likely 2/2 to recent surgery, hospitalization, pain medication -at time of discharge more oriented Acute blood loss anemia /: patient's Hgb fell from 7.5 to 7.0 (pre-op Hgb was 9.5) transfused 1u pRBC hbg recheck 8.1 Atrial fibrillation On admission, patient was in afib with RVR (rates 100-120s) Of note, patient's metoprolol had been recently discontinued by his 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 Kelley); however, given patient was in RVR on admission, metoprolol 12.5mg daily was added, will continue with metoprolol 12.5mg daily at this time. Patient is not on anticoagulation due to recurrent falls HTN, HLD, CAD Continue pravastatin Metoprolol added as noted above BPH: continue home alfuzosin MDD: continue home duloxetine Chronic constipation: continue miralax 1 cap qPM Insomnia: melatonin prn Pending Studies at Discharge: No Stand-Alone Forms: My [facility] Skilled Items Patient informed of condition?: Yes DNR: Yes Discharge Level of Care: Acute rehab Communicable Disease: No Discharge Prognosis: Stable Lines: None Urinary Catheter: No Medications and DC Order Prescriptions: New docusate sodium 100 mg Capsule 100 mg PO BID 15 Days Qty: 30 0RF sennosides [Senokot] 8.6 mg Tablet 17.2 mg PO HS 15 Days Qty: 30 0RF famotidine 10 mg tablet 10 mg PO BID 30 Days Qty: 60 0RF Continued glucosamine sulfate 500 mg capsule 500 mg PO DAILY Centrum Silver Men 300-600-300 mcg tablet 1 tab PO DAILY melatonin 3 mg capsule 3 mg PO HS PRN (Reason: Insomnia) nitroglycerin 0.4 mg tablet, sublingual 0.4 mg SL DIRECTED PRN (Reason: Chest Pain) Rx Instructions: PLACE ONE TABLET UNDER THE TONGUE EVERY 5 MINUTES FOR UP TO 3 DOSES OVER 15 MINUTES IF NEEDED FOR CHEST PAIN alfuzosin [Uroxatral] 10 mg tablet extended release 24 hr 10 mg PO DAILY Qty: 90 3RF acetaminophen 500 mg Tablet 1,000 mg PO DIRECTED PRN (Reason: Arthritis Pain) duloxetine 20 mg capsule,delayed release(DR/EC) 20 mg PO Q OTHER DAY omega 0-plo-tms-fish oil [Fish Oil] 1,000 mg (120 mg-180 mg) Capsule 1 cap PO DAILY pravastatin 20 mg tablet 20 mg PO DAILY metoprolol succinate 25 mg tablet extended release 24 hr 12.5 mg PO DAILY polyethylene glycol 3350 [Miralax] 17 gram/dose Powder 17 g PO QPM Changed aspirin 81 mg Tablet,Delayed Release (Dr/Ec) 81 mg PO BID 30 Days Qty: 60 0RF Discharge Orders: Discharge Order (Routine); Ordered 10/15/22 Ordered By: Rose Mary Argueta Admission Data Admit Date/Time: 10/08/22 19:30 Attending Provider: Evelin Little Admit Provider: Kayden Love Primary Care Provider: Annemarie Tomas Other Providers: [facility] Flor Abraham ; Neil Carias ; Hao Carvajal ; Archie Rush Other Interventions: Discharge Summary Assessment (RN) Last Done: 10/15/22 12:30 Supervising Physician Co-Signing Physician Notes Resident Physician Supervision Note: I independently interviewed and examined the patient and verified the ingram history and physical, reviewed labs and image studies and agree with resident findings and care plan. Resident Activity Tracking Resident Involvement: Resident Care Provided Care Provided: Adult Hospital Medicine
[2022-10-15] MEDS ORDERED: ASPIRIN 81 MG ECTAB PO SCH (21:00)
== END 2022-10-15 13:36 | DRG 480 ==
LOC: ED 15:52 → SUATTDRO 19:30 → EDINP 19:30 → 2W 21:02

== ENCOUNTER 2024-07-11 16:53 | Inpatient (IN) ==
[2024-07-11 17:21] LABS: Basophils # (auto) 0.05 K/uL (0.00-0.20); Basophils % (auto) 0.4 %; Eosinophils # (auto) 0.14 K/uL (0.00-0.50); Eosinophils % (auto) 1.2 %; Hematocrit (blood only) 37.4 % (42.0-52.0); Immature Granulocytes # (auto) 0.07 K/uL (0.01-0.20); Immature Granulocytes % (auto) 0.6 %; Lymphocytes % (auto) 11.4 %; Mean Corpuscular Hemoglobin 36.4 pg (25.0-34.0); Mean Corpuscular Hgb Conc 34.8 g/dL (32.0-36.0); Mean Corpuscular Volume 104.8 fL (80.0-100.0); Mean Platelet Volume 9.9 fL (9.4-12.4); Monocytes # (auto) 0.63 K/uL (0.11-0.59); Monocytes % (auto) 5.5 %; Neutrophils # (auto) 9.24 K/uL (1.40-6.50); Neutrophils % (auto) 80.9 %; Platelet Count 164 K/uL (130-400); RDW Coefficient of Variation 13.2 % (11.5-14.5); RDW Standard Deviation 51.6 fL (36.4-46.3); Red Blood Count 3.57 M/uL (4.70-6.10); White Blood Count 11.43 K/ul (4.8-10.8)
[2024-07-11 17:38] LABS: Alanine Aminotransferase 51 U/L (7-52); Albumin Globulin Ratio 0.8 (0.9-2); Albumin Level 3.2 gm/dl (3.4-5.0); Alkaline Phosphatase 93 U/L (34-104); Anion Gap 6 (3-11); Aspartate Aminotransferase 73 U/L (13-39); BUN Creatinine Ratio 25.4 (10-20); Bilirubin,Total 0.9 mg/dl (0.2-1.0); Blood Urea Nitrogen 16 mg/dl (6-23); Calcium 9.4 mg/dl (8.6-10.3); Carbon Dioxide 29 mmol/L (21-32); Chloride 94 mmol/L (98-107); Glucose 147 mg/dl (70-99(Fasting)); Magnesium 1.5 mg/dl (1.7-2.4); Potassium 4.6 mmol/L (3.5-5.1); Sodium 129 mmol/L (136-145); Total Protein 7.2 gm/dl (6.0-8.3)
[2024-07-11 17:44] LABS: Troponin I High Sensitivity 20.3 pg/ml (0-20)
[2024-07-11] MEDS: ACETAMINOPHEN 1,000 MG/100 ML VIAL IV STA (17:49)
[2024-07-11] MEDS: SODIUM CHLORIDE 0.9% 1,000 ML IV ONE (17:51)
[2024-07-11 17:52] LABS: INR 1.1 (0.9-1.1); Partial Thromboplastin Ratio 0.9; Partial Thromboplastin Time 23 Seconds (21-31); Prothrombin Time 11.9 Seconds (9.0-12.0)
[2024-07-11] MEDS ORDERED: VANCOMYCIN CONSULT ACTIVE PRN (18:03)
[2024-07-11 18:13] LABS: Base Excess VBG 5.6 mEq/L; HCO3 VBG 31 mmol/L; Oxygen Saturation VBG 65.7 %; PCO2 VBG 45 mmHg (38-50); PO2 VBG 37 mmHg; pH VBG 7.44 (7.36-7.41)
--- NOTE | 2024-07-11 18:13 | XRay Report ---
Clinical History: Sepsis Technique: A frontal view of the chest was obtained Comparison is made to the prior examination dated 03/27/2023 Findings: There is mild patchy opacity in the left lower lobe. The heart size is within normal limits. No pleural effusion or pneumothorax is seen. There is an unchanged calcified granuloma in the left lower lung No fracture is noted. There is a right shoulder arthroplasty. There is severe left glenohumeral osteoarthritis Impression: Possible mild left lower lobe pneumonia Electronically signed by Marcos Hodgson 07-11-2024 6:12 PM
[2024-07-11] MEDS: PIPERACILLIN/TAZOBACTAM 4.5 GM/100 ML BAG IV ONE (18:14)
[2024-07-11] MEDS: MAGNESIUM SULFATE / D5W 1 GM/100 ML BAG IV ONE ×2 (18:15→21:40)
[2024-07-11] MEDS: SODIUM CHLORIDE 0.9% 500 ML IV ONE (18:16)
[2024-07-11 18:40] LABS: Adenovirus PCR Not Detected (NotDetected); Bordetella parapertussis PCR Not Detected (NotDetected); Bordetella pertussis PCR Not Detected (NotDetected); Chlamydia pneumoniae PCR Not Detected (NotDetected); Coronavirus 229E PCR Not Detected (NotDetected); Coronavirus CoV-2 (COVID19)PCR Not Detected (NotDetected); Coronavirus HKU1 PCR Not Detected (NotDetected); Coronavirus NL63 PCR Not Detected (NotDetected); Coronavirus OC43PCR Not Detected (NotDetected); Human Metapneumovirus PCR Not Detected (NotDetected); Influenza A (H3) PCR DETECTED (NotDetected); Influenza B PCR Not Detected (NotDetected); Mycoplasma pneumoniae PCR Not Detected (NotDetected); Parainfluenza Virus 1 PCR Not Detected (NotDetected); Parainfluenza Virus 2 PCR Not Detected (NotDetected); Parainfluenza Virus 3 PCR Not Detected (NotDetected); Parainfluenza Virus 4 PCR Not Detected (NotDetected); Respiratory Syncytial VirusPCR Not Detected (NotDetected); Rhinovirus/Enterovirus PCR Not Detected (NotDetected)
[2024-07-11 18:49] LABS: Amorphous Sediment Urine Present (None Prsent); Appearance Urine Turbid (Clear); Bacteria Urine Automated 4+ (None Seen); Bilirubin Urine Negative (Negative); Blood Urine 3+ (Negative); Cast Urine Automated >20 /lpf (0-2); Color Urine Dark Yellow; Glucose Urine UA Negative (Negative); Ketones Urine Trace (Negative); Leukocyte Esterase Urine 3+ (Negative); Nitrite Urine Positive (Negative); Protein Urine 2+ (Negative); RBC Urine Automated >20 /hpf (0-2); Specific Gravity Urine 1.023 (1.000-1.030); Urobilinogen Urine Negative (Negative); WBC Urine Automated >50 /hpf (0-5)
[2024-07-11] MEDS: VANCOMYCIN HCL 1,500 MG in SODIUM CHLORIDE 0.9% 500 ML IV ONE (18:54)
[2024-07-11] MEDS: OSELTAMIVIR PHOSPHATE 75 MG CAP PO STA (19:11)
--- NOTE | 2024-07-11 19:23 | Emergency Department Note ---
Impression & Plan Sepsis due to urinary tract infection, Influenza A, Fever, AMS (altered mental status) ED Provider Note NAME: BJ ARNETT AGE: 88 SEX: Male INFORMANT: Patient ED PROVIDER(S): Jacques Bills MD CHIEF COMPLAINT: Illness PLAN: Disposition: Admitted Outpatient prescription management: none Referral: None MEDICAL DECISION MAKING: Patient presented. He has fever. Workup was initiated. Sepsis approach taken. Patient has a very mild left lower lobe infiltrate. He does have an elevated white blood cell count. He was hydrated. He does have an elevated lactate and cardiac troponin. ECG did show a tachycardia without ischemia. Patient had improvement of his tachycardia with treatment of his fever with IV Tylenol as well as the IV fluids. Patient's magnesium was low and was repleted. He was empirically covered with Zosyn and vancomycin after cultures. The patient was feeling better on reassessment. Patient was found to have influenza on [employer] testing. Patient was given Tamiflu. Consultation was made with Dr. Neil Carias of the [facility] service. Patient was evaluated in the ER for further management. 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 Vital Signs: reviewed and remarkable for fever and tachycardia Additional History obtained from: Patient's noted he was very confused today. She was unable to care for him. Chronic Medical/Social Conditions affecting care: Indwelling Goldsmith catheter Prior/ Outside/ External records reviewed: none Differential Diagnosis: Sepsis, UTI, pneumonia, viral syndrome, metabolic, electrolyte abnormalities, cardiac sources, intracerebral event, toxicologic, neurologic, as well as other pathologies. Diagnostics, independently interpreted by me: ECG: Twelve-lead ECG reveals a flutter with variable block at 124 bpm. Left axis deviation and low voltage QRS. No ST elevation. Cardiac Monitoring:Cardiac monitoring ordered by me: The patient was placed on continuous cardiac monitoring and observed. It revealed a A-fib at 109 bpm. Medical decision rules: none Imaging studies: Chest x-ray reveals findings of possible left lower lobe pneumonia. Prior shoulder replacement noted. HPI: 88 year old Male arrives for evaluation of illness. This started over the last 2 days and is worsening. The patient also notes the following associated symptoms, cough, shortness of breath, fevers, chills. states the patient had weakness and confusion today. 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 He felt hot to the touch and she checked his temperature and it was 99. He had some loose stool as well. The patient has found no relieving factors. Current pain is rated as 0/10. Pt denies LOC, headache, visual changes, neck pain, chest pain, nausea, vomiting, abdominal pain, back pain, melena, hematochezia, numbness, rash, or other complaints. PAST MEDICAL HISTORY: See Below, UTI, BPH, urinary retention PAST SURGICAL HISTORY: See Below, SOCIAL HISTORY: See Below, , retired. HOME MEDICATIONS: See Below ALLERGIES: See Below VITALS: See Below PHYSICAL EXAMINATION: GENERAL: Awake, alert, well-appearing, in no distress HENT: Normocephalic, atraumatic. Oropharynx unremarkable. EYES: Normal conjunctiva. Sclera non-icteric. NECK: Inspection normal. Non-tender. Supple. No nuchal rigidity. FROM. No masses. RESPIRATORY: Clear to auscultation. No wheezes. No rales. Normal respiratory effort. CARDIAC: Normal rate. Normal rhythm. No murmurs. No rubs. Extremities warm and well perfused. Pulses equal. No JVD. GI: Soft, non-distended. No tenderness to palpation. No rebound or guarding. No masses. RECTAL: Deferred. MUSCULOSKELETAL: Atraumatic. Chest examination reveals no tenderness. The back is symmetrical on inspection without obvious abnormality. There is no CVA tenderness to palpation. No joint edema. LOWER EXTREMITIES: Calves are equal size bilaterally and non-tender. No edema. No discoloration. NEURO: Normal sensorium. No sensory or motor deficits noted. SKIN: No rash or jaundice noted. PROCEDURES: none CRITICAL CARE: I have personally spent 35 minutes of critical care time in the direct management of this patient. This includes bedside care, interpretation of diagnostic studies, and testing, discussion with consultants, patient, and family members, and other required patient management activities. These minutes are in excess of all separately billable procedures. OBSERVATION NOTE: none Past Med/Surg History Problem List (Updated 07/12/24 @ 19:38 by Sachin Marion MD) A-fib DVT prophylaxis Hyponatremia Catheter-associated urinary tract infection Acute metabolic encephalopathy Bacteremia Chronic indwelling Goldsmith catheter AMS (altered mental status) (Acute) Fever (Acute) Influenza A (Acute) Urinary retention Periprosthetic hip fracture (Acute) Bilateral primary osteoarthritis of knee Bilateral knee pain Trochanteric tendinitis of left hip Prostate cancer Urinary symptom or sign Hypophosphatemia (Acute) Hypertension NSTEMI (non-ST elevated myocardial infarction) Atrial fibrillation with rapid ventricular response (Acute) Elevated troponin (Acute) Sepsis due to urinary tract infection (Acute) Sepsis (Acute) Acute UTI (urinary tract infection) (Acute) Coronary artery disease History of arthroplasty of right shoulder FH: bilateral hip replacements H/O heart artery stent Restless leg syndrome Hx of prostatic malignancy Hip pain, bilateral Shoulder pain, bilateral Lumbar pain Osteoporosis (Acute) Osteoarthritis Hyperlipidemia Chest pain Medical History (Updated 07/12/24 @ 19:38 by Sachin Marion MD) Fall Atrial fib/flutter, transient Acidosis, lactic Family History Father Cardiac disorder Mother Cardiac disorder Social History Smoking Status: Unknown if ever smoked Hx Alcohol Use: No Hx Substance Use: No Preferred Language: Yi Communication Ability: Effective Visual Impairment: No Limitations Hearing Ability: Hard of Hearing Flight Software Test Engineer Required: No Beliefs That Will Affect Care: None marital status: Current Living Situation: Spouse and Personal Care Facility Current Living Situation Comment: lives with [facility] current occupational status: retired How many Children do You have: 2 Feels Safe at Home: Yes Assistive Devices: Cane, Walker and Wheelchair Allergies Allergies Allergy/AdvReac Type Severity Reaction Status Date / Time Iodinated Contrast Media Allergy Intermediate " Feels Verified 06/20/24 14:13 [Iodinated Contrast- Oral eliza hot and IV Dye] and painful" perflutren Allergy Unknown BODY GOT Verified 06/20/24 14:13 HOT AND BACK SPASMS propylene glycol Allergy Unknown BODY GOT Verified 06/20/24 14:13 HOT AND BACK SPASMS ragweed pollen Allergy Unknown UNKNOWN Verified 06/20/24 14:13 SANJAY Inhibitors AdvReac Intermediate Cough Verified 06/20/24 14:13 Home Meds Home Medications Medication Instructions Recorded Confirmed [id number] 300 mcg-K 60 1 tab PO DAILY 12/22/18 07/11/24 mcg-lycop 600 mcg-lutein 300 mcg tablet (Centrum Silver Men) nitroglycerin 0.4 mg sublingual 0.4 mg sublingual DIRECTED PRN 10/19/19 07/11/24 tablet Chest Pain omega 1-vya-lnx-fish oil 1,000 mg 1 cap PO DAILY 06/05/20 07/11/24 (120 mg-180 mg) capsule (Fish Oil) acetaminophen 500 mg tablet 1,000 mg PO DIRECTED PRN 09/05/20 07/11/24 Arthritis Pain polyethylene glycol 3350 17 17 g PO QPM 10/08/22 07/11/24 gram/dose oral powder (Miralax) pravastatin 20 mg tablet 20 mg PO DAILY 10/08/22 07/11/24 aspirin 81 mg tablet,delayed 81 mg PO DAILY 07/11/24 07/11/24 release calcium 600 mg (as carbonate)-vit 1 tab PO DAILY 07/11/24 07/11/24 D3 20 mcg (800 unit) chewable tablet (Caltrate plus D) Previous Rx's Medication Instructions Recorded betamethasone valerate 0.1 % 1 applic topical BID PRN phimosis 09/04/23 topical ointment #15 grams Results & Data (ED) Vital Signs Vital Signs - 24 hr 07/11/24 16:47 07/11/24 17:03 07/11/24 17:09 Temperature 39.6 C H Temperature Source Rectal Pulse Rate 120 H 121 H Pulse Rate [Apical] Respiratory Rate 20 Respiratory Effort / Characteristics Non-Labored Spontaneous Respiratory Depth Normal Respiratory Pattern Regular Blood Pressure 125/64 Blood Pressure [Right Arm] Blood Pressure Mean 84 Blood Pressure Mean [Right Arm] Pulse Oximetry 88 L 88 L Oxygen Delivery Method Room Air Room Air Nasal Cannula Oxygen Flow Rate 0 Sepsis Recent Fever Within 48 Hours Yes Sepsis New/Unexplained Change in Mental Status Yes Sepsis Action Taken by Nursing Physician Notified Oxygen Flow Rate - Titration 4 Pulse Oximetry Post Tiitration 91 07/11/24 17:09 07/11/24 18:00 07/11/24 19:00 Temperature 38.3 C H Temperature Source Oral Pulse Rate Pulse Rate [Apical] 116 H 114 H Respiratory Rate 18 18 Respiratory Effort / Characteristics Non-Labored Spontaneous Non-Labored Spontaneous Respiratory Depth Normal Normal Respiratory Pattern Regular Blood Pressure Blood Pressure [Right Arm] 144/87 H 132/83 Blood Pressure Mean Blood Pressure Mean [Right Arm] 106 99 Pulse Oximetry 91 96 98 Oxygen Delivery Method Nasal Cannula Nasal Cannula Nasal Cannula Oxygen Flow Rate 4 4 3 Sepsis Recent Fever Within 48 Hours Sepsis New/Unexplained Change in Mental Status Sepsis Action Taken by Nursing Oxygen Flow Rate - Titration Pulse Oximetry Post Tiitration Laboratory Data 07/12/24 07:17 07/12/24 07:17 Lab Results 07/11/24 07/11/24 07/11/24 Range/Units 17:02 18:00 18:04 WBC 11.43 H (4.8-10.8) K/ul RBC 3.57 L (4.70-6.10) M/uL Hgb 13.0 L (14.0-18.0) g/dl Hct 37.4 L (42.0-52.0) % MCV 104.8 H (80.0-100.0) fL MCH 36.4 H (25.0-34.0) pg MCHC 34.8 (32.0-36.0) g/dL RDW Std Deviation 51.6 H (36.4-46.3) fL RDW Coeff of Saeed 13.2 (11.5-14.5) % Plt Count 164 (130-400) K/uL MPV 9.9 (9.4-12.4) fL Immature Gran % (Auto) 0.6 % Neut % (Auto) 80.9 % Lymph % (Auto) 11.4 % [place] % (Auto) 5.5 % Eos % (Auto) 1.2 % Baso % (Auto) 0.4 % Neut # (Auto) 9.24 H (1.40-6.50) K/uL Lymph # (Auto) 1.30 (1.20-3.40) K/uL [place] # (Auto) 0.63 H (0.11-0.59) K/uL Eos # (Auto) 0.14 (0.00-0.50) K/uL Baso # (Auto) 0.05 (0.00-0.20) K/uL Immature Gran # (Auto) 0.07 (0.01-0.20) K/uL PT 11.9 (9.0-12.0) Seconds INR 1.1 (0.9-1.1) APTT 23 (21-31) Seconds PTT Ratio 0.9 VBG pH 7.44 H (7.36-7.41) VBG pCO2 45 (38-50) mmHg VBG pO2 37 mmHg VBG HCO3 31 mmol/L VBG O2 Saturation 65.7 % VBG Base Excess 5.6 mEq/L Sodium 129 L (136-145) mmol/L Potassium 4.6 (3.5-5.1) mmol/L Chloride 94 L (98-107) mmol/L Carbon Dioxide 29 (21-32) mmol/L Anion Gap 6 (3-11) BUN 16 (6-23) mg/dl Creatinine 0.63 (0.6-1.4) mg/dl Est Cr Clr Drug Dosing Not Reportable eGFR 91.49 BUN/Creatinine Ratio 25.4 H (10-20) Glucose 147 H (70-99(Fasting)) mg/dl Lactate 2.5 H* (0.4-2.0) mmol/L Calcium 9.4 (8.6-10.3) mg/dl Magnesium 1.5 L (1.7-2.4) mg/dl Total Bilirubin 0.9 (0.2-1.0) mg/dl AST 73 H (13-39) U/L ALT 51 (7-52) U/L Alkaline Phosphatase 93 (34-104) U/L Troponin I High Sens 20.3 H (0-20) pg/ml B-Natriuretic Peptide 200 H (0-100) pg/ml Total Protein 7.2 (6.0-8.3) gm/dl Albumin 3.2 L (3.4-5.0) gm/dl Globulin 4.0 (2.5-4.0) gm/dl Albumin/Globulin Ratio 0.8 L (0.9-2) Procalcitonin 0.19 (0-0.5) ng/ml Urine Color Dark Yellow Urine Appearance Turbid A (Clear) Urine pH 7.0 (4.5-7.5) Ur Specific [place] 1.023 (1.000-1.030) Urine Protein 2+ H (Negative) Urine Glucose (UA) Negative (Negative) Urine Ketones Trace H (Negative) Urine Blood 3+ H (Negative) Urine Nitrite Positive A (Negative) Urine Bilirubin Negative (Negative) Urine Urobilinogen Negative (Negative) Ur Leukocyte Esterase 3+ H (Negative) Urine WBC (Auto) >50 H (0-5) /hpf Urine RBC (Auto) >20 H (0-2) /hpf U Hyaline Cast (Auto) >20 H (0-2) /lpf U Epithel Cells (Auto) 3-5 H (0-2) /hpf Urine Bacteria (Auto) 4+ H (None Seen) Amorphous Sediment Present A (None Prsent) Streptococcus sp PCR DETECTED A (NotDetected) Bld Cult ID Panel PCR See PCR Comment (NotDetected) 07/11/24 Range/Units 18:57 WBC (4.8-10.8) K/ul RBC (4.70-6.10) M/uL Hgb (14.0-18.0) g/dl Hct (42.0-52.0) % MCV (80.0-100.0) fL MCH (25.0-34.0) pg MCHC (32.0-36.0) g/dL RDW Std Deviation (36.4-46.3) fL RDW Coeff of Saeed (11.5-14.5) % Plt Count (130-400) K/uL MPV (9.4-12.4) fL Immature Gran % (Auto) % Neut % (Auto) % Lymph % (Auto) % [place] % (Auto) % Eos % (Auto) % Baso % (Auto) % Neut # (Auto) (1.40-6.50) K/uL Lymph # (Auto) (1.20-3.40) K/uL [place] # (Auto) (0.11-0.59) K/uL Eos # (Auto) (0.00-0.50) K/uL Baso # (Auto) (0.00-0.20) K/uL Immature Gran # (Auto) (0.01-0.20) K/uL PT (9.0-12.0) Seconds INR (0.9-1.1) APTT (21-31) Seconds PTT Ratio VBG pH (7.36-7.41) VBG pCO2 (38-50) mmHg VBG pO2 mmHg VBG HCO3 mmol/L VBG O2 Saturation % VBG Base Excess mEq/L Sodium (136-145) mmol/L Potassium (3.5-5.1) mmol/L Chloride (98-107) mmol/L Carbon Dioxide (21-32) mmol/L Anion Gap (3-11) BUN (6-23) mg/dl Creatinine (0.6-1.4) mg/dl Est Cr Clr Drug Dosing eGFR BUN/Creatinine Ratio (10-20) Glucose (70-99(Fasting)) mg/dl Lactate 1.8 (0.4-2.0) mmol/L Calcium (8.6-10.3) mg/dl Magnesium (1.7-2.4) mg/dl Total Bilirubin (0.2-1.0) mg/dl AST (13-39) U/L ALT (7-52) U/L Alkaline Phosphatase (34-104) U/L Troponin I High Sens 23.2 H (0-20) pg/ml B-Natriuretic Peptide (0-100) pg/ml Total Protein (6.0-8.3) gm/dl Albumin (3.4-5.0) gm/dl Globulin (2.5-4.0) gm/dl Albumin/Globulin Ratio (0.9-2) Procalcitonin (0-0.5) ng/ml Urine Color Urine Appearance (Clear) Urine pH (4.5-7.5) Ur Specific [place] (1.000-1.030) Urine Protein (Negative) Urine Glucose (UA) (Negative) Urine Ketones (Negative) Urine Blood (Negative) Urine Nitrite (Negative) Urine Bilirubin (Negative) Urine Urobilinogen (Negative) Ur Leukocyte Esterase (Negative) Urine WBC (Auto) (0-5) /hpf Urine RBC (Auto) (0-2) /hpf U Hyaline Cast (Auto) (0-2) /lpf U Epithel Cells (Auto) (0-2) /hpf Urine Bacteria (Auto) (None Seen) Amorphous Sediment (None Prsent) Streptococcus sp PCR (NotDetected) Bld Cult ID Panel PCR (NotDetected) Administered Medications Aspirin (Aspirin 81 Mg Ectab) 81 mg PO DAILY [facility] Stop: 08/11/24 08:59 Last Admin: 07/12/24 08:58 Dose: 81 mg Documented By: MS Calcium/Vitamin D (Calcium 600mg + Vit D 400 Iu Tab) 1 tab PO DAILY [facility] Stop: 08/11/24 08:59 Last Admin: 07/12/24 08:58 Dose: 1 tab Documented By: Fish Oil (Loyal-3 (Purified Fish Oil) 1 Gm Cap) 1 cap PO DAILY [facility] Stop: 08/11/24 08:59 Last Admin: 07/12/24 08:59 Dose: 1 cap Documented By: Guaifenesin (Guaifenesin 600 Mg Tabcr) 1,200 mg PO Q12 [facility] Stop: 08/10/24 20:59 Last Admin: 07/12/24 21:17 Dose: 1,200 mg Documented By: Admin: 07/12/24 08:59 Dose: 1,200 mg Documented By: Admin: 07/11/24 22:55 Dose: 1,200 mg Documented By: EMIR Heparin Sodium (Porcine) (Heparin Sod 5,000 Unit/0.5 Ml Vial) 5,000 units SQ Q12 [facility] Stop: 08/10/24 22:24 Last Admin: 07/12/24 21:18 Dose: 5,000 units Documented By: Admin: 07/12/24 09:04 Dose: 5,000 units Documented By: Admin: 07/11/24 23:17 Dose: 5,000 units Documented By: EMIR Piperacillin Sod/Tazobactam Sod (Zosyn) 4.5 gm in 100 mls @ 25 mls/hr IV Q8H [facility]; Protocol Stop: 07/19/24 01:59 Last Admin: 07/12/24 18:42 Dose: 25 mls/hr Documented By: Infusion: 07/12/24 13:01 Dose: Infused Documented By: Admin: 07/12/24 09:01 Dose: 25 mls/hr Documented By: Infusion: 07/12/24 05:54 Dose: Infused Documented By: Admin: 07/12/24 02:03 Dose: 25 mls/hr Documented By: EMIR Methylprednisolone 30 mg/ (Syringe) 0.48 mls @ 1.5 mls/min IV Q12H [facility] Stop: 08/11/24 15:59 Last Admin: 07/12/24 16:37 Dose: 1.5 mls/min Documented By: ZAIRE Insulin Aspart (Insulin Aspart Per Unit Charge) 0 units SC ACHS [facility] Stop: 08/10/24 22:24 Last Admin: 12/31/24 21:18 Dose: Not Given Documented By: Admin: 07/12/24 16:36 Dose: 2 units Documented By: ZAIRE Co-signed By: EFREN Admin: 07/12/24 12:11 Dose: 2 units Documented By: Co-signed By: EFREN Admin: 07/12/24 09:03 Dose: 2 units Documented By: Co-signed By: ZAIRE Admin: 07/11/24 23:14 Dose: 1 units Documented By: EMIR Co-signed By: PEGGY Insulin Glargine (Lantus Per Unit Charge) 8 units SQ QAM [facility] Stop: 08/11/24 08:59 Last Admin: 07/12/24 09:01 Dose: 8 units Documented By: Co-signed By: ZAIRE Multivitamins/Minerals (Cerovite Adv Formula Tab) 1 tab PO DAILY [facility] Stop: 08/11/24 08:59 Last Admin: 07/12/24 08:59 Dose: 1 tab Documented By: Oseltamivir Phosphate (Oseltamivir Phosphate 75 Mg Cap) 75 mg PO BID [facility] Stop: 07/17/24 08:59 Last Admin: 07/12/24 21:19 Dose: 75 mg Documented By: Admin: 07/12/24 08:58 Dose: 75 mg Documented By: Polyethylene Glycol (Polyethylene (Miralax) 17 Gm Pack) 17 gm PO QPM [facility] Stop: 08/10/24 22:24 Last Admin: 07/12/24 21:21 Dose: 17 gm Documented By: Admin: 07/11/24 22:55 Dose: 17 gm Documented By: EMIR Pravastatin Sodium (Pravastatin Sod 20 Mg Tab) 20 mg PO DAILY [facility] Stop: 08/11/24 08:59 Last Admin: 07/12/24 08:59 Dose: 20 mg Documented By: MS Discontinued Medications Sodium Chloride (Nss) 1,000 mls @ 999 mls/hr IV .Q1H1M ONE Stop: 07/11/24 18:35 Last Infusion: 07/11/24 18:52 Dose: Infused Documented By: [facility] Admin: 07/11/24 17:51 Dose: 999 mls/hr Documented By: NA Acetaminophen (Ofirmev) 1,000 mg in 100 mls @ 400 mls/hr IV NOW STA Stop: 07/11/24 17:49 Last Infusion: 07/11/24 18:04 Dose: Infused Documented By: [facility] Admin: 07/11/24 17:49 Dose: 400 mls/hr Documented By: NA Magnesium Sulfate/Dextrose (Magnesium Sulfate / D5w) 1 gm in 100 mls @ 50 mls/hr IV ONE ONE Stop: 07/11/24 20:00 Last Infusion: 07/11/24 20:15 Dose: Infused Documented By: [facility] Admin: 07/11/24 18:15 Dose: 50 mls/hr Documented By: GCC Piperacillin Sod/Tazobactam Sod (Zosyn) 4.5 gm in 100 mls @ 200 mls/hr IV NOW ONE; Protocol Stop: 07/11/24 18:32 Last Infusion: 07/11/24 18:44 Dose: Infused Documented By: [facility] Admin: 07/11/24 18:14 Dose: 200 mls/hr Documented By: GCC Vancomycin HCl 1,500 mg/ (Sodium Chloride) 530 mls @ 200 mls/hr IV NOW ONE Stop: 07/11/24 20:41 Last Infusion: 07/11/24 21:33 Dose: Infused Documented By: [facility] Admin: 07/11/24 18:54 Dose: 200 mls/hr Documented By: GCC Sodium Chloride (Nss) 500 mls @ 999 mls/hr IV .Q31M ONE Stop: 07/11/24 18:33 Last Infusion: 07/11/24 18:47 Dose: Infused Documented By: [facility] Admin: 07/11/24 18:16 Dose: 999 mls/hr Documented By: GCC Azithromycin 500 mg/ Sodium (Chloride) 255 mls @ 127.5 mls/hr IV Q24H [facility] Stop: 07/18/24 19:59 Last Infusion: 07/11/24 22:56 Dose: Infused Documented By: [facility] Admin: 07/11/24 20:21 Dose: 127.5 mls/hr Documented By: GCC Magnesium Sulfate/Dextrose (Magnesium Sulfate / D5w) 1 gm in 100 mls @ 50 mls/hr IV ONE ONE Stop: 07/11/24 21:56 Last Infusion: 07/12/24 00:01 Dose: Infused Documented By: [facility] Admin: 07/11/24 21:40 Dose: 50 mls/hr Documented By: GCC Methylprednisolone 40 mg/ (Syringe) 0.64 mls @ 1.5 mls/min IV Q12H [facility] Stop: 08/11/24 06:59 Last Admin: 07/12/24 06:00 Dose: 1.5 mls/min Documented By: EMIR Vancomycin HCl (Vancomycin Hcl) 1,000 mg in 270 mls @ 200 mls/hr IV Q12H [facility] Stop: 07/22/24 05:59 Last Infusion: 07/12/24 07:14 Dose: Infused Documented By: Admin: 07/12/24 05:57 Dose: 200 mls/hr Documented By: EMIR Methylprednisolone (Methylprednisolone 125 Mg/2 Ml Vial) 60 mg IV NOW STA Stop: 07/11/24 19:45 Last Admin: 07/11/24 20:01 Dose: 60 mg Documented By: RAVIN Oseltamivir Phosphate (Oseltamivir Phosphate 75 Mg Cap) 75 mg PO NOW STA; Protocol Stop: 07/11/24 18:58 Last Admin: 07/11/24 19:11 Dose: 75 mg Documented By: SHAHBAZ Imaging Data Radiologist's Impression: Chest X-Ray 07/11/24 17:09 Clinical History: Sepsis Technique: A frontal view of the chest was obtained Comparison is made to the prior examination dated 03/27/2023 Findings: There is mild patchy opacity in the left lower lobe. The heart size is within normal limits. No pleural effusion or pneumothorax is seen. There is an unchanged calcified granuloma in the left lower lung No fracture is noted. There is a right shoulder arthroplasty. There is severe left glenohumeral osteoarthritis Impression: Possible mild left lower lobe pneumonia Electronically signed by Marcos Hodgson 07-11-2024 6:12 PM Discharge Plan Visit Data Chief Complaint: Illness Stated Complaint: ILLNESS ED Provider: Jacques Bills Discharge Problem: Sepsis due to urinary tract infection, Influenza A, Fever, AMS (altered mental status) Patient Disposition: Admitted As Inpatient Discharge Instructions Interventions: ED Discharge Assessment Last Done: 07/11/24 21:59
[2024-07-11] MEDS ORDERED: ALBUT/IPRATROP 3MG/0.5MG NEB 3 ML VIAL NEB PRN (19:44)
[2024-07-11] MEDS ORDERED: AZITHROMYCIN 500 MG VIAL IV SCH (20:00)
[2024-07-11] MEDS: methylPREDNISolone 125 MG/2 ML VIAL IV STA (20:01)
--- NOTE | 2024-07-11 20:01 | History & Physical Report ---
Date of Service July 11, 2024 Assessment & Plan (1) AMS (altered mental status): (2) Sepsis: (3) Influenza A: (4) Chronic indwelling Goldsmith catheter: (5) Acute UTI (urinary tract infection): Plan The patient is an 88-year-old male resident of the [facility] at [facility], with a past medical history including BPH with LUTS, chronic indwelling Goldsmith catheter, hypertension, NSTEMI, atrial fibrillation with RVR, sepsis due to UTI, bilateral tight JESSICA, hyperlipidemia, RLS, and history of coronary artery stent. He presents to the emergency department with 24 hours of confusion, worsening fever, cough, shortness of breath skin exertion and decreased oral intake. Significant testing in the emergency department included a positive influenza A H3 past, and urine suggestive of Goldsmith catheter related urinary tract infection. #Sepsis- Potential causes including Goldsmith catheter related urinary tract infection and influenza A with secondary bacterial pneumonia/possibly aspiration #Goldsmith catheter related urinary tract infection- Follow urine culture and sensitivity Most recent infections from 05/06/2023 with Klebsiella oxytoca x 2 species, both pansensitive Continue Zosyn 4.5 g IV every 8 hours begun in the ED Status post 1.5 L normal saline bolus in the ED Encourage continued oral intake of fluids #Influenza A/secondary bacterial left lower lobe pneumonia versus aspiration pneumonitis- MRSA swab Continue vancomycin IV if MRSA positive Continue Zosyn 4.5 g IV every 8 hours DuoNebs every 2 hours as needed Mucinex 1200 mg p.o. twice daily Methylprednisolone 60 mg IV now, and then 40 mg IV every 12 hours Azithromycin 500 mg IV daily Tamiflu 75 mg p.o. twice daily renal dosing as needed Droplet precautions #Hypomagnesemia Magnesium 1.5 on admission Given 202 g magnesium sulfate IV, and recheck laboratories in the a.m. #Elevated troponin- Initial troponin 20.3 with follow-up pending Likely type II supply demand mismatch #Hyperglycemia- Glucose 147 on admission Likely will become more elevated on IV Solu-Medrol Place Accu-Cheks with NovoLog SSI History of Present Illness Chief Complaint: The patient presents to the emergency department with complaint of 24 hours of a worsening fever, cough, shortness of breath with dyspnea on exertion, feelings of dehydration, and decreased oral intake. Primary Care Provider: Annemarie Tomas PA-C The patient is an 88-year-old male resident of the [facility] at [facility], with a past medical history including BPH with LUTS, chronic indwelling Goldsmith catheter, hypertension, NSTEMI, atrial fibrillation with RVR, sepsis due to UTI, bilateral tight JESSICA, hyperlipidemia, RLS, and history of coronary artery stent. He presents to the emergency department with 24 hours of confusion, worsening fever, cough, shortness of breath skin exertion and decreased oral intake. Significant testing in the emergency department included a positive influenza A H3 past, and urine suggestive of Goldsmith catheter related urinary tract infection. Allergies Allergy/AdvReac Type Severity Reaction Status Date / Time Iodinated Contrast Media Allergy Intermediate " Feels Verified 06/20/24 14:13 [Iodinated Contrast- Oral eliza hot and IV Dye] and painful" perflutren Allergy Unknown BODY GOT Verified 06/20/24 14:13 HOT AND BACK SPASMS propylene glycol Allergy Unknown BODY GOT Verified 06/20/24 14:13 HOT AND BACK SPASMS ragweed pollen Allergy Unknown UNKNOWN Verified 06/20/24 14:13 SANJAY Inhibitors AdvReac Intermediate Cough Verified 06/20/24 14:13 Home Medications Medication Instructions Recorded Confirmed Type nxvapjip-lf-ydmne 300 mcg-K 60 1 tab PO DAILY 12/22/18 07/11/24 History mcg-lycop 600 mcg-lutein 300 mcg tablet (Centrum Silver Men) nitroglycerin 0.4 mg sublingual 0.4 mg sublingual DIRECTED PRN 10/19/19 07/11/24 History tablet Chest Pain omega 4-tfr-qon-fish oil 1,000 mg 1 cap PO DAILY 06/05/20 07/11/24 History (120 mg-180 mg) capsule (Fish Oil) acetaminophen 500 mg tablet 1,000 mg PO DIRECTED PRN 09/05/20 07/11/24 History Arthritis Pain polyethylene glycol 3350 17 17 g PO QPM 10/08/22 07/11/24 History gram/dose oral powder (Miralax) pravastatin 20 mg tablet 20 mg PO DAILY 10/08/22 07/11/24 History betamethasone valerate 0.1 % 1 applic topical BID PRN phimosis 09/04/23 07/11/24 Rx topical ointment #15 grams aspirin 81 mg tablet,delayed 81 mg PO DAILY 07/11/24 07/11/24 History release calcium 600 mg (as carbonate)-vit 1 tab PO DAILY 07/11/24 07/11/24 History D3 20 mcg (800 unit) chewable tablet (Caltrate plus D) Past Med/Surg History Problem List (Updated 07/11/24 @ 22:47 by Neil Carias MD) Chronic indwelling Goldsmith catheter AMS (altered mental status) (Acute) Fever (Acute) Influenza A (Acute) Urinary retention Periprosthetic hip fracture (Acute) Bilateral primary osteoarthritis of knee Bilateral knee pain Trochanteric tendinitis of left hip Prostate cancer Urinary symptom or sign Hypophosphatemia (Acute) Hypertension NSTEMI (non-ST elevated myocardial infarction) Atrial fibrillation with rapid ventricular response (Acute) Elevated troponin (Acute) Sepsis due to urinary tract infection (Acute) Sepsis (Acute) Acute UTI (urinary tract infection) (Acute) Coronary artery disease History of arthroplasty of right shoulder FH: bilateral hip replacements H/O heart artery stent Restless leg syndrome Hx of prostatic malignancy Hip pain, bilateral Shoulder pain, bilateral Lumbar pain Osteoporosis (Acute) Osteoarthritis Hyperlipidemia Chest pain Medical History (Updated 07/11/24 @ 22:47 by Neil Carias MD) A-fib Fall Atrial fib/flutter, transient Acidosis, lactic Family History Father Cardiac disorder Mother Cardiac disorder Social History Smoking Status: Unknown if ever smoked Hx Alcohol Use: No Hx Substance Use: No Preferred Language: Latvian Communication Ability: Effective Visual Impairment: No Limitations Hearing Ability: Hard of Hearing Rn Staffing Required: No Beliefs That Will Affect Care: None marital status: Current Living Situation: Spouse and Personal Care Facility Current Living Situation Comment: lives with at [facility] current occupational status: retired How many Children do You have: 2 Feels Safe at Home: Yes Assistive Devices: Cane, Glasses, Hearing Aid - Bilateral, Walker and Wheelchair Review of Systems Review of Systems: The patient denies chest pain, palpitations, lower extremity swelling, sore throat, chills, sweats, weight change, fatigue, nausea, vomiting, diarrhea , constipation, abdominal pain, pelvic pain, blood in urine or stool, loss of consciousness, rash, abnormal bruising or bleeding, focal weakness, numbness or tingling in arms or legs, generalized arthralgias or myalgias, back or neck pain The review of systems is otherwise negative other than for that already noted above, and at least 10 systems have been reviewed. Physical Exam Physical Exam: The patient is awake, alert and oriented 3, well developed and well nourished, normocephalic and atraumatic, lying in bed and in no acute distress. HEENT--PERRL, EOMI, mucous membranes and oropharynx mildly dry. Neck--supple. No JVD. No bruits. Thyroid normal, trachea midline, no adenopathy. Heart--normal S1 and S2. No murmurs, rubs or gallops. Lungs--decreased breath sounds bases bilaterally, left greater than right. Few scattered wheezes bilaterally. No respiratory distress, no accessory muscle use. Abdomen--normal bowel sounds and soft. Nontender. Nondistended Extremities--no cyanosis or clubbing. No edema. Dermatologic--normal skin turgor, normal color, no abnormal lymph nodes, no rash. Neurologic--cranial nerves II through XII grossly intact. Rheumatologic--normal range of motion. Psychiatric--normal affect. Results & Data Results & Data Vital Signs (Past 12 Hours) Vital Signs Temp Pulse Pulse Resp BP BP Pulse Ox 07/11/24 19:00 38.3 C H 114 H 18 132/83 98 07/11/24 18:00 116 H 18 144/87 H 96 07/11/24 17:09 91 07/11/24 17:09 88 L 07/11/24 17:03 121 H 07/11/24 16:47 39.6 C H 120 H 20 125/64 88 L O2 Del Method O2 Flow Rate 07/11/24 19:00 Nasal Cannula 3 07/11/24 18:00 Nasal Cannula 4 07/11/24 17:09 Nasal Cannula 4 07/11/24 17:09 Room Air, Nasal Cannula 0 07/11/24 17:03 07/11/24 16:47 Room Air Laboratory Results Laboratory Results WBC 11.43 K/ul (4.8-10.8) H 07/11/24 17:02 RBC 3.57 M/uL (4.70-6.10) L 07/11/24 17:02 Hgb 13.0 g/dl (14.0-18.0) L 07/11/24 17:02 Hct 37.4 % (42.0-52.0) L 07/11/24 17:02 MCV 104.8 fL (80.0-100.0) H 07/11/24 17:02 MCH 36.4 pg (25.0-34.0) H 07/11/24 17:02 MCHC 34.8 g/dL (32.0-36.0) 07/11/24 17:02 RDW Std Deviation 51.6 fL (36.4-46.3) H 07/11/24 17:02 RDW Coeff of Saeed 13.2 % (11.5-14.5) 07/11/24 17:02 Plt Count 164 K/uL (130-400) 07/11/24 17:02 MPV 9.9 fL (9.4-12.4) 07/11/24 17:02 Immature Gran % (Auto) 0.6 % 07/11/24 17:02 Neut % (Auto) 80.9 % 07/11/24 17:02 Lymph % (Auto) 11.4 % 07/11/24 17:02 [place] % (Auto) 5.5 % 07/11/24 17:02 Eos % (Auto) 1.2 % 07/11/24 17:02 Baso % (Auto) 0.4 % 07/11/24 17:02 Neut # (Auto) 9.24 K/uL (1.40-6.50) H 07/11/24 17:02 Lymph # (Auto) 1.30 K/uL (1.20-3.40) 07/11/24 17:02 [place] # (Auto) 0.63 K/uL (0.11-0.59) H 07/11/24 17:02 Eos # (Auto) 0.14 K/uL (0.00-0.50) 07/11/24 17:02 Baso # (Auto) 0.05 K/uL (0.00-0.20) 07/11/24 17:02 Immature Gran # (Auto) 0.07 K/uL (0.01-0.20) 07/11/24 17:02 PT 11.9 Seconds (9.0-12.0) 07/11/24 17:02 INR 1.1 (0.9-1.1) 07/11/24 17:02 APTT 23 Seconds (21-31) 07/11/24 17:02 PTT Ratio 0.9 07/11/24 17:02 VBG pH 7.44 (7.36-7.41) H 07/11/24 18:04 VBG pCO2 45 mmHg (38-50) 07/11/24 18:04 VBG pO2 37 mmHg 07/11/24 18:04 VBG HCO3 31 mmol/L 07/11/24 18:04 VBG O2 Saturation 65.7 % 07/11/24 18:04 VBG Base Excess 5.6 mEq/L 07/11/24 18:04 Sodium 129 mmol/L (136-145) L 07/11/24 17:02 Potassium 4.6 mmol/L (3.5-5.1) 07/11/24 17:02 Chloride 94 mmol/L (98-107) L 07/11/24 17:02 Carbon Dioxide 29 mmol/L (21-32) 07/11/24 17:02 Anion Gap 6 (3-11) 07/11/24 17:02 BUN 16 mg/dl (6-23) 07/11/24 17:02 Creatinine 0.63 mg/dl (0.6-1.4) 07/11/24 17:02 Est Cr Clr Drug Dosing Not Reportable 07/11/24 17:02 eGFR 91.49 07/11/24 17:02 BUN/Creatinine Ratio 25.4 (10-20) H 07/11/24 17:02 Glucose 147 mg/dl (70-99(Fasting)) H 07/11/24 17:02 Lactate 1.8 mmol/L (0.4-2.0) 07/11/24 18:57 Calcium 9.4 mg/dl (8.6-10.3) 07/11/24 17:02 Magnesium 1.5 mg/dl (1.7-2.4) L 07/11/24 17:02 Total Bilirubin 0.9 mg/dl (0.2-1.0) 07/11/24 17:02 AST 73 U/L (13-39) H 07/11/24 17:02 ALT 51 U/L (7-52) 07/11/24 17:02 Alkaline Phosphatase 93 U/L (34-104) 07/11/24 17:02 Troponin I High Sens 23.2 pg/ml (0-20) H 07/11/24 18:57 B-Natriuretic Peptide 200 pg/ml (0-100) H 07/11/24 18:04 Total Protein 7.2 gm/dl (6.0-8.3) 07/11/24 17:02 Albumin 3.2 gm/dl (3.4-5.0) L 07/11/24 17:02 Globulin 4.0 gm/dl (2.5-4.0) 07/11/24 17:02 Albumin/Globulin Ratio 0.8 (0.9-2) L 07/11/24 17:02 Procalcitonin 0.19 ng/ml (0-0.5) 07/11/24 17:02 Urine Color Dark Yellow 07/11/24 18:00 Urine Appearance Turbid (Clear) A 07/11/24 18:00 Urine pH 7.0 (4.5-7.5) 07/11/24 18:00 Ur Specific Burton 1.023 (1.000-1.030) 07/11/24 18:00 Urine Protein 2+ (Negative) H 07/11/24 18:00 Urine Glucose (UA) Negative (Negative) 07/11/24 18:00 Urine Ketones Trace (Negative) H 07/11/24 18:00 Urine Blood 3+ (Negative) H 07/11/24 18:00 Urine Nitrite Positive (Negative) A 07/11/24 18:00 Urine Bilirubin Negative (Negative) 07/11/24 18:00 Urine Urobilinogen Negative (Negative) 07/11/24 18:00 Ur Leukocyte Esterase 3+ (Negative) H 07/11/24 18:00 Urine WBC (Auto) >50 /hpf (0-5) H 07/11/24 18:00 Urine RBC (Auto) >20 /hpf (0-2) H 07/11/24 18:00 U Hyaline Cast (Auto) >20 /lpf (0-2) H 07/11/24 18:00 U Epithel Cells (Auto) 3-5 /hpf (0-2) H 07/11/24 18:00 Urine Bacteria (Auto) 4+ (None Seen) H 07/11/24 18:00 Amorphous Sediment Present (None Prsent) A 07/11/24 18:00 Adenovirus (PCR) Not Detected (NotDetected) 07/11/24 Unknown B. pertussis DNA (PCR) Not Detected (NotDetected) 07/11/24 Unknown B.parapertussis DNA PCR Not Detected (NotDetected) 07/11/24 Unknown C. pneumoniae DNA (PCR) Not Detected (NotDetected) 07/11/24 Unknown Coronavirus OC43 (PCR) Not Detected (NotDetected) 07/11/24 Unknown Coronavirus HKU1 (PCR) Not Detected (NotDetected) 07/11/24 Unknown Coronavirus 229E (PCR) Not Detected (NotDetected) 07/11/24 Unknown SARS-CoV-2 (PCR) Not Detected (NotDetected) 07/11/24 Unknown Coronavirus NL63 (PCR) Not Detected (NotDetected) 07/11/24 Unknown Human Metapneumovir PCR Not Detected (NotDetected) 07/11/24 Unknown Influenza A (H3) PCR DETECTED (NotDetected) A 07/11/24 Unknown Influenza Type B (PCR) Not Detected (NotDetected) 07/11/24 Unknown M. pneumoniae (PCR) Not Detected (NotDetected) 07/11/24 Unknown Parainfluenza 1 (PCR) Not Detected (NotDetected) 07/11/24 Unknown Parainfluenza 2 (PCR) Not Detected (NotDetected) 07/11/24 Unknown Parainfluenza 3 (PCR) Not Detected (NotDetected) 07/11/24 Unknown Parainfluenza 4 (PCR) Not Detected (NotDetected) 07/11/24 Unknown RSV (PCR) Not Detected (NotDetected) 07/11/24 Unknown Entero/Rhino (PCR) Not Detected (NotDetected) 07/11/24 Unknown Impressions Chest X-Ray 07/11/24 17:09 Clinical History: Sepsis Technique: A frontal view of the chest was obtained Comparison is made to the prior examination dated 03/27/2023 Findings: There is mild patchy opacity in the left lower lobe. The heart size is within normal limits. No pleural effusion or pneumothorax is seen. There is an unchanged calcified granuloma in the left lower lung No fracture is noted. There is a right shoulder arthroplasty. There is severe left glenohumeral osteoarthritis Impression: Possible mild left lower lobe pneumonia Electronically signed by Marcos Hodgson 07-11-2024 6:12 PM Code Status & VTE Plan Code Status DNR/DNI VTE Prophylaxis Plan VTE Prophylaxis will be ordered: Yes PG Care Time/CCT Total # of Minutes Spent Total Time Spent with Patient: Total time spent is greater than 50% in coordination of care (as documented) at patient's floor/unit and/or counseling patient: Coding Level of Care Code 06566 INT INP/OBS CARE 375MIN Diagnoses AMS (altered mental status) R41.82 Sepsis A41.9; R65.20 Sepsis acute organ dysfunction status: with acute organ dysfunction Sepsis type: sepsis due to unspecified organism Severe sepsis acute organ dysfunction type: unspecified Severe sepsis shock status: without septic shock Influenza A J10.1 Chronic indwelling Goldsmith catheter Z97.8 Acute UTI (urinary tract infection) N39.0 (2) Sepsis Sepsis acute organ dysfunction status: with acute organ dysfunction Sepsis type: sepsis due to unspecified organism Severe sepsis acute organ dysfunction type: unspecified Severe sepsis shock status: without septic shock Qualified Code(s): A41.9 - Sepsis, unspecified organism; R65.20 - Severe sepsis without septic shock
[2024-07-11] MEDS: AZITHROMYCIN 500 MG in SODIUM CHLORIDE 0.9% 250 ML IV SCH (20:21)
[2024-07-11] MEDS ORDERED: GLUCOSE 10 TAB/TUBE PO PRN (22:25)
[2024-07-11] MEDS ORDERED: CARBOHYDRATES FOR HYPOGLYCEMIA PO PRN (22:25)
[2024-07-11] MEDS ORDERED: GLUCAGON FOR INJ 1 MG VIAL SQ PRN (22:25)
[2024-07-11] MEDS ORDERED: GLUCOSE 40% GEL 15 GM TUBE PO PRN (22:25)
[2024-07-11] MEDS ORDERED: DEXTROSE 50% 50 ML SYRINGE IV PRN (22:25)
[2024-07-11] MEDS: guaiFENesin 600 MG TABCR PO SCH (22:55)
[2024-07-11] MEDS: POLYETHYLENE (MIRALAX) 17 GM PACK PO SCH (22:55)
[2024-07-11] MEDS: INSULIN ASPART PER UNIT CHARGE SC SCH (23:14)
[2024-07-11] MEDS: HEPARIN SOD 5,000 UNIT/0.5 ML VIAL SQ SCH (23:17)
[2024-07-11] MEDS ORDERED: MOMETASONE FUROATE 0.1% OINT 15 GM TUBE EXT PRN (23:31)
[2024-07-12] MEDS: PIPERACILLIN/TAZOBACTAM 4.5 GM/100 ML BAG IV SCH (02:03)
[2024-07-12] MEDS: VANCOMYCIN HCL 1,000 MG/270 ML BAG IV SCH (05:57)
[2024-07-12] MEDS: methylPREDNISolone 40 MG in SYRINGE 0 ML IV SCH (06:00)
[2024-07-12] MEDS ORDERED: methylPREDNISolone 10 mg/mL (For Ped Dose < 7mg) IV SCH (07:00)
[2024-07-12 07:51] LABS: Basophils # (auto) 0.02 K/uL (0.00-0.20); Basophils % (auto) 0.1 %; Hematocrit (blood only) 34.1 % (42.0-52.0); Hemoglobin 11.8 g/dl (14.0-18.0); Immature Granulocytes # (auto) 0.09 K/uL (0.01-0.20); Immature Granulocytes % (auto) 0.5 %; Lymphocytes # (auto) 1.42 K/uL (1.20-3.40); Lymphocytes % (auto) 8.4 %; Mean Corpuscular Hgb Conc 34.6 g/dL (32.0-36.0); Mean Corpuscular Volume 106.9 fL (80.0-100.0); Monocytes % (auto) 3.5 %; Neutrophils # (auto) 14.81 K/uL (1.40-6.50); Neutrophils % (auto) 87.5 %; Platelet Count 149 K/uL (130-400); RDW Coefficient of Variation 13.3 % (11.5-14.5); RDW Standard Deviation 52.8 fL (36.4-46.3); Red Blood Count 3.19 M/uL (4.70-6.10); White Blood Count 16.94 K/ul (4.8-10.8)
[2024-07-12 08:30] LABS: Albumin Level 2.9 gm/dl (3.4-5.0); Bilirubin,Total 0.7 mg/dl (0.2-1.0); Calcium 8.8 mg/dl (8.6-10.3); Magnesium 1.9 mg/dl (1.7-2.4); Potassium 4.6 mmol/L (3.5-5.1)
[2024-07-12 08:36] LABS: Albumin Globulin Ratio 0.8 (0.9-2); BUN Creatinine Ratio 27.3 (10-20); Creatinine Clr Calc Pharmacy 95.9 ml/min; Globulin 3.5 gm/dl (2.5-4.0); Total Protein 6.4 gm/dl (6.0-8.3)
[2024-07-12 08:42] LABS: Troponin I High Sensitivity 22.6 pg/ml (0-20)
--- NOTE | 2024-07-12 08:50 | Pharmacy Report ---
Pharmacy PK ABX Note - Date of Service July 12, 2024 - Assessment and Plan Assessment 88 year old M receiving Vancomycin, Zosyn, Azithromycin and Tamiflu for treatment of sepsis from suspected pulmonary or urinary source. * Day #1 of antimicrobial therapy. * HPI: Tested positive for Flu A in the ED which Tamiflu has been ordered for. * Labs/Vitals: Tmax of 39.6. Leukocytosis bumped to almost 17k today but may be falsely elevated secondary to steroids. SCr at baseline. Lactate was 2.5, improved to 1.8 with fluids. Procal of 0.19. * Micro: Blood and urine cultures pending (urine culture was gathered following murillo replacement in ED. MRSA nasal swab negative. * Recommendations: Will recommend discontinuation of both Vancomycin and Azithromycin to attending today with justification of MRSA swab being negative and highly unlikely atypical pulmonary source. Continue Zosyn and Tamiflu would be the ideal plan of action. Plan Vancomycin * Loading dose: 1500 mg IV x 1 * Maintenance dose: 1000 mg IV every 12 hours * Regimen is predicted to achieve target AUC/MATEUS of 400-600 mg/L.hr * Level will be ordered if therapy is to extend beyond 48 hours Zosyn * 4.5 g IV every 8 hours Azithromycin * 500 mg IV every 24 hours Tamiflu * 75 mg PO every 12 hours Pharmacy will continue to follow and will adjust dose/frequency as necessary. Thank you. Pharmacy has transitioned to AUC monitoring for vancomycin. AUC/MATEUS is the preferred PK/PD target and is associated with decreased risk of nephrotoxicity compared to traditional trough targets.
[2024-07-12] MEDS: ASPIRIN 81 MG ECTAB PO SCH (08:58)
[2024-07-12] MEDS: CALCIUM 600MG + VIT D 400 IU TAB PO SCH (08:58)
[2024-07-12] MEDS: OSELTAMIVIR PHOSPHATE 75 MG CAP PO SCH (08:58)
[2024-07-12] MEDS: PRAVASTATIN SOD 20 MG TAB PO SCH (08:59)
[2024-07-12] MEDS: CEROVITE ADV FORMULA TAB PO SCH (08:59)
[2024-07-12] MEDS: OMEGA-3 (PURIFIED FISH OIL) 1 GM CAP PO SCH (08:59)
[2024-07-12] MEDS: LANTUS PER UNIT CHARGE SQ SCH (09:01)
--- NOTE | 2024-07-12 09:21 | XCELERA ---
[id number]
[2024-07-12 10:07] LABS: Estimated Average Glucose 117 mg/dl; Hemoglobin A1C 5.7 % (4.5-5.6)
--- NOTE | 2024-07-12 10:23 | Electrocardiogram Report ---
Test Reason : Blood Pressure : */* mmHG Vent. Rate : 124 BPM Atrial Rate : 248 BPM P-R Int : * ms QRS Dur : 80 ms QT Int : 278 ms P-R-T Axes : 75 -35 29 degrees QTcB Int : 399 ms Probable Atrial flutter with variable A-V block Left axis deviation Low voltage QRS Abnormal ECG When compared with ECG of 27-Mar-2023 05:06, QRS axis Shifted left ST no longer elevated in Inferior leads Confirmed by Bello Webb ([id number]) on 07/12/2024 10:22:52 AM Referred By: REFERRED SELF Confirmed By: Bello Webb
--- NOTE | 2024-07-12 10:24 | Electrocardiogram Report ---
Test Reason : Blood Pressure : */* mmHG Vent. Rate : 72 BPM Atrial Rate : 72 BPM P-R Int : 250 ms QRS Dur : 76 ms QT Int : 404 ms P-R-T Axes : 89 13 52 degrees QTcB Int : 442 ms Atrial flutter Low voltage QRS Possible Acute pericarditis Abnormal ECG When compared with ECG of 11-Jul-2024 16:59, (unconfirmed) No significant change Confirmed by Bello Webb ([id number]) on 07/12/2024 10:24:12 AM Referred By: REFERRED SELF Confirmed By: Bello Webb
[2024-07-12 13:27] LABS: A calco-baum cmplx NotReported Not Detected (NotDetected); Bact fragilis Not Reported Not Detected (NotDetected); Blood Culture Id Panel See PCR Comment (NotDetected); C auris Not Reported Not Detected (NotDetected); Calbicans Not Reported Not Detected (NotDetected); Candida glabrata Not Reported Not Detected (NotDetected); Candida krusei Not Reported Not Detected (NotDetected); Cneoformans/gatti Not Reported Not Detected (NotDetected); Cparapsilosis Not Reported Not Detected (NotDetected); E cloacae compx Not Reported Not Detected (NotDetected); Efaecalis Not Reported Not Detected (NotDetected); Efaecium Not Reported Not Detected (NotDetected); Enterobacterales Not Reported Not Detected (NotDetected); Escherichia coli Not Reported Not Detected (NotDetected); H influenzae Not Reported Not Detected (NotDetected); K aerogenes Not Reported Not Detected (NotDetected); Koxytoca Not Reported Not Detected (NotDetected); Kpneumoniae grp Not Reported Not Detected (NotDetected); Lmonocyt Not Reported Not Detected (NotDetected); N meningitidis Not Reported Not Detected (NotDetected); P aeruginosa Not Reported Not Detected (NotDetected); Proteus spp Not Reported Not Detected (NotDetected); Salmonella spp Not Reported Not Detected (NotDetected); Staph lugdunensis Not Reported Not Detected (NotDetected); Staph spp. Not Reported Not Detected (NotDetected); Staphaureus Not Reported Not Detected (NotDetected); Staphepi Not Reported Not Detected (NotDetected); Stenmaltophilia Not Reported Not Detected (NotDetected); Strep agal(GrpB) Not Reported Not Detected (NotDetected); Strep pneum Not Reported Not Detected (NotDetected); Strep pyog (GrpA) Not Reported Not Detected (NotDetected); Streptococcus spp DETECTED (NotDetected)
[2024-07-12 15:22] LABS: Strep spp Not Reported DETECTED (NotDetected)
[2024-07-12] MEDS: methylPREDNISolone 30 MG in SYRINGE 0 ML IV SCH (16:37)
--- NOTE | 2024-07-12 19:39 | Hospitalist Progress Note ---
Date of Service July 12, 2024 Assessment & Plan (1) Bacteremia: Plan: 2nd to strep source - likely his LLL pneumonia echo w/o valvular abnormalities zosyn should suffice await ID/sens (2) LLL pneumonia: Plan: as seen on cxr, and clinically on exam suspect bacterial superinfection in setting of fluA infection with his +blood cx's for strep I suspect strep is the cause of his pneumonia cont zosyn can stop azithromycin no need for vancomycin - thus it has been stopped (3) Influenza A: Plan: tested + for such upon admission tamiflu x 10 doses supportive care wean steroids for bronchitis component of illness bronchodilators prn mucinex BID droplet precautions (4) Acute metabolic encephalopathy: Plan: 2nd to fluA, LLL pneumonia, bacteremia improved (5) Catheter-associated urinary tract infection: Plan: 2nd to alpha strep & klebsiella oxytoca has had foleys for about 1 year to his recollection will need murillo exchanged before discharge await sensitivities zosyn should suffice (6) Chronic indwelling Murillo catheter: Plan: x 1 year h/o BPH, prostate ca, etc. (7) Hypertension: Plan: BPs controlled w/o anti-hypertensives (8) Elevated troponin: Plan: minimal elevation c/w demand ischemia in setting of bacteremia/fluA infection/etc no evidence of ACS (9) Coronary artery disease: Plan: 2020 heart cath - Summary: 1. 95% acute proximal stenosis in small, nondominant RCA 2. Mild to moderate nonobstructive proximal LAD disease (30 to 40%) cont asa cont statin (10) Hyponatremia: Plan: appears euvolemic on exam today or slightly volume up (possible JVD) despite such Na is only 130 repeat BMP am consider small dose of lasix (11) DVT prophylaxis: Plan: cont heparin 5000 BID (12) A-fib: Plan: history of such per records from 2020 not on chronic anticoagulation? (13) Atrial flutter: Plan: presented in such and remains in rate-controlled a.flutter multiple EKGs in the computer over the last few years show either a.flutter or a.fib he is not on rate controlling agents nor anticoagulation uncertain why he is not on anticoagulation will need to investigate Plan PT, OT evals requested updated by phone this evening, 07/12 other - mild macrocytic anemia - check B12/folate elevated AST - check CPK am h/o abnormal TSH in 2020 - check TFTs am tomorrow Admission and Anticipated Discharge Date Admission Date: July 11, 2024 Subjective patient reports ongoing cough/congestion appetite fair mild dyspnea on exertion fatigue/weak - hasn't been out of bed today reports he is typically not on oxygen at home he is excited to watch the [employer] game tonight tele overnight - atrial flutter Review of Systems Review of Systems: cv - no chest pain pulm - some mucous production GI - some diarrhea but no vomiting Physical Exam Physical Exam: gen - laying in bed comfortably, NAD neck - possible JVD mouth - MMM heart - RRR, s1 s2, no murmur lungs - focal rales L base with rhonchi/wheeze L>R, no increased work of breathing abd - soft NT ND BS+ ext - no edema, pulses 2+ b/l psych - a/o x 3 Results & Data Results & Data Vital Signs (Past 12 Hours) Vital Signs Temp Pulse Pulse Resp BP Pulse Ox O2 Del Method 07/12/24 18:04 Nasal Cannula 07/12/24 15:01 36.7 C 71 19 121/74 96 Nasal Cannula 07/12/24 13:11 67 07/12/24 12:22 36.8 C 78 19 123/79 97 Room Air 07/12/24 08:02 36.8 C 88 19 121/71 97 Nasal Cannula 07/12/24 08:00 Nasal Cannula O2 Flow Rate 07/12/24 18:04 1 07/12/24 15:01 1.0 07/12/24 13:11 07/12/24 12:22 07/12/24 08:02 2.0 07/12/24 08:00 1 Laboratory Results Laboratory Results - last 24 hr 07/11/24 07/11/24 07/11/24 18:04 18:57 22:53 WBC RBC Hgb Hct MCV MCH MCHC RDW Std Deviation RDW Coeff of Saeed Plt Count MPV Immature Gran % (Auto) Neut % (Auto) Lymph % (Auto) [place] % (Auto) Eos % (Auto) Baso % (Auto) Neut # (Auto) Lymph # (Auto) [place] # (Auto) Eos # (Auto) Baso # (Auto) Immature Gran # (Auto) Sodium Potassium Chloride Carbon Dioxide Anion Gap BUN Creatinine Est Cr Clr Drug Dosing eGFR BUN/Creatinine Ratio Glucose POC Glucose 167 H Estimat Average Glucose Hemoglobin A1c Calcium Magnesium Total Bilirubin AST ALT Alkaline Phosphatase Troponin I High Sens 23.2 H Total Protein Albumin Globulin Albumin/Globulin Ratio Nasal Screen MRSA (PCR) Streptococcus sp PCR DETECTED A Bld Cult ID Panel PCR See PCR Comment 07/11/24 07/12/24 07/12/24 22:58 07:12 07:17 WBC 16.94 H RBC 3.19 L Hgb 11.8 L Hct 34.1 L MCV 106.9 H MCH 37.0 H MCHC 34.6 RDW Std Deviation 52.8 H RDW Coeff of Saeed 13.3 Plt Count 149 MPV 10.0 Immature Gran % (Auto) 0.5 Neut % (Auto) 87.5 Lymph % (Auto) 8.4 [place] % (Auto) 3.5 Eos % (Auto) 0.0 Baso % (Auto) 0.1 Neut # (Auto) 14.81 H Lymph # (Auto) 1.42 [place] # (Auto) 0.60 H Eos # (Auto) 0.00 Baso # (Auto) 0.02 Immature Gran # (Auto) 0.09 Sodium 130 L Potassium 4.6 Chloride 100 Carbon Dioxide 25 Anion Gap 5 BUN 15 Creatinine 0.55 L Est Cr Clr Drug Dosing 95.9 eGFR 95.32 BUN/Creatinine Ratio 27.3 H Glucose 187 H POC Glucose 207 H Estimat Average Glucose 117 Hemoglobin A1c 5.7 H Calcium 8.8 Magnesium 1.9 Total Bilirubin 0.7 AST 65 H ALT 46 Alkaline Phosphatase 74 Troponin I High Sens 22.6 H Total Protein 6.4 Albumin 2.9 L Globulin 3.5 Albumin/Globulin Ratio 0.8 L Nasal Screen MRSA (PCR) Negative Streptococcus sp PCR Bld Cult ID Panel PCR 07/12/24 07/12/24 11:17 16:12 WBC RBC Hgb Hct MCV MCH MCHC RDW Std Deviation RDW Coeff of Saeed Plt Count MPV Immature Gran % (Auto) Neut % (Auto) Lymph % (Auto) [place] % (Auto) Eos % (Auto) Baso % (Auto) Neut # (Auto) Lymph # (Auto) [place] # (Auto) Eos # (Auto) Baso # (Auto) Immature Gran # (Auto) Sodium Potassium Chloride Carbon Dioxide Anion Gap BUN Creatinine Est Cr Clr Drug Dosing eGFR BUN/Creatinine Ratio Glucose POC Glucose 181 H 130 H Estimat Average Glucose Hemoglobin A1c Calcium Magnesium Total Bilirubin AST ALT Alkaline Phosphatase Troponin I High Sens Total Protein Albumin Globulin Albumin/Globulin Ratio Nasal Screen MRSA (PCR) Streptococcus sp PCR Bld Cult ID Panel PCR PG Care Time/CCT Total # of Minutes Spent Total Time Spent with Patient: Total time spent is greater than 50% in coordination of care (as documented) at patient's floor/unit and/or counseling patient: Coding Level of Care Code 98221 SUB INP/OBS CARE 3/50MIN Diagnoses Bacteremia R78.81 LLL pneumonia J18.9 Influenza A J10.1 Acute metabolic encephalopathy G93.41 Catheter-associated urinary tract infection T83.511A; N39.0 Chronic indwelling Murillo catheter Z97.8 Hypertension I10 Elevated troponin R77.8 Coronary artery disease involving [place] coronary artery of [place] heart, angina presence unspecified I25.10 Associated angina: angina presence unspecified Coronary Disease-Associated Artery/Lesion type: [place] artery [place] vs. transplanted heart: [place] heart Hyponatremia E87.1 DVT prophylaxis Z29.9 A-fib I48.91 Atrial fibrillation type: unspecified Atrial flutter I48.92 (9) Coronary artery disease Associated angina: angina presence unspecified Coronary Disease-Associated Artery/Lesion type: [place] artery [place] vs. transplanted heart: [place] heart Qualified Code(s): I25.10 - Atherosclerotic heart disease of [place] coronary artery without angina pectoris (12) A-fib Atrial fibrillation type: unspecified Qualified Code(s): I48.91 - Unspecified atrial fibrillation
[2024-07-13] MEDS: MELATONIN 3 MG TAB PO PRN (03:59)
[2024-07-13 08:06] LABS: Basophils # (auto) 0.02 K/uL (0.00-0.20); Basophils % (auto) 0.1 %; Hematocrit (blood only) 34.4 % (42.0-52.0); Immature Granulocytes # (auto) 0.19 K/uL (0.01-0.20); Immature Granulocytes % (auto) 0.9 %; Lymphocytes # (auto) 1.42 K/uL (1.20-3.40); Lymphocytes % (auto) 7.1 %; Mean Corpuscular Hgb Conc 34.9 g/dL (32.0-36.0); Mean Corpuscular Volume 106.2 fL (80.0-100.0); Mean Platelet Volume 10.4 fL (9.4-12.4); Monocytes # (auto) 0.96 K/uL (0.11-0.59); Monocytes % (auto) 4.8 %; Neutrophils # (auto) 17.46 K/uL (1.40-6.50); Neutrophils % (auto) 87.1 %; Platelet Count 164 K/uL (130-400); RDW Coefficient of Variation 13.4 % (11.5-14.5); RDW Standard Deviation 52.5 fL (36.4-46.3); Red Blood Count 3.24 M/uL (4.70-6.10); White Blood Count 20.05 K/ul (4.8-10.8)
[2024-07-13 08:08] LABS: BUN Creatinine Ratio 33.3 (10-20); Creatinine Clr Calc Pharmacy 83.7 ml/min; Potassium 4.8 mmol/L (3.5-5.1)
[2024-07-13 08:23] LABS: Thyroid Stimulating Hormone 1.582 uIu/ml (0.300-4.500)
[2024-07-13 08:51] LABS: Folate (Folic Acid),Ser orPlas 12.35 ng/ml (>5.38)
[2024-07-13] MEDS: cefTRIAXone SODIUM 2,000 MG/50 ML BAG IV SCH (09:14)
--- NOTE | 2024-07-13 14:09 | Hospitalist Progress Note ---
Date of Service July 13, 2024 Assessment & Plan (1) Bacteremia: Plan: 2nd to strep mitis source - UTI; can't rule out his LLL pneumonia echo w/o valvular abnormalities change zosyn to IV rocephin today (2) LLL pneumonia: Plan: as seen on cxr, and clinically on exam suspect bacterial superinfection in setting of fluA infection with his +blood cx's for strep I suspect strep could be the cause of his pneumonia either way stop zosyn change to rocephin 2gm IV daily clinically stable (3) Influenza A: Plan: tested + for such upon admission tamiflu x 10 doses supportive care stop steroids - wheezing is mild, and it could be causing more confusion for him bronchodilators mucinex BID droplet precautions (4) Acute metabolic encephalopathy: Plan: 2nd to fluA, LLL pneumonia, bacteremia some toxic component from steroids possible as well schedule melatonin HS (5) Catheter-associated urinary tract infection: Plan: 2nd to strep mitis & klebsiella oxytoca has had foleys for about 1 year to his recollection will need murillo exchanged before discharge change zosyn to rocephin - the klebsiella is intermediate sensitive to zosyn (6) Chronic indwelling Murillo catheter: Plan: x 1 year h/o BPH, prostate ca, etc. (7) Hypertension: Plan: BPs controlled w/o anti-hypertensives (8) Elevated troponin: Plan: minimal elevation c/w demand ischemia in setting of bacteremia/fluA infection/etc no evidence of ACS repeat troponin scantly above normal today (9) Coronary artery disease: Plan: 2020 heart cath - Summary: 1. 95% acute proximal stenosis in small, nondominant RCA 2. Mild to moderate nonobstructive proximal LAD disease (30 to 40%) cont asa cont statin (10) Hyponatremia: Plan: appears euvolemic on exam today or slightly volume up (possible JVD) Na 132 today will give lasix 20mg po x 1 repeat BMP am (11) DVT prophylaxis: Plan: cont heparin 5000 BID (12) A-fib: Plan: history of such per records from 2020 not on chronic anticoagulation? follows with Dr Kelley, [facility] (13) Atrial flutter: Plan: presented in such and remains in rate-controlled a.flutter multiple EKGs in the computer over the last few years show either a.flutter or a.fib he is not on rate controlling agents nor anticoagulation uncertain why he is not on anticoagulation will need to investigate with Dr Kelley from [facility] (14) Left shoulder pain: Plan: 2nd advanced OA of shoulder severely restricted ROM on exam junior-articular muscle wasting seen which could be indicative of underlying rotator cuff issues as well start voltaren gel 4gm QID left shoulder this pain is not due to ischemic heart pain/referred pain Plan PT, OT evals requested updated by phone 07/12 and 07/13 other - mild macrocytic anemia - B12/folate/TSH wnl; early MDS ? other? 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) eating fair-good during the visit he had an elaborate story about the night nurse and that "he is a criminal and went to long term" he "wasn't telling the truth" he mentioned other falsehoods and things that didn't make sense despite the confusion he was awake, knew it was New Year's day, but thought he was at the [facility] Review of Systems Review of Systems: gen - no fevers or chills cv - no central chest pain pulm - no dyspnea at rest GI - no N/V ; last stool 07/12 Physical Exam Physical Exam: gen - laying in bed comfortably, NAD; awake/alert but confused today neck - mild JVD mouth - MMM heart - RRR, s1 s2, no murmur lungs - focal rales L base with rhonchi/wheeze L>R, no increased work of monae thing abd - soft NT ND BS+ ext - trace edema b/l, pulses 2+ b/l psych - a/o x 2 skin - venous stasis changes b/l shins musculo - left shoulder - severely decreased ROM with crepitus and pain; junior-a rticular rotator cuff muscle atrophy noted Results & Data Results & Data Vital Signs (Past 12 Hours) Vital Signs Temp Pulse Pulse Resp BP Pulse Ox O2 Del Method 07/13/24 12:00 36.5 C 74 16 109/75 98 Nasal Cannula 07/13/24 07:18 Nasal Cannula 07/13/24 07:14 90 07/13/24 07:07 36.5 C 97 H 18 156/111 H 97 Nasal Cannula 07/13/24 03:13 36.9 C 69 16 118/79 96 Room Air O2 Flow Rate 07/13/24 12:00 2 07/13/24 07:18 1 07/13/24 07:14 07/13/24 07:07 2 07/13/24 03:13 Laboratory Results Laboratory Results - last 24 hr 07/11/24 07/12/24 07/12/24 18:04 16:12 20:58 WBC RBC Hgb Hct MCV MCH MCHC RDW Std Deviation RDW Coeff of Saeed Plt Count MPV Immature Gran % (Auto) Neut % (Auto) Lymph % (Auto) [place] % (Auto) Eos % (Auto) Baso % (Auto) Neut # (Auto) Lymph # (Auto) [place] # (Auto) Eos # (Auto) Baso # (Auto) Immature Gran # (Auto) Sodium Potassium Chloride Carbon Dioxide Anion Gap BUN Creatinine Est Cr Clr Drug Dosing eGFR BUN/Creatinine Ratio Glucose POC Glucose 130 H 141 H Calcium AST Total Creatine Kinase Troponin I High Sens Vitamin B12 Folate TSH Streptococcus sp PCR DETECTED A Bld Cult ID Panel PCR See PCR Comment 07/13/24 07/13/24 07/13/24 06:51 07:08 11:19 WBC 20.05 H RBC 3.24 L Hgb 12.0 L Hct 34.4 L MCV 106.2 H MCH 37.0 H MCHC 34.9 RDW Std Deviation 52.5 H RDW Coeff of Saeed 13.4 Plt Count 164 MPV 10.4 Immature Gran % (Auto) 0.9 Neut % (Auto) 87.1 Lymph % (Auto) 7.1 [place] % (Auto) 4.8 Eos % (Auto) 0.0 Baso % (Auto) 0.1 Neut # (Auto) 17.46 H Lymph # (Auto) 1.42 [place] # (Auto) 0.96 H Eos # (Auto) 0.00 Baso # (Auto) 0.02 Immature Gran # (Auto) 0.19 Sodium 132 L Potassium 4.8 Chloride 98 Carbon Dioxide 29 Anion Gap 5 BUN 21 Creatinine 0.63 Est Cr Clr Drug Dosing 83.7 eGFR 91.49 BUN/Creatinine Ratio 33.3 H Glucose 131 H POC Glucose 144 H 125 H Calcium 9.0 AST 54 H Total Creatine Kinase 60 Troponin I High Sens 22.1 H Vitamin B12 1309 H Folate 12.35 TSH 1.582 Streptococcus sp PCR Bld Cult ID Panel PCR PG Care Time/CCT Total # of Minutes Spent Total Time Spent with Patient: Total time spent is greater than 50% in coordination of care (as documented) at patient's floor/unit and/or counseling patient: Coding Level of Care Code 31020 SUB INP/OBS CARE 3/50MIN Diagnoses Bacteremia R78.81 LLL pneumonia J18.9 Influenza A J10.1 Acute metabolic encephalopathy G93.41 Catheter-associated urinary tract infection T83.511A; N39.0 Chronic indwelling Murillo catheter Z97.8 Hypertension I10 Elevated troponin R77.8 Coronary artery disease involving [place] coronary artery of [place] heart, angina presence unspecified I25.10 Associated angina: angina presence unspecified Coronary Disease-Associated Artery/Lesion type: [place] artery [place] vs. transplanted heart: [place] heart Hyponatremia E87.1 DVT prophylaxis Z29.9 A-fib I48.91 Atrial fibrillation type: unspecified Atrial flutter I48.92 Left shoulder pain M25.512 (9) Coronary artery disease Associated angina: angina presence unspecified Coronary Disease-Associated Artery/Lesion type: [place] artery [place] vs. transplanted heart: [place] heart Qualified Code(s): I25.10 - Atherosclerotic heart disease of [place] coronary artery without angina pectoris (12) A-fib Atrial fibrillation type: unspecified Qualified Code(s): I48.91 - Unspecified atrial fibrillation
[2024-07-13] MEDS: FUROSEMIDE 20 MG TAB PO ONE (15:00)
[2024-07-13] MEDS: DICLOFENAC SOD 1% GEL 100 GM TUBE EXT SCH (17:04)
[2024-07-13] MEDS: ALBUTEROL HFA 8 GM INHALER INH SCH ×2 (19:33→21:37)
[2024-07-13] MEDS: MELATONIN 3 MG TAB PO SCH (21:22)
[2024-07-13] MEDS ORDERED: ALBUTEROL HFA 8 GM INHALER INH PRN (21:41)
--- NOTE | 2024-07-13 23:05 | Electrocardiogram Report ---
Test Reason : Blood Pressure : */* mmHG Vent. Rate : 76 BPM Atrial Rate : 242 BPM P-R Int : * ms QRS Dur : 78 ms QT Int : 408 ms P-R-T Axes : -81 16 54 degrees QTcB Int : 459 ms Atrial flutter with variable A-V block Low voltage QRS ST elevation, consider anterolateral injury pattern Abnormal ECG When compared with ECG of 12-Jul-2024 05:11, No significant change Confirmed by Je Dye ([id number]) on 07/13/2024 11:04:58 PM Referred By: REFERRED SELF Confirmed By: Je yDe
[2024-07-14 06:49] LABS: Basophils # (auto) 0.01 K/uL (0.00-0.20); Basophils % (auto) 0.1 %; Eosinophils # (auto) 0.08 K/uL (0.00-0.50); Eosinophils % (auto) 0.7 %; Hematocrit (blood only) 34.4 % (42.0-52.0); Hemoglobin 12.1 g/dl (14.0-18.0); Immature Granulocytes # (auto) 0.07 K/uL (0.01-0.20); Immature Granulocytes % (auto) 0.6 %; Lymphocytes # (auto) 2.09 K/uL (1.20-3.40); Mean Corpuscular Hemoglobin 37.2 pg (25.0-34.0); Mean Corpuscular Hgb Conc 35.2 g/dL (32.0-36.0); Mean Corpuscular Volume 105.8 fL (80.0-100.0); Mean Platelet Volume 9.7 fL (9.4-12.4); Monocytes # (auto) 1.01 K/uL (0.11-0.59); Monocytes % (auto) 8.7 %; Neutrophils # (auto) 8.33 K/uL (1.40-6.50); Neutrophils % (auto) 71.9 %; Platelet Count 179 K/uL (130-400); RDW Coefficient of Variation 13.6 % (11.5-14.5); RDW Standard Deviation 53.1 fL (36.4-46.3); Red Blood Count 3.25 M/uL (4.70-6.10); White Blood Count 11.59 K/ul (4.8-10.8)
[2024-07-14 07:20] LABS: BUN Creatinine Ratio 42.6 (10-20); Calcium 8.9 mg/dl (8.6-10.3); Creatinine Clr Calc Pharmacy 86.4 ml/min; Potassium 4.3 mmol/L (3.5-5.1)
[2024-07-14] MEDS: NITROGLYCERIN SL 0.4 MG/TAB TAB SL PRN (07:56)
[2024-07-14] MEDS: NITROGLYCERIN SL 0.4 MG/TAB TAB SL STA (08:08)
[2024-07-14] MEDS: NITROGLYCERIN 2% OINTMENT 30GM TUBE EXT ONE (08:17)
[2024-07-14] MEDS: ACETAMINOPHEN 500 MG TAB PO PRN (08:22)
--- NOTE | 2024-07-14 08:42 | Hospitalist Progress Note ---
Date of Service July 14, 2024 Assessment & Plan (1) Pleuritic chest pain: Plan: despite prolonged episode of pleuritic chest pain this am his troponins x 2 were negative (scant elevation in 1st trop, negative 2nd trop) EKG x [address] changes; stable a.flutter only doubt ischemic chest pain pain is pleuritic - doubt pericarditis suspect pain is due to bronchitis from fluA or the pneumonia low threshold to check for PE if pain recurs/persists will start duonebs QID to help with bronchoconstriction (2) Bacteremia: Plan: 2nd to strep mitis source - UTI; can't rule out LLL pneumonia as source either echo w/o valvular abnormalities initially was on IV zosyn changed to IV rocephin 07/13/24 plan 14 days of Rx in total today is day #4 of Rx (3) LLL pneumonia: Plan: suspect bacterial superinfection in setting of fluA infection with his +blood cx's for strep I suspect strep could be the cause of his pneumonia cont rocephin 2gm IV daily day #4 of Rx clinically stable (4) Influenza A: Plan: tested + for such upon admission tamiflu x 10 doses (day ~#3) cont supportive care resume bronchodilators - duonebs QID mucinex BID cont droplet precautions (5) Acute metabolic encephalopathy: Plan: 2nd to fluA, LLL pneumonia, bacteremia some toxic component from steroids possible as well cont scheduled melatonin HS mental status seems better today (6) Catheter-associated urinary tract infection: Plan: 2nd to strep mitis & klebsiella oxytoca has had foleys for about 1 year to his recollection will need murillo exchanged before discharge initially on zosyn - the klebsiella was intermediate sensitive to zosyn thus changed to IV rocephin on 07/13/24s (7) Chronic indwelling Murillo catheter: Plan: x 1 year h/o BPH, prostate ca, etc. (8) Hypertension: Plan: BPs controlled w/o anti-hypertensives (9) Elevated troponin: Plan: minimal elevation c/w demand ischemia in setting of bacteremia/fluA infection/etc no evidence of ACS repeat troponins today - despite c/o chest discomfort - negative (10) Coronary artery disease: Plan: 2020 heart cath - Summary: 1. 95% acute proximal stenosis in small, nondominant RCA 2. Mild to moderate nonobstructive proximal LAD disease (30 to 40%) cont asa cont statin I do not believe that his chest pain today is ischemic in origin (11) Hyponatremia: Plan: resolved BMP in am (12) DVT prophylaxis: Plan: cont heparin 5000 BID (13) A-fib: Plan: history of such per records from 2020 not on chronic anticoagulation, however follows with Dr Kelley, [facility] I corresponded with Dr Kelley today - he reports that anticoagulation has been deferred previously due to high fall risk (14) Atrial flutter: Plan: presented in such and remains largely in rate-controlled a.flutter multiple EKGs in the computer over the last few years show either a.flutter or a.fib he is not on rate controlling agents nor anticoagulation again I corresponded with Dr Kelley today re: anticoagulation has been deferred in the past due to falls / heightened fall risk (15) Left shoulder pain: Plan: 2nd advanced OA of shoulder severely restricted ROM on exam junior-articular muscle wasting seen which could be indicative of underlying rotator cuff issues as well cont voltaren gel 4gm QID left shoulder this pain is not due to ischemic heart pain/referred pain Plan mild macrocytic anemia - B12/folate/TSH wnl; early MDS ? other? elevated AST - CPK wnl h/o abnormal TSH in 2020 - TSH wnl this admission PT, OT updated by phone 07/12 and 07/13 Admission and Anticipated Discharge Date Admission Date: July 11, 2024 Subjective about 0700 this am received notification from staff that patient woke up ~0630 (around the time of his AM blood draw) and reported lower left-sided chest pain EKG obtained by staff - mary ellen, no ST changes (my reading) asked staff to give SL nitro x 1 this provided minimal relief of chest discomfort additional EKG obtained - again mary ellen, no ST changes (my reading) nitropaste 0.5 inch x 1 applied by this point I was at bedside he reported ongoing pain at the LLSB it was pleuritic it was worse with coughing no radiation he also c/o chest tightness across the chest, ongoing cough, ongoing congestion, and wheezing troponin was checked from the 0630 blood draw - essentially normal repeat troponin later in the AM - normal per staff Mr Sauceda slept well overnight did not have any issues tele - ongoing rate-controlled a.flutter Review of Systems Review of Systems: CV - see subjective portion of note pulm - cough/dyspnea/congestion GI - no N/V, no pain Physical Exam Physical Exam: gen - laying in bed comfortably despite the c/o pain, NAD; awake/alert neck - mild JVD again noted mouth - MMM chest - no reproducible chest wall pain to palpation heart - RRR, s1 s2, no murmur lungs - rales L base with wheezes b/l, no increased work of breathing abd - soft NT ND BS+ ext - no edema b/l, pulses 2+ b/l skin - venous stasis changes b/l shins Results & Data Results & Data Vital Signs (Past 12 Hours) Vital Signs Temp Pulse Pulse Resp BP Pulse Ox O2 Del Method 07/14/24 08:13 36.3 C L 79 20 156/99 H 97 Room Air 07/14/24 08:00 109/75 07/14/24 05:41 70 07/14/24 04:40 36.6 C 79 18 126/95 97 Room Air 07/14/24 00:29 36.8 C 74 18 130/81 97 Room Air 07/13/24 21:43 91 H 07/13/24 20:58 Room Air Laboratory Results Laboratory Results - last 24 hr 07/13/24 07/13/24 07/13/24 06:51 11:19 16:25 WBC RBC Hgb Hct MCV MCH MCHC RDW Std Deviation RDW Coeff of Saeed Plt Count MPV Immature Gran % (Auto) Neut % (Auto) Lymph % (Auto) [place] % (Auto) Eos % (Auto) Baso % (Auto) Neut # (Auto) Lymph # (Auto) [place] # (Auto) Eos # (Auto) Baso # (Auto) Immature Gran # (Auto) Sodium Potassium Chloride Carbon Dioxide Anion Gap BUN Creatinine Est Cr Clr Drug Dosing eGFR BUN/Creatinine Ratio Glucose POC Glucose 125 H 117 H Calcium Troponin I High Sens 22.1 H Vitamin B12 1309 H Folate 12.35 07/13/24 07/14/24 07/14/24 20:42 06:32 07:29 WBC 11.59 H RBC 3.25 L Hgb 12.1 L Hct 34.4 L MCV 105.8 H MCH 37.2 H MCHC 35.2 RDW Std Deviation 53.1 H RDW Coeff of Saeed 13.6 Plt Count 179 MPV 9.7 Immature Gran % (Auto) 0.6 Neut % (Auto) 71.9 Lymph % (Auto) 18.0 [place] % (Auto) 8.7 Eos % (Auto) 0.7 Baso % (Auto) 0.1 Neut # (Auto) 8.33 H Lymph # (Auto) 2.09 [place] # (Auto) 1.01 H Eos # (Auto) 0.08 Baso # (Auto) 0.01 Immature Gran # (Auto) 0.07 Sodium 135 L Potassium 4.3 Chloride 101 Carbon Dioxide 29 Anion Gap 5 BUN 26 H Creatinine 0.61 Est Cr Clr Drug Dosing 86.4 eGFR 92.39 BUN/Creatinine Ratio 42.6 H Glucose 90 POC Glucose 126 H 83 Calcium 8.9 Troponin I High Sens Vitamin B12 Folate Diagnostic Findings Microbiology 07/11/24 17:02 Blood Aerobic Blood Culture - Preliminary No growth in Aerobic bottle after 48 hours. 07/11/24 17:02 Blood Anaerobic Blood Culture - Preliminary No growth in Anaerobic bottle after 48 hours. 07/11/24 18:00 Urine,Straight Cath Urine Culture - Final Klebsiella oxytoc/[place] ornith Streptococcus mitis/oralis grp 07/11/24 18:04 Blood Aerobic Blood Culture - Preliminary Streptococcus mitis/oralis [facility] 07/11/24 18:04 Blood Anaerobic Blood Culture - Preliminary Streptococcus mitis/oralis grp PG Care Time/CCT Total # of Minutes Spent Total Time Spent with Patient: Total time spent is greater than 50% in coordination of care (as documented) at patient's floor/unit and/or counseling patient: Coding Level of Care Code 85175 SUB INP/OBS CARE 3/50MIN Diagnoses Pleuritic chest pain R07.81 Bacteremia R78.81 LLL pneumonia J18.9 Influenza A J10.1 Acute metabolic encephalopathy G93.41 Catheter-associated urinary tract infection T83.511A; N39.0 Chronic indwelling Murillo catheter Z97.8 Hypertension I10 Elevated troponin R77.8 Coronary artery disease involving [place] coronary artery of [place] heart, angina presence unspecified I25.10 Associated angina: angina presence unspecified Coronary Disease-Associated Artery/Lesion type: [place] artery [place] vs. transplanted heart: [place] heart Hyponatremia E87.1 DVT prophylaxis Z29.9 A-fib I48.91 Atrial fibrillation type: unspecified Atrial flutter I48.92 Left shoulder pain M25.512 (10) Coronary artery disease Associated angina: angina presence unspecified Coronary Disease-Associated Artery/Lesion type: [place] artery [place] vs. transplanted heart: [place] heart Qualified Code(s): I25.10 - Atherosclerotic heart disease of [place] coronary artery without angina pectoris (13) A-fib Atrial fibrillation type: unspecified Qualified Code(s): I48.91 - Unspecified atrial fibrillation
[2024-07-14] MEDS: ALBUT/IPRATROP 3MG/0.5MG NEB 3 ML VIAL NEB SCH (09:19)
[2024-07-14] MEDS: FUROSEMIDE 20 MG TAB PO ONE (10:32)
--- NOTE | 2024-07-14 12:34 | Electrocardiogram Report ---
Test Reason : Blood Pressure : */* mmHG Vent. Rate : 87 BPM Atrial Rate : 250 BPM P-R Int : * ms QRS Dur : 76 ms QT Int : 362 ms P-R-T Axes : -78 24 53 degrees QTcB Int : 435 ms Atrial flutter with variable A-V block Low voltage QRS Abnormal ECG When compared with ECG of 13-Jul-2024 06:31, (unconfirmed) No significant change was found Confirmed by Bello Webb ([id number]) on 07/14/2024 12:34:28 PM Referred By: REFERRED SELF Confirmed By: Bello Webb
--- NOTE | 2024-07-14 12:34 | Electrocardiogram Report ---
Test Reason : Blood Pressure : */* mmHG Vent. Rate : 74 BPM Atrial Rate : 242 BPM P-R Int : * ms QRS Dur : 76 ms QT Int : 402 ms P-R-T Axes : 73 19 48 degrees QTcB Int : 446 ms Atrial flutter with variable A-V block Low voltage QRS Abnormal ECG When compared with ECG of 13-Jul-2024 06:30, No significant change was found Confirmed by Bello Webb ([id number]) on 07/14/2024 12:34:18 PM Referred By: REFERRED SELF Confirmed By: Bello Webb
--- NOTE | 2024-07-14 12:34 | Electrocardiogram Report ---
Test Reason : Blood Pressure : */* mmHG Vent. Rate : 80 BPM Atrial Rate : 250 BPM P-R Int : * ms QRS Dur : 74 ms QT Int : 374 ms P-R-T Axes : -78 21 50 degrees QTcB Int : 431 ms Atrial flutter with variable A-V block Low voltage QRS Abnormal ECG When compared with ECG of 13-Jul-2024 06:51, (unconfirmed) No significant change was found Confirmed by Bello Webb ([id number]) on 07/14/2024 12:34:39 PM Referred By: REFERRED SELF Confirmed By: Bello Webb
--- NOTE | 2024-07-14 14:12 | Electrocardiogram Report ---
Test Reason : Blood Pressure : */* mmHG Vent. Rate : 79 BPM Atrial Rate : 79 BPM P-R Int : 216 ms QRS Dur : 80 ms QT Int : 370 ms P-R-T Axes : * -14 35 degrees QTcB Int : 424 ms Atrial flutter with variable A-V block Low voltage QRS Increased R/S ratio in V1, consider early transition or posterior infarct Abnormal ECG When compared with ECG of 13-Jul-2024 06:53, (unconfirmed) No significant change Confirmed by Bello Webb ([id number]) on 07/14/2024 2:12:13 PM Referred By: REFERRED SELF Confirmed By: Bello Webb
[2024-07-15 06:39] LABS: BUN Creatinine Ratio 39.7 (10-20); Calcium 8.8 mg/dl (8.6-10.3); Creatinine Clr Calc Pharmacy 90.9 ml/min; Magnesium 1.7 mg/dl (1.7-2.4); Potassium 4.4 mmol/L (3.5-5.1)
[2024-07-15] MEDS: METOPROLOL TARTRATE 25 MG TAB PO SCH (09:40)
[2024-07-15] MEDS: FUROSEMIDE 20 MG TAB PO ONE (09:46)
--- NOTE | 2024-07-15 13:46 | Hospitalist Progress Note ---
Date of Service July 15, 2024 Assessment & Plan (1) Pleuritic chest pain: Plan: resolved 2nd to bronchoconstriction from bronchitis and pneumonia improved with bronchodilators due to a.flutter with RVR will stop duonebs; change to ventolin HFA BID (2) Bacteremia: Plan: 2nd to strep mitis source - UTI; can't rule out LLL pneumonia as source either echo w/o valvular abnormalities initially was on IV zosyn changed to IV rocephin 07/13/24 plan 14 days of Rx in total today is day #5 of Rx can likely treat with PO amox or augmentin soon (3) LLL pneumonia: Plan: suspect bacterial superinfection in setting of fluA infection with his +blood cx's for strep I suspect strep could be the cause of his pneumonia cont rocephin 2gm IV daily day #5 of Rx clinically stable (4) Influenza A: Plan: tested + for such upon admission tamiflu x 10 doses (day ~#4) cont supportive care cont bronchodilators but change duonebs QID to albuterol HFA BID mucinex BID cont droplet precautions (5) Acute metabolic encephalopathy: Plan: 2nd to fluA, LLL pneumonia, bacteremia some toxic component from steroids possible as well improved cont scheduled melatonin HS (6) Catheter-associated urinary tract infection: Plan: 2nd to strep mitis & klebsiella oxytoca has had foleys for about 1 year to his recollection will need murillo exchanged before discharge initially on zosyn - the klebsiella was intermediate sensitive to zosyn thus changed to IV rocephin on 07/13/24 (7) Chronic indwelling Murillo catheter: Plan: x 1 year h/o BPH, prostate ca, etc. (8) Hypertension: Plan: BPs controlled w/o anti-hypertensives (9) Elevated troponin: Plan: minimal elevation c/w demand ischemia in setting of bacteremia/fluA infection/etc no evidence of ACS (10) Coronary artery disease: Plan: 2020 heart cath - Summary: 1. 95% acute proximal stenosis in small, nondominant RCA 2. Mild to moderate nonobstructive proximal LAD disease (30 to 40%) cont asa cont statin I do not believe that his chest symptoms are ischemic in origin - see #1 above (11) Hyponatremia: Plan: resolved BMP in am (12) DVT prophylaxis: Plan: cont heparin 5000 BID (13) A-fib: Plan: history of such per records from 2020 not on chronic anticoagulation, however follows with Dr Kelley, [facility] I corresponded with Dr Kelley - he reports that anticoagulation has been deferred previously due to high fall risk however, pt's reports only 1 recent fall of late (14) Atrial flutter: Plan: presented in such and remains in a.flutter multiple EKGs in the computer over the last few years show either a.flutter or a.fib he is not on rate controlling agents nor anticoagulation at baseline add metoprolol 25mg BID due to a.flutter w/ RVR - especially with ambulation check orthostatics due to report of dizziness with standing strongly consider anticoagulation with Eliquis or similar (15) Left shoulder pain: Plan: 2nd advanced OA of shoulder severely restricted ROM on exam junior-articular muscle wasting seen which could be indicative of underlying rotator cuff issues as well cont voltaren gel 4gm QID left shoulder this pain is not due to ischemic heart pain/referred pain (16) Pressure injury of deep tissue of sacral region: Plan: appreciate wound care assistance & recs Plan mild macrocytic anemia - B12/folate/TSH wnl; early MDS ? other? elevated AST - CPK wnl h/o abnormal TSH in 2020 - TSH wnl this admission appreciate PT, OT evals; PT advising rehab, OT recommending Home with HH services will d/w social work and patient/pt's updated by phone 07/12 and 07/13 updated at bedside today, 07/15 Admission and Anticipated Discharge Date Admission Date: July 11, 2024 Subjective tele with ongoing a.flutter, rates <100 while sleeping/at rest with any activity many of his rates are well over 100 (prior to metoprolol being instituted) patient reports overall feeling better still with cough and dyspnea on exertion eating fair at bedside today - reports he looks much better than a few days ago no chest pain today states that for some time he has had "dizziness" upon standing it is lightheadedness - NOT vertigo Review of Systems Review of Systems: gen - no fevers or chills cv - no chest pain, no orthopnea pulm - cough/congestion/wheezing GI - no abd pain or N/V Physical Exam Physical Exam: gen - laying in bed comfortably, NAD; awake/alert neck - mild JVD mouth - MM slightly dry today; no thrush heart - RRR, s1 s2, no murmur lungs - rales L base with focal wheeze/rhonchi LLL; no rales or wheeze left leg, no increased work of breathing abd - soft NT ND BS+ ext - no edema b/l, pulses 2+ b/l skin - venous stasis changes b/l shins Results & Data Results & Data Vital Signs (Past 12 Hours) Vital Signs Temp Pulse Pulse Resp BP Pulse Ox O2 Del Method 07/15/24 11:26 36.7 C 87 18 121/90 94 Room Air 07/15/24 10:52 86 16 96 Room Air 07/15/24 08:46 36.4 C L 113 H 19 119/78 95 Room Air 07/15/24 08:00 97 H 07/15/24 08:00 Room Air 07/15/24 07:15 102 H 18 94 Room Air 07/15/24 03:40 36.5 C 100 H 18 129/89 95 Room Air Laboratory Results Laboratory Results - last 24 hr 07/15/24 07/15/24 07/15/24 06:01 07:09 11:29 Sodium 135 L Potassium 4.4 Chloride 103 Carbon Dioxide 28 Anion Gap 4 BUN 23 Creatinine 0.58 L Est Cr Clr Drug Dosing 90.9 eGFR 93.80 BUN/Creatinine Ratio 39.7 H Glucose 103 H POC Glucose 99 128 H Calcium 8.8 Magnesium 1.7 07/15/24 16:15 Sodium Potassium Chloride Carbon Dioxide Anion Gap BUN Creatinine Est Cr Clr Drug Dosing eGFR BUN/Creatinine Ratio Glucose POC Glucose 82 Calcium Magnesium PG Care Time/CCT Total # of Minutes Spent Total Time Spent with Patient: Total time spent is greater than 50% in coordination of care (as documented) at patient's floor/unit and/or counseling patient: Coding Level of Care Code 17176 SUB INP/OBS CARE 3/50MIN Diagnoses Pleuritic chest pain R07.81 Bacteremia R78.81 LLL pneumonia J18.9 Influenza A J10.1 Acute metabolic encephalopathy G93.41 Catheter-associated urinary tract infection T83.511A; N39.0 Chronic indwelling Murillo catheter Z97.8 Hypertension I10 Elevated troponin R77.8 Coronary artery disease involving [place] coronary artery of [place] heart, angina presence unspecified I25.10 Associated angina: angina presence unspecified Coronary Disease-Associated Artery/Lesion type: [place] artery [place] vs. transplanted heart: [place] heart Hyponatremia E87.1 DVT prophylaxis Z29.9 A-fib I48.91 Atrial fibrillation type: unspecified Atrial flutter I48.92 Left shoulder pain M25.512 Pressure injury of deep tissue of sacral region L89.156 (10) Coronary artery disease Associated angina: angina presence unspecified Coronary Disease-Associated Artery/Lesion type: [place] artery [place] vs. transplanted heart: [place] heart Qualified Code(s): I25.10 - Atherosclerotic heart disease of [place] coronary artery without angina pectoris (13) A-fib Atrial fibrillation type: unspecified Qualified Code(s): I48.91 - Unspecified atrial fibrillation
[2024-07-15] MEDS: ALBUTEROL HFA 8 GM INHALER INH SCH (19:51)
[2024-07-16 06:31] LABS: Hematocrit (blood only) 33.3 % (42.0-52.0); Hemoglobin 11.8 g/dl (14.0-18.0); Mean Corpuscular Hemoglobin 37.3 pg (25.0-34.0); Mean Corpuscular Hgb Conc 35.4 g/dL (32.0-36.0); Mean Corpuscular Volume 105.4 fL (80.0-100.0); Mean Platelet Volume 10.1 fL (9.4-12.4); Platelet Count 166 K/uL (130-400); RDW Coefficient of Variation 13.7 % (11.5-14.5); RDW Standard Deviation 53.5 fL (36.4-46.3); Red Blood Count 3.16 M/uL (4.70-6.10); White Blood Count 6.91 K/ul (4.8-10.8)
[2024-07-16 06:51] LABS: BUN Creatinine Ratio 34.6 (10-20); Calcium 8.8 mg/dl (8.6-10.3); Creatinine Clr Calc Pharmacy 101.4 ml/min; Potassium 4.3 mmol/L (3.5-5.1)
--- NOTE | 2024-07-16 19:05 | Hospitalist Progress Note ---
Date of Service July 16, 2024 Assessment & Plan (1) Bacteremia: Plan: 2nd to strep mitis source - UTI; can't rule out LLL pneumonia as source either echo w/o valvular abnormalities initially was on IV zosyn changed to IV rocephin 07/13/24 plan 14 days of Rx in total today is day #6 of Rx will check with ID about ability to change to PO amox vs continuing on IV therapy for remainder of abx course obtain repeat blood cx's for test of cure/sterility (2) LLL pneumonia: Plan: suspect bacterial superinfection in setting of fluA infection with his +blood cx's for strep I suspect strep could be the cause of his pneumonia cont rocephin 2gm IV daily day #6 of Rx clinically stable / resolving (3) Influenza A: Plan: tested + for such upon admission tamiflu x 10 doses with tonight's dose being the last cont supportive care cont bronchodilators mucinex BID cont droplet precautions (4) Acute metabolic encephalopathy: Plan: 2nd to fluA, LLL pneumonia, bacteremia some toxic component from steroids possible as well improved cont scheduled melatonin HS (5) Pleuritic chest pain: Plan: resolved 2nd to bronchoconstriction from bronchitis and pneumonia improved/resolved with bronchodilators (6) Catheter-associated urinary tract infection: Plan: 2nd to strep mitis & klebsiella oxytoca has had foleys for about 1 year to his recollection will pull the old murillo and replace with new murillo today initially on zosyn - the klebsiella was intermediate sensitive to zosyn thus changed to IV rocephin on 07/13/24 thus, today is day #4 of appropriate therapy for the klebsiella (7) Chronic indwelling Murillo catheter: Plan: x 1 year h/o BPH, prostate ca, etc. will exchange his murillo today (8) Hypertension: Plan: BPs controlled w/o anti-hypertensives (9) Elevated troponin: Plan: minimal elevation c/w demand ischemia in setting of bacteremia/fluA infection/etc no evidence of ACS (10) Coronary artery disease: Plan: 2020 heart cath - Summary: 1. 95% acute proximal stenosis in small, nondominant RCA 2. Mild to moderate nonobstructive proximal LAD disease (30 to 40%) cont asa cont statin I do not believe that his prior chest symptoms were ischemic in origin - see #1 above (11) Hyponatremia: Plan: resolved BMP in am (12) DVT prophylaxis: Plan: cont heparin 5000 BID (13) A-fib: Plan: history of such per records from 2020 not on chronic anticoagulation, however follows with Dr Kelley, [facility] I corresponded with Dr Kelley - he reports that anticoagulation has been deferred previously due to high fall risk however, pt's reports only 1 recent fall of late (14) Atrial flutter: Plan: presented in such and remains in a.flutter multiple EKGs in the computer over the last few years show either a.flutter or a.fib he is not on rate controlling agents nor anticoagulation at baseline added metoprolol 25mg BID due to a.flutter w/ RVR - especially with ambulation checked orthostatics due to report of dizziness with standing - negative strongly consider anticoagulation with Eliquis or similar (15) Left shoulder pain: Plan: 2nd advanced OA of shoulder severely restricted ROM on exam junior-articular muscle wasting seen which could be indicative of underlying rotator cuff issues as well cont voltaren gel 4gm QID left shoulder this pain is not due to ischemic heart pain/referred pain (16) Pressure injury of deep tissue of sacral region: Plan: appreciate wound care assistance & recs Plan mild macrocytic anemia - B12/folate/TSH wnl; early MDS ? other? elevated AST - CPK wnl h/o abnormal TSH in 2020 - TSH wnl this admission appreciate PT, OT evals dispo - rehab at [facility] updated by phone 07/12 and 07/13 and again today, 07/16 updated at bedside today, 07/15 Admission and Anticipated Discharge Date Admission Date: July 11, 2024 Subjective no events overnight tele - a.flutter, rates <100 eating fair-good cough and congestion improved no dyspnea agreeable to rehab at [facility] Review of Systems Review of Systems: cv - no chest tightness or pain; no orthopnea pulm - no dyspnea GI - no abd pain or N/V psych - a little confused again today about the night-time musculo - no c/o shoulder pain today Physical Exam Physical Exam: gen - laying in bed comfortably, NAD; awake/alert neck - no JVD mouth - MMM heart - RRR, s1 s2, no murmur lungs - rales L base with focal wheeze/rhonchi LLL; no rales or wheeze right lung, no increased work of breathing abd - soft NT ND BS+ ext - no edema b/l, pulses 2+ b/l skin - venous stasis changes b/l shins Results & Data Results & Data Vital Signs (Past 12 Hours) Vital Signs Temp Pulse Pulse Resp BP Pulse Ox O2 Del Method 07/16/24 15:11 36.7 C 63 18 95/59 L 96 Room Air 07/16/24 14:25 60 07/16/24 11:23 36.4 C L 60 18 95/60 L 94 Room Air 07/16/24 08:03 83 18 91 Room Air 07/16/24 07:25 76 07/16/24 07:13 36.5 C 64 18 103/67 91 Room Air Laboratory Results Laboratory Results - last 24 hr 07/15/24 07/16/24 07/16/24 21:07 05:55 07:17 WBC 6.91 RBC 3.16 L Hgb 11.8 L Hct 33.3 L MCV 105.4 H MCH 37.3 H MCHC 35.4 RDW Std Deviation 53.5 H RDW Coeff of Saeed 13.7 Plt Count 166 MPV 10.1 Sodium 135 L Potassium 4.3 Chloride 102 Carbon Dioxide 29 Anion Gap 4 BUN 18 Creatinine 0.52 L Est Cr Clr Drug Dosing 101.4 eGFR 96.95 BUN/Creatinine Ratio 34.6 H Glucose 110 H POC Glucose 110 H 110 H Calcium 8.8 07/16/24 11:25 WBC RBC Hgb Hct MCV MCH MCHC RDW Std Deviation RDW Coeff of Saeed Plt Count MPV Sodium Potassium Chloride Carbon Dioxide Anion Gap BUN Creatinine Est Cr Clr Drug Dosing eGFR BUN/Creatinine Ratio Glucose POC Glucose 110 H Calcium Diagnostic Findings Microbiology 07/11/24 18:04 Blood Aerobic Blood Culture - Final Streptococcus mitis/oralis grp 07/11/24 18:04 Blood Anaerobic Blood Culture - Final Streptococcus mitis/oralis grp 07/11/24 17:02 Blood Aerobic Blood Culture - Preliminary No growth in Aerobic bottle after 48 hours. 07/11/24 17:02 Blood Anaerobic Blood Culture - Preliminary No growth in Anaerobic bottle after 48 hours. 07/11/24 18:00 Urine,Straight Cath Urine Culture - Final Klebsiella oxytoc/[place] ornith Streptococcus mitis/oralis grp PG Care Time/CCT Total # of Minutes Spent Total Time Spent with Patient: Total time spent is greater than 50% in coordination of care (as documented) at patient's floor/unit and/or counseling patient: Coding Level of Care Code 23531 SUB INP/OBS CARE 2/35MIN Diagnoses Bacteremia R78.81 LLL pneumonia J18.9 Influenza A J10.1 Acute metabolic encephalopathy G93.41 Pleuritic chest pain R07.81 Catheter-associated urinary tract infection T83.511A; N39.0 Chronic indwelling Murillo catheter Z97.8 Hypertension I10 Elevated troponin R77.8 Coronary artery disease involving [place] coronary artery of [place] heart, angina presence unspecified I25.10 Associated angina: angina presence unspecified Coronary Disease-Associated Artery/Lesion type: [place] artery [place] vs. transplanted heart: [place] heart Hyponatremia E87.1 DVT prophylaxis Z29.9 A-fib I48.91 Atrial fibrillation type: unspecified Atrial flutter I48.92 Left shoulder pain M25.512 Pressure injury of deep tissue of sacral region L89.156 (10) Coronary artery disease Associated angina: angina presence unspecified Coronary Disease-Associated Artery/Lesion type: [place] artery [place] vs. transplanted heart: [place] heart Qualified Code(s): I25.10 - Atherosclerotic heart disease of [place] coronary artery without angina pectoris (13) A-fib Atrial fibrillation type: unspecified Qualified Code(s): I48.91 - Unspecified atrial fibrillation
[2024-07-17 06:54] LABS: BUN Creatinine Ratio 33.9 (10-20); Calcium 8.8 mg/dl (8.6-10.3); Creatinine Clr Calc Pharmacy 94.1 ml/min; Potassium 4.3 mmol/L (3.5-5.1)
--- NOTE | 2024-07-17 13:09 | Hospitalist Progress Note ---
Date of Service July 17, 2024 Assessment & Plan (1) Bacteremia: Plan: 2nd to strep mitis source - UTI; can't rule out LLL pneumonia as source either echo w/o valvular abnormalities initially was on IV zosyn changed to IV rocephin 07/13/24 plan 14 days of Rx in total today is day #7 of Rx repeat blood cx's 07/16/24 for test of cure/sterility - remain negative will consult ID on Thursday for their opinion re: abx (2) LLL pneumonia: Plan: suspect bacterial superinfection in setting of fluA infection with his +blood cx's for strep I suspect strep could be the cause of his pneumonia cont rocephin 2gm IV daily day #7 of Rx clinically stable / resolving (3) Influenza A: Plan: tested + for such upon admission completed 5-day course of Tamiflu cont supportive care cont bronchodilators mucinex BID cont droplet precautions (4) Acute metabolic encephalopathy: Plan: 2nd to fluA, LLL pneumonia, bacteremia some toxic component from steroids possible as well improved/resolved cont scheduled melatonin HS (5) Pleuritic chest pain: Plan: resolved 2nd to bronchoconstriction from bronchitis and pneumonia improved/resolved with bronchodilators (6) Catheter-associated urinary tract infection: Plan: 2nd to strep mitis & klebsiella oxytoca has had foleys for about 1 year to his recollection replaced his murillo 07/16/24 w/o incident initially on zosyn - the klebsiella was intermediate sensitive to zosyn thus changed to IV rocephin on 07/13/24 thus, today is day #6 of effective/appropriate therapy for the klebsiella (7) Chronic indwelling Murillo catheter: Plan: x 1 year h/o BPH, prostate ca, etc. murillo exchanged 07/16/24 (8) Hypertension: Plan: BPs controlled w/o anti-hypertensives (9) Elevated troponin: Plan: minimal elevation c/w demand ischemia in setting of bacteremia/fluA infection/etc no evidence of ACS (10) Coronary artery disease: Plan: 2020 heart cath - Summary: 1. 95% acute proximal stenosis in small, nondominant RCA 2. Mild to moderate nonobstructive proximal LAD disease (30 to 40%) cont asa cont statin I do not believe that his prior chest symptoms were ischemic in origin - see above (11) Hyponatremia: Plan: Na 134 minimal stable BMP am (12) DVT prophylaxis: Plan: cont heparin 5000 BID (13) A-fib: Plan: history of such per records from 2020 not on chronic anticoagulation, however follows with Dr Kelley, [facility] I corresponded with Dr Kelley - he reports that anticoagulation has been deferred previously due to high fall risk however, pt's reports only 1 recent fall of late would lean in favor of anticoagulation with Eliquis or similar (14) Atrial flutter: Plan: presented in such and remains in a.flutter multiple EKGs in the computer over the last few years show either a.flutter or a .fib he is not on rate controlling agents nor anticoagulation at baseline added metoprolol 25mg BID due to a.flutter w/ RVR - especially with ambulation checked orthostatics due to report of dizziness with standing - negative strongly consider anticoagulation with Eliquis or similar (15) Left shoulder pain: Plan: 2nd advanced OA of shoulder severely restricted ROM on exam junior-articular muscle wasting seen which could be indicative of underlying rotator cuff issues as well cont voltaren gel 4gm QID left shoulder - this has helped per patient (16) Pressure injury of deep tissue of sacral region: Plan: appreciate wound care assistance & recs Plan mild macrocytic anemia - B12/folate/TSH wnl; early MDS ? other? elevated AST - this is CHRONIC per the EMR; CPK wnl h/o abnormal TSH in 2020 - TSH wnl this admission appreciate PT, OT evals dispo - rehab at [facility] updated by phone 07/12 and 07/13 and 07/16 updated at bedside 07/15 will check with SW tomorrow about when we can d/c to [facility] Admission and Anticipated Discharge Date Admission Date: July 11, 2024 Subjective no events feels good eating fair-good scant cough no dyspnea no new complaints murillo exchanged yesterday w/o incident Review of Systems Review of Systems: gen - no excessive fatigue cv - no orthopnea pulm - no dyspnea on exertion GI - having stools; no tanika diarrhea Physical Exam Physical Exam: gen - laying in bed comfortably, NAD; awake/alert; looks well; no confusion today neck - no JVD mouth - MMM heart - RRR, s1 s2, no murmur lungs - rales L base with minimal focal wheeze/rhonchi LLL; no rales or wheeze right lung, no increased work of breathing; airation improved L base abd - soft NT ND BS+ ext - no edema b/l, pulses 2+ b/l skin - venous stasis changes b/l shins Results & Data Results & Data Vital Signs (Past 12 Hours) Vital Signs Temp Pulse Resp BP Pulse Ox O2 Del Method 07/17/24 12:02 36.6 C 62 18 114/73 97 Room Air 07/17/24 08:04 36.5 C 71 18 123/77 91 Room Air 07/17/24 07:38 72 18 93 Room Air 07/17/24 04:09 36.3 C L 65 16 97/58 L 93 Room Air Laboratory Results Laboratory Results - last 24 hr 07/17/24 05:57 Sodium 134 L Potassium 4.3 Chloride 101 Carbon Dioxide 30 Anion Gap 3 BUN 19 Creatinine 0.56 L Est Cr Clr Drug Dosing 94.1 eGFR 94.80 BUN/Creatinine Ratio 33.9 H Glucose 103 H Calcium 8.8 Diagnostic Findings Microbiology 07/16/24 14:59 Blood Aerobic Blood Culture - Preliminary No growth in Aerobic bottle after 24 hours. 07/16/24 14:59 Blood Anaerobic Blood Culture - Final 07/16/24 14:50 Blood Aerobic Blood Culture - Preliminary No growth in Aerobic bottle after 24 hours. 07/16/24 14:50 Blood Anaerobic Blood Culture - Preliminary No growth in Anaerobic bottle after 24 hours. 07/11/24 17:02 Blood Aerobic Blood Culture - Final No growth in Aerobic bottle after 5 days. 07/11/24 17:02 Blood Anaerobic Blood Culture - Final No growth in Anaerobic bottle after 5 days. 07/11/24 18:04 Blood Aerobic Blood Culture - Final Streptococcus mitis/oralis grp 07/11/24 18:04 Blood Anaerobic Blood Culture - Final Streptococcus mitis/oralis grp 07/11/24 18:00 Urine,Straight Cath Urine Culture - Final Klebsiella oxytoc/[place] ornith Streptococcus mitis/oralis grp PG Care Time/CCT Total # of Minutes Spent Total Time Spent with Patient: Total time spent is greater than 50% in coordination of care (as documented) at patient's floor/unit and/or counseling patient: Coding Level of Care Code 88830 SUB INP/OBS CARE 2/35MIN Diagnoses Bacteremia R78.81 LLL pneumonia J18.9 Influenza A J10.1 Acute metabolic encephalopathy G93.41 Pleuritic chest pain R07.81 Catheter-associated urinary tract infection T83.511A; N39.0 Chronic indwelling Murillo catheter Z97.8 Hypertension I10 Elevated troponin R77.8 Coronary artery disease involving [place] coronary artery of [place] heart, angina presence unspecified I25.10 Associated angina: angina presence unspecified Coronary Disease-Associated Artery/Lesion type: [place] artery [place] vs. transplanted heart: [place] heart Hyponatremia E87.1 DVT prophylaxis Z29.9 A-fib I48.91 Atrial fibrillation type: unspecified Atrial flutter I48.92 Left shoulder pain M25.512 Pressure injury of deep tissue of sacral region L89.156 (10) Coronary artery disease Associated angina: angina presence unspecified Coronary Disease-Associated Artery/Lesion type: [place] artery [place] vs. transplanted heart: [place] heart Qualified Code(s): I25.10 - Atherosclerotic heart disease of [place] coronary artery without angina pectoris (13) A-fib Atrial fibrillation type: unspecified Qualified Code(s): I48.91 - Unspecified atrial fibrillation
[2024-07-18 07:49] LABS: Hematocrit (blood only) 33.9 % (42.0-52.0); Mean Corpuscular Hemoglobin 37.7 pg (25.0-34.0); Mean Corpuscular Hgb Conc 35.4 g/dL (32.0-36.0); Mean Corpuscular Volume 106.6 fL (80.0-100.0); Mean Platelet Volume 9.3 fL (9.4-12.4); Platelet Count 177 K/uL (130-400); RDW Coefficient of Variation 13.9 % (11.5-14.5); RDW Standard Deviation 53.9 fL (36.4-46.3); Red Blood Count 3.18 M/uL (4.70-6.10); White Blood Count 7.68 K/ul (4.8-10.8)
[2024-07-18 08:12] LABS: BUN Creatinine Ratio 29.1 (10-20); Calcium 8.7 mg/dl (8.6-10.3); Creatinine Clr Calc Pharmacy 95.9 ml/min; Potassium 4.5 mmol/L (3.5-5.1)
[2024-07-18] MEDS: TRIAMCINOLONE ACET 0.1% CR 15 GM TUBE EXT SCH (09:40)
--- NOTE | 2024-07-18 12:32 | Infectious Disease Consult ---
Date of Consultation July 18, 2024 Assessment & Plan (1) Pleuritic chest pain: (2) LLL pneumonia: (3) Bacteremia: (4) Chronic indwelling Murillo catheter: (5) Influenza A: Plan This is an 88-year-old male with a past medical history of BPH, chronic indwelling Murillo catheter, hypertension, non-STEMI, A-fib with RVR CAD presents to the ED with confusion, fever, cough, shortness of breath in the ED he is febrile with a Tmax of 39.6, heart rate 120, RR 20, BP 125/64, O2 sats 88% on room air-->91% on 4lNC. Labs BC 16.94, BUN 15, creatinine 0.55. Urinalysis 3+ blood, positive nitrites, 3+ leukocyte esterase,> 50 WBC. Influenza A and (H3) detected on respiratory viral panel. Blood cultures positive for Streptococcus mitis/oralis in 2 out of 4 bottles. Urine culture with Klebsiella oxytoca and Streptococcus mitis/oralis. MRSA screen negative. Chest x-ray with possible mid left lower lobe pneumonia. He is currently on ceftriaxone. ID consulted for Streptococcus mitis bacteremia, influenza A infection, left lower lobe pneumonia and UTI. On my initial exam, he reports resolution of fevers and less cough. He is now on RA. Denies pain at his left hip prosthetic,chest pain, oral or dental pain. He had 3 teeth extracted approximately 3 months ago without any current issues. Reports that Murillo catheter was changed this admission. Microbiology: Urine culture 07/12 >100 K Klebsiella oxytoca (R ampicillin, amp/S UL, I Zosyn ), > 100 K Streptococcus mitis/oralis group Blood culture 07/11 08/16 bottles Streptococcus mitis/oralis group Blood culture 07/16 NGTD Antibiotics: Vancomycin 07/11 Azithromycin 07/11 zosyn 07/11-07/12 Tamiflu 07/11-07/16 Ceftriaxone 07/13- ongoing #Streptococcus Mitis/oralis bacteremia #Streptococcus Mitis/oralis UTi #Right mild toe cellulitis #Chronic murillo #Influenza A infection, completed 5 d tamiflu #LLL pneumonia # LLE hardware # Fair dentition, s/p removal of several teeth ~ 3 mos ago Discussion:Source of streptococcus mitis/oralis bacteremia is unclear. Streptococcus mitis is part to oral corry and is associated with infections such as dental abscesses and endocarditis. Although he had a few teeth removed ~3 mos ago, he denies any current dental issues. TTE with w/o vegatations. No s/o infection at site of LLE hardware/ hip prosthetic. He as a Right big toe mild cellulitis. Superimposed bacterial pneumonia in setting of influenza A infection is possible but less likely to be 2/2 strep mitis. I am c/f dis seminated infection as streptococcus mitis growing in both urine and blood stream. Not a common cause of urine infection. Murillo catheter has been changed. Would rule out an endovascular source Recommendations Continue Ceftriaxone 2 g Iv daily Check GRACIE Follow u repeat BC 07/16 If no evidence of endocarditis based on GRACIE , then complete 2 weeks of Ceftriaxone for bacteremia of unk etiology. D/W hospitalist. Thank you for this consult. ID will continue to follow Eligio Mccarty MD, MPH Infectious Disease [facility], ID [facility] Call [phone] with questions Consultation Information Consultation was provided via telemedicine using two-way real-time interactive telecommunication between the patient and the telemedicine provider. For the duration of the visit, the provider was performing the assessment from a different facility than the patient. This includesuse of bluetooth stethoscope forauscultationperformed by the telepresenter that the telemedicine provider can hear if described in the physical exam. Cottage Attendant contact information: Please call [facility] Call Center . (Phone Number For Physician Use Only) After establishing a telemedicine visit, patient was: Patient was verified with two unique identifiers Time Spent with Patient: Initial => 75 min History of Present Illness Reason for Consultation: strep mitis bacteremia/fluA/LLL pneumonia/foleyUTI Requesting Physician: Sachin Marion MD Attending Physician: Sachin Marion MD History of Present Illness This is an 88-year-old male with a past medical history of BPH, chronic indwelling Murillo catheter, hypertension, non-STEMI, A-fib with RVR CAD presents to the ED with confusion, fever, cough, shortness of breath in the ED he is febrile with a Tmax of 39.6, heart rate 120, RR 20, BP 125/64, O2 sats 88% on room air-->91% on 4lNC. Labs BC 16.94, BUN 15, creatinine 0.55. Urinalysis 3+ blood, positive nitrites, 3+ leukocyte esterase,> 50 WBC. Influenza A and (H3) detected on respiratory viral panel. Blood cultures p ositive for Streptococcus mitis/oralis in 2 out of 4 bottles. Urine culture with Klebsiella oxytoca and Streptococcus mitis/oralis. MRSA screen negative. Chest x-ray with possible mid left lower lobe pneumonia. He is currently on ceftriaxone. ID consulted for Streptococcus mitis bacteremia, influenza A infection, left lower lobe pneumonia and UTI. On my initial exam, he reports resolution of fevers and less cough. He is now on RA. Denies pain at his left hip prosthetic,chest pain, oral or dental pain. He had 3 teeth extracted approximately 3 months ago without any current issues. Reports that Murillo catheter was changed this admission. Allergies Allergy/AdvReac Type Severity Reaction Status Date / Time Iodinated Contrast Media Allergy Intermediate " Feels Verified 06/20/24 14:13 [Iodinated Contrast- Oral eliza hot and IV Dye] and painful" perflutren Allergy Unknown BODY GOT Verified 06/20/24 14:13 HOT AND BACK SPASMS propylene glycol Allergy Unknown BODY GOT Verified 06/20/24 14:13 HOT AND BACK SPASMS ragweed pollen Allergy Unknown UNKNOWN Verified 06/20/24 14:13 SANJAY Inhibitors AdvReac Intermediate Cough Verified 06/20/24 14:13 Home Medications Medication Instructions Recorded Confirmed Type [id number] 300 mcg-K 60 1 tab PO DAILY 12/22/18 07/11/24 History mcg-lycop 600 mcg-lutein 300 mcg tablet (Centrum Silver Men) nitroglycerin 0.4 mg sublingual 0.4 mg sublingual DIRECTED PRN 10/19/19 07/11/24 History tablet Chest Pain omega 5-mce-wqd-fish oil 1,000 mg 1 cap PO DAILY 06/05/20 07/11/24 History (120 mg-180 mg) capsule (Fish Oil) acetaminophen 500 mg tablet 1,000 mg PO DIRECTED PRN 09/05/20 07/11/24 History Arthritis Pain polyethylene glycol 3350 17 17 g PO QPM 10/08/22 07/11/24 History gram/dose oral powder (Miralax) pravastatin 20 mg tablet 20 mg PO DAILY 10/08/22 07/11/24 History betamethasone valerate 0.1 % 1 applic topical BID PRN phimosis 09/04/23 07/11/24 Rx topical ointment #15 grams aspirin 81 mg tablet,delayed 81 mg PO DAILY 07/11/24 07/11/24 History release calcium 600 mg (as carbonate)-vit 1 tab PO DAILY 07/11/24 07/11/24 History D3 20 mcg (800 unit) chewable tablet (Caltrate plus D) Patient History Medical History (Updated 07/16/24 @ 03:58 by Sachin Marion MD) Fall Atrial fib/flutter, transient Acidosis, lactic Family History Father Cardiac disorder Mother Cardiac disorder Social History Smoking Status: Unknown if ever smoked Hx Alcohol Use: No Hx Substance Use: No Preferred Language: Lithuanian Communication Ability: Effective Visual Impairment: No Limitations Hearing Ability: Hard of Hearing Varnish Thinner Required: No Beliefs That Will Affect Care: None marital status: Current Living Situation: Spouse and Personal Care Facility Current Living Situation Comment: lives with at [facility] current occupational status: retired How many Children do You have: 2 Feels Safe at Home: Yes Assistive Devices: Cane, Walker and Wheelchair Physical Exam Physical Exam: Gen- NAD, comfortable HEENT- anicteric sclera, fair dentition, some missing teeth Neck- supple Lung- Non labored breathing, on RA Abdomen- soft, NT, ND Extremities- Well healed Hip, thigh incision , BL superficial abrasions Skin - gluteal superficial appearing wound- bleeding - murillo in place with clear yellow urine, no suprapubic or cva tenderness. Skin- right great toe partially removed nail with mild cellulitis Results & Data Vital Signs (Past 12 Hours) Vital Signs Temp Pulse Pulse Resp BP Pulse Ox O2 Del Method 07/18/24 11:13 36.8 C 60 18 102/62 93 Room Air 07/18/24 08:36 36.8 C 84 18 130/81 95 Room Air 07/18/24 07:22 86 16 96 Room Air 07/18/24 07:00 67 07/18/24 03:51 36.5 C 71 14 115/61 93 Room Air 07/18/24 00:59 36.3 C L 76 18 114/63 94 Room Air Laboratory Results Laboratory Results - last 48 hr 07/17/24 07/18/24 07/18/24 05:57 07:28 11:11 WBC 7.68 RBC 3.18 L Hgb 12.0 L Hct 33.9 L MCV 106.6 H MCH 37.7 H MCHC 35.4 RDW Std Deviation 53.9 H RDW Coeff of Saeed 13.9 Plt Count 177 MPV 9.3 L Sodium 134 L 134 L Potassium 4.3 4.5 Chloride 101 101 Carbon Dioxide 30 30 Anion Gap 3 3 BUN 19 16 Creatinine 0.56 L 0.55 L Est Cr Clr Drug Dosing 94.1 95.9 eGFR 94.80 95.32 BUN/Creatinine Ratio 33.9 H 29.1 H Glucose 103 H 113 H POC Glucose 126 H Calcium 8.8 8.7 Diagnostic Findings Microbiology 07/16/24 14:59 Blood Aerobic Blood Culture - Preliminary No growth in Aerobic bottle after 24 hours. 07/16/24 14:59 Blood Anaerobic Blood Culture - Final 07/16/24 14:50 Blood Aerobic Blood Culture - Preliminary No growth in Aerobic bottle after 24 hours. 07/16/24 14:50 Blood Anaerobic Blood Culture - Preliminary No growth in Anaerobic bottle after 24 hours. 07/11/24 17:02 Blood Aerobic Blood Culture - Final No growth in Aerobic bottle after 5 days. 07/11/24 17:02 Blood Anaerobic Blood Culture - Final No growth in Anaerobic bottle after 5 days. 07/11/24 18:04 Blood Aerobic Blood Culture - Final Streptococcus mitis/oralis grp 07/11/24 18:04 Blood Anaerobic Blood Culture - Final Streptococcus mitis/oralis grp 07/11/24 18:00 Urine,Straight Cath Urine Culture - Final Klebsiella oxytoc/[place] ornith Streptococcus mitis/oralis grp Medications Administered Home Medications Medication Instructions Recorded Confirmed Last Taken opymnalu-zr-slyyb 300 mcg-K 60 1 tab PO DAILY 12/22/18 07/11/24 12/01/20 mcg-lycop 600 mcg-lutein 300 mcg tablet (Centrum Silver Men) nitroglycerin 0.4 mg sublingual 0.4 mg sublingual DIRECTED PRN 10/19/19 07/11/24 Unknown tablet Chest Pain omega 3-pak-jlk-fish oil 1,000 mg 1 cap PO DAILY 06/05/20 07/11/24 12/01/20 (120 mg-180 mg) capsule (Fish Oil) acetaminophen 500 mg tablet 1,000 mg PO DIRECTED PRN 09/05/20 07/11/24 Unknown Arthritis Pain polyethylene glycol 3350 17 17 g PO QPM 10/08/22 07/11/24 Unknown gram/dose oral powder (Miralax) pravastatin 20 mg tablet 20 mg PO DAILY 10/08/22 07/11/24 Unknown betamethasone valerate 0.1 % 1 applic topical BID PRN phimosis 09/04/23 07/11/24 Unknown topical ointment #15 grams aspirin 81 mg tablet,delayed 81 mg PO DAILY 07/11/24 07/11/24 Unknown release calcium 600 mg (as carbonate)-vit 1 tab PO DAILY 07/11/24 07/11/24 Unknown D3 20 mcg (800 unit) chewable tablet (Caltrate plus D) Active Medications Generic Name Dose Route Start Last Admin Trade Name Freq PRN Reason Stop Dose Admin Acetaminophen 1,000 mg 07/11/24 22:25 07/14/24 08:22 Acetaminophen 500 Mg Tab PO 08/10/24 22:24 1,000 mg DAILY PRN Administration Arthritis Pain Albuterol 2 puffs 07/15/24 19:00 07/18/24 07:22 Albuterol Hfa 8 Gm Inhaler INH 08/14/24 18:59 2 puffs BIDR MARLENA Administration Aspirin 81 mg 07/12/24 09:00 07/18/24 09:41 Aspirin 81 Mg Ectab PO 08/11/24 08:59 81 mg DAILY MARLENA Administration Calcium/Vitamin D 1 tab 07/12/24 09:00 07/18/24 09:41 Calcium 600mg + Vit D 400 Iu Tab PO 08/11/24 08:59 1 tab DAILY MARLENA Administration Diclofenac Sodium 4 gm 07/13/24 17:00 07/18/24 09:40 Diclofenac Sod 1% Gel 100 Gm Tube EXT 08/12/24 16:59 4 gm QID MARLENA Administration Protocol Fish Oil 1 cap 07/12/24 09:00 07/18/24 09:41 [place]-3 (Purified Fish Oil) 1 Gm Cap PO 08/11/24 08:59 1 cap DAILY MARLENA Administration Guaifenesin 1,200 mg 07/11/24 21:00 07/18/24 09:41 Guaifenesin 600 Mg Tabcr PO 08/10/24 20:59 1,200 mg Q12 MARLENA Administration Heparin Sodium (Porcine) 5,000 units 07/11/24 22:25 07/18/24 09:39 Heparin Sod 5,000 Unit/0.5 Ml Vial SQ 08/10/24 22:24 5,000 units Q12 MARLENA Administration Ceftriaxone Sodium 2,000 mg in 50 mls @ 100 mls/hr 07/13/24 09:00 07/18/24 10:21 Rocephin IV 07/27/24 08:59 Infused Q24H MARLENA Infusion Insulin Glargine 8 units 07/12/24 09:00 07/13/24 08:18 Lantus Per Unit Charge SQ 08/11/24 08:59 8 units QAM MARLENA Administration Melatonin 6 mg 07/13/24 21:00 07/17/24 20:59 Melatonin 3 Mg Tab PO 08/12/24 20:59 6 mg HS MARLENA Administration Metoprolol Tartrate 25 mg 07/15/24 09:15 07/18/24 09:41 Metoprolol Tartrate 25 Mg Tab PO 08/14/24 09:14 25 mg BID MARLENA Administration Multivitamins/Minerals 1 tab 07/12/24 09:00 07/18/24 09:40 Cerovite Adv Formula Tab PO 08/11/24 08:59 1 tab DAILY MARLENA Administration Nitroglycerin 0.4 mg 07/11/24 22:25 07/14/24 07:56 Nitroglycerin Sl 0.4 Mg/Tab Tab SL 08/10/24 22:24 0.4 mg UD PRN Administration Chest Pain Polyethylene Glycol 17 gm 07/11/24 22:25 07/17/24 21:00 Polyethylene (Miralax) 17 Gm Pack PO 08/10/24 22:24 17 gm QPM MARLENA Administration Pravastatin Sodium 20 mg 07/12/24 09:00 07/18/24 09:40 Pravastatin Sod 20 Mg Tab PO 08/11/24 08:59 20 mg DAILY MARLENA Administration Triamcinolone Acetonide 1 appln 07/18/24 09:00 07/18/24 09:40 Triamcinolone Acet 0.1% Cr 15 Gm Tube EXT 08/17/24 08:59 1 appln TID MARLENA Administration
--- NOTE | 2024-07-18 18:20 | Hospitalist Progress Note ---
Date of Service July 18, 2024 Assessment & Plan (1) Bacteremia: Plan: 2nd to strep mitis source - UTI? LLL pneumonia? other? (ie - endocarditis?) 2D echo w/o valvular abnormalities initially was on IV zosyn changed to IV rocephin 07/13/24 plan 14 days of Rx in total IF GRACIE is negative for valvular vegetations today is day #8 of effective Rx against strep (zosyn, then rocephin) repeat blood cx's 07/16/24 for test of cure/sterility - remain negative ID consult appreciated recs - * GRACIE - Dr Galdamez to perform tomorrow morning, 07/19 * NPO after MN tonight for such * hold heparin in prep for such * consult anesthesia to be complete in preparation for the GRACIE * cont IV rocephin -- if GRACIE is negative will need just a total of 14 days of Rx; if GRACIE is positive would need 6 weeks of Rx (2) LLL pneumonia: Plan: suspect bacterial superinfection in setting of fluA infection cont rocephin 2gm IV daily he has completed 7+ days of IV abx therapy for his pneumonia & it is clinically resolved recommend repeat cxr in 4-6 weeks for full radiographic resolution (3) Influenza A: Plan: tested + for such upon admission completed 5-day course of Tamiflu lung exam is excellent today cont supportive care cont bronchodilators cont mucinex BID cont droplet precautions (4) Acute metabolic encephalopathy: Plan: 2nd to fluA, LLL pneumonia, bacteremia some toxic component from steroids possible as well resolved cont scheduled melatonin HS (5) Pleuritic chest pain: Plan: resolved w/ bronchodilators & supportive care 2nd to bronchoconstriction from bronchitis and pneumonia no c/o pleuritic pain in a few days (6) Catheter-associated urinary tract infection: Plan: 2nd to strep mitis & klebsiella oxytoca has had foleys for about 1 year to his recollection replaced his murillo 07/16/24 w/o incident initially on zosyn - the klebsiella was intermediate sensitive to zosyn thus changed to IV rocephin on 07/13/24 thus, today is day #7 of effective/appropriate therapy for the klebsiella (7) Chronic indwelling Murillo catheter: Plan: x 1 year h/o BPH, prostate ca, etc. murillo exchanged 07/16/24 (8) Hypertension: Plan: BPs controlled w/o anti-hypertensives (9) Elevated troponin: Plan: minimal elevation c/w demand ischemia in setting of bacteremia/fluA infection/etc no evidence of ACS (10) Coronary artery disease: Plan: 2020 heart cath - Summary: 1. 95% acute proximal stenosis in small, nondominant RCA 2. Mild to moderate nonobstructive proximal LAD disease (30 to 40%) cont asa cont statin I do not believe that his prior chest symptoms were ischemic in origin - see above (11) Hyponatremia: Plan: stable gain at 134 today BMP am (12) DVT prophylaxis: Plan: cont heparin 5000 BID but hold tonight's dose in prep for GRACIE Tomorrow (13) A-fib: Plan: history of such per records from 2020 not on chronic anticoagulation, however follows with Dr Kelley, [facility] cardiology I corresponded with Dr Kelley - he reports that anticoagulation has been deferred previously due to high fall risk however, pt's reports only 1 recent fall of late would lean in favor of anticoagulation with Eliquis or similar (14) Atrial flutter: Plan: presented in such and remains in a.flutter multiple EKGs in the computer over the last few years show either a.flutter or a.fib he is not on rate controlling agents nor anticoagulation at baseline added metoprolol 25mg BID due to a.flutter w/ RVR - especially with ambulation rates significantly improved - especially during activity cont metoprolol checked orthostatics due to report of dizziness with standing - negative strongly consider anticoagulation with Eliquis or similar (15) Left shoulder pain: Plan: 2nd advanced OA of shoulder severely restricted ROM on exam junior-articular muscle wasting seen which could be indicative of underlying rotator cuff issues as well cont voltaren gel 4gm QID left shoulder - this has helped per patient (16) Pressure injury of deep tissue of sacral region: Plan: appreciate wound care assistance & recs Plan mild macrocytic anemia - B12/folate/TSH wnl; early MDS ? other? elevated AST - this is CHRONIC per the EMR; CPK wnl h/o abnormal TSH in 2020 - TSH wnl this admission stasis dermatitis - shins - triamcinolone cream 0.1% TID in thin amounts for 5-7 days then stop appreciate PT, OT kalpana updated by phone 07/12; 07/13; 07/16; and 07/18 updated at bedside 07/15 care today d/w cardiology, ID, social work dispo - rehab at [facility] GRACIE results 07/19 AM will dictate rest of stay theoretically if GRACIE is negative can place u/s-guided PIV and send to [facility] tomorrow afternoon and complete a few more days of IV rocephin Admission and Anticipated Discharge Date Admission Date: July 11, 2024 Subjective tele - a.flutter, rates controlled, minimal time spent >100 BPM patient states he "feels really good" minimal cough no dyspnea no wheezing eating about 50% of meals which is typical for him even at home anxious to leave had ID consult this am - they have advised GRACIE Review of Systems Review of Systems: gen - no fevers or chills cv - no chest pain, no chest tightness GI - no N/V; no diarrhea - murillo draining clear yellow urine Physical Exam Physical Exam: gen - laying in bed comfortably, NAD; awake/alert; looks great neck - no JVD mouth - MMM heart - RRR, s1 s2, no murmur lungs - scant crackle L base; all wheezing resolved; airation excellent today abd - soft NT ND BS+ ext - no edema b/l, pulses 2+ b/l skin - venous stasis changes b/l shins Results & Data Results & Data Vital Signs (Past 12 Hours) Vital Signs Temp Pulse Pulse Resp BP Pulse Ox O2 Del Method 07/18/24 15:54 36.7 C 89 18 117/78 91 Room Air 07/18/24 14:31 58 L 07/18/24 12:49 Room Air 07/18/24 11:13 36.8 C 60 18 102/62 93 Room Air 07/18/24 08:36 36.8 C 84 18 130/81 95 Room Air 07/18/24 07:22 86 16 96 Room Air 07/18/24 07:00 67 Laboratory Results Laboratory Results - last 24 hr 07/18/24 07/18/24 07:28 11:11 WBC 7.68 RBC 3.18 L Hgb 12.0 L Hct 33.9 L MCV 106.6 H MCH 37.7 H MCHC 35.4 RDW Std Deviation 53.9 H RDW Coeff of Saeed 13.9 Plt Count 177 MPV 9.3 L Sodium 134 L Potassium 4.5 Chloride 101 Carbon Dioxide 30 Anion Gap 3 BUN 16 Creatinine 0.55 L Est Cr Clr Drug Dosing 95.9 eGFR 95.32 BUN/Creatinine Ratio 29.1 H Glucose 113 H POC Glucose 126 H Calcium 8.7 Diagnostic Findings Microbiology 07/16/24 14:50 Blood Aerobic Blood Culture - Preliminary No growth in Aerobic bottle after 48 hours. 07/16/24 14:50 Blood Anaerobic Blood Culture - Preliminary No growth in Anaerobic bottle after 48 hours. 07/16/24 14:59 Blood Aerobic Blood Culture - Preliminary No growth in Aerobic bottle after 48 hours. 07/16/24 14:59 Blood Anaerobic Blood Culture - Final 07/11/24 17:02 Blood Aerobic Blood Culture - Final No growth in Aerobic bottle after 5 days. 07/11/24 17:02 Blood Anaerobic Blood Culture - Final No growth in Anaerobic bottle after 5 days. 07/11/24 18:04 Blood Aerobic Blood Culture - Final Streptococcus mitis/oralis grp 07/11/24 18:04 Blood Anaerobic Blood Culture - Final Streptococcus mitis/oralis grp 07/11/24 18:00 Urine,Straight Cath Urine Culture - Final Klebsiella oxytoc/[place] ornith Streptococcus mitis/oralis grp PG Care Time/CCT Total # of Minutes Spent Total Time Spent with Patient: Total time spent is greater than 50% in coordination of care (as documented) at patient's floor/unit and/or counseling patient: Coding Level of Care Code 04802 SUB INP/OBS CARE 3/50MIN Diagnoses Bacteremia R78.81 LLL pneumonia J18.9 Influenza A J10.1 Acute metabolic encephalopathy G93.41 Pleuritic chest pain R07.81 Catheter-associated urinary tract infection T83.511A; N39.0 Chronic indwelling Murillo catheter Z97.8 Hypertension I10 Elevated troponin R77.8 Coronary artery disease involving [place] coronary artery of [place] heart, angina presence unspecified I25.10 Associated angina: angina presence unspecified Coronary Disease-Associated Artery/Lesion type: [place] artery [place] vs. transplanted heart: [place] heart Hyponatremia E87.1 DVT prophylaxis Z29.9 A-fib I48.91 Atrial fibrillation type: unspecified Atrial flutter I48.92 Left shoulder pain M25.512 Pressure injury of deep tissue of sacral region L89.156 (10) Coronary artery disease Associated angina: angina presence unspecified Coronary Disease-Associated Artery/Lesion type: [place] artery [place] vs. transplanted heart: [place] heart Qualified Code(s): I25.10 - Atherosclerotic heart disease of [place] coronary artery without angina pectoris (13) A-fib Atrial fibrillation type: unspecified Qualified Code(s): I48.91 - Unspecified atrial fibrillation
--- NOTE | 2024-07-19 08:27 | Pre Anesthesia Assessment ---
Date of Service July 19, 2024 Pre Sedation Assessment Vital Signs Temp Pulse Pulse Resp BP BP Pulse Ox 07/19/24 08:22 84 14 138/79 94 07/19/24 03:10 36.8 C 74 18 121/83 96 07/19/24 00:00 78 07/18/24 23:58 36.6 C 56 L 16 99/58 L 96 07/18/24 20:45 89 15 96 07/18/24 19:19 36.6 C 79 18 121/77 94 07/18/24 15:54 36.7 C 89 18 117/78 91 07/18/24 14:31 58 L 07/18/24 12:49 07/18/24 11:13 36.8 C 60 18 102/62 93 07/18/24 08:36 36.8 C 84 18 130/81 95 O2 Del Method 07/19/24 08:22 Room Air 07/19/24 03:10 Room Air 07/19/24 00:00 07/18/24 23:58 Room Air 07/18/24 20:45 Room Air 07/18/24 19:19 Room Air 07/18/24 15:54 Room Air 07/18/24 14:31 07/18/24 12:49 Room Air 07/18/24 11:13 Room Air 07/18/24 08:36 Room Air Cardiovascular + regular rate and + regular rhythm Respiratory + respiratory effort normal Pre-Sedation Airway Assessment Smoking Status: Unknown if ever smoked Hx Sleep Apnea: No Hx Difficult Intubation: No Short, Thick Neck: No Thyromental Distance: > or= 3.5 Finger Breadths Oral Cavity: + WNL Mallampati Class: III ASA: ASA3 NPO Status Date of Last Intake of Fluids: 07/18/24 Time of Last Intake of Fluids: 20:00 Date of Last Intake of Solid Food: 07/18/24 Time of Last Intake of Solid Foods: 20:00 Procedure Planning Contraindications for Sedation: none Current Medications Reviewed: Yes Notes The planned sedation has been discussed with the patient. Informed Consent was obtained. I have identified the patient, determined the appropriateness of sedation and have assessed the patient immediately prior to the procedure. All medicine(s) and interventions are by my order.
--- NOTE | 2024-07-19 08:53 | Post Anesthesia Assessment ---
Date of Service July 19, 2024 Post Sedation Assessment Vital Signs Temp Pulse Pulse Resp BP BP Pulse Ox 07/19/24 08:45 95 H 14 160/93 H 99 07/19/24 08:40 112 H 14 190/120 H 99 07/19/24 08:35 111 H 14 171/114 H 99 07/19/24 08:30 93 H 14 167/107 H 99 07/19/24 08:25 88 136/79 99 07/19/24 08:22 84 14 138/79 94 07/19/24 03:10 36.8 C 74 18 121/83 96 07/19/24 00:00 78 07/18/24 23:58 36.6 C 56 L 16 99/58 L 96 07/18/24 20:45 89 15 96 07/18/24 19:19 36.6 C 79 18 121/77 94 07/18/24 15:54 36.7 C 89 18 117/78 91 07/18/24 14:31 58 L 07/18/24 12:49 07/18/24 11:13 36.8 C 60 18 102/62 93 O2 Del Method 07/19/24 08:45 Room Air, Nasal Cannula 07/19/24 08:40 Room Air, Nasal Cannula 07/19/24 08:35 Room Air, Nasal Cannula 07/19/24 08:30 Room Air, Nasal Cannula 07/19/24 08:25 Room Air, Nasal Cannula 07/19/24 08:22 Room Air 07/19/24 03:10 Room Air 07/19/24 00:00 07/18/24 23:58 Room Air 07/18/24 20:45 Room Air 07/18/24 19:19 Room Air 07/18/24 15:54 Room Air 07/18/24 14:31 07/18/24 12:49 Room Air 07/18/24 11:13 Room Air Recovery Score Activity: Moves 4 extremities Respiration: Deep Breath/Cough Circulation: +/-20% PreAnes Value Consciousness: Arouseable (by name) Oxygen Saturation: O2 needed for >90% Discharge Sedation Level of Care: Fast Track Phase II Post Sedation Plan On clinical assessment, the patient appears to have tolerated the sedation without complications. Patient is recovering as anticipated. Patient will continue to be monitored by nursing and may be discharged when sedation discharge criteria are met per below protocol. Upon Completions of procedure up to 15 minutes continue every 5 minute vital signs and the P.A.R. score; then discharge to a Phase I or Fast Track to Phase II per the following guidelines: * Discharge Patient to appropriate Phase II area if PAR is 8 or greater or ret urn to pre- procedure baseline. The post - procedure orders will be as directed. * If PAR score is less than 8 or not return to pre-procedure baseline then patient will follow Phase I monitoring till PAR is reached for Phase II. The Phase I may be done in procedure room or may call to secure a Phase I area. * If naloxone or flumazenil are used for reversal, hold in Phase I for continued monitoring from when last reversal dose was given for a minimum of 60 minutes or longer pending the nurse and/or physician discretion of patient condition before discharge to Phase II. Please call the Sedation Physician to re-evaluate and complete post-note for discharge to Phase II area. Do NOT discharge from procedure sedation or Phase 1 until post- sedation evaluation note is complete by procedure /sedation MD Sedation Discharge Instructions to be given to the patient at discharge to home.
[2024-07-19] MEDS: MIDAZOLAM HCL 5 MG/ML 1 ML VIAL ONE (09:53)
[2024-07-19] MEDS: fentaNYL citrate PF 100 MCG/2 ML VIAL ONE (09:53)
[2024-07-19] MEDS: BENZOCAINE/TETRACAIN/BUTAM 50 APPLN/5 GM CAN EXT ONE (09:54)
--- NOTE | 2024-07-19 10:30 | Discharge Summary ---
Discharge Summary Date of Service July 19, 2024 Principal Dx & Hospital Course #1 = Principal Diagnosis (1) LLL pneumonia: Guerrero is an 88-year-old male with a past medical history of catheter associated UTI/indwelling Robertson catheter, prostate cancer, CAD with history of PCI, OA, hyperlipidemia, osteoporosis, A-fib RVR who was admitted for cough, congestion, fever and he was flu positive. During his hospital stay he had blood cultures positive for strep mitis, although no odontogenic infection was noted. GRACIE was normal. Potential sources include right toe cellulitis, left lower lobe pneumonia, UTI,, and oral (no evidence of odontogenic during infection last dental work was 3 months prior). ID was consulted and recommended GRACIE to determine appropriate course of antibiotics. GRACIE did not show obvious evidence of endocarditis, but this could not be definitively excluded at that time and on discussion with ID patient was recommended to complete 4 weeks rather than 2 weeks of antibiotics. During admission he did receive vancomycin 07/11, azithromycin 07/11, Zosyn 07/11 - 07/12, and was transitioned to Rocephin 07/13. Patient started appropriate coverage 07/11, antibiotic end date 08/08/2024. Weekly CBC/BMP with follow-up to PCP and outpatient infectious disease. He was treated for left lower lobe pneumonia per imposed on flu a infection, completed 7 days of IV antibiotic therapy appropriate for this and symptoms clinically resolved. Follow-up chest x-ray should be performed in 4 to 6 weeks to ensure resolution. Patient has chronic indwelling Robertson catheter, this was exchanged 07/16 and has been on appropriate antibiotics as noted. Continue outpatient follow-up for this. Other chronic issues remained stable including his CAD. Patient does have history of A-fib, patient had not been anticoagulated previously due to concern for fall risk but had had 1 fall in the prior year. Risk/benefits of anticoagulation were reviewed with patient with prior hospitalist provider, and also by myself on day of discharge. Patient further discussed with his . On shared decision making given he would like to continue Eliquis 5 mg twice milligram daily for A-fib prevention. He was not previously on rate control but did tolerate metoprolol tartrate twice daily 25 mg well during admission and this was continued on discharge. 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 He pr esents to the emergency department with 24 hours of confusion, worsening fever, cough, shortness of breath skin exertion and decreased oral intake. Significant testing in the emergency department included a positive influenza A H3 past, and urine suggestive of Robertson catheter related urinary tract infection. Discharge Exam General: A&Ox3. NAD. Cooperative. Pleasant HEENT: Atraumatic, normocephalic. Vision and hearing grossly intact Pulm: CTAB A&P. -wheezes, -rales, -rhonchi. Symmetrical chest rise. No increased work of breathing. No respiratory distress. Cardiac: Regular at time of assessment, soft sm. Radial pulses intact and symmetrical. Ext: Left upper extremity with ultrasound-guided PIV in place Discharge Plan Discharge Items Patient Disposition: Transfer Inpatient Rehab Fac Reason For Visit: INFLUENZA A, ROBERTSON UTI, SEPSIS, ELEVATED TROPONIN Discharge Diagnosis: Influenza A, UTI, bacteremia Activity: Resume your previous activity Non-emergency contact: Primary Care Provider and Specialist Call non-emergency contact if: you have any medication questions Follow-up/Referrals: Rohith Kelley DO [Physician] - (Afib followup. On metoprolol and started on Eliquis) Annemarie Tomas PA-C [Primary Care Provider] - Diet: Heart Healthy Addtl Attending Provider Instructions: You were seen in the hospital for left lower lobe pneumonia, bacteria in the blood, and a possible UTI. Your case was complicated by bacteremia with Streptococcus mitis, bacteria that typically comes from the mouth. Your case was reviewed with infectious disease. You underwent an ultrasound of your heart called a GRACIE (transesophageal echo) which did not show obvious evidence of endocarditis. Since endocarditis was not able to be definitively ruled out, and there was concern for disseminated infection, it was recommended you complete 4 weeks rather than 2 weeks of IV antibiotics You are recommended to complete 4 weeks days of IV antibiotic therapy. Your antibiotics were prescribed at discharge to be given through an ultrasound-guided IV placed prior to discharge. You will be on ceftriaxone 2 g daily until 08/08/2024. You will need a weekly CBC/BMP while on antibiotics. Please have your PCP order and followup on these labs. A follow-up appointment is being scheduled for you with infectious disease by the nurse navigator. You should receive a call to confirm this appointment. If you do not receive a call to confirm your appointment by the time your PCP follow-up, please discuss ID follow-up with your PCP. You have a history of A-fib. Previously been on anticoagulation due to risk of falls, however had only 1 fall in the preceding year. Risk/benefits of A-fib stroke prophylaxis with Eliquis were discussed with you during admission. On shared decision making you preferred to start stroke prophylaxis with Eliquis. Please take Eliquis 5 mg by mouth once in the morning and once in the evening. This is a blood thinner. If you notice any bloody or black bowel movements, have any concerning bleeding, or have lightheadedness dizziness or passout please seek immediate medical reattention You have been started on a medication to help control your heart rate which can be high due to A-fib/a flutter . please take metoprolol tartrate 25 mg twice daily for A-fib rate control. This is a medication that can lower both blood pressure and heart rate. If you develop lightheadedness, dizziness, or a very slow heart rate while this medication please call your doctor for recommendations If you develop any new or worsening symptoms including fever, chills, sweats, chest pain, chest pressure, difficulty breathing, uncontrolled nausea/vomiting, rash, wheezing, passing out or nearly passing out, bleeding, black/bloody bowel movements, or other new or concerning symptoms please call your primary care physician, or call 911 for re-evaluation in the emergency department if you are very concerned. Pending Studies at Discharge: No Stand-Alone Forms: [facility] [employer] Items Patient informed of condition?: Yes DNR: Yes Discharge Level of Care: Acute rehab Communicable Disease: No Discharge Prognosis: Stable Lines: Peripheral IV Urinary Catheter: Yes Medications and DC Order Prescriptions: New metoprolol tartrate 25 mg Tablet 25 mg PO BID 60 Days Qty: 120 0RF Eliquis 5 mg tablet 5 mg PO BID Qty: 60 1RF ceftriaxone 2 gram recon soln 2 g IV DAILY 20 Days Continued Centrum Silver Men 300-600-300 mcg tablet 1 tab PO DAILY nitroglycerin 0.4 mg tablet, sublingual 0.4 mg SL DIRECTED PRN (Reason: Chest Pain) Rx Instructions: PLACE ONE TABLET UNDER THE TONGUE EVERY 5 MINUTES FOR UP TO 3 DOSES OVER 15 MINUTES IF NEEDED FOR CHEST PAIN betamethasone valerate 0.1 % ointment 1 applic topical BID PRN (Reason: phimosis) Qty: 15 1RF acetaminophen 500 mg Tablet 1,000 mg PO DIRECTED PRN (Reason: Arthritis Pain) omega 5-smd-udz-fish oil [Fish Oil] 1,000 mg (120 mg-180 mg) Capsule 1 cap PO DAILY pravastatin 20 mg tablet 20 mg PO DAILY polyethylene glycol 3350 [Miralax] 17 gram/dose Powder 17 g PO QPM Caltrate 600 plus D 600 mg-20 mcg (800 unit) Tablet,Chewable 1 tab PO DAILY aspirin 81 mg tablet,delayed release (DR/EC) 81 mg PO DAILY Discharge Orders: Discharge Order (Routine); Ordered 07/19/24 Ordered By: Asim Nguyen Admission Data Admit Date/Time: 07/11/24 20:00 Attending Provider: Asim Nguyen Admit Provider: Neli Carias Primary Care Provider: Annemarie Tomas Other Providers: Neil Carias; [facility]; Caitlin Manriquez; Josephine Avila; Elizabeth Fisher; Eligio Mccarty; Penny Patten; Monica Valencia; Julito Alvarez Other Interventions: Discharge Summary Assessment (RN) Last Done: 07/19/24 13:24 Hospital Stay Data Consultations 07/11/24 19:25 ED Decision to Admit Stat 07/18/24 07:15 Consult Infectious Diseases Routine 07/18/24 19:13 Consult Anesthesiology Routine Procedures Performed Operation Date: 07/19/24 08:30 Actual Procedures p Trans-Esophageal Echo - Kayode Galdamez MD s Echo Color Flow - Kayode Galdamez MD s Doppler Echo Limited/Follow Up - Kayode Galdamez MD Discharge Instructions Given to Patient (Per Discharging Provider) You were seen in the hospital for left lower lobe pneumonia, bacteria in the blood, and a possible UTI. Your case was complicated by bacteremia with Streptococcus mitis, bacteria that typically comes from the mouth. Your case was reviewed with infectious disease. You underwent an ultrasound of your heart called a GRACIE (transesophageal echo) which did not show obvious evidence of endocarditis. Since endocarditis was not able to be definitively ruled out, and there was concern for disseminated infection, it was recommended you complete 4 weeks rather than 2 weeks of IV antibiotics You are recommended to complete 4 weeks days of IV antibiotic therapy. Your antibiotics were prescribed at discharge to be given through an ultrasound-guided IV placed prior to discharge. You will be on ceftriaxone 2 g daily until 08/08/2024. You will need a weekly CBC/BMP while on antibiotics. Please have your PCP order and followup on these labs. A follow-up appointment is being scheduled for you with infectious disease by the nurse navigator. You should receive a call to confirm this appointment. If you do not receive a call to confirm your appointment by the time your PCP follo w-up, please discuss ID follow-up with your PCP. You have a history of A-fib. Previously been on anticoagulation due to risk of falls, however had only 1 fall in the preceding year. Risk/benefits of A-fib stroke prophylaxis with Eliquis were discussed with you during admission. On shared decision making you preferred to start stroke prophylaxis with Eliquis. Please take Eliquis 5 mg by mouth once in the morning and once in the evening. This is a blood thinner. If you notice any bloody or black bowel movements, have any concerning bleeding, or have lightheadedness dizziness or passout pl ease seek immediate medical reattention You have been started on a medication to help control your heart rate which can be high due to A-fib/a flutter . please take metoprolol tartrate 25 mg twice da suzette for A-fib rate control. This is a medication that can lower both blood pressure and heart rate. If you develop lightheadedness, dizziness, or a very slow heart rate while this medication please call your doctor for recommendations If you develop any new or worsening symptoms including fever, chills, sweats, chest pain, chest pressure, difficulty breathing, uncontrolled nausea/vomiting, rash, wheezing, passing out or nearly passing out, bleeding, black/bloody bowel movements, or other new or concerning symptoms please call your primary care physician, or call 911 for re-evaluation in the emergency department if you are very concerned. Total Time Total Time Spent Total Time Spent (In Minutes): Time spend day of discharge 45 minutes including direct patient care, documentation, review of labs and images, and coordination of care. Coding Level of Care Code 35334 INP/OBS DISCH >30 MIN Diagnoses LLL pneumonia J18.9 Bacteremia R78.81
--- NOTE | 2024-07-19 12:12 | XCELERA ---
[id number]
[2024-07-19 13:05] VITALS: RESP 18
--- NOTE | 2024-07-19 13:17 | Infectious Disease Progress Nt ---
Date of Service July 19, 2024 Assessment & Plan (1) Pleuritic chest pain: (2) LLL pneumonia: (3) Bacteremia: (4) Chronic indwelling Murillo catheter: (5) Influenza A: Plan This is an 88-year-old male with a past medical history of BPH, chronic indwelling Murillo catheter, hypertension, non-STEMI, A-fib with RVR CAD presents to the ED with confusion, fever, cough, shortness of breath In the ED he was febrile with a Tmax of 39.6, heart rate 120, RR 20, BP 125/64, O2 sats 88% on room air-->91% on 4lNC. Labs BC 16.94, BUN 15, creatinine 0.55. Urinalysis 3+ blood, positive nitrites, 3+ leukocyte esterase,> 50 WBC. Influenza A and (H3) detected on respiratory viral panel. Blood cultures positive for Streptococcus mitis/oralis in 2 out of 4 bottles. Urine culture with Klebsiella oxytoca and Streptococcus mitis/oralis. MRSA screen negative. Chest x-ray with possible mid left lower lobe pneumonia. He is currently on ceftriaxone. ID consulted for Streptococcus mitis bacteremia, influenza A infection, left lower lobe pneumonia and UTI. On my initial exam, he reports resolution of fevers and less cough. He is now on RA. Denies pain at his left hip prosthetic,chest pain, oral or dental pain. He had 3 teeth extracted approximately 3 months ago without any current issues.Reports that Murillo catheter was changed this admission. Microbiology: Urine culture 07/12 >100 K Klebsiella oxytoca (R ampicillin, amp/S UL, I Zosyn ), > 100 K Streptococcus mitis/oralis group Blood culture 07/11 08/16 bottles Streptococcus mitis/oralis group Blood culture 07/16 NGTD Antibiotics: Vancomycin 07/11 Azithromycin 07/11 zosyn 07/11-07/12 Tamiflu 07/11-07/16 Ceftriaxone 07/13- ongoing #Streptococcus Mitis/oralis bacteremia #Streptococcus Mitis/oralis UTi #Right mild toe cellulitis #Chronic murillo #Influenza A infection, completed 5 d tamiflu #LLL pneumonia # LLE hardware # Fair dentition, s/p removal of several teeth ~ 3 mos ago Discussion:Source of streptococcus mitis/oralis bacteremia is unclear. Streptococcus mitis is part to oral corry and is associated with infections such as dental abscesses and endocarditis. Although he had a few teeth removed ~3 mos ago, he denies any current dental issues. TTE with w/o vegatations. No s/o infection at site of LLE hardware/ hip prosthetic. He has Right big toe mild cellulitis. Superimposed bacterial pneumonia in setting of influenza A infection is possible but less likely to be 2/2 strep mitis. I am c/f di sseminated infection as streptococcus mitis growing in both urine and blood stream. Not a common cause of urine infection. Murillo catheter has been changed. Would rule out an endovascular source 07/19 GRACIE completed and reviewed: shows no evidence of a mass or vegetation but does not rule out endocarditis. The coronary cusp of the aortic valve is calcified thickened and poorly mobile. This appears degenerative but a vegetation could not be definitively excluded. There is a mild mitral regurgitation. Recommendations Although GRACIE shows no definitive mass or mobile echodensity/vegetation, the aortic valve is calcified, thickened and poorly mobile and per read vegetation is not definitively excluded. Repeat blood cultures from 07/16 remainssterile. In the setting of presumed disseminated Streptococcus mitis infection, would complete a 4-week course of targeted antibiotics for strep mitis -Continue Ceftriaxone 2 g Iv daily for 4 weeks ( 07/16/24-08/13/24) -Follow up repeat BC 07/16 to ensure remains sterile - Weekly cbc with diff, bmp, lft on antibiotics - repeat blood culture and TTE one week post completion of antibiotics. - establish care with local ID D/W hospitalist. . ID will sign off. Please call with questions. Eligio Mccarty MD, MPH Infectious Disease [facility], [facility] Call [phone] with questions Admission and Anticipated Discharge Date Admission Date: July 11, 2024 Subjective This patient recommendation is based on a telemedicine consult request which was completed asynchronously through chart review and information provided by the primary physician. The patient was not seen or examined today. The evaluation is consultative in nature and all patient care and treatment decisions can either be accepted or rejected by the patient's primary hospital-based treating physician using their own independent medical judgment for their patient. Time Spent Reviewing Chart: 21 - 30 minutes GRACIE results reviewed . 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 Afebrile Results & Data Vital Signs (Past 12 Hours) Vital Signs Temp Pulse Pulse Resp BP BP Pulse Ox 07/19/24 13:02 36.7 C 85 18 135/71 96 07/19/24 10:43 79 16 119/65 93 07/19/24 09:35 88 16 127/77 93 07/19/24 09:15 91 H 14 129/82 98 07/19/24 09:08 93 H 14 137/84 98 07/19/24 08:50 95 H 14 160/93 H 99 07/19/24 08:45 95 H 14 160/93 H 99 07/19/24 08:40 112 H 14 190/120 H 99 07/19/24 08:35 111 H 14 171/114 H 99 07/19/24 08:30 93 H 14 167/107 H 99 07/19/24 08:25 88 136/79 99 07/19/24 08:22 84 14 138/79 94 07/19/24 07:30 07/19/24 07:00 86 07/19/24 03:10 36.8 C 74 18 121/83 96 O2 Del Method 07/19/24 13:02 Room Air 07/19/24 10:43 Room Air 07/19/24 09:35 Room Air 07/19/24 09:15 Room Air 07/19/24 09:08 Room Air 07/19/24 08:50 Room Air, Nasal Cannula 07/19/24 08:45 Room Air, Nasal Cannula 07/19/24 08:40 Room Air, Nasal Cannula 07/19/24 08:35 Room Air, Nasal Cannula 07/19/24 08:30 Room Air, Nasal Cannula 07/19/24 08:25 Room Air, Nasal Cannula 07/19/24 08:22 Room Air 07/19/24 07:30 Room Air 07/19/24 07:00 07/19/24 03:10 Room Air Laboratory Results Laboratory Results - last 48 hr 07/18/24 07/18/24 07/19/24 07:28 11:11 11:08 WBC 7.68 RBC 3.18 L Hgb 12.0 L Hct 33.9 L MCV 106.6 H MCH 37.7 H MCHC 35.4 RDW Std Deviation 53.9 H RDW Coeff of Saeed 13.9 Plt Count 177 MPV 9.3 L Sodium 134 L Potassium 4.5 Chloride 101 Carbon Dioxide 30 Anion Gap 3 BUN 16 Creatinine 0.55 L Est Cr Clr Drug Dosing 95.9 eGFR 95.32 BUN/Creatinine Ratio 29.1 H Glucose 113 H POC Glucose 126 H 101 H Calcium 8.7 Diagnostic Findings Microbiology 07/16/24 14:50 Blood Aerobic Blood Culture - Preliminary No growth in Aerobic bottle after 48 hours. 07/16/24 14:50 Blood Anaerobic Blood Culture - Preliminary No growth in Anaerobic bottle after 48 hours. 07/16/24 14:59 Blood Aerobic Blood Culture - Preliminary No growth in Aerobic bottle after 48 hours. 07/16/24 14:59 Blood Anaerobic Blood Culture - Final 07/11/24 17:02 Blood Aerobic Blood Culture - Final No growth in Aerobic bottle after 5 days. 07/11/24 17:02 Blood Anaerobic Blood Culture - Final No growth in Anaerobic bottle after 5 days. 07/11/24 18:04 Blood Aerobic Blood Culture - Final Streptococcus mitis/oralis grp 07/11/24 18:04 Blood Anaerobic Blood Culture - Final Streptococcus mitis/oralis grp 07/11/24 18:00 Urine,Straight Cath Urine Culture - Final Klebsiella oxytoc/Bahman ornith Streptococcus mitis/oralis grp Medications Administered Home Medications Medication Instructions Recorded Confirmed Last Taken diyvopsd-yo-uxoca 300 mcg-K 60 1 tab PO DAILY 12/22/18 07/11/24 12/01/20 mcg-lycop 600 mcg-lutein 300 mcg tablet (Centrum Silver Men) nitroglycerin 0.4 mg sublingual 0.4 mg sublingual DIRECTED PRN 10/19/19 07/11/24 Unknown tablet Chest Pain omega 1-hny-trb-fish oil 1,000 mg 1 cap PO DAILY 06/05/20 07/11/24 12/01/20 (120 mg-180 mg) capsule (Fish Oil) acetaminophen 500 mg tablet 1,000 mg PO DIRECTED PRN 09/05/20 07/11/24 Unknown Arthritis Pain polyethylene glycol 3350 17 17 g PO QPM 10/08/22 07/11/24 Unknown gram/dose oral powder (Miralax) pravastatin 20 mg tablet 20 mg PO DAILY 10/08/22 07/11/24 Unknown betamethasone valerate 0.1 % 1 applic topical BID PRN phimosis 09/04/23 07/11/24 Unknown topical ointment #15 grams aspirin 81 mg tablet,delayed 81 mg PO DAILY 07/11/24 07/11/24 Unknown release calcium 600 mg (as carbonate)-vit 1 tab PO DAILY 07/11/24 07/11/24 Unknown D3 20 mcg (800 unit) chewable tablet (Caltrate plus D) apixaban 5 mg tablet (Eliquis) 5 mg PO BID #60 tabs 07/19/24 Unknown metoprolol tartrate 25 mg tablet 25 mg PO BID 60 days #120 tabs 07/19/24 Unknown Active Medications Generic Name Dose Route Start Last Admin Trade Name Marquisq PRN Reason Stop Dose Admin Acetaminophen 1,000 mg 07/11/24 22:25 07/14/24 08:22 Acetaminophen 500 Mg Tab PO 08/10/24 22:24 1,000 mg DAILY PRN Administration Arthritis Pain Albuterol 2 puffs 07/15/24 19:00 07/19/24 08:09 Albuterol Hfa 8 Gm Inhaler INH 08/14/24 18:59 Not Given BIDR MARLENA Aspirin 81 mg 07/12/24 09:00 07/19/24 10:51 Aspirin 81 Mg Ectab PO 08/11/24 08:59 81 mg DAILY MARLENA Administration Calcium/Vitamin D 1 tab 07/12/24 09:00 07/19/24 10:51 Calcium 600mg + Vit D 400 Iu Tab PO 08/11/24 08:59 1 tab DAILY MARLENA Administration Diclofenac Sodium 4 gm 07/13/24 17:00 07/19/24 10:50 Diclofenac Sod 1% Gel 100 Gm Tube EXT 08/12/24 16:59 4 gm QID MARLENA Administration Protocol Fish Oil 1 cap 07/12/24 09:00 07/19/24 10:51 [place]-3 (Purified Fish Oil) 1 Gm Cap PO 08/11/24 08:59 1 cap DAILY MARLENA Administration Guaifenesin 1,200 mg 07/11/24 21:00 07/19/24 10:51 Guaifenesin 600 Mg Tabcr PO 08/10/24 20:59 1,200 mg Q12 MARLENA Administration Heparin Sodium (Porcine) 5,000 units 07/11/24 22:25 07/18/24 09:39 Heparin Sod 5,000 Unit/0.5 Ml Vial SQ 08/10/24 22:24 5,000 units Q12 MARLENA Administration Ceftriaxone Sodium 2,000 mg in 50 mls @ 100 mls/hr 07/13/24 09:00 07/19/24 11:33 Rocephin IV 07/27/24 08:59 Infused Q24H MARLENA Infusion Insulin Glargine 8 units 07/12/24 09:00 07/13/24 08:18 Lantus Per Unit Charge SQ 08/11/24 08:59 8 units QAM MARLENA Administration Melatonin 6 mg 07/13/24 21:00 07/18/24 21:15 Melatonin 3 Mg Tab PO 08/12/24 20:59 6 mg HS MARLENA Administration Metoprolol Tartrate 25 mg 07/15/24 09:15 07/19/24 10:52 Metoprolol Tartrate 25 Mg Tab PO 08/14/24 09:14 25 mg BID MARLENA Administration Multivitamins/Minerals 1 tab 07/12/24 09:00 07/19/24 10:52 Cerovite Adv Formula Tab PO 08/11/24 08:59 1 tab DAILY MARLENA Administration Nitroglycerin 0.4 mg 07/11/24 22:25 07/14/24 07:56 Nitroglycerin Sl 0.4 Mg/Tab Tab SL 08/10/24 22:24 0.4 mg UD PRN Administration Chest Pain Polyethylene Glycol 17 gm 07/11/24 22:25 07/18/24 21:16 Polyethylene (Miralax) 17 Gm Pack PO 08/10/24 22:24 17 gm QPM MARLENA Administration Pravastatin Sodium 20 mg 07/12/24 09:00 07/19/24 10:52 Pravastatin Sod 20 Mg Tab PO 08/11/24 08:59 20 mg DAILY MARLENA Administration Triamcinolone Acetonide 1 appln 07/18/24 09:00 07/19/24 10:50 Triamcinolone Acet 0.1% Cr 15 Gm Tube EXT 08/17/24 08:59 1 appln TID MARLENA Administration
[2024-07-19 15:21] VITALS: PULSE 90; TEMP 98.4; O2SAT 94
[2024-07-19 17:47] VITALS: BP 129/82
== END 2024-07-19 15:35 | DRG 698 ==
LOC: ED 16:53 → SUATTDRO 20:00 → 2E 20:00

== ENCOUNTER 2024-09-19 16:26 | Inpatient (IN) ==
[2024-09-19 16:59] LABS: Basophils # (auto) 0.04 K/uL (0.00-0.20); Basophils % (auto) 0.6 %; Eosinophils # (auto) 0.14 K/uL (0.00-0.50); Eosinophils % (auto) 2.1 %; Hematocrit (blood only) 36.7 % (42.0-52.0); Immature Granulocytes # (auto) 0.03 K/uL (0.01-0.20); Immature Granulocytes % (auto) 0.4 %; Lymphocytes # (auto) 2.27 K/uL (1.20-3.40); Mean Corpuscular Hemoglobin 37.7 pg (25.0-34.0); Mean Corpuscular Hgb Conc 35.4 g/dL (32.0-36.0); Mean Corpuscular Volume 106.4 fL (80.0-100.0); Mean Platelet Volume 9.4 fL (9.4-12.4); Monocytes # (auto) 0.76 K/uL (0.11-0.59); Monocytes % (auto) 11.4 %; Neutrophils # (auto) 3.44 K/uL (1.40-6.50); Neutrophils % (auto) 51.5 %; Platelet Count 195 K/uL (130-400); RDW Coefficient of Variation 14.2 % (11.5-14.5); RDW Standard Deviation 55.5 fL (36.4-46.3); Red Blood Count 3.45 M/uL (4.70-6.10); White Blood Count 6.68 K/ul (4.8-10.8)
[2024-09-19 17:17] LABS: Alanine Aminotransferase 49 U/L (7-52); Albumin Globulin Ratio 0.9 (0.9-2); Albumin Level 3.4 gm/dl (3.4-5.0); Alkaline Phosphatase 112 U/L (34-104); Anion Gap 4 (3-11); Aspartate Aminotransferase 93 U/L (13-39); BUN Creatinine Ratio 22.6 (10-20); Bilirubin,Total 0.8 mg/dl (0.2-1.0); Blood Urea Nitrogen 14 mg/dl (6-23); Calcium 9.6 mg/dl (8.6-10.3); Carbon Dioxide 28 mmol/L (21-32); Chloride 99 mmol/L (98-107); Globulin 3.7 gm/dl (2.5-4.0); Glucose 108 mg/dl (70-99(Fasting)); Potassium 4.5 mmol/L (3.5-5.1); Sodium 131 mmol/L (136-145); Total Protein 7.1 gm/dl (6.0-8.3)
--- NOTE | 2024-09-19 17:39 | Emergency Department Note ---
Impression & Plan Acute left flank pain, Acute UTI, Hematuria, Goldsmith catheter in place ED Provider Note NAME: BJ ARNETT AGE: 88 SEX: M : 1935 ARRIVES VIA: Walk-In INFORMANT: [Patient][family] ED PROVIDER(S): [Julito Vieira MD] CHIEF COMPLAINT: Urinary symptoms HISTORY OF PRESENT ILLNESS: The patient is an 88-year-old male who states that he has a chronic Goldsmith catheter. The catheter was changed about 2-1/2 weeks ago. In the last 2 days, he has noticed some blood in the urinary Goldsmith bag. In the last 2 or 3 days, he has had some lower back pain which seems worse to the left. The pain in the back is worse to move. No fever, no vomiting. He states that he is currently on Cipro. He was on a different antibiotic before but then was switched to Cipro by urology. He is also using a yeast cream to the groin. There has been no fall, no trauma, he has no history of ongoing back issues. PMHx/PSHx/Social Hx: See Below PHYSICAL EXAM: GENERAL: Patient is in no acute distress. HEENT: No acute trauma, normocephalic atraumatic, mucous membranes moist, no nasal congestion. NECK: No stridor, no adenopathy, no meningismus, trachea is midline. LUNGS: Occasional crackles, no wheezing, no respiratory distress. Breath sounds diminished bilaterally. HEART: Irregular rhythm, no obvious murmur, distant heart tones. Normal rate. ABDOMEN: Soft, nontender, no peritonitis. No abdominal distention. EXTREMITIES: No cyanosis, full range of motion of all the joints without pain or difficulty. NEUROLOGIC: Oriented x 3, no acute motor or sensory deficits, no focal weakness. SKIN: No jaundice, no diaphoresis. Quite pale. Groin: The patient does not have scrotal erythema. There is a Goldsmith catheter in place. He does have some blood on his briefs. There is dark urine in the Goldsmith bag DIFFERENTIAL DIAGNOSIS: Urinary retention, urinary infection, fracture, sprain, strain, urinary retention, misplaced Goldsmith catheter, renal colic, among others. EMERGENCY DEPARTMENT PROCEDURES: MEDICAL DECISION MAKING: There is no leukocytosis. There is a mild anemia with a hemoglobin of 13. There is a normal platelet count. INR is slightly elevated, likely from his Eliquis use. Sodium slightly low but not in need of emergent correction. No renal failure. There were some subtle liver enzyme elevations, the bilirubin was normal. Urinalysis does suggest infection with over 50 white blood cells. Lumbar CT scan shows significant arthritis and some spurring. No acute fracture by CT imaging. Abdominal and pelvis CT shows some chronic change, no urinary obstruction. On exam, the patient's lower back pain seemed primarily on the left and was worse with percussion as well as movement. He was not febrile. His urinary catheter was draining bloody appearing urine. The patient had the Goldsmith catheter removed and a new Goldsmith catheter placed. He was given IV morphine and IV Zofran. The morphine did not really help his pain. He was ordered for IV Tylenol, IV ceftriaxone and IV Dilaudid. He was ordered for a Lidoderm patch. The patient is still having significant back discomfort. I do think he requires a hospital stay. His complaints are likely multifactorial. I do think some of his back pain is musculoskeletal. There may be a component of pyelonephritis present as his urine is quite dirty appearing. Admission, hydration, IV antibiotic therapy and pain control is warranted. I spoke with the patient and his family. I spoke with case finisher. The on- call hospitalist was consulted. Prior/Outside records/notes reviewed: None Imaging/x-ray results per my interpretation: Chronic Medical/Social conditions affecting care: Advanced age. Eliquis use. Care/Management discussed with: Case management, the on-call hospitalist. Level of care consideration(s): After review of the information above and other included data: --I believe the patient requires escalation of care to admission DISPOSITION: Admission Past Med/Surg History Problem List Pressure injury of deep tissue of sacral region Pleuritic chest pain Left shoulder pain Atrial flutter LLL pneumonia A-fib DVT prophylaxis Hyponatremia Catheter-associated urinary tract infection Acute metabolic encephalopathy Bacteremia Chronic indwelling Goldsmith catheter AMS (altered mental status) (Acute) Fever (Acute) Influenza A (Acute) Urinary retention Periprosthetic hip fracture (Acute) Bilateral primary osteoarthritis of knee Bilateral knee pain Trochanteric tendinitis of left hip Prostate cancer Urinary symptom or sign Hypophosphatemia (Acute) Hypertension NSTEMI (non-ST elevated myocardial infarction) Atrial fibrillation with rapid ventricular response (Acute) Elevated troponin (Acute) Sepsis due to urinary tract infection (Acute) Sepsis (Acute) Acute UTI (urinary tract infection) (Acute) Coronary artery disease History of arthroplasty of right shoulder FH: bilateral hip replacements H/O heart artery stent Restless leg syndrome Hx of prostatic malignancy Hip pain, bilateral Shoulder pain, bilateral Lumbar pain Osteoporosis (Acute) Osteoarthritis Hyperlipidemia Chest pain Medical History Fall Atrial fib/flutter, transient Acidosis, lactic Family History Father Cardiac disorder Mother Cardiac disorder Social History Smoking Status: Never smoker Hx Alcohol Use: No Hx Substance Use: No Preferred Language: Liberian Communication Ability: Effective Visual Impairment: No Limitations Hearing Ability: Hard of Hearing Design Eng Required: No Beliefs That Will Affect Care: None marital status: Current Living Situation: Spouse and Personal Care Facility Current Living Situation Comment: lives with at [facility] current occupational status: retired How many Children do You have: 2 Feels Safe at Home: Yes Assistive Devices: Cane, Walker and Wheelchair Allergies Allergies Allergy/AdvReac Type Severity Reaction Status Date / Time Iodinated Contrast Media Allergy Intermediate " Feels Verified 06/20/24 14:13 [Iodinated Contrast- Oral eliza hot and IV Dye] and painful" perflutren Allergy Unknown BODY GOT Verified 06/20/24 14:13 HOT AND BACK SPASMS propylene glycol Allergy Unknown BODY GOT Verified 06/20/24 14:13 HOT AND BACK SPASMS ragweed pollen Allergy Unknown UNKNOWN Verified 06/20/24 14:13 SANJAY Inhibitors AdvReac Intermediate Cough Verified 06/20/24 14:13 Home Meds Home Medications Medication Instructions Recorded Confirmed [id number] 300 mcg-K 60 1 tab PO DAILY 12/22/18 09/19/24 mcg-lycop 600 mcg-lutein 300 mcg tablet (Centrum Silver Men) nitroglycerin 0.4 mg sublingual 0.4 mg sublingual DIRECTED PRN 10/19/19 09/19/24 tablet Chest Pain omega 8-bpt-zrs-fish oil 1,000 mg 1 cap PO DAILY 06/05/20 09/19/24 (120 mg-180 mg) capsule (Fish Oil) acetaminophen 500 mg tablet 1,000 mg PO DIRECTED PRN 09/05/20 09/19/24 Arthritis Pain polyethylene glycol 3350 17 17 g PO QPM 10/08/22 09/19/24 gram/dose oral powder (Miralax) pravastatin 20 mg tablet 20 mg PO DAILY 10/08/22 09/19/24 aspirin 81 mg tablet,delayed 81 mg PO DAILY 07/11/24 09/19/24 release calcium 600 mg (as carbonate)-vit 1 tab PO DAILY 07/11/24 09/19/24 D3 20 mcg (800 unit) chewable tablet (Caltrate plus D) clotrimazole 1 % topical cream 1 applic topical BID 09/19/24 09/19/24 diclofenac sodium 1 % topical gel 4 g topical QID PRN joint pain 09/19/24 09/19/24 escitalopram oxalate 5 mg tablet 5 mg PO DAILY 09/19/24 09/19/24 furosemide 20 mg tablet See Rx Instructions .Route .COMPLEX 09/19/24 09/19/24 metoprolol tartrate 25 mg tablet 25 mg PO BID 09/19/24 09/19/24 triamcinolone acetonide 0.1 % 1 applic topical BID 09/19/24 09/19/24 topical cream Previous Rx's Medication Instructions Recorded betamethasone valerate 0.1 % 1 applic topical BID PRN phimosis 09/04/23 topical ointment #15 grams apixaban 5 mg tablet (Eliquis) 5 mg PO BID #60 tabs 07/19/24 Results & Data (ED) Vital Signs Vital Signs - 24 hr 09/19/24 16:29 09/19/24 18:17 Temperature 36.7 C Temperature Source Temporal Artery Scan Pulse Rate 87 Pulse Rate [Finger] 89 Respiratory Rate 20 17 Respiratory Effort / Characteristics Non-Labored Non-Labored Spontaneous Respiratory Depth Normal Normal Blood Pressure 133/85 Blood Pressure [Right Arm] 157/98 H Blood Pressure Mean 101 Blood Pressure Mean [Right Arm] 117 Pulse Oximetry 96 99 Oxygen Delivery Method Room Air Room Air Sepsis Recent Fever Within 48 Hours No Sepsis New/Unexplained Change in Mental Status No Sepsis Action Taken by Nursing No Action Required Home Medications Current Medication List: was personally reviewed by me Laboratory Data Attestation: I reviewed the patient's lab results. 09/19/24 16:40 09/19/24 16:40 Lab Results 09/19/24 09/19/24 Range/Units 16:40 18:07 WBC 6.68 (4.8-10.8) K/ul RBC 3.45 L (4.70-6.10) M/uL Hgb 13.0 L (14.0-18.0) g/dl Hct 36.7 L (42.0-52.0) % MCV 106.4 H (80.0-100.0) fL MCH 37.7 H (25.0-34.0) pg MCHC 35.4 (32.0-36.0) g/dL RDW Std Deviation 55.5 H (36.4-46.3) fL RDW Coeff of Saeed 14.2 (11.5-14.5) % Plt Count 195 (130-400) K/uL MPV 9.4 (9.4-12.4) fL Immature Gran % (Auto) 0.4 % Neut % (Auto) 51.5 % Lymph % (Auto) 34.0 % [place] % (Auto) 11.4 % Eos % (Auto) 2.1 % Baso % (Auto) 0.6 % Neut # (Auto) 3.44 (1.40-6.50) K/uL Lymph # (Auto) 2.27 (1.20-3.40) K/uL [place] # (Auto) 0.76 H (0.11-0.59) K/uL Eos # (Auto) 0.14 (0.00-0.50) K/uL Baso # (Auto) 0.04 (0.00-0.20) K/uL Immature Gran # (Auto) 0.03 (0.01-0.20) K/uL PT 12.9 H (9.0-12.0) Seconds INR 1.2 H (0.9-1.1) APTT 28 (21-31) Seconds PTT Ratio 1.0 Sodium 131 L (136-145) mmol/L Potassium 4.5 (3.5-5.1) mmol/L Chloride 99 (98-107) mmol/L Carbon Dioxide 28 (21-32) mmol/L Anion Gap 4 (3-11) BUN 14 (6-23) mg/dl Creatinine 0.62 (0.6-1.4) mg/dl Est Cr Clr Drug Dosing Not Reportable eGFR 91.93 BUN/Creatinine Ratio 22.6 H (10-20) Glucose 108 H (70-99(Fasting)) mg/dl Calcium 9.6 (8.6-10.3) mg/dl Total Bilirubin 0.8 (0.2-1.0) mg/dl AST 93 H (13-39) U/L ALT 49 (7-52) U/L Alkaline Phosphatase 112 H (34-104) U/L Total Protein 7.1 (6.0-8.3) gm/dl Albumin 3.4 (3.4-5.0) gm/dl Globulin 3.7 (2.5-4.0) gm/dl Albumin/Globulin Ratio 0.9 (0.9-2) Urine Color [place] Urine Appearance Cloudy A (Clear) Urine pH >= 9.0 H (4.5-7.5) Ur Specific [place] 1.004 (1.000-1.030) Urine Protein 1+ H (Negative) Urine Glucose (UA) Negative (Negative) Urine Ketones Negative (Negative) Urine Blood 3+ H (Negative) Urine Nitrite Negative (Negative) Urine Bilirubin Negative (Negative) Urine Urobilinogen Negative (Negative) Ur Leukocyte Esterase 3+ H (Negative) Urine WBC (Auto) >50 H (0-5) /hpf Urine RBC (Auto) >20 H (0-2) /hpf U Hyaline Cast (Auto) 6-10 H (0-2) /lpf U Epithel Cells (Auto) 0-2 (0-2) /hpf Urine Bacteria (Auto) None Seen (None Seen) Calcium Oxalate Crystal Present A (None Prsent) Hyaline Casts Present A (None Presnt) /lpf Granular Casts Present A (None Prsent) /lpf Administered Medications Morphine Sulfate (Morphine Sulfate 2 Mg/Ml Carp) 2 mg IV Q15M PRN PRN Reason: Pain Stop: 10/03/24 17:25 Last Admin: 09/19/24 19:10 Dose: 2 mg Documented By: BLD Discontinued Medications Acetaminophen (Ofirmev) 1,000 mg in 100 mls @ 400 mls/hr IV NOW STA Stop: 09/19/24 17:57 Last Infusion: 09/19/24 18:48 Dose: Infused Documented By: Admin: 09/19/24 18:12 Dose: 400 mls/hr Documented By: SANDRO Ceftriaxone Sodium (Rocephin) 2,000 mg in 50 mls @ 100 mls/hr IV NOW STA Stop: 09/19/24 19:17 Last Infusion: 09/19/24 19:58 Dose: Infused Documented By: Admin: 09/19/24 19:10 Dose: 100 mls/hr Documented By: SANDRO Lidocaine HCl (Lidocaine 2% Jelly 5 Ml Tube) 5 ml EXT NOW ONE Stop: 09/19/24 17:29 Last Admin: 09/19/24 18:13 Dose: 5 ml Documented By: SANDRO Morphine Sulfate (Morphine Sulfate 2 Mg/Ml Carp) 2 mg IV NOW STA Stop: 09/19/24 17:27 Last Admin: 09/19/24 17:58 Dose: 2 mg Documented By: SANDRO Ondansetron HCl (Ondansetron Inj 2 Mg/Ml 2 Ml Vial) 4 mg IV NOW STA Stop: 09/19/24 17:27 Last Admin: 09/19/24 17:58 Dose: 4 mg Documented By: SANDRO Imaging Data Radiologist's Impression: Abdomen/Pelvis CT 09/19/24 17:11 EXAM: CT abd pelvis wo con CLINICAL HISTORY: Flank pain TECHNIQUE: Non-contrast CT of the abdomen and pelvis was performed, with the following protocol: axial images, and reconstructed coronal and sagittal images. One of the following dose reduction techniques was utilized for this exam: Automated exposure control, adjustment of the mA and/or kV according to patient size, and use of iterative reconstruction. COMPARISON: 03/27/2023. FINDINGS: Abdomen: Liver: Shrunken cirrhotic liver. Mild interval progression of the hypodense hepatic focal lesion seen at segment V measuring about 1.2 cm. (compared to 1 cm). Gallbladder and Biliary System: The gallbladder is seen dilated (measuring 12 x 6 cm), with a few scattered calcific foci. Also, suspected faint densities are seen at its neck, possibly sludge. Pancreas: Pancreas with prominent parenchymal fatty changes. No pancreatic masses or calcifications were noted. Spleen: Normal in size, shape, and density. No splenic lesions or masses were identified. Parenchymal calcific foci are noted, likely granulomatous. Appendix: The appendix is normal in size without periappendiceal fat stranding, and without an appendicolith. No evidence of appendiceal abscess or perforation. Kidneys and Adrenal Glands: Both kidneys are normal in size, shape, and position. Cortical thickness is within normal limits. No renal calculi or hydronephrosis. Adrenal glands are unremarkable. Abdominal Aorta and Vessels: Atheromatous calcification of the aorta and both iliac vessels. Pelvis: Bilateral total hip replacement with metallic artifacts in the pelvis. Urinary Bladder: inadequately distended. Prostate: Multiple punctate metal attenuation foci surrounding the prostate are compatible with brachytherapy seeds. Seminal Vesicles: Normal appearance without abnormal enlargement or mass. Peritoneal and Retroperitoneal Structures: Thin rim of perihepatic ascites . No lymphadenopathy was noted. Bowel: The visualized bowel loops are normal in caliber and appearance. No evidence of bowel obstruction or wall thickening. Bones and Soft Tissues: Osteopenia. Spondyldoegenrative changes . Ventral wedging of T12 vertebral body likely osteoporotic fracture. Lower chest cuts show stable circumcardial calcification. IMPRESSION: 1. Shrunken cirrhotic liver. stable. 2. Mild interval progression of the hypodense hepatic focal lesion, triphasic study is advisable. 3. Dilated gallbladder with suspected sludge 4. Thin rim of perihepatic ascites . new finding. 5. Pancreatic fatty infiltration with a few scattered calcific foci, likely chronic pancreatitis. 6. Rest of the study is unchanged. Electronically signed by Rock Burch 09-19-2024 7:[address] 09/19/24 17:26 EXAM: CT lumbar spine wo con CLINICAL HISTORY: Low back pain. TECHNIQUE: CT non-contrast scan of lumbar spine done. Axial images were obtained with reformatted coronal and sagittal images and submitted for interpretation. One of the following dose reduction techniques were utilized for this exam: Automated exposure control, adjustment of the mA and/or kV according to patient size, use of iterative reconstruction. DLP: 1635.54 mGy-cm, CTDI: 34.7 mGy, COMPARISON: No prior studies available for comparison. FINDINGS: Vertebrae: Straightening of the lumbar spine possibly due to muscular spasm . Grade I retrolithesis of L2 over L3, and of L4 over L5 . Osteopenia. Ventral wedging of T12 vertebral body likely osteoporotic fracture. Moderate antrolateral osteophytosis of the lumbar vertebral end plates. Intervertebral Discs: Narrowed lumbar disc spaces. Multilevel vacuum phenomenon. OBX.5.1OBX.5.1.1 L2-L3, L3-L4 /OBX.5.1.1OBX.5.1.2 L4-L5 disc osteophyte complex with marked bilateral neural foraminal compromise. /OBX.5.1.2/OBX.5.1 Spinal Canal and Neural Foramina: Spinal canal is of normal caliber with no evidence of spinal stenosis. Facet Joints: Multilevel facet joint arthropathy. Soft Tissues: Normal appearance of the paraspinal soft tissues. No abnormal masses, fluid collections, or signs of inflammation. IMPRESSION: 1. Straightening of the lumbar spine possibly due to muscular spasm. 2. Grade I retrolithesis of L2 over L3, and of L4 over L5 . 3. Ventral wedging of T12 vertebral body likely osteoporotic fracture of indeterminate age. 4. Spondylodegenrative changes, multilevel disc space narrowing with facet hypertrophy. OBX.5.1OBX.5.1.15. L2-L3, L3-L4 /OBX.5.1.1OBX.5.1.2 L4-L5 disc osteophyte complex with marked bilateral neural foraminal compromise. /OBX.5.1.2/OBX.5.1 6. Further evaluation with MR recommended for better assessment. Electronically signed by Rock Burch 09-19-2024 8:00 PM Discharge Plan Visit Data Chief Complaint: Urinary Symptoms Stated Complaint: UTI, BLOOD IN URINE ED Provider: Julito Vieira Discharge Problem: Acute left flank pain, Acute UTI, Hematuria, Goldsmith catheter in place Patient Disposition: Admitted As Inpatient Condition: Fair Forms Stand Alone Forms: [facility] VR1 Prescriptions Prescriptions: No Action Centrum Silver Men 300-600-300 mcg tablet 1 tab PO DAILY nitroglycerin 0.4 mg tablet, sublingual 0.4 mg SL DIRECTED PRN (Reason: Chest Pain) Rx Instructions: PLACE ONE TABLET UNDER THE TONGUE EVERY 5 MINUTES FOR UP TO 3 DOSES OVER 15 MINUTES IF NEEDED FOR CHEST PAIN betamethasone valerate 0.1 % ointment 1 applic topical BID PRN (Reason: phimosis) Qty: 15 1RF acetaminophen 500 mg Tablet 1,000 mg PO DIRECTED PRN (Reason: Arthritis Pain) omega 5-ing-fik-fish oil [Fish Oil] 1,000 mg (120 mg-180 mg) Capsule 1 cap PO DAILY pravastatin 20 mg tablet 20 mg PO DAILY polyethylene glycol 3350 [Miralax] 17 gram/dose Powder 17 g PO QPM Caltrate 600 plus D 600 mg-20 mcg (800 unit) Tablet,Chewable 1 tab PO DAILY aspirin 81 mg tablet,delayed release (DR/EC) 81 mg PO DAILY Eliquis 5 mg tablet 5 mg PO BID Qty: 60 1RF triamcinolone acetonide 0.1 % cream 1 applic TOPICAL BID Rx Instructions: to legs furosemide 20 mg tablet See Rx Instructions .ROUTE .COMPLEX Rx Instructions: 20 mg orally on Thursday, Thursday, and Thursday. Patient must wrap legs everyday clotrimazole 1 % cream 1 applic topical BID Rx Instructions: tip penis and shaft escitalopram oxalate 5 mg tablet 5 mg PO DAILY metoprolol tartrate 25 mg tablet 25 mg PO BID diclofenac sodium 1 % Gel 4 g TOPICAL QID PRN (Reason: joint pain) Referrals Referrals: Annemarie Tomas PA-C [Primary Care Provider] - Discharge Problem: Hematuria Qualifiers: Hematuria type: gross Qualified Code(s): R31.0 - Gross hematuria
[2024-09-19] MEDS: MoRPHine SULFATE 2 MG/ML CARP IV STA (17:58)
[2024-09-19] MEDS: ONDANSETRON INJ 2 MG/ML 2 ML VIAL IV STA (17:58)
[2024-09-19 18:05] LABS: INR 1.2 (0.9-1.1); Partial Thromboplastin Time 28 Seconds (21-31); Prothrombin Time 12.9 Seconds (9.0-12.0)
[2024-09-19] MEDS: ACETAMINOPHEN 1,000 MG/100 ML VIAL IV STA (18:12)
[2024-09-19] MEDS: LIDOCAINE 2% JELLY 5 ML TUBE EXT ONE (18:13)
[2024-09-19 18:35] LABS: Appearance Urine Cloudy (Clear); Bacteria Urine Automated None Seen (None Seen); Bilirubin Urine Negative (Negative); Blood Urine 3+ (Negative); Calcium Oxalate Crystals Urine Present (None Prsent); Color Urine Orange; Epithelial Cell Urine Auto 0-2 /hpf (0-2); Glucose Urine UA Negative (Negative); Granular Casts Urine Present /lpf (None Prsent); Hyaline Casts Urine Present /lpf (None Presnt); Ketones Urine Negative (Negative); Leukocyte Esterase Urine 3+ (Negative); Nitrite Urine Negative (Negative); Protein Urine 1+ (Negative); RBC Urine Automated >20 /hpf (0-2); Specific Gravity Urine 1.004 (1.000-1.030); Urobilinogen Urine Negative (Negative); WBC Urine Automated >50 /hpf (0-5); pH Urine >= 9.0 (4.5-7.5)
[2024-09-19] MEDS: cefTRIAXone SODIUM 2,000 MG/50 ML BAG IV STA (19:10)
[2024-09-19] MEDS: MoRPHine SULFATE 2 MG/ML CARP IV PRN (19:10)
--- NOTE | 2024-09-19 19:58 | CT Scan Report ---
EXAM: CT abd pelvis wo con CLINICAL HISTORY: Flank pain TECHNIQUE: Non-contrast CT of the abdomen and pelvis was performed, with the following protocol: axial images, and reconstructed coronal and sagittal images. One of the following dose reduction techniques was utilized for this exam: Automated exposure control, adjustment of the mA and/or kV according to patient size, and use of iterative reconstruction. COMPARISON: 03/27/2023. FINDINGS: Abdomen: Liver: Shrunken cirrhotic liver. Mild interval progression of the hypodense hepatic focal lesion seen at segment V measuring about 1.2 cm. (compared to 1 cm). Gallbladder and Biliary System: The gallbladder is seen dilated (measuring 12 x 6 cm), with a few scattered calcific foci. Also, suspected faint densities are seen at its neck, possibly sludge. Pancreas: Pancreas with prominent parenchymal fatty changes. No pancreatic masses or calcifications were noted. Spleen: Normal in size, shape, and density. No splenic lesions or masses were identified. Parenchymal calcific foci are noted, likely granulomatous. Appendix: The appendix is normal in size without periappendiceal fat stranding, and without an appendicolith. No evidence of appendiceal abscess or perforation. Kidneys and Adrenal Glands: Both kidneys are normal in size, shape, and position. Cortical thickness is within normal limits. No renal calculi or hydronephrosis. Adrenal glands are unremarkable. Abdominal Aorta and Vessels: Atheromatous calcification of the aorta and both iliac vessels. Pelvis: Bilateral total hip replacement with metallic artifacts in the pelvis. Urinary Bladder: inadequately distended. Prostate: Multiple punctate metal attenuation foci surrounding the prostate are compatible with brachytherapy seeds. Seminal Vesicles: Normal appearance without abnormal enlargement or mass. Peritoneal and Retroperitoneal Structures: Thin rim of perihepatic ascites . No lymphadenopathy was noted. Bowel: The visualized bowel loops are normal in caliber and appearance. No evidence of bowel obstruction or wall thickening. Bones and Soft Tissues: Osteopenia. Spondyldoegenrative changes . Ventral wedging of T12 vertebral body likely osteoporotic fracture. Lower chest cuts show stable circumcardial calcification. IMPRESSION: 1. Shrunken cirrhotic liver. stable. 2. Mild interval progression of the hypodense hepatic focal lesion, triphasic study is advisable. 3. Dilated gallbladder with suspected sludge 4. Thin rim of perihepatic ascites . new finding. 5. Pancreatic fatty infiltration with a few scattered calcific foci, likely chronic pancreatitis. 6. Rest of the study is unchanged. Electronically signed by Rock Burch 09-19-2024 7:57 PM
--- NOTE | 2024-09-19 20:01 | CT Scan Report ---
EXAM: CT lumbar spine wo con CLINICAL HISTORY: Low back pain. TECHNIQUE: CT non-contrast scan of lumbar spine done. Axial images were obtained with reformatted coronal and sagittal images and submitted for interpretation. One of the following dose reduction techniques were utilized for this exam: Automated exposure control, adjustment of the mA and/or kV according to patient size, use of iterative reconstruction. DLP: 1635.54 mGy-cm, CTDI: 34.7 mGy, COMPARISON: No prior studies available for comparison. FINDINGS: Vertebrae: Straightening of the lumbar spine possibly due to muscular spasm . Grade I retrolithesis of L2 over L3, and of L4 over L5 . Osteopenia. Ventral wedging of T12 vertebral body likely osteoporotic fracture. Moderate antrolateral osteophytosis of the lumbar vertebral end plates. Intervertebral Discs: Narrowed lumbar disc spaces. Multilevel vacuum phenomenon. OBX.5.1OBX.5.1.1 L2-L3, L3-L4 /OBX.5.1.1OBX.5.1.2 L4-L5 disc osteophyte complex with marked bilateral neural foraminal compromise. /OBX.5.1.2/OBX.5.1 Spinal Canal and Neural Foramina: Spinal canal is of normal caliber with no evidence of spinal stenosis. Facet Joints: Multilevel facet joint arthropathy. Soft Tissues: Normal appearance of the paraspinal soft tissues. No abnormal masses, fluid collections, or signs of inflammation. IMPRESSION: 1. Straightening of the lumbar spine possibly due to muscular spasm. 2. Grade I retrolithesis of L2 over L3, and of L4 over L5 . 3. Ventral wedging of T12 vertebral body likely osteoporotic fracture of indeterminate age. 4. Spondylodegenrative changes, multilevel disc space narrowing with facet hypertrophy. OBX.5.1OBX.5.1.15. L2-L3, L3-L4 /OBX.5.1.1OBX.5.1.2 L4-L5 disc osteophyte complex with marked bilateral neural foraminal compromise. /OBX.5.1.2/OBX.5.1 6. Further evaluation with MR recommended for better assessment. Electronically signed by Rock Burch 09-19-2024 8:00 PM
--- NOTE | 2024-09-19 20:22 | History & Physical Report ---
Date of Service September 19, 2024 Assessment & Plan (1) Catheter-associated urinary tract infection: Plan: Likely CAUTI from indwelling catheter. Previously grew Klebs that was sensitive to CTX on prior culture results. Continue CTX for now. Urine culture pending. No signs of pyleo on CT. There is a slight elevation in Alk Phos and his AST is chronically elevated, gallbladder dilation, and possible biliary sludge, but symptoms less consistent with biliary etiology. If more concerned for intraabdominal source would need to change abx to include anaerobic coverage. CTX Q24H follow urine cultures (2) Lumbar pain: Plan: Acute on chronic back pain vs complicated UTI vs new mets vs osteoporotic fracture. CT Lumbar spine with multiple abnormal findings - ?acute T12 fracture. MRI ordered. Ortho spine consulted. Caution with narcotic pain medication as patient with confusion/mental status change in the past due to narcotics. No emergent findings - no saddle paresthesia or bowel incontinence. Mag load x 4 grams Baclofen 10 mg x 1 then 5 mg TID Scheduled Tylenol 1 g Q8H Caution narcotics - would do spot dosing 0.25 mg Dilaudid if needed MRI Spine w/wo ordered Ortho spine consulted - appreciate rec (3) Hx of prostatic malignancy: Plan A fib/flutter - continue Eliquis and metoprolol 25 mg BID BLE edema - continue furosemide and leg wraps, continue topicals as needed HLD - continue statin Code status: DNR/DNI DVT ppx: on Eliquis for a fib FENGI: regular diet, light maintenance @ 75 ml/hr x 1L Goldsmith: chronic indwelling Goldsmith Dispo: Tele unit History of Present Illness Chief Complaint: blood in urine Primary Care Provider: Annemarie Tomas PA-C 88 y/o with a PMHx of HLD, a fib on Eliquis, chronic indwelling Goldsmith catheter, BLE edema, prostate cancer presents with concern of blood in his urine. Patient has had blood in his urine for the last few days. Reportedly on cipro per urology. Additionally he is experiencing lower back pain more so on the left. Worse with movement. No fever, vision changes, CP, headaches, abdominal pain, bowel incontinence, saddle paresthesia, trauma to the area, weakness. Does believe his left leg might be more numb. He feels anxious and SOB. O2 saturation 99% on RA while in the room. Did return to bedside a bit later and patient was more calm and resting more comfortably. He had his Goldsmith exchanged in the ED and that has helped with the hematuria. CT A&P without signs of pyelonephritis. CT Lumbar spine abnormal. Hospitalist service consulted for admission for pain control and further workup. Allergies Allergy/AdvReac Type Severity Reaction Status Date / Time Iodinated Contrast Media Allergy Intermediate " Feels Verified 06/20/24 14:13 [Iodinated Contrast- Oral eliza hot and IV Dye] and painful" perflutren Allergy Unknown BODY GOT Verified 06/20/24 14:13 HOT AND BACK SPASMS propylene glycol Allergy Unknown BODY GOT Verified 06/20/24 14:13 HOT AND BACK SPASMS ragweed pollen Allergy Unknown UNKNOWN Verified 06/20/24 14:13 SANJAY Inhibitors AdvReac Intermediate Cough Verified 06/20/24 14:13 Home Medications Medication Instructions Recorded Confirmed Type gfqjnpca-hi-yxjpa 300 mcg-K 60 1 tab PO DAILY 12/22/18 09/19/24 History mcg-lycop 600 mcg-lutein 300 mcg tablet (Centrum Silver Men) nitroglycerin 0.4 mg sublingual 0.4 mg sublingual DIRECTED PRN 10/19/19 09/19/24 History tablet Chest Pain omega 3-mgt-dpi-fish oil 1,000 mg 1 cap PO DAILY 06/05/20 09/19/24 History (120 mg-180 mg) capsule (Fish Oil) acetaminophen 500 mg tablet 1,000 mg PO DIRECTED PRN 09/05/20 09/19/24 History Arthritis Pain polyethylene glycol 3350 17 17 g PO QPM 10/08/22 09/19/24 History gram/dose oral powder (Miralax) pravastatin 20 mg tablet 20 mg PO DAILY 10/08/22 09/19/24 History betamethasone valerate 0.1 % 1 applic topical BID PRN phimosis 09/04/23 09/19/24 Rx topical ointment #15 grams aspirin 81 mg tablet,delayed 81 mg PO DAILY 07/11/24 09/19/24 History release calcium 600 mg (as carbonate)-vit 1 tab PO DAILY 07/11/24 09/19/24 History D3 20 mcg (800 unit) chewable tablet (Caltrate plus D) apixaban 5 mg tablet (Eliquis) 5 mg PO BID #60 tabs 07/19/24 09/19/24 Rx clotrimazole 1 % topical cream 1 applic topical BID 09/19/24 09/19/24 History diclofenac sodium 1 % topical gel 4 g topical QID PRN joint pain 09/19/24 09/19/24 History escitalopram oxalate 5 mg tablet 5 mg PO DAILY 09/19/24 09/19/24 History furosemide 20 mg tablet See Rx Instructions .Route .COMPLEX 09/19/24 09/19/24 History metoprolol tartrate 25 mg tablet 25 mg PO BID 09/19/24 09/19/24 History triamcinolone acetonide 0.1 % 1 applic topical BID 09/19/24 09/19/24 History topical cream Past Med/Surg History Problem List Pressure injury of deep tissue of sacral region Pleuritic chest pain Left shoulder pain Atrial flutter LLL pneumonia A-fib DVT prophylaxis Hyponatremia Catheter-associated urinary tract infection Acute metabolic encephalopathy Bacteremia Chronic indwelling Goldsmith catheter AMS (altered mental status) (Acute) Fever (Acute) Influenza A (Acute) Urinary retention Periprosthetic hip fracture (Acute) Bilateral primary osteoarthritis of knee Bilateral knee pain Trochanteric tendinitis of left hip Prostate cancer Urinary symptom or sign Hypophosphatemia (Acute) Hypertension NSTEMI (non-ST elevated myocardial infarction) Atrial fibrillation with rapid ventricular response (Acute) Elevated troponin (Acute) Sepsis due to urinary tract infection (Acute) Sepsis (Acute) Acute UTI (urinary tract infection) (Acute) Coronary artery disease History of arthroplasty of right shoulder FH: bilateral hip replacements H/O heart artery stent Restless leg syndrome Hx of prostatic malignancy Hip pain, bilateral Shoulder pain, bilateral Lumbar pain Osteoporosis (Acute) Osteoarthritis Hyperlipidemia Chest pain Medical History Fall Atrial fib/flutter, transient Acidosis, lactic Family History Father Cardiac disorder Mother Cardiac disorder Social History Smoking Status: Never smoker Hx Alcohol Use: No Hx Substance Use: No Preferred Language: Occitan Communication Ability: Effective Visual Impairment: No Limitations Hearing Ability: Hard of Hearing Commercial Credit Lead Required: No Beliefs That Will Affect Care: None marital status: Current Living Situation: Spouse Current Living Situation Comment: lives with at [facility] current occupational status: retired How many Children do You have: 2 Other Information That Helps Us Care for You: No Feels Safe at Home: Yes Safety Concerns: Feels Safe At This Time Assistive Devices: Hearing Aid - Bilateral, Walker and Wheelchair Review of Systems 2 Review of Systems: See HPI Physical Exam 2 Physical Exam: Gen: well nourished elderly patient in moderate pain, no distress HEENT: AT NC MMM Resp: CTAB no wheezing noted no increased work of breathing CV: difficult to auscultate due to patient's status, clinically well perfused, trace edema bilaterally auscultation exam limited by patient anxiety/pain/heavy breathing Abd: soft, non-tender, non-distended, +BS Skin: no rashes or bruising Neuro: alert and oriented x 3, Psych: appropriate mood and affect MSK: no obvious deformities, unable to tolerate strength or ROM testing of the lower extremities due to pain, patient reports decreased sensation on the left thigh, symmetric sensation on the shins, and decreased sensation on the right toe - of note patient in pain, anxious, and wifty in following exam commands/reporting symptoms Results & Data Results & Data Vital Signs (Past 12 Hours) Vital Signs Temp Pulse Pulse Resp BP BP Pulse Ox 09/19/24 18:17 89 17 157/98 H 99 09/19/24 16:29 36.7 C 87 20 133/85 96 O2 Del Method 09/19/24 18:17 Room Air 09/19/24 16:29 Room Air Laboratory Results 09/19/24 16:40 09/19/24 16:40 Diagnostic Findings Abdomen/Pelvis CT 09/19/24 17:11 FINDINGS: Abdomen: Liver: Shrunken cirrhotic liver. Mild interval progression of the hypodense hepatic focal lesion seen at segment V measuring about 1.2 cm. (compared to 1 cm). Gallbladder and Biliary System: The gallbladder is seen dilated (measuring 12 x 6 cm), with a few scattered calcific foci. Also, suspected faint densities are seen at its neck, possibly sludge. Pancreas: Pancreas with prominent parenchymal fatty changes. No pancreatic masses or calcifications were noted. Spleen: Normal in size, shape, and density. No splenic lesions or masses were identified. Parenchymal calcific foci are noted, likely granulomatous. Appendix: The appendix is normal in size without periappendiceal fat stranding, and without an appendicolith. No evidence of appendiceal abscess or perforation. Kidneys and Adrenal Glands: Both kidneys are normal in size, shape, and position. Cortical thickness is within normal limits. No renal calculi or hydronephrosis. Adrenal glands are unremarkable. Abdominal Aorta and Vessels: Atheromatous calcification of the aorta and both iliac vessels. Pelvis: Bilateral total hip replacement with metallic artifacts in the pelvis. Urinary Bladder: inadequately distended. Prostate: Multiple punctate metal attenuation foci surrounding the prostate are compatible with brachytherapy seeds. Seminal Vesicles: Normal appearance without abnormal enlargement or mass. Peritoneal and Retroperitoneal Structures: Thin rim of perihepatic ascites. No lymphadenopathy was noted. Bowel: The visualized bowel loops are normal in caliber and appearance. No evidence of bowel obstruction or wall thickening. Bones and Soft Tissues: Osteopenia. Spondyldoegenrative changes . Ventral wedging of T12 vertebral body likely osteoporotic fracture. Lower chest cuts show stable circumcardial calcification. IMPRESSION: 1. Shrunken cirrhotic liver. stable. 2. Mild interval progression of the hypodense hepatic focal lesion, triphasic study is advisable. 3. Dilated gallbladder with suspected sludge 4. Thin rim of perihepatic ascites . new finding. 5. Pancreatic fatty infiltration with a few scattered calcific foci, likely chronic pancreatitis. 6. Rest of the study is unchanged. Electronically signed by Rock Burch 09-19-2024 7:[address] 09/19/24 17:26 FINDINGS: Vertebrae: Straightening of the lumbar spine possibly due to muscular spasm . Grade I retrolithesis of L2 over L3, and of L4 over L5 . Osteopenia. Ventral wedging of T12 vertebral body likely osteoporotic fracture. Moderate antrolateral osteophytosis of the lumbar vertebral end plates. Intervertebral Discs: Narrowed lumbar disc spaces. Multilevel vacuum phenomenon. OBX.5.1OBX.5.1.1 L2-L3, L3-L4 /OBX.5.1.1OBX.5.1.2 L4-L5 disc osteophyte complex with marked bilateral neural foraminal compromise. /OBX.5.1.2/OBX.5.1 Spinal Canal and Neural Foramina: Spinal canal is of normal caliber with no evidence of spinal stenosis. Facet Joints: Multilevel facet joint arthropathy. Soft Tissues: Normal appearance of the paraspinal soft tissues. No abnormal masses, fluid collections, or signs of inflammation. IMPRESSION: 1. Straightening of the lumbar spine possibly due to muscular spasm. 2. Grade I retrolithesis of L2 over L3, and of L4 over L5 . 3. Ventral wedging of T12 vertebral body likely osteoporotic fracture of indeterminate age. 4. Spondylodegenrative changes, multilevel disc space narrowing with facet hypertrophy. OBX.5.1OBX.5.1.15. L2-L3, L3-L4 /OBX.5.1.1OBX.5.1.2 L4-L5 disc osteophyte complex with marked bilateral neural foraminal compromise. /OBX.5.1.2/OBX.5.1 6. Further evaluation with MR recommended for better assessment. Electronically signed by Rock Burch 09-19-2024 8:00 PM Supervising Physician Co-Signing Physician Notes Attending addendum: I have physically seen this patient, have supervised the medical residents activities, and agree with the H&P unless as otherwise noted. Assessment and Plan: The patient is an 88-year-old male with past medical history including hyperlipidemia, atrial fibrillation on Eliquis, chronic indwelling Goldsmith catheter, bilateral lower extremity edema, prostate cancer, periprosthetic hip fracture, hypertension, history of NSTEMI, history of sepsis due to UTI, osteoporosis, and hyperlipidemia. He presents to the emergency department with recent catheter associated urine tract infection 2.5 weeks ago. He reports having developed 2 days of blood in his Goldsmith, and 2 to 3 days of low back pain on the left side. He has been on Cipro per urology, but due to the above symptoms, presents to the ED for assessment. Goldsmith catheter was exchanged in the emergency department, which improved hematuria somewhat. [facility], thought to be due to significant orthopedic abnormalities on CT scan of lumbar spine, and/or possible pyelonephritis. #Severe low back pain- Appears to be a combination of significant of thoracolumbar disease, and pyelonephritis May be a component of liver and gallbladder disease as well, but less likely Pyelonephritis/catheter associated urinary tract infection/prostate cancer history- Follow urine culture sensitivity Continue Goldsmith catheter Most recent urine culture sensitivity from 07/11/2024 growing Streptococcus mitis/oralis GRP, and Klebsiella oxytoca/Texline ornith Thoracolumbar disease- CT scan lumbar spine showing spasm. T12 vertebral osteoporotic fracture. Multilevel bilateral neural foraminal compromise. MRI ordered for further clarification Consult orthopedic spine surgery Adverse reaction to baclofen- Improved symptoms somewhat, unfortunately, patient became hypotensive and had some mild chest pain, and this will be noted as adverse reaction Gallbladder abnormality/liver cirrhosis/progressive focal lesion recommended triphasic evaluation on CT scan- CT notes gallbladder dilation, possible biliary sludge, mildly elevated AST and alk phos, new mild perihepatic ascites, chronic pancreatitis Will need GI input Resident Activity Tracking Resident Involvement: Resident Care Provided Care Provided: Adult Hospital Medicine (1) Catheter-associated urinary tract infection Encounter type: initial encounter Indwelling urinary catheter type: i ndwelling urethral catheter Qualified Code(s): T83.511A - Infection and inflammatory reaction due to indwelling urethral catheter, initial encounter; N39.0 - Urinary tract infection, site not specified
[2024-09-19] MEDS: HYDROmorphone INJ 0.5 MG/0.5 ML SYR IV STA (20:26)
[2024-09-19] MEDS: LIDOCAINE 5% 1 PATCH TD STA (20:27)
[2024-09-19 21:16] LABS: Magnesium 1.8 mg/dl (1.7-2.4)
[2024-09-19] MEDS: BACLOFEN 10 MG TAB PO ONE (21:24)
[2024-09-19] MEDS: MAGNESIUM SULFATE / D5W 1 GM/100 ML BAG IV SCH (21:26)
[2024-09-19] MEDS: SODIUM CHLORIDE 0.9% 1,000 ML IV ONE (22:21)
[2024-09-19] MEDS: LACTATED RINGER'S 1,000 ML IV SCH (22:22)
[2024-09-19] MEDS: ASPIRIN CHEW 324 MG ONE (22:23)
[2024-09-19] MEDS: ASPIRIN CHEW 324 MG PO STA (22:25)
[2024-09-19] MEDS: FAMOTIDINE 20MG IV PUSH 20 MG/5 ML SYR IV STA (22:25)
--- NOTE | 2024-09-19 22:32 | Communication Note ---
Date of Service: September 19, 2024 Alerted via [facility] [employer] of acute change in patient's status at 22:04. Residents to bedside - Dr. Chin, Dr. Shah, and Dr. Hutchinson. Patient with significant hypotension 67/39, lightheadedness, dizziness, and chest pain. Placed in Trendelenburg with improvement in BP to 81/48. Started 1 L NSS bolus. BP improved with MAPs > 65. EKG ordered - per my read no acute ischemic changes, but poor quality study. Dr. Carias present at bedside. Repeat EKG ordered. Given ASA 324 chew and famotidine push. Troponin ordered Q6H. Of note baclofen 10 mg given at 21:24. Likely medication side effect. Would avoid Baclofen in the future. Will continue to monitor. Resident Activity Tracking Resident Involvement: Resident Care Provided Care Provided: Adult Hospital Medicine
[2024-09-19 22:36] LABS: Basophils # (auto) 0.05 K/uL (0.00-0.20); Basophils % (auto) 0.7 %; Eosinophils # (auto) 0.14 K/uL (0.00-0.50); Eosinophils % (auto) 1.9 %; Hematocrit (blood only) 34.2 % (42.0-52.0); Hemoglobin 11.9 g/dl (14.0-18.0); Immature Granulocytes # (auto) 0.02 K/uL (0.01-0.20); Immature Granulocytes % (auto) 0.3 %; Lymphocytes # (auto) 2.62 K/uL (1.20-3.40); Lymphocytes % (auto) 35.4 %; Mean Corpuscular Hemoglobin 37.1 pg (25.0-34.0); Mean Corpuscular Hgb Conc 34.8 g/dL (32.0-36.0); Mean Corpuscular Volume 106.5 fL (80.0-100.0); Mean Platelet Volume 9.6 fL (9.4-12.4); Monocytes # (auto) 0.74 K/uL (0.11-0.59); Neutrophils # (auto) 3.83 K/uL (1.40-6.50); Neutrophils % (auto) 51.7 %; Platelet Count 177 K/uL (130-400); RDW Coefficient of Variation 13.8 % (11.5-14.5); RDW Standard Deviation 54.9 fL (36.4-46.3); Red Blood Count 3.21 M/uL (4.70-6.10)
[2024-09-19 22:37] LABS: Troponin I High Sensitivity 11.8 pg/ml (0-20)
[2024-09-19 22:50] LABS: Anion Gap 5 (3-11); BUN Creatinine Ratio 21.2 (10-20); Blood Urea Nitrogen 14 mg/dl (6-23); Calcium 9.2 mg/dl (8.6-10.3); Carbon Dioxide 26 mmol/L (21-32); Chloride 102 mmol/L (98-107); Glucose 106 mg/dl (70-99(Fasting)); Potassium 3.9 mmol/L (3.5-5.1); Sodium 133 mmol/L (136-145)
[2024-09-19] MEDS ORDERED: ONDANSETRON INJ 2 MG/ML 2 ML VIAL IV PRN (22:57)
[2024-09-19] MEDS ORDERED: MAGNESIUM HYDROXIDE SUSP 30 ML UDC PO PRN (22:57)
[2024-09-19] MEDS ORDERED: ALUMINUM/MAGNESIUM SUSP 30 ML UDC PO PRN (22:57)
[2024-09-19] MEDS ORDERED: MELATONIN 3 MG TAB PO PRN (22:57)
[2024-09-19] MEDS: ASPIRIN 81 MG ECTAB PO STA (23:14)
[2024-09-19] MEDS ORDERED: MOMETASONE FUROATE 0.1% OINT 15 GM TUBE EXT PRN (23:18)
[2024-09-19 23:37] LABS: Troponin I High Sensitivity 10.5 pg/ml (0-20)
--- OUTSIDE RECORDS SUMMARY | 2024-09-19 23:47 | External Medical Summary | Continuity of Care Document ---
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) - Suicidal ideations(Final) - Discharge Disposition: Home or Self Care Attending Physician: MARILUZ Tomas Jessica A Referring Physician: MARILUZ Tomas Jessica A Encounter Type: Clinic Allergies, Adverse Reactions, Alerts Substance Criticality Severity Reaction Reaction Severity Status Ragweed shortness of breath Active SANJAY Inhibitors cough Activ e Definity 1 Unable to assess criticality Moderate back spasm Active 1back spasm Immunizations Given and Recorded Vaccine Date Status Refusal Reason RSV vaccine preF3, recombinant 08/11/23 Recorded SARS-CoV-2 (COVID-19) mRNA-vacc - [id number] 05/16/23 Recorded SARS-CoV-2 mRNA (Pfizer 12+) bivalent 04/15/22 Rec orded SARS-CoV-2 mRNA ([id number]) 12/23/21 Re corded SARS-CoV-2 (COVID-19) mRNA BNT-162b2 vax 1 04/25/21 Recorded SARS-CoV-2 (COVID-19) mRNA BNT-162b2 vax 2 11/10/20 Recorded SARS-CoV-2 (COVID-19) mRNA BNT-162b2 vax 3 10/20/20 Recorded influenza virus vaccine, inactivated 04/05/20 Give n influenza virus vaccine, inactivated 05/11/19 Give n influenza virus vaccine, inactivated 4 04/27/18 Gi godwin influenza virus vaccine, inactivated 04/23/17 Give n influenza virus vaccine, inactivated 04/17/16 Give n influenza virus vaccine, inactivated 03/29/15 Give n influenza virus vaccine, inactivated 03/29/14 Give n influenza virus vaccine, inactivated 03/28/13 Give n influenza virus vaccine, inactivated 04/14/12 Dl rded influenza virus vaccine, inactivated 04/03/11 Dl rded influenza virus vaccine, inactivated 04/08/10 Dl rded influenza virus vaccine, inactivated 03/15/09 Dl rded influenza virus vaccine, inactivated 04/24/08 Dl rded influenza virus vaccine, inactivated 04/22/07 Dl rded influenza virus vaccine, inactivated 01/09/06 Dl rded influenza virus vaccine, inactivated 04/22/05 Dl rded influenza virus vaccine, inactivated 07/19/03 Dl rded zoster vaccine, inactivated 5 06/13/19 Recorded zoster vaccine, inactivated 06/11/19 Recorded zoster vaccine, inactivated 10/22/18 Recorded tetanus/diphtheria/pertuss, acel (Tdap) 04/23/17 G iven tetanus/diphtheria/pertuss, acel (Tdap) 6 10/22/06 Recorded tetanus/diphtheria/pertuss, acel (Tdap) 7 10/14/06 Recorded pneumococcal 13-valent vaccine 04/26/15 Given pneumococcal 13-valent vaccine 8 04/22/05 Recorded pneumococcal 13-valent vaccine 9 04/22/05 Recorded pneumococcal 13-valent vaccine 10 04/25/04 Recorde d pneumococcal 13-valent vaccine 11 04/25/04 Recorde d pneumococcal 13-valent vaccine 12 07/19/03 Recorde d pneumococcal 13-valent vaccine 13 07/19/03 Recorde d zoster vaccine live 14 11/11/07 Recorded varicella virus vaccine 11/11/07 Recorded Zoster Vaccine Unspecified 11/11/07 Recorded tetanus toxoids-diphtheria, Td (Adult) 15 10/22/06 Recorded tetanus toxoids-diphtheria, Td (Adult) 10/14/06 Re corded pneumococcal 23-valent vaccine 04/22/05 Recorded pneumococcal 23-valent vaccine 04/25/04 Recorded pneumococcal 23-valent vaccine 07/19/03 Recorded 1Result Comment: 2021-05-20: Historical information-source unspecified 2Result Comment: 2021-05-20: Historical information-source unspecified 3Result Comment: 2021-05-20: Historical information-source unspecified 4Early/Late Reason: Other : DR WAS IN ROOM WITH PT 5Result Comment: 2021-05-20: Historical information-source unspecified 6Result Comment: Route: Unknown 7Result Comment: Route: Unknown 8Result Comment: [04/26/2015 Uncharted] as per previous dr's office, the pneumoccocal 23 was given not the prenar 13. 9Result Comment: 2021-05-20: Historical information-source unspecified 10Result Comment: [04/26/2015 Uncharted] this was the pneumococcal 23 as per last office. 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 15Result Comment: 2021-05-20: Historical information-source unspecified Problem List Condition Confirmation Course Effective Dates Status H ealth Status Informant Neurologic gait dysfunction Confirmed Active Actinic Keratosis Confirmed Active Benign hypertension Confirmed Active CAD in [place] artery Confirmed Active Right carpal tunnel syndrome Confirmed Active Osteoarthritis of hands, bilateral Confirmed Active Dermatophytosis of Nail Confirmed Active Skin lesion of scalp Confirmed Active H/O: infectious disease Confirmed Active Hereditary hemochromatosis 1 Confirmed Active Left hip pain Confirmed Active Hx of non-ST elevation myocardial infarction (NSTEMI) Confirmed Active Hx of chronic ischemic heart disease Confirmed Active Hyperlipidemia Confirmed Active Localized, primary osteoarthritis of lower leg Confirmed Active Low back pain Confirmed Active Lumbar radiculopathy Confirmed Active Lumbar spondylosis Confirmed Active Malignant neoplasm prostate Confirmed Active [place]enckebach Confirmed Active [place]bach Confirmed Active Multi vessel coronary artery disease Confirmed Active Osteoarthritis Confirmed Active Osteoporosis Confirmed Active Paroxysmal atrial fibrillation Confirmed Active Polyneuropathy Confirmed Active Recurrent major depression (disorder) Confirmed Active Restless leg syndrome Confirmed Active Senile purpura Confirmed 01/29/21 Active Left shoulder pain Confirmed Active Urge incontinence Confirmed Active Weight disorder Confirmed Active 1See Outside Note 01/08/22 01/02/2022 [facility] Procedures Procedure Date Related Diagnosis Body Site Status CT of abdomen and pelvis 1 03/27/[address] of abdomen and pelvis 2 10/08/[address] of cervical spine 3 10/08/[address] of head 4 10/08/22 Completed Open reduction and internal fixation of fracture 5 10/08/22 Completed Audiological evaluation 6 03/03/22 Completed Shave biopsy and cauterisati on of skin 7 03/07/20 Completed Ultrasound 8 12/09/17 Completed Cystoscopy 11/[address] of abdomen and pelvis 9 10/14/16 Completed Ultrasound-Renal 10 09/18/16 Compl eted Colonoscopy 11 05/28/16 Completed Colonoscopy 12 05/28/16 Completed Shave biopsy of skin 04/30/16 Comp leted MRI of the Brain 13 08/29/15 Compl eted Cataract surgery 14 02/07/15 Compl eted Phacoemulsification of right cataract with posterior chamber lens implant 15 02/07/15 Completed Phacoemulsification of catar act with intraocular lens implantation 16 01/25/15 Completed Cataract surgery 17 01/24/15 Compl eted Total hip replacement 06/05/13 Com pleted Bone density scan 18 10/14/11 Comp leted Colonoscopy 12/11/04 Completed biopsy of prostate 04/01/04 Comple jaydon ankle brachial index test-11/24/2006 Completed coronary artery dilation, [place] - 01/29/2006 Completed Hip replacement 19 Comple jaydon Partial shoulder replacement 20 Completed stress echo - 05/25/2008 Completed tonsils and adnoids-194 Completed transforaminal epidural ster oid injection Completed [address] [place] [address] Impression: 1. The bladder is decompressed around a Goldsmith catheter and appears thick-walled. Correlate with clinical findings and urinalysis. 2. Trace free fluid in the pelvis is a nonspecific but abnormal finding. 3. Cirrhotic liver morphology. 4. There is evidence of chronic pancreatitis. 5. The pericardium is densely calcified. This is unchanged from previous. [facility] Impression: 1. Acute comminuted and displaced periprosthetic fracture of the left femur extends from the intertrochanteric distrubution distally into the mid diaphysis 2. No acute intra-abominal or intrapelvic abnormality 3[facility] Impression: 1. There is not CT evidence of fracture or subluxation involving the cervical spine. The skeletal structures are heterogeneous and significantly demineralized, making the examination difficult to interpret. Note that MRI is more sensitive for vertebral body fracture if there is clinical concern for occult injury 2. Spondylotic change 4[facility] Impression: 1. There is no hemorrhage, mass effect, or evidence of acute territorial ischemia by CT criteria 2. Large right frontoparietal scalp hematoma 5[facility] Left femur 6[facility] Impression: Otoscopy: Bilateral-Clear ear cancals. Pure tone testing: Normal sloping to severe sensorineural hearing loss bilaterally. Word recognition: Right ear- 56% at 85dBHL Left ear-80 % at 85dBHL. 7right preauricular area 8ABDOMEN LIMITED IMPRESSION: No significant abnormality within the lower anterior pelvis at the patients area of interest 9No urinary calculi or urothelial lesions identified although the distal ureters and bladder are suboptimally assessed due to streak artifact from bilateral hip arthroplasties. No acute process within the abdomen or pelvis 10No bladder wall thickening. The bilateral ureteral jets were identified. Low level echoes identified within the bladder suggesting complex fluid 11Impressions: Diverticulosis in the sigmoid colon. nonbleeding internal hemorrhoids A few non-bleeding colonic angioectasias. The exam was other [place] normal. No specimens collected. 12Diverticulosis in the sigmoid colon Non-bleeding internal hemorrhoids A few non-bleeding colonic angioectasias The exam was otherwise normal. No specimens collected 13Impression: No evidence for an acute intracranial process. Minimal paranasal sinus thickening. 14right eye 15Phacoemulsification of right cataract with posterior chamber lens implant, type Bausch [employer] Lomb, model MX60, power =24.0 [place] 16Phacoemulsification of left cataract with posterior chamber lens implant, type Bausch [employer] Lomb, model MX60, power +25.0 dioplers 17L. eye 18T-score: -2.7 19Left 20Right Results Laboratory List Name Date Complete Blood Count w Differential (CBC ,DIFFH) 09/16/24 Thyroid Stimulating Hormone (TSH) 09/16/24 Most recent to oldest [Reference Range]: 1 MPV [9.0-12.2 fL] 10.3 fL (09/16/24 3:11 PM) Immature Gran% 0.8 % (09/16/24 3:11 PM) Neut% 51.3 % (09/16/24 3:11 PM) Lymph% 33.2 % (09/16/24 3:11 PM) [place]% 11.9 % (09/16/24 3:11 PM) Baso% 0.7 % (09/16/24 3:11 PM) Eos% 2.1 % (09/16/24 3:11 PM) Immat Gran, Abs [0-0.4 K/uL] 0.05 K/uL (09/16/24 3:11 PM) Neut, Abs [2.0-7.7 K/uL] 3.16 K/uL (09/16/24 3:11 PM) Lymph, Abs [1.0-3.4 K/uL] 2.04 K/uL (09/16/24 3:11 PM) [place], Abs [0-1.0 K/uL] 0.73 K/uL (09/16/24 3:11 PM) Baso, Abs [0-0.1 K/uL] 0.04 K/uL (09/16/24 3:11 PM) Eos, Abs [0-0.5 K/uL] 0.13 K/uL (09/16/24 3:11 PM) Type of Diff: AUTO *Unknown* (09/16/24 3:11 PM) RDW [11.5-14.2 %] 14.2 % (09/16/24 3:11 PM) Hct [39-48 %] 35.1 % *LOW* (09/16/24 3:11 PM) Hgb [13.0-17.0 g/dL] 12.1 g/dL *LOW* (09/16/24 3:11 PM) MCH [28-33 pg] 38.3 pg *HI* (09/16/24 3:11 PM) MCHC [32-36 g/dL] 34.5 g/dL (09/16/24 3:11 PM) MCV [81-96 fL] 111.1 fL *HI* (09/16/24 3:11 PM) Plts [150-350 K/uL] 205 K/uL (09/16/24 3:11 PM) RBC [4.40-5.60 M/uL] 3.16 M/uL *LOW* (09/16/24 3:11 PM) TSH [0.47-4.68 uIU/mL] 3.05 uIU/mL 1 (09/16/24 3:11 PM) WBC [4.0-10.4 K/uL] 6.15 K/uL (09/16/24 3:11 PM) 1Result Comment: Testing Performed By: [facility], [address] [place] [id number] Social History Social History Type Response Smoking Status Never smoked cigaret saul Sex Male Sex Representation Male (finding) Patient Care team information Care Team Personnel Name: MARILUZ Tomas, Annemarie Polk Position: Physician Asst Exmpt - Family Med Member Role: Primary Care Provider Address: [address] [place] [address] Telecom: [phone] Care Team Related Persons Name: GIDEON ARNETT Insurance Providers Guarantor name: BJ ARNETT Health Plan Information #: 1 Payer: [employer] Member Number: [id number] Policy Number: NA Group Number: [id number] Health Plan Information #: 2 Payer: [employer] Member Number: [id number] Policy Number: NA Group Number: NA
--- OUTSIDE RECORDS SUMMARY | 2024-09-19 23:47 | External Medical Summary | Continuity of Care Document ---
Author Name Unknown Organization [address] Address [address] [place], [place] [id number] Care Team Providers Care Ore Grader Name Role Phone Annemarie Tomas Primary Care Physician [phone] [id number] Date(s): 08/24/24 - 08/24/[address] SHE[place] A [address] [address] [phone] Encounter Diagnosis Pneumonia(Discharge Diagnosis) - 08/24/24 Paroxysmal atrial fibrillation(Discharge Diagnosis) - 08/24/24 Benign hypertension(Discharge Diagnosis) - 08/24/24 Hereditary hemochromatosis(Discharge Diagnosis) - 08/24/24 Discharge Disposition: Home or Self Care Attending Physician: HERI Barahona Tara Encounter Type: Clinic Allergies, Adverse Reactions, Alerts Substance Criticality Severity Reaction Reaction Severity Status Ragweed shortness of breath Active SANJAY Inhibitors cough Activ e Definity 1 Unable to assess criticality Moderate back spasm Active 1back spasm Assessment and Plan Extracted from: Title:hospital follow up Author:HERI Barahona Tar a Date:08/24/24 1.Pneumonia Acute/Chronic: chronic Goal:Resolution/ control Status:stable/controlled Data: records/pt report Plan: His lungs are clear. No signsof pneumonia. 2.Paroxysmal atrial fibrillation Acute/Chronic: chronic Goal:Resolution/ control Status:stable/controlled Data: records/pt report Plan: On metoprolol and eliquis.No falls. Follow up with cards in two weeks. 3.Benign hypertension Acute/Chronic: chronic Goal:Resolution/ control Status:stable/controlled Data: records/pt report Plan: BP is well controlled. 4.Hereditary hemochromatosis Acute/Chronic: chronic Goal:Resolution/ control Status:stable/controlled Data: records/pt report Plan: Follows with hematology. 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 15Result Comment: 2021-05-20: Historical information-source unspecified Medications aspirin 81 mg oral delayed release tablet Start: 10/10/20 2:49:00 PM EDT, 1 tab, PO, Daily Start Date: 10/10/20 Status: Ordered Repeat number: 1 Centrum Silver oral tablet Start: 09/07/12 4:20:00 PM EST, 1 tab, PO, Daily Start Date: 09/07/12 Status: Ordered Repeat number: 1 Eliquis 5 mg oral tablet Start: 08/24/24 3:27:00 PM EST, 1 tab, PO, bid, Disp# 60 tab, Refills: 6, Pharmacy: [id number] Start Date: 08/24/24 Stop Date: 03/22/25 Status: Ordered Quantity: 60.0 Unit: tab Repeat number: 7 Fish Oil 1000 mg oral capsule Start: 09/07/12 4:19:00 PM EST, 1 cap, PO, Daily Start Date: 09/07/12 Status: Ordered Repeat number: 1 Metoprolol Tartrate 25 mg oral tablet Start: 08/24/24 2:48:00 PM EST, 1 tab, PO, bid Start Date: 08/24/24 Status: Ordered Repeat number: 1 metoprolol tartrate 25 mg oral tablet Start: 08/24/24 3:27:00 PM EST, 1 tab, PO, bid, Disp# 60 tab, Refills: 6, Pharmacy: [id number] Start Date: 08/24/24 Stop Date: 03/22/25 Status: Ordered Quantity: 60.0 Unit: tab Repeat number: 7 MiraLax oral powder for reconstitution Start: 09/26/13 9:57:00 AM EDT, See Instructions, 1 tbsp daily Start Date: 09/26/13 Status: Ordered Repeat number: 1 Nitrostat 0.4 mg sublingual tablet Start: 08/26/22 3:50:00 PM EST, See Instructions, Disp# 50 tab, Refills: 3, PLACE 1 TABLET UNDER TONGUE EVERY 5 MINUTES FOR NEEDED FOR CHEST PAIN, Note to Pharmacy: please divide into 2 dose vials for patient, Pharmacy: [id number] Start Date: 08/26/22 Status: Ordered Quantity: 50.0 Unit: tab Repeat number: 4 pravastatin 20 mg oral tablet Start: 07/26/24 9:05:00 AM EST, 1 tab, PO, Daily, Disp# 90 tab, Refills: 3, Pharmacy: [id number] Start Date: 07/26/24 Status: Ordered Quantity: 90.0 Unit: tab Repeat number: 1 triamcinolone 0.1% topical cream Start: 08/24/24 3:28:00 PM EST, 1 appl, topical, bid, Disp# 454 g, Refills: 3, Pharmacy: [id number] Start Date: 08/24/24 Status: Ordered Quantity: 454.0 Unit: g Repeat number: 4 Tylenol Start: 09/26/13 9:57:00 AM EDT, 500 mg =, PO, qhs, take 2 tabs po as needed for arthritis Start Date: 09/26/13 Status: Ordered Repeat number: 1 Mental Status 08/24/24 Barriers to Learning one year None evide nt Mandatory Health Literacy Documentation Yes Health Literacy Communication Barriers N ever Primary Language Sami Problem List Condition Confirmation Course Effective Dates Status H ealth Status Informant Neurologic gait dysfunction Confirmed Active Actinic Keratosis Confirmed Active Benign hypertension Confirmed Active 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 Confirmed Active Right carpal tunnel syndrome [...] Outside Note 01/08/22 01/02/2022 [facility] Diagnosis Diagnosis Type Effective Dates Health Status Clinical Service Informant Pneumonia Discharge Diagnosis 08/24/24 Non-Specified Paroxysmal atrial fibrillation Discharge Diagnosis 08/24/24 Non-Specified Benign hypertension Discharge Diagnosis 08/24/24 Non-Specified Hereditary hemochromatosis Discharge Diagnosis 08/24/24 Non-Specified Procedures Procedure Date Related Diagnosis Body Site [...] Colonoscopy 12/11/04 Completed biopsy of prostate 04/01/04 [facility] ankle brachial index test-11/24/2006 Completed coronary artery dilation, [place] - 01/29/2006 Completed Hip replacement 19 Comple gene Partial shoulder replacement 20 Completed stress echo - 05/25/2008 Completed tonsils and adnoids-1946 Completed transforaminal epidural ster oid injection Completed [address] [place] [address] Impression: 1. The bladder is decompressed around a Murillo catheter and appears thick-walled. Correlate with clinical findings and urinalysis. 2. Trace free fluid in the pelvis is a nonspecific but abnormal finding. 3. Cirrhotic liver morphology. 4. There is evidence of chronic pancreatitis. 5. The pericardium is densely calcified. This is unchanged from previous. [address] [place] [address] Impression: 1. Acute comminuted and displaced periprosthetic fracture of the left femur extends from the intertrochanteric distrubution distally into the mid diaphysis 2. No acute intra-abominal or intrapelvic abnormality [address] [place] [address] Impression: 1. There is not CT evidence of fracture or subluxation involving the cervical spine. The skeletal structures are heterogeneous and significantly demineralized, making the examination difficult to interpret. Note that MRI is more sensitive for vertebral body fracture if there is clinical concern for occult injury 2. Spondylotic change 4[facility] Impression: 1. There is no hemorrhage, mass effect, or evidence of acute territorial ischemia by CT criteria 2. Large right frontoparietal scalp hematoma 5[facility] Left femur 6[facility] Impression: Otoscopy: [...] dioplers 17L. eye 18T-score: -2.7 19Left 20Right Vital Signs Most recent to oldest [Reference Range]: 1 Patient Weight 83.9 kg (08/24/24 2:50 PM) Temperature [36.5-37.9 DegC] 36.7 DegC (08/24/24 2:50 PM) Heart Rate 96 bpm (08/24/24 2:50 PM) Respiratory Rate 18 br/min (08/24/24 2:50 PM) Blood Pressure 124/68mmHg (08/24/24 2:50 PM) Social History Social History Type Response Smoking Status Never smoked cigaret saul Sex Male Sex Representation Male (finding) [facility] Outpt Note * HERI Barahona Tara: PERFORM Event Display: [facility] Outpt Note Authored Date: [id number] Chief Complaint f/u hospital admission in Jul, was transferred to rehab ([facility]), is now back into his apartment at the [facility]. States is feeling better. Denies any further cough or issues from beinghospitalized. History of Present Illness Patient was admitted on and discharged on 07/19/2024 for left lower lobe pneumonia bacteremia positive for strep mitis. No oral infection was noted patient did undergo a GRACIE which was normal. Potential sources included right toe cellulitis, left lower lobe pneumonia, UTI and possible oral infection. He was recommended to complete a full 4-week course of antibiotics. During admission he received vancomycin azithromycin and Zosyn and was originally transferred over to [facility]. Was recommended that a chest x-ray for follow-up be completed 4 to 6 weeks. So recommended that he either repeat echo done after completion of antibiotics. Patient does have a indwelling Murillo catheter which was exchanged on 07/16/2024. Patient was started on Eliquis during hospitalization due toa history of A-fib. He had not been anticoagulated in the past due to concerns for falls. Patient had only had 1 fall in the previous year so it was felt to be appropriate to start him on Eliquis. He was also started on metoprolol tartrate twice daily 25 mg. He is back in his apartment at the [facility]. He is eating and drinking. He does note he has less of appetite. His weight is stable. His was at [facility] and is now at [facility]. He has echo and follow up with cards in the next two weeks. Has an indwelling murillo. Follows with urology. Review of Systems Constitutional: No fever, chills, sweats EENT:No vision change, eye pain, rhinorrhea, sinus pain, epistaxis, dysphagia, change in hearing,tinnitus, vertigo, oral ulcers or lesions. Pulmonary: No shortness of breath, dyspnea with exertion, cough, hemoptysis, wheezing, chest pain. Cardiovascular: No chest pain, palpitations, syncope, edema, cyanosis, claudication, orthopnea. GI: No nausea, vomiting, diarrhea, melena, hematochezia, change in appetite, abdominal pain, changein bowel habits or stools : murillo Neurologic: No headache, lightheadedness, dizziness Psychiatric: No depression, anxiety Endocrine: No weight change, heat or cold intolerance, tremor, insomnia, polyuria, polydipsia, polyphagia, abnormal hair growth, change in nails Physical Exam Vitals & Measurements T:36.7C HR:96(Monitored) RR:18 BP:124/68 SpO2:98% WT:83.900kg(Dosing) WT:83.9kg PHQ2 Data(Data Documented on:08/24/2024 14:50) Emotional health assessment NEGATIVE head- normocephalic eyes- PERRLA , conjunctiva clear, sclera white, anicteric, neck-no lymphadenopathy, masses, or thyromegaly, +carotid pulses, no bruits, trachea midline Pulmonary- chest expansion symmetric, CTA (clear to auscultation), eupnea, no adventitious sounds (rales, crackles, wheezes) CV (cardiovascular)- RRR no m/r/g (systolic ejection murmur, rubs, gallops), good peripheral perfusion extremitiesPedal edema. Wearing GENE hose skin-good turgor w/o lesions, redness, cyanosis, edema nails- no clubbing or deformities w good cap refill Neuro:Alert, Oriented Psy:no homicidal or suicidal ideations. Assessment/Plan 1.Pneumonia Acute/Chronic: chronic Goal:Resolution/ control Status:stable/controlled Data: records/pt report Plan:His lungs are clear. No signsof pneumonia. 2.Paroxysmal atrial fibrillation Acute/Chronic: chronic Goal:Resolution/ control Status:stable/controlled Data: records/pt report Plan:On metoprolol and eliquis.No falls. Follow up with cards in two weeks. 3.Benign hypertension Acute/Chronic: chronic Goal:Resolution/ control Status:stable/controlled Data: records/pt report Plan:BP is well controlled. 4.Hereditary hemochromatosis Acute/Chronic: chronic Goal:Resolution/ control Status:stable/controlled Data: records/pt report Plan:Follows with hematology. 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 Osteoarthritis Osteoarthritis of hands, bilateral Osteoporosis Paroxysmal atrial fibrillation Polyneuropathy Recurrent major depression (disorder) Restless leg syndrome Right carpal tunnel syndrome Senile purpura Skin lesion of scalp Urge incontinence Weight disorder Aj Rocha Procedure/Surgical History CT of abdomen and pelvis| Service Date: 3Open reduction and internal fixation of fracture| Service Date: 3CT of head| Service Date: 3CT of cervical spine| Service Date: 3CT of abdomen and pelvis| Service Date: 10/08/2022udiological evaluation| Service Date: 03/03/2022have biopsy and cauterisation of skin| Service Date: 03/07/2020Ultrasound| Service Date: 12/09/2017Cystoscopy| Service Date: 11/2016CT of abdomen and pelvis| Service Date: 10/14/2016Ultrasound-Renal| Service Date: 09/18/2016Colonoscopy| Service Date: 05/28/2016Colonoscopy| Service Date: 05/28/2016Shave biopsy of skin| Service Date: 04/30/2016MRI of the Brain| Service Date: 08/29/2015Cataract surgery| Service Date: 02/07/2015Phacoemulsification of right cataract with posterior chamber lens implant| Service Date: 02/07/2015Phacoemulsification of cataract with intraocular lens implantation| Service Date: 01/25/2015Cataract surgery| Service Date: 01/24/2015Total hip replacement| Service Date: 06/05/2013one density scan| Service Date: 10/14/2011Colonoscopy| Service Date: 12/11/2004biopsy of prostate| Service Date: 04/01/2004Partial shoulder replacementHip replacementtransforaminal epidural steroid injectionankle brachial index test-11/24/2006stress echo - 05/25/2008coronary artery dilation, [place] - 01/29/2006tonsils and adtraviss-1946 Medications acetaminophen(Tylenol), 500 mg, PO, qhs apixaban(Eliquis 5 mg oral tablet), 5 mg= 1 tab, PO, bid, 6 refills aspirin(aspirin 81 mg oral delayed release tablet), 81 mg= 1 tab, PO, Daily metoprolol(Metoprolol Tartrate 25 mg oral tablet), 25 mg= 1 tab, PO, bid metoprolol(metoprolol tartrate 25 mg oral tablet), 25 mg= 1 tab, PO, bid, 6 refills multivitamin with minerals(Centrum Silver oral tablet), 1 tab, PO, Daily nitroglycerin(Nitrostat 0.4 mg sublingual tablet), See Instructions, 3 refills omega-3 polyunsaturated fatty acids(Fish Oil 1000 mg oral capsule), 1000 mg= 1 cap, PO, Daily polyethylene glycol 3350(MiraLax oral powder for reconstitution), See Instructions pravastatin(pravastatin 20 mg oral tablet), 1 tab, PO, Daily triamcinolone topical(triamcinolone 0.1% topical cream), 1 appl, topical, bid, 3 refills Allergies Definity (Moderate)back spasm SANJAY Inhibitorscough Ragweedshortness of breath Social History Smoking Status Never smoked cigarettes Alcohol - Denies Alcohol Use Employment/School Status:Retired 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 Heart disease: Mother and Father. Osteoarthritis: Mother and Father. Health Status Family Member(s) Family Member(s) Relationship: Son, Age: 57 Years, Cause: [place] Immunizations Vaccine Date Status RSV vaccine preF3, recombinant 08/11/2023 Recorded SARS-CoV-2 (COVID-19) mRNA-vacc - [id number] 05/16/2023 Recorded SARS-CoV-2 mRNA (Pfizer 12+) bivalent 04/15/2022 Recorded SARS-CoV-2 mRNA ([id number]) 12/23/2021 Recorded SARS-CoV-2 (COVID-19) mRNA BNT-162b2 vax 04/25/2021 Recorded Comments : 2021-05-20: Historical information-source unspecified SARS-CoV-2 (COVID-19) mRNA BNT-162b2 vax 11/10/2020 Recorded Comments : 2021-05-20: Historical information-source unspecified SARS-CoV-2 (COVID-19) mRNA BNT-162b2 vax 10/20/2020 Recorded Comments : 2021-05-20: Historical information-source unspecified influenza virus vaccine, inactivated 04/05/2020 Given zoster vaccine, inactivated 06/13/2019 Recorded Comments : 2021-05-20: Historical information-source unspecified zoster vaccine, inactivated 06/11/2019 Recorded influenza virus vaccine, inactivated 05/11/2019 Given zoster vaccine, inactivated 10/22/2018 Recorded influenza virus vaccine, inactivated 04/27/2018 Given Comments : Other : WAS IN ROOM WITH PT tetanus/diphtheria/pertuss, acel (Tdap) 04/23/2017 Given influenza virus vaccine, inactivated 04/23/2017 Given influenza virus vaccine, inactivated 04/17/2016 Given pneumococcal 13-valent vaccine 04/26/2015 Given influenza virus vaccine, inactivated 03/29/2015 Given influenza virus vaccine, inactivated 03/29/2014 Given influenza virus vaccine, inactivated 03/28/2013 Given influenza virus vaccine, inactivated 04/14/2012 Recorded influenza virus vaccine, inactivated 04/03/2011 Recorded influenza virus vaccine, inactivated 04/08/2010 Recorded influenza virus vaccine, inactivated 03/15/2009 Recorded influenza virus vaccine, inactivated 04/24/2008 Recorded zoster vaccine live 11/11/2007 Recorded Comments : Route: Subcutaneously 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 varicella virus vaccine 11/11/2007 Recorded Zoster Vaccine Unspecified 11/11/2007 Recorded influenza virus vaccine, inactivated 04/22/2007 Recorded tetanus/diphtheria/pertuss, acel (Tdap) 10/22/2006 Recorded Comments : Route: Unknown tetanus toxoids-diphtheria, Td (Adult) 10/22/2006 Recorded Comments : 2021-05-20: Historical information-source unspecified tetanus/diphtheria/pertuss, acel (Tdap) 10/14/2006 Recorded Comments : Route: Unknown tetanus toxoids-diphtheria, Td (Adult) 10/14/2006 Recorded influenza virus vaccine, inactivated 01/09/2006 Recorded pneumococcal 23-valent vaccine 04/22/2005 Recorded influenza virus vaccine, inactivated 04/22/2005 Recorded pneumococcal 13-valent vaccine 04/22/2005 Recorded Comments : 2021-05-20: Historical information-source unspecified pneumococcal 23-valent vaccine 04/25/2004 Recorded pneumococcal 13-valent vaccine 04/25/2004 Recorded Comments : 2021-05-20: Historical information-source unspecified pneumococcal 23-valent vaccine 07/19/2003 Recorded influenza virus vaccine, inactivated 07/19/2003 Recorded pneumococcal 13-valent vaccine 07/19/2003 Recorded Comments : 2021-05-20: Historical information-source unspecified Recommendations Health Maintenance Pending(in the next year) OverDue Medicare Annual Wellness Visit due05/22/23and every 1year Body Mass Index due05/23/23and every 366day Adult Influenza Vaccine due01/11/24and every 1year Due Adult Social Determinants of Health Screening due08/24/24Unknown Frequency Satisfied(in the past 1 year) There are no satisfied recommendations within the defined date range Electronic Signature on File Electronically Reviewed/Signed by: HERI Mendoza Author Signature Dt/Tm:08/24/2024 03:41 PM Department of Family Medicine TB Patient Care team information Care Team Personnel Name: MARILUZ Tomas Jessica A Position: Physician Asst Exmpt - Family Med Member Role: Primary Care Provider [address]: [address] [place] [address] [place] Telecom: [phone] Care Team Related Persons Name: GIDEON ARNETT Insurance Providers Guarantor name: BJ Crockett ARNETT tsumobi Plan Information #: 1 Payer: [employer] PPO Member Number: [id number] Policy Number: NA Group Number: [id number] Health Plan Information #: 2 Payer: [employer] PPO Member Number: [id number] Policy Number: NA Group Number: [id number]"
--- OUTSIDE RECORDS SUMMARY | 2024-09-19 23:47 | External Medical Summary | Continuity of Care Document ---
Author Name Unknown Organization [facility] [address] Address [address] [place], [place] [id number] Care Team Providers Care Invoicing Machine Operator Name Role Phone Annemarie Tomas Primary Care Physician [phone] [id number] Date(s): 08/30/24 - 08/30/24 [facility] [address], [address] [place] [address] [phone] Discharge Disposition: Home or Self Care Attending Physician: HERI Escobar Sarah A Referring Physician: HERI Escobar Sarah A Encounter Type: Clinic Allergies, Adverse Reactions, Alerts Substance Criticality Severity Reaction Reaction Severity Status Ragweed shortness of breath Active SANJAY Inhibitors cough Activ e Definity 1 Unable to assess criticality Moderate back spasm Active 1back spasm Immunizations Given and Recorded Vaccine Date Status Refusal Reason RSV vaccine preF3, recombinant 08/11/23 Recorded SARS-CoV-2 (COVID-19) mRNA-vacc - [id number] 05/16/23 Recorded SARS-CoV-2 mRNA (Pfizer 12+) bivalent 04/15/22 Rec orded SARS-CoV-2 mRNA ([id number]) 12/23/21 Re corded SARS-CoV-2 (COVID-19) mRNA BNT-162b2 [...] Historical information-source unspecified 14Result Comment: Route: Subcutaneously Outside B2B Sales: [employer] 15Result Comment: 2021-05-20: Historical [...] bid, Disp# 60 tab, Refills: 6, Pharmacy: [id number] Start Date: 08/24/24 Stop Date: [...] bid, Disp# 60 tab, Refills: 6, Pharmacy: [id number] Start Date: 08/24/24 Stop Date: [...] into 2 dose vials for patient, Pharmacy: [id number] Start Date: 08/26/22 Status: Ordered Quantity: 50.0 Unit: tab Repeat number: 4 pravastatin 20 mg oral tablet Start: 07/26/24 9:05:00 AM EST, 1 tab, PO, Daily, Disp# 90 tab, Refills: 3, Pharmacy: [id number] Start Date: 07/26/24 Status: Ordered Quantity: 90.0 Unit: tab Repeat number: 1 triamcinolone 0.1% topical cream Start: 08/24/24 3:28:00 PM EST, 1 appl, topical, bid, Disp# 454 g, Refills: 3, Pharmacy: [id number] Start Date: 08/24/24 Status: Ordered Quantity: 454.0 Unit: g Repeat number: 4 Tylenol Start: 09/26/13 9:57:00 AM EDT, 500 mg =, PO, qhs, take 2 tabs po as needed for arthritis Start Date: 09/26/13 Status: Ordered Repeat number: 1 Problem List Condition Confirmation Course Effective Dates Status H ealth Status Informant Neurologic gait dysfunction Confirmed Active Actinic Keratosis Confirmed Active Benign hypertension Confirmed Active CAD in [place] artery Confirmed Active Right carpal tunnel syndrome [...] Completed [facility] ster [facility]id [facility]: 1. The bladder is decompressed around a Goldsmith catheter and appears thick-walled. Correlate with clinical findings and urinalysis. 2. Trace free fluid in the pelvis is a nonspecific but abnormal finding. 3. Cirrhotic liver morphology. 4. There is evidence of chronic pancreatitis. 5. The pericardium is densely calcified. This is unchanged from previous. [facility] Impression: 1. Acute comminuted and displaced periprosthetic fracture of the left femur extends from the intertrochanteric distrubution distally into the mid diaphysis 2. No acute intra-abominal or intrapelvic abnormality [facility] Impression: 1. There is not CT evidence of fracture or subluxation involving the cervical spine. The skeletal structures are heterogeneous and significantly demineralized, making the examination difficult to interpret. Note that MRI is more sensitive for vertebral body fracture if there is clinical concern for occult injury 2. Spondylotic change 4[facility] Impression: 1. There is no hemorrhage, mass effect, or evidence of acute territorial ischemia by CT criteria 2. Large right frontoparietal scalp hematoma 5[facility] Left femur 6[facility] Impression: Otoscopy: [...] 17L. eye 18T-score: -2.7 19Left 20Right Results Radiology Reports * Exam Date Time Procedure Performing Provider Status 08/30/24 5:20 PM Echo TransTHORacic TTE Complete Thursday; Final Notes: (Echo TransTHORacic TTE Complete) Reason For Exam: bacteremia Echo TransTHORacic TTE Complete Report Signatures Finalized by Dr. Rohith Kelley MD on 08/31/2024 01:34 PM [place] Act 112: Yes - Discussed with patient Summary 1. Technically difficult study due to patient body habitus. 2. Small, underfilled left ventricle. 3. Low normal left ventricular systolic function with no regional wall motion abnormalities. 4. Ejection fraction as calculated by Biplane Simpsons method is 55 %. 5. No left ventricular hypertrophy. 6. Unable to assess the LV diastolic function due to atrial fibrillation; Probably Type 2 DD. 7. Normal RV size. 8. Moderately Reduced RV systolic function; TAPSE is 1.0 cm. 9. Dilated right atrium. 10. 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 11. Mild mitral valve regurgitation. 12. Mild tricuspid regurgitation. 13. Normal estimated pulmonary artery pressures, estimated PASP is 20 mmHg. 14. Compared to the prior study performed 06/29/2019, the patient is now in atria fibrillation and the LV systolic function appears to have slightly decreased. Patient Info Name: BJ ARNETT Age: 88 years : 1935 Gender: Male Ht: 178 cm Wt: 83 kg BSA: 2.04 m2 HR: 80 bpm BP: 120 / 74 mmHg Heart Rhythm: Atrial Fibrillation Technical Quality: Poor Exam Date: 08/30/2024 4:09 PM Exam Location: [facility] Patient Status: Outpatient Staff Ordering Physician: Penny Escobar Lead Operator: Clarita Person RDCS, RVT Attending Physician: Penny Escobar Study Info CPT 48439 - Indications R7881 - Bacteremia Procedure(s) * A complete two-dimensional, color flow and Doppler transthoracic echocardiogram was performed. Exam Type: Cardiac Basic Left Ventricle Technically difficult study due to patient body habitus. Small, underfilled left ventricle. Low normal left ventricular systolic function with no regional wall motion abnormalities. Ejection fraction as calculated by Biplane Simpsons method is 55 %. No left ventricular hypertrophy. Unable to assess the LV diastolic function due to atrial fibrillation; Probably Type 2 DD. Right Ventricle Normal RV size. Moderately Reduced RV systolic function; TAPSE is 1.0 cm. Left Atrium Normal left atrial size. Right Atrium Dilated right atrium. Atrial Septum Appears intact. Aortic Valve Calcified, tricuspid aortic valve without significant stenosis. Trace aortic valve insufficiency. Pulmonic Valve Unremarkable pulmonic valve. Mitral Valve Mild mitral valve regurgitation. Tricuspid Valve Mild tricuspid regurgitation. Normal estimated pulmonary artery pressures, estimated PASP is 20 mmHg. Pericardium/Pleural No pericardial effusion. Inferior Vena Cava Normal IVC size with reduced inspiratory collapse. Estimated right atrial pressure is 8 mmHg. Aorta Calcified aortic root and sinotubular junction. Normal size aortic root for BSA. 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 Left Ventricular Outflow Tract Name Value Normal LVOT 2D LVOT Diameter 2.2 cm LVOT Doppler LVOT Peak Velocity 0.75 m/s LVOT Peak Gradient 2 mmHg LVOT Mean Gradient 1 mmHg LVOT VTI 13.94 cm LVOT Stroke Volume 54.32 ml LVOT Stroke Volume Index 0.03 l/m2 LVOT Cardiac Output 4.35 l/min LVOT Cardiac Index 2.13 L/min/m2 Pulmonic Valve Name Value Normal PV 2D RVOT Diameter (2D) 1.6 cm 1.7-2.7 RVOT Doppler RVOT Peak Velocity 0.60 m/s RVOT Peak Gradient 1 mmHg PV Doppler PV Peak Velocity 0.89 m/s PV Peak Gradient 3 mmHg Mitral Valve Name Value Normal MV Doppler MV PHT 65 ms MV Diastolic Function MV E Peak Velocity 1.16 m/s <=0.50 MV Decel Time 223 ms MV Annular TDI MV Septal s' Velocity 9.09 cm/s MV Septal e' Velocity 8.26 cm/s >=7.00 MV E/e' (Septal) 14.0 <=8.0 MV Lateral s' Velocity 8.54 cm/s MV Lateral e' Velocity 9.51 cm/s >=10.00 MV E/e' (Lateral) 12.18 <=8.00 MV e' Average 8.88 MV E/e' (Average) 13.10 <=14.00 Tricuspid Valve Name Value Normal TV Regurgitation Doppler TR Peak Velocity 1.72 m/s <=2.80 TR Peak Gradient 17 mmHg Estimated PAP/RSVP RA Pressure 8 mmHg <=5 PA Systolic Pressure 20 mmHg <40 TV Diastolic Function TV E Peak Velocity 0.43 m/s TV Decel Time 194 ms >=120 TV Annular TDI TV Lateral Viktoriya s' Velocity 9.7 cm/s 9.5-18.7 TV Lateral Viktoriya e' Velocity 10.9 cm/s <7.8 TV E/e' 3.98 2.00-6.00 Aorta Name Value Normal Ascending Aorta Sinus of Valsalva Diameter 3.8 cm 3.1-3.7 Sinus of Valsalva Index 1.86 cm/m2 1.50-1.90 Prox Asc Ao Diameter 3.7 cm 2.6-3.4 Prox Asc Ao Diameter Index 1.83 cm/m2 1.30-1.70 Venous Name Value Normal IVC/SVC IVC Diameter (Insp 2D) 1.2 cm IVC Diameter (Exp 2D) 1.8 cm <=2.1 IVC Diameter Percent Change (2D) 32 % >=50 Aortic Valve Name Value Normal AV Doppler AV Peak Velocity 1.15 m/s <2.00 AV Peak Gradient 5 mmHg AV Area (Cont Eq Dangelo) 2.6 cm2 AV Area Index (Cont Eq Dangelo) 1.25 cm2/m2 AV V1/V2 Ratio 0.66 AV Regurgitation 2D LVOT Area 3.9 cm2 Ventricles Name Value Normal LV Dimensions 2D/MM IVS Diastolic Thickness (2D) 0.9 cm 0.6-1.0 LVID Diastole (2D) 4.0 cm 3.6-5.6 LVIW Diastolic Thickness (2D) 0.9 cm 0.6-1.0 LVID Systole (2D) 2.2 cm 2.5-4.0 LVOT Diameter 2.2 cm LV Mass (2D Cubed) 104.66 g 88.00-224.00 Relative Wall Thickness (2D) 0.43 LV Fractional Shortening/Ejection Fraction 2D/MM LV Fractional Shortening (2D) 44 % 25-43 LV Diastolic Volume (4C MOD) 59 ml LV Diastolic Volume (2C MOD) 53 ml LV Diastolic Volume (BP MOD) 56 ml 62-150 LV Diastolic Volume Index (BP MOD) 27.35 ml/m2 34.00-74.00 LV Systolic Volume (BP MOD) 25 ml 21-61 LV Systolic Volume Index (BP MOD) 12.42 ml/m2 11.00-31.00 LV EF (BP MOD) 55 % 57-68 LV SV (BP MOD) 30.50 ml RV Dimensions 2D/MM RV Basal Diastolic Dimension 3.7 cm 2.5-4.1 TAPSE 1.0 cm >=1.7 Atria Name Value Normal LA Dimensions LA Area (4C) 22.5 cm2 LA Length (4C) 6.1 cm LA Area (2C) 18.3 cm2 LA Length (2C) 5.7 cm LA Volume (4C A-L) 70.06 ml LA Volume (2C A-L) 49.72 ml LA Volume (BP A-L) 61 ml 18-58 LA Volume Index (BP A-L) 29.97 ml/m2 <=34.00 RA Dimensions RA Area (4C) 20.2 cm2 <=18.0 Final Signed by:DO Kelley Jason D Signed (Electronic Signature):08/30/2024 4:09 p Social History Social History Type Response Smoking Status Never smoked cigaret saul Sex Male Sex Representation Male (finding) Patient Care team information Care Team Personnel Name: MARILUZ Tomas, Annemarie Polk [facility] Member Role: Primary Care Provider Address: [address] [place] [address] Telecom: [phone] Care Team Related Persons Name: GIDEON ARNETT Insurance Providers Guarantor name: BJ ARNETT Health Plan Information #: 1 Payer: [employer] Member Number: [id number] Policy Number: NA Group Number: [id number] Health Plan Information #: 2 Payer: [employer] Member Number: [id number] Policy Number: NA Group Number: NA
--- OUTSIDE RECORDS SUMMARY | 2024-09-19 23:47 | External Medical Summary | Continuity of Care Document ---
Author Name Unknown Organization [facility] [address] [place], [place] [id number] Care Team Providers Care Hand Gluer And Slicer Name Role Phone Annemarie Tomas Primary Care Physician [phone] [facility] [id number] Date(s): 09/16/24 - 09/16/24 [facility] [address] [facility] [address] [facility], [address] [place], [place] [phone] Encounter Diagnosis Essential (primary) hypertension(Final) - Atherosclerotic heart disease of [place] coronary artery without angina pectoris (Final) - Hyperlipidemia, unspecified(Final) - Paroxysmal atrial fibrillation(Final) - Discharge Disposition: Home or Self Care Attending Physician: DO Kelley Jason D Referring Physician: DO Kelley Jason D Encounter Type: Clinic Allergies, Adverse Reactions, Alerts Substance Criticality Severity Reaction Reaction Severity Status Ragweed shortness of breath Active SANJAY Inhibitors cough Activ e Definity 1 Unable to assess criticality Moderate back spasm Active 1back spasm Immunizations Given and Recorded Vaccine Date Status Refusal Reason RSV vaccine preF3, recombinant 08/11/23 Recorded SARS-CoV-2 (COVID-19) mRNA-vacc - [id number] 05/16/23 Recorded SARS-CoV-2 mRNA (Pfizer 12+) bivalent 04/15/22 Rec orded SARS-CoV-2 mRNA ([id number]) 12/23/21 Re corded SARS-CoV-2 (COVID-19) mRNA BNT-162b2 [...] Historical information-source unspecified 14Result Comment: 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 15Result Comment: 2021-05-20: Historical information-source unspecified Problem List Condition Confirmation Course Effective Dates Status H ealth Status Informant Neurologic gait dysfunction Confirmed Active Actinic Keratosis Confirmed Active Benign hypertension Confirmed Active CAD in [place] artery Confirmed Active Right carpal tunnel syndrome [...] Completed transforaminal epidural ster oid injection Completed [address] [place] [address] Impression: 1. The bladder is decompressed around a Goldsmith catheter and appears thick-walled. Correlate with clinical findings and urinalysis. 2. Trace free fluid in the pelvis is a nonspecific but abnormal finding. 3. Cirrhotic liver morphology. 4. There is evidence of chronic pancreatitis. 5. The pericardium is densely calcified. This is unchanged from previous. [address] [place] [address] Impression: 1. Acute comminuted and displaced periprosthetic fracture of the left femur extends from the intertrochanteric distrubution distally into the mid diaphysis 2. No acute intra-abominal or intrapelvic abnormality 3[facility] Impression: 1. There is not CT evidence of fracture or subluxation involving the cervical spine. The skeletal structures are heterogeneous and significantly demineralized, making the examination difficult to interpret. Note that MRI is more sensitive for vertebral body fracture if there is clinical concern for occult injury 2. Spondylotic change 4[facility] Impression: 1. There is no hemorrhage, mass effect, or evidence of acute territorial ischemia by CT criteria 2. Large right frontoparietal scalp hematoma 5[facility] Left femur 6[facility] Impression: Otoscopy: Bilateral-Clear [...] 19Left 20Right Results Laboratory List Name Date Basic Metabolic Panel (BASIC METAB PANEL ) 09/16/24 Most recent to oldest [Reference Range]: 1 eGFR CKD-EPI [>60 mL/min/1.73 m2] 89 mL/ min/1.73 m2 1 (09/16/24 3:06 PM) Estimated CrCl 78.37 mL/min (09/16/24 3:36 PM) Anion Gap [5-14 mmol/L] 1 mmol/L *LOW* (09/16/24 3:06 PM) BUN [7-20 mg/dL] 17 mg/dL (09/16/24 3:06 PM) Ca [8.4-10.2 mg/dL] 8.6 mg/dL (09/16/24 3:06 PM) Cl- [96-107 mmol/L] 101 mmol/L (09/16/24 3:06 PM) HCO3 [22-30 mmol/L] 25 mmol/L (09/16/24 3:06 PM) Cret [0.70-1.30 mg/dL] 0.68 mg/dL *LOW* (09/16/24 3:06 PM) Glu [74-106 mg/dL] 137 mg/dL *HI* (09/16/24 3:06 PM) K [3.5-5.1 mmol/L] 4.6 mmol/L (09/16/24 3:06 PM) Na [137-145 mmol/L] 127 mmol/L *LOW* (09/16/24 3:06 PM) 1Result Comment: Testing Performed By: Dept of Pathology [facility], [address] [place] [address] Social History Social History Type Response Smoking Status Never smoked cigaret saul Sex Male Sex Representation Male (finding) Patient Care team information Care Team Personnel Name: MARILUZ Tomas Jessica A Position: Physician Asst [facility] - Family Med Member Role: Primary Care Provider Address: [address] [place] [address] [address] [place] [address] Telecom: [phone] Care Team Related Persons Name: GIDEON ARNETT Insurance Providers Guarantor name: JB Crockett MELQUIADES Health Plan Information #: 1 Payer: [employer] Member Number: [id number] Policy Number: NA Group Number: [id number] Health Plan Information #: 2 Payer: [employer] P[employer] Member Number: [id number] Policy Number: NA Group Number: NA
--- OUTSIDE RECORDS SUMMARY | 2024-09-19 23:47 | External Medical Summary | Continuity of Care Document ---
Author Name Unknown Organization [facility] [address] [facility] Address [address] [place], [place] [id number] Care Team Providers Care Director Of Manufacturing Name Role Phone Annemarie Tomas Primary Care Physician [phone] [id number] Date(s): 09/09/24 - 09/09/24 [facility] [address], [address] [place] [address] [phone] Encounter Diagnosis Adjustment disorder with mixed anxiety and depressed mood(Discharge Diagnosis) - 09/09/24 Suicidal ideation(Discharge Diagnosis) - 09/09/24 Cellulitis of penis(Discharge Diagnosis) - 09/09/24 Sore of penis(Discharge Diagnosis) - 09/09/24 Penile discharge(Discharge Diagnosis) - 09/09/[address](Discharge Diagnosis) - 09/09/24 Fatigue(Discharge Diagnosis) - 09/09/24 Generalized weakness(Discharge Diagnosis) - 09/09/24 Ambulatory dysfunction(Discharge Diagnosis) - 09/09/24 Urethral discharge, unspecified(Final) - Other specified disorders of penis(Final) - Discharge Disposition: Home or Self Care Attending Physician: MARILUZ Tomas Jessica A Encounter Type: Clinic Allergies, Adverse Reactions, Alerts Substance Criticality Severity Reaction Reaction Severity Status Ragweed shortness of breath Active SANJAY Inhibitors cough Activ e Definity 1 Unable to assess criticality Moderate back spasm Active 1back spasm Immunizations Given and Recorded Vaccine Date Status Refusal Reason RSV vaccine preF3, recombinant 08/11/23 Recorded SARS-CoV-2 (COVID-19) mRNA-vacc - [id number] 05/16/23 Recorded SARS-CoV-2 mRNA (Pfizer 12+) bivalent 04/15/22 Rec orded SARS-CoV-2 mRNA ([id number]) 12/23/21 Re corded SARS-CoV-2 (COVID-19) mRNA BNT-162b2 [...] 8Result Comment: [04/26/2015 Uncharted] as per previous 's office, the pneumoccocal 23 was given not the prenar 13. 9Result Comment: 2021-05-20: Historical information-source unspecified 10Result Comment: [04/26/2015 Uncharted] this was the pneumococcal 23 as per last office. 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 15Result Comment: 2021-05-20: Historical information-source unspecified Mental Status 09/09/24 Barriers to Learning one year None evide nt Problem List Condition Confirmation Course Effective Dates Status H ealth Status Informant Neurologic gait dysfunction Confirmed Active Actinic Keratosis Confirmed Active Benign hypertension Confirmed Active CAD in grindstone artery Confirmed Active Right carpal tunnel syndrome [...] Effective Dates Health Status Clinical Service Informant Fatigue Discharge Diagnosis 09/09/24 Non-Specified Generalized weakness Discharge Diagnosis 09/09/24 Non-Specified Ambulatory dysfunction Discharge Diagnosis 09/09/24 Non-Specified Suicidal ideation Discharge Diagnosis 09/09/24 Non-Specified Sore of penis Discharge Diagnosis 09/09/24 Non-Specified Penile discharge Discharge Diagnosis 09/09/24 Non-Specified Goldsmith catheter in place Discharge Diagnosis 09/09/24 Non-Specified Adjustment disorder with mixed anxiety and depressed mood Discharge Diagnosis 09/09/24 Non-Specified Cellulitis of penis Discharge Diagnosis 09/09/24 Non-Specified Procedures Procedure Date Related Diagnosis Body [...] Completed transforaminal epidural ster oid injection Completed [address] [place] [address] Impression: 1. The bladder is decompressed around a Goldsmith catheter and appears thick-walled. Correlate with clinical findings and urinalysis. 2. Trace free fluid in the pelvis is a nonspecific but abnormal finding. 3. Cirrhotic liver morphology. 4. There is evidence of chronic pancreatitis. 5. The pericardium is densely calcified. This is [facility]. [facility] Impression: 1. Acute comminuted and displaced periprosthetic fracture of the left femur extends from the intertrochanteric distrubution distally into the mid diaphysis 2. No acute intra-abominal or intrapelvic abnormality [facility] Impression: 1. There is not CT evidence of fracture or subluxation involving the cervical spine. The skeletal structures are heterogeneous and significantly demineralized, making the examination difficult to interpret. Note that MRI is more sensitive for vertebral body fracture if there is clinical concern for occult injury 2. Spondylotic change 4[facility] Impression: 1. There is no hemorrhage, mass effect, or evidence of acute territorial ischemia by CT criteria 2. Large right frontoparietal scalp hematoma 5[facility] Left femur [facility] Impression: Otoscopy: [...] 19Left 20Right Results Laboratory List Name Date Urine Analysis w/ Reflexed Microscopic. (URINE W/REFLEX MICR) 09/09/24 Most recent to oldest [Reference Range]: 1 Bact (u) [NONE-NONE] MODERATE 1 *Abnormal* (09/09/24 11:56 AM) Bili (u) [NEG] NEGATIVE *Unknown* (09/09/24 11:56 AM) Ketones [NEG mg/dL] NEGATIVE mg/dL (09/09/24 11:56 AM) Leuk Est [NEG] LARGE 2 *Abnormal* (09/09/24 11:56 AM) Nitrite (u) [NEG] NEGATIVE *Unknown* (09/09/24 11:56 AM) Appear (u) CLOUDY *Unknown* (09/09/24 11:56 AM) Color (u) YELLOW *Unknown* (09/09/24 11:56 AM) Glu (u) [NEG mg/dL] NEGATIVE mg/dL (09/09/24 11:56 AM) Hgb (u) [NEG] MODERATE *Abnormal* (09/09/24 11:56 AM) pH (u) [4.5-8.0 unit] 6.5 unit (09/09/24 11:56 AM) Prot (u) [NEG mg/dL] NEGATIVE mg/dL (09/09/24 11:56 AM) RBC (u) [0-4 /HPF] 20-29 /HPF (09/09/24 11:56 AM) Urobili [0.1-1.0 EU/dL] 0.2 EU/dL (09/09/24 11:56 AM) SG [1.005-1.030] 1.015 (09/09/24 11:56 AM) WBC (u) [0-4 /HPF] 50+ /HPF (09/09/24 11:56 AM) 1Result Comment: Testing Performed By: Dept of Pathology [facility] Brandan Duke, [address] [facility] [place] [address] 2Result Comment: Testing Performed By: Dept of Pathology [facility] Brandan Duke, [address] [facility] [place] [address] Orders for Microbiology Reports Name Date Fungus Culture, Wound w Smear (CULTURE,F UNGUS(WOUND)) 09/09/24 Wound Culture w Smear (CULTURE, WOUND) Urine Culture (CULTURE, URINE) 09/09/24 Microbiology Reports TEST:Fungus.Culture, Wound STATUS:Unauthenticated BODY SITE: SOURCE:Wound COLLECTED DATE/TIME:09/09/24 2:26 PM Fungal Direct Exam NO FUNGAL ELEMENTS SEEN TEST:Wound.Cx STATUS:Auth (Verified) BODY SITE: SOURCE:Wound COLLECTED DATE/TIME:09/09/24 2:26 PM Status FINAL 09/11/2024 TEST:Urine.Cx STATUS:Auth (Verified) BODY SITE: SOURCE:Urine COLLECTED DATE/TIME:09/09/24 11:56 AM Status FINAL 09/11/2024 ORGANISM:Enterococcus faecalis Susceptibilty: Enterococcus faecalis Tested Drug Broth MATEUS Dilution Broth Interpr etation Vancomycin 1 Suscept. Tetracycline >8 Resistant Nitrofurantoin <=32 Suscept. Levofloxacin 1 Suscept. Daptomycin 2 Suscept. Ciprofloxacin <=1 Suscept. Ampicillin <=2 Suscept. Vital Signs Most recent to oldest [Reference Range]: 1 Temperature [36.5-37.9 DegC] 36.7 DegC (09/09/24 10:13 AM) Heart Rate 74 bpm (09/09/24 10:13 AM) Respiratory Rate 20 br/min (09/09/24 10:13 AM) Blood Pressure 106/70mmHg (09/09/24 10:13 AM) Cuff Pulse Pressure 36 mmHg (09/09/24 10:13 AM) BP Location # 1 Right Arm, Manual (09/09/24 10:13 AM) Social History Social History Type Response Smoking Status Never smoked cigaret saul Sex Male Sex Representation Male (finding) Patient Care team information Care Team Personnel Name: MARILUZ Tomas, Annemarie Polk Position: Physician Asst Ext - Family Med Member Role: Primary Care Provider Address: [address] [place] [address] Telecom: [phone] Care Team Related Persons Name: GIDEON ARNETT Insurance Providers Guarantor name: BJ ARNETT Health Plan Information #: 1 Payer: [employer] Member Number: [id number] Policy Number: NA Group Number: [id number] Health Plan Information #: 2 Payer: [employer] Member Number: [id number] Policy Number: NA Group Number: [id number]
--- OUTSIDE RECORDS SUMMARY | 2024-09-19 23:47 | External Medical Summary | Continuity of Care Document ---
Author Name Unknown Organization [facility] [address] [facility] Sandra Address [address] [place], [place] [id number] Care Team Providers Care Sales Agent Trading Stamps Name Role Phone Ayushbartolo Annemarie Polk Primary Care Physician [phone] [id number] Date(s): 09/05/24 - 09/05/24 [facility] [address], [address] [place] [address] [phone] Encounter Diagnosis CAD in nez perce artery(Discharge Diagnosis) - 09/05/24 Paroxysmal atrial fibrillation(Discharge Diagnosis) - 09/05/24 Benign hypertension(Discharge Diagnosis) - 09/05/24 Hyperlipidemia(Discharge Diagnosis) - 09/05/24 Discharge Disposition: Home or Self Care Attending Physician: DO Kelley Jason D Encounter Type: Clinic Allergies, Adverse Reactions, Alerts Substance Criticality Severity Reaction Reaction Severity Status Definity 1 Unable to assess criticality Moderate back spasm Active Ragweed shortness of breath Active PEDRO LUIS Inhibitors cough Activ e 1back spasm Assessment and Plan Extracted from: Title:Cardiology Office Visit Note Author:DO Kelley Jason D Date:09/05/24 1.Benign hypertension 2.CAD in nez perce artery 3.Hyperlipidemia 4.Paroxysmal atrial fibrillation 5. Anxiety and depression We spent 50 minutes just talking about his medical conditions and treatment options with his daughter. Unfortunately for Bj he is cognitively intact but his body is failing him. Additionally before his got sick she was the one that was really allowing him to be independent. Now it sounds like she may never return to independence. This additional stress has been very difficult for him and in some ways it sounds like she is lashing out with her frustration towards him and his children (which are not held her children). I discussed most importantly as he wants to remain in their apartment independently is that he is going to need additional assistance with cooking and cleaning and laundry doing his medications. He also may need additional assistance and food prep. They did have home health which he fired as the nurse was not very nice to him and did not seem to care for his needs. With regards to his lower extremity edema I think it is a combination of right- sided heart failure, loss of his atrial kick, dependent edema, and limited ambulation. We discussed Pedro Luis wraps and then once the swelling improves above compression stockings. This could be provided by physical therapy from physical therapy at the [facility] or an outside organization through his insurance. Once his legs improved hopefully they would help him with Pedro Luis wrap's. Additionally I recommended Lasix 20 mg daily times a week and then we will see where his be MP and magnesium are and can adjust his diuretics accordingly. We given information regards to a low-salt diet and daily weights. I also discussed with him the importance of taking care of himself both physically and mentally and it sounds like he has tremendous support from his children. He will see Penny in the next couple of weeks to make sure he is stable. We did make him an appointment to see you as his daughter is concerned that he is having both anxiety and depression and I discussed with him that he might benefit from an SSRI. Immunizations Given and Recorded Vaccine Date Status Refusal Reason RSV vaccine preF3, recombinant 08/11/23 Recorded SARS-CoV-2 (COVID-19) mRNA-vacc - [id number] 05/16/23 Recorded SARS-CoV-2 mRNA (Pfizer 12+) bivalent 04/15/22 Rec orded SARS-CoV-2 mRNA ([id number]) 12/23/21 Re corded SARS-CoV-2 (COVID-19) mRNA BNT-162b2 vax 1 04/25/21 Recorded SARS-CoV-2 (COVID-19) mRNA BNT-162b2 vax 2 11/10/20 Recorded SARS-CoV-2 (COVID-19) mRNA BNT-162b2 vax 3 10/20/20 Recorded influenza virus vaccine, inactivated 04/05/20 Give n influenza virus vaccine, inactivated 05/11/19 Give n influenza virus vaccine, inactivated 4 10/16/18 Gi godwin influenza virus vaccine, inactivated 04/23/17 [...] inactivated 07/19/03 Dl rded zoster vaccine, inactivated 06/13/19 Recorded zoster vaccine, inactivated 06/11/19 Recorded [...] Historical information-source unspecified 14Result Comment: 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 15Result Comment: 2021-05-20: Historical information-source unspecified Problem List Condition Confirmation Course Effective Dates Status H ealth Status Informant Neurologic gait dysfunction Confirmed Active Actinic Keratosis Confirmed Active Benign hypertension Confirmed Active CAD in nez perce artery Confirmed Active Right carpal tunnel syndrome [...] Effective Dates Health Status Clinical Service Informant CAD in nez perce artery Discharge Diagnosis 09/05/24 Paroxysmal atrial fibrillation Discharge Diagnosis 09/05/24 Hyperlipidemia Discharge Diagnosis 09/05/24 Benign hypertension Discharge Diagnosis 09/05/24 Procedures Procedure Date Related Diagnosis Body Site [...] Colonoscopy 12/11/04 Completed biopsy of prostate 04/01/04 [facility] ankle brachial index test-11/24/2006 Completed coronary artery dilation, [place] - 01/29/2006 Completed Hip replacement 19 Comple jaydon Partial shoulder replacement 20 Completed stress echo - 05/25/2008 Completed tonsils and adnoids-1946 Completed transforaminal epidural ster oid injection Completed [address] [place] [address] Impression: 1. The bladder is decompressed around a Goldsmith catheter and appears thick-walled. Correlate with clinical findings and urinalysis. 2. Trace free fluid in the pelvis is a nonspecific but abnormal finding. 3. Cirrhotic liver morphology. 4. There is evidence of chronic pancreatitis. 5. The pericardium is densely calcified. This is unchanged from previous. [facility] Impression: 1. Acute comminuted and displaced periprosthetic fracture of the left femur extends from the intertrochanteric distrubution distally into the mid diaphysis 2. No acute intra-abominal or intrapelvic abnormality 3[facility] Impression: 1. There is not CT evidence of fracture or subluxation involving the cervical spine. The skeletal structures are heterogeneous and significantly demineralized, making the examination difficult to interpret. Note that MRI is more sensitive for vertebral body fracture if there is clinical concern for occult injury 2. Spondylotic change 4[facility] Impression: 1. There is no hemorrhage, mass effect, or evidence of acute territorial ischemia by CT criteria 2. Large right frontoparietal scalp hematoma 5[facility] Left femur [facility] Impression: Otoscopy: [...] to oldest [Reference Range]: 1 Patient Weight 84.2 kg (09/05/24 11:35 AM) Heart Rate 90 bpm (09/05/24 11:35 AM) Blood Pressure 114/60mmHg (09/05/24 11:35 AM) BP Location # 1 Right Arm (09/05/24 11:35 AM) Social History Social History Type Response Smoking Status Never smoked cigaret saul Sex Male Sex Representation Male (finding) Cardiology Outpatient Note * DO Kelley Jason D: PERFORM Event Display: Cardiology Outpt Note Authored Date: [id number] Primary Care Provider MARILUZ Tomas, Annemarie Polk Chief Complaint 6 mon f/u AFIb falls htn chol hemachromatosis, pneumonia in Jul 2024, amb dysfunction History of Present Illness He has had a lot happen in the last couple of blocks. He was admitted to [facility] with pneumonia from strep mitis and bacteremia. A GRACIE did not reveal any vegetations. In the interim his had a subarachnoid hemorrhage secondary to metastatic presumed breast cancer. He had to go to a month of rehab and now his is in rehab but it does not sound like she isgoing to be able to become independent. He was tearful during our visit. He is accompanied by his daughter who was incredibly insightful and helpful. Since he left the hospital he has significant lower extremity edema to his knees bilaterally. With his being sick he is trying to cook and most of what he is cooking is soup and a canned or deli meat or processed food. He does get occasional lightheadedness with change in position. For the most part he is sitting during the day but does use a walker to get to the kitchen. He has had no recent falls with the last fall being about a year ago. He denies any presyncope or syncope. He denies any palpitations or fluttering with his chronic atrial fibrillation. In the hospital he was restarted on anticoagulation. Review of Systems PAST MEDICAL HISTORY: 1. Prior myocardial infarction in 2005, angioplasty and stenting 01/29/2006 to the OM3 branch of the circumflex for a 70% lesion, residual 40% mid LAD lesion. 2. Normal left ventricular systolic function by echo 09/29/2020. 3. Hemochromatosis. 3b. Permanent atrial fibrillation (asymptomatic, not on anticoagulation due to his neuropathy and history of falls. 4. Hypertension. 5. Hyperlipidemia. 6. History of prostate cancer. 7 History of vertigo secondary to inner ear. 8. Osteoarthritis. 9. Osteoporosis. 10. Restless legs syndrome. 11. Bilateral total hip replacements. 12. 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 13. Hives on Toprol XL 14. Non-ST elevation myocardial infarction with total occlusion of a small RCA for medical therapy (09/29/2020). 15. Cardiac catheterization 09/01/2020 with high-grade stenosis of a nondominant RCA; no evidence of circumflex disease; 30-40% proximal LAD lesion 16. Strep Mitis Pneumonia and bacteremia with negative GRACIE Physical Exam Vitals & Measurements HR:90(Monitored) BP:114/60 SpO2:97% WT:84.2kg WT:84.200kg(Dosing) PHYSICAL EXAMINATION: He is awake, alert, oriented x3. Heappears stable; he was tearful HEENT: 2+ carotids . Sclerae was anicteric. His hearing is mildly diminished. Lungs clear toauscultation bilaterally, no rhonchi, rales, rhonchi or wheezing. Heart: Irregular rate and rhythm, no appreciable murmurs or rubs. Extremities: No clubbing, cyanosis. Moderate edema to kneesb/l Diagnostic Results cho [facility] TTE Complete Report Signatures Finalized by [...] systolic function appears to have slightly decreased. Assessment/Plan 1.Benign hypertension 2.CAD in nez perce artery 3.Hyperlipidemia 4.Paroxysmal atrial fibrillation 5. Anxiety and depression We spent 50 minutes just talking about his medical conditions and treatment options with his daughter. Unfortunately for Bj he is cognitively intact but his body is failing him. Additionally before his got sick she was the one that was really allowing him to be independent. Now it sounds like she may never return to independence. This additional stress has been very difficult for him and in some ways it sounds like she is lashing out with her frustration towards him and his children (which are not held her children). I discussed most importantly as he wants to remain in their apartment independently is that he is going to need additional assistance with cooking and cleaning and laundry doing his medications. Cale may need additional assistance and food prep. They did have home health which he fired as the nurse was not very nice to him and did not seem to care for his needs. With regards to his lower extremity edema I think it is a combination of right- sided heart failure,loss of his atrial kick, dependent edema, and limited ambulation. We discussed Pedro Luis wraps and then once the swelling improves above compression stockings. This could be provided by physical therapy from [facility] or an outside organizationthrough his insurance. Once his legs improved hopefully they would help him with Pedro Luis wrap's. Additionally I recommended Lasix 20 mg daily times a week and then we will see where his be MP and magnesium are and can adjusthis diuretics accordingly. We given information regards to a low-salt diet and daily weights. I also discussed with him the importance of taking care of himself both physically and mentally and it sounds like he has tremendous support from his children. He will see Penny in the next couple of weeks to make sure he is stable. We did make him an appointment to see you as his daughter is concerned that he is having both anxiety and depression and I discussed with him that he might benefit from an SSRI. Problem List/Past Medical History Ongoing Actinic Keratosis Benign hypertension CAD in nez perce artery Dermatophytosis of Nail H/O: infectious disease [...] lesion of scalp Urge incontinence Weight disorder Wenckebach Aj Procedure/Surgical History CT of abdomen and pelvis| Service Date: 03/27/2023Open reduction and internal fixation of fracture| Service Date: 3CT of head| Service Date: 10/08/2022T of cervical spine| Service Date: 10/08/2022T of abdomen and pelvis| Service Date: 10/08/2022udiological [...] 05/25/2008coronary artery dilation, baloon - 01/29/2006tonsils and adtraviss-194 Medications acetaminophen(Tylenol), 500 mg, PO, qhs apixaban(Eliquis 5 mg oral tablet), 5 mg= 1 tab, PO, bid, 6 refills aspirin(aspirin 81 mg oral delayed release tablet), 81 mg= 1 tab, PO, Daily calcium carbonate(calcium (as carbonate) 600 mg oral tablet), 600 mg= 1 tab, PO, bid diclofenac furosemide(Lasix 20 mg oral tablet), 20 mg= 1 tab, PO, Daily, 3 refills metoprolol(metoprolol tartrate 25 mg oral tablet), 25 [...] bid, 3 refills Allergies Definity (Moderate)back spasm PEDRO LUIS Inhibitorscough Ragweedshortness of breath Social History Smoking Status Never smoked cigarettes Alcohol - Denies Alcohol Use Employment/School Status:Retired 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 Heart disease: Mother and Father. Osteoarthritis: Mother and Father. 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 [facility] [place] [address] [facility], [address] [place], [place] [address] ERIC Patient Care team information Care Team Personnel Name: MARILUZ Tomas, Annemarie Polk Position: Physician Asst Cochran - Family Med Member Role: Primary Care Provider Address: [address] [place] [address] [address] [place] [address] Telecom: [phone] Care Team Related Persons Name: GIDEON ARNETT Insurance Providers Guarantor name: BJ Keira MELQUIADES Health Plan Information #: 1 Payer: [employer] PPO Member Number: [id number] Policy Number: NA Group Number: [id number] Health Plan Information #: 2 Payer: [employer] PPO Member Number: [id number] Policy Number: NA Group Number: [id number]"
--- OUTSIDE RECORDS SUMMARY | 2024-09-19 23:47 | External Medical Summary | Continuity of Care Document ---
Author Name Unknown Organization [facility] [address] Address [address] [place], [place] [id number] Care Team Providers Care Ski Base Trimmer Name Role Phone Annemarie Tomas Primary Care Physician [phone] [phone] Date(s): 09/09/24 - 09/09/24 [facility] [address] [facility] [address] [place], [place] [phone] Encounter Diagnosis Essential (primary) hypertension(Final) - Atherosclerotic heart disease of [place] coronary artery without angina pectoris (Final) - [...] recombinant 08/11/23 Recorded SARS-CoV-2 (COVID-19) mRNA-vacc - [id number] 05/16/23 Recorded SARS-CoV-2 mRNA (Pfizer 12+) bivalent 04/15/22 Rec orded SARS-CoV-2 mRNA (ejpmpyppkwc-dgby-dek) 12/23/21 Re corded SARS-CoV-2 (COVID-19) mRNA BNT-162b2 [...] Historical information-source unspecified 14Result Comment: Route: Subcutaneously 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 15Result Comment: 2021-05-20: Historical information-source unspecified Problem List Condition Confirmation Course Effective Dates Status H ealth Status Informant Neurologic gait dysfunction Confirmed Active Actinic Keratosis Confirmed Active Benign hypertension Confirmed Active CAD in [place] artery Confirmed Active Right carpal tunnel syndrome [...] transforaminal epidural ster oid injection Completed [address] [place] [address] Impression: 1. The bladder is decompressed around a Goldsmith catheter and appears thick-walled. Correlate with clinical findings and urinalysis. 2. Trace free fluid in the pelvis is a nonspecific but abnormal finding. 3. Cirrhotic liver morphology. 4. There is evidence of chronic pancreatitis. 5. The pericardium is densely calcified. This is unchanged from previous. [address] [place] [address] Impression: 1. Acute comminuted and displaced periprosthetic fracture of the left femur extends from the intertrochanteric distrubution distally into the mid diaphysis 2. No acute intra-abominal or intrapelvic abnormality 3[facility] Impression: 1. There is not CT evidence of fracture or subluxation involving the cervical spine. The skeletal structures are heterogeneous and significantly demineralized, making the examination difficult to interpret. Note that MRI is more sensitive for vertebral body fracture if there is clinical concern for occult injury 2. Spondylotic change 4[facility] Impression: 1. There is no hemorrhage, mass effect, or evidence of acute territorial ischemia by CT criteria 2. Large right frontoparietal scalp hematoma 5[facility] Left femur 6[facility] Impression: Otoscopy: [...] Basic Metabolic Panel (BASIC METAB PANEL ) 09/09/24 Magnesium Level (MAGNESIUM) 09/09/24 Most recent to oldest [Reference Range]: 1 eGFR CKD-EPI [>60 mL/min/1.73 m2] >90 mL /min/1.73 m2 1 (09/09/24 11:32 AM) Estimated CrCl 96.89 mL/min (09/09/24 12:09 PM) Anion Gap [5-14 mmol/L] 2 mmol/L *LOW* (09/09/24 11:32 AM) BUN [7-20 mg/dL] 12 mg/dL (09/09/24 11:32 AM) Ca [8.4-10.2 mg/dL] 8.5 mg/dL (09/09/24 11:32 AM) Cl- [96-107 mmol/L] 102 mmol/L (09/09/24 11:32 AM) HCO3 [22-30 mmol/L] 28 mmol/L (09/09/24 11:32 AM) Cret [0.70-1.30 mg/dL] 0.55 mg/dL *LOW* (09/09/24 11:32 AM) Glu [74-106 mg/dL] 113 mg/dL *HI* (09/09/24 11:32 AM) K [3.5-5.1 mmol/L] 4.7 mmol/L (09/09/24 11:32 AM) Mg [1.6-2.3 mg/dL] 1.8 mg/dL 2 (09/09/24 11:32 AM) Na [137-145 mmol/L] 132 mmol/L *LOW* (09/09/24 11:32 AM) 1Result Comment: Testing Performed By: Dept of Pathology [facility] [address], [address] [place] [id number] 2Result Comment: Testing Performed By: Dept of Pathology [facility], [address] [place] [id number] Social History Social History Type Response Smoking Status Never smoked cigaret saul Sex Male Sex Representation Male (finding) Patient Care team information Care Team Personnel Name: MARILUZ Tomas, Annemarie Polk Position: Physician Asst Exmpt - Family Med Member Role: Primary Care Provider Address: [address] [place] [address] [address] [place] [id number] Telecom: [phone] Care Team Related Persons Name: GIDEON ARNETT Insurance Providers Guarantor name: BJ Crockett ARNETT Health Plan Information #: 1 Payer: [employer] P[employer] Member Number: [id number] Policy Number: NA Group Number: [id number] Health Plan Information #: 2 Payer: [employer] P[employer] Member Number: [id number] Policy Number: NA Group Number: [id number]
[2024-09-20] MEDS: POLYETHYLENE (MIRALAX) 17 GM PACK PO SCH (00:11)
[2024-09-20] MEDS: ASPIRIN 81 MG CHEW PO STA (00:13)
[2024-09-20] MEDS: Patient's HEIGHT &/or WEIGHT Needed STA (00:14)
[2024-09-20] MEDS: CLOTRIMAZOLE 1% CR 15 GM TUBE TOP SCH (00:18)
[2024-09-20] MEDS: METOPROLOL TARTRATE 25 MG TAB PO SCH (00:36)
[2024-09-20] MEDS: APIXABAN 5 MG TABLET PO SCH (00:51)
[2024-09-20] MEDS: TRIAMCINOLONE ACET 0.1% CR 15 GM TUBE TOP SCH (00:52)
--- NOTE | 2024-09-20 03:34 | Billing Data ---
Date of Service September 20, 2024 Coding Level of Care Code 00978 INT INP/OBS CARE
[2024-09-20] MEDS: ACETAMINOPHEN 500 MG TAB PO SCH (05:36)
[2024-09-20 07:34] LABS: Hematocrit (blood only) 32.7 % (42.0-52.0); Hemoglobin 11.2 g/dl (14.0-18.0); Mean Corpuscular Hemoglobin 37.6 pg (25.0-34.0); Mean Corpuscular Hgb Conc 34.3 g/dL (32.0-36.0); Mean Corpuscular Volume 109.7 fL (80.0-100.0); Mean Platelet Volume 9.6 fL (9.4-12.4); Platelet Count 173 K/uL (130-400); RDW Coefficient of Variation 14.6 % (11.5-14.5); RDW Standard Deviation 58.7 fL (36.4-46.3); Red Blood Count 2.98 M/uL (4.70-6.10)
[2024-09-20 07:47] LABS: Albumin Level 2.8 gm/dl (3.4-5.0); BUN Creatinine Ratio 20.3 (10-20); Bilirubin,Total 0.7 mg/dl (0.2-1.0); Calcium 8.5 mg/dl (8.6-10.3); Creatinine Clr Calc Pharmacy 83.4 ml/min; Globulin 2.8 gm/dl (2.5-4.0); Potassium 4.9 mmol/L (3.5-5.1); Total Protein 5.6 gm/dl (6.0-8.3)
[2024-09-20 07:54] LABS: Troponin I High Sensitivity 12.4 pg/ml (0-20)
[2024-09-20] MEDS: ESCITALOPRAM OXALATE 10 MG TAB PO SCH (08:46)
[2024-09-20] MEDS: PRAVASTATIN SOD 20 MG TAB PO SCH (08:47)
[2024-09-20] MEDS: ASPIRIN 81 MG ECTAB PO SCH (08:47)
[2024-09-20] MEDS ORDERED: BACLOFEN 10 MG TAB PO SCH (09:00)
--- NOTE | 2024-09-20 13:50 | Hospitalist Progress Note ---
Date of Service September 20, 2024 Assessment & Plan (1) Catheter-associated urinary tract infection: Plan: This is an 88 y/o with a PMHx of HLD, a fib on Eliquis, chronic indwelling Goldsmith catheter, BLE edema, prostate cancer presents with concern of blood in his urine. Patient has had blood in his urine for the last few days. Reportedly on cipro per urology. Additionally he is experiencing lower back pain more so on the left Urinalysis suggests UTI Urine cultures have been obtained, result pending Started empirically on IV ceftriaxone (2) Lumbar pain: Plan: Acute on chronic back pain vs complicated UTI vs new mets vs osteoporotic fracture. CT Lumbar spine with multiple abnormal findings - ?acute T12 fracture. MRI ordered. Ortho spine consulted. Caution with narcotic pain medication as patient with confusion/mental status change in the past due to narcotics. No emergent findings - no saddle paresthesia or bowel incontinence. Continue PRN Dilaudid, discontinue baclofen (3) Hx of prostatic malignancy: Plan A fib/flutter - continue Eliquis and metoprolol 25 mg BID BLE edema - continue furosemide and leg wraps, continue topicals as needed HLD - continue statin Code status: DNR/DNI DVT ppx: on Eliquis for a fib FENGI: regular diet, light maintenance @ 75 ml/hr x 1L Goldsmith: chronic indwelling Goldsmith Dispo: Tele unit Admission and Anticipated Discharge Date Admission Date: September 19, 2024 Subjective Patient seen and examined, states he feels better, back pain still there, but somewhat improved Review of Systems Review of Systems: All systems reviewed are negative, apart from the ones contained in the history. Physical Exam Physical Exam: The patient is awake, alert and oriented 3, well developed and well nourished, normocephalic and atraumatic, lying in bed and in no acute distress. HEENT--PERRL, EOMI, mucous membranes and oropharynx mildly dry Neck--supple. No JVD. No bruits. Thyroid normal, trachea midline, no adenopathy. Heart--normal S1 and S2. No murmurs, rubs or gallops. Lungs--clear bilaterally, no respiratory distress, no accessory muscle use. Abdomen--normal bowel sounds and soft. Extremities--no cyanosis or clubbing. No edema. Dermatologic--normal skin turgor, normal color, no abnormal lymph nodes, no rash. Neurologic--cranial nerves II through XII grossly intact. Rheumatologic--normal range of motion. Psychiatric--normal affect. Results & Data Results & Data Vital Signs (Past 12 Hours) Vital Signs Temp Pulse Pulse Resp BP BP BP 09/20/24 11:09 97.7 F 76 18 104/64 09/20/24 08:00 09/20/24 07:22 97.3 F L 53 L 17 85/51 L 09/20/24 03:14 73 09/20/24 02:55 98.1 F 82 18 116/77 09/20/24 02:00 107/65 09/20/24 02:00 65 16 09/20/24 01:57 70 15 Pulse Ox O2 Del Method 09/20/24 11:09 95 Room Air 09/20/24 08:00 Room Air 09/20/24 07:22 96 Room Air 09/20/24 03:14 09/20/24 02:55 94 Room Air 09/20/24 02:00 09/20/24 02:00 99 09/20/24 01:57 99 PG Care Time/CCT Total # of Minutes Spent Total Time Spent with Patient: Total time spent is greater than 50% in coordination of care (as documented) at patient's floor/unit and/or counseling patient: Coding Level of Care Code 30109 SUB INP/OBS CARE 2/35MIN Diagnoses Urinary tract infection associated with indwelling urethral catheter, initial encounter T83.511A; N39.0 Indwelling urinary catheter type: indwelling urethral catheter Encounter type: initial encounter Lumbar pain M54.5 Hx of prostatic malignancy Z85.46 Time Spent (min) 35 (1) Catheter-associated urinary tract infection Indwelling urinary catheter type: indwelling urethral catheter Encounter type: initial encounter Qualified Code(s): T83.511A - Infection and inflammatory reaction due to indwelling urethral catheter, initial encounter; N39.0 - Urinary tract infection, site not specified
[2024-09-20] MEDS: GADOBUTROL 65ML VIAL IV ONE (17:47)
[2024-09-20] MEDS: cefTRIAXone SODIUM 2,000 MG/50 ML BAG IV SCH (17:57)
--- NOTE | 2024-09-20 18:47 | Magnetic Resonance Report ---
Technique: Sagittal and axial T1 and T2-weighted magnetic resonance images were obtained of the lumbar spine before and after the administration of intravenous gadolinium contrast. Comparison is made to the CT of the lumbar spine dated 09/19/2024 Findings: There is mild scoliosis. There is unchanged 3 mm of retrolisthesis of L2 on L3. There are degenerative endplate changes throughout the lumbar spine. There are several apparent vertebral hemangiomas with characteristic increased T1 and increased T2 signal intensity. No other focal osseous lesion is evident. No acute fracture is identified. There is an old compression fracture of the anterosuperior end of the T12 vertebral body with loss of up to 20% of the vertebral body height. There is no retropulsion of bone into the spinal canal. There is no definite sign of infection. There is no sign of acute ligamentous injury. The conus medullaris appears normal, terminating at the level of L2. No definite area of abnormal enhancement is seen At L1-L2, there is a disc bulge and a mild right paracentral broad-based disc protrusion that contacts but does not visibly compress or displace the traversing right L2 nerve root. There is no significant spinal stenosis. There is mild bilateral neural foramen narrowing At L2-L3, there is spinal stenosis due to a disc bulge. The traversing L3 nerve roots are contacted. There is bilateral neural foramen narrowing that may affect the exiting L2 nerve roots At L3-L4, there is spinal stenosis due to a disc bulge and facet osteoarthritis. The traversing L4 nerve roots are contacted. There is bilateral neural foramen narrowing that may affect the exiting L3 nerve roots At L4-L5, there is spinal stenosis due to a disc bulge and facet osteoarthritis. The traversing L5 nerve roots are contacted. There is bilateral neural foramen narrowing that may affect the exiting L4 nerve roots At L5-S1, there is a disc bulge and a central disc protrusion, without spinal stenosis or compression of the traversing nerve roots. There is facet osteoarthritis. There is bilateral neural foramen narrowing that may affect the exiting L5 nerve roots Impression: 1. Old T12 compression fracture 2. Scoliosis 3. Retrolisthesis at L2-3 4. Spinal stenosis from L2-3 through L4-5, which may affect the traversing nerve roots 5. L1-2 disc protrusion that contacts the right L2 nerve root 6. Bilateral neural foramen narrowing from L2-3 through L5-S1, which may affect the exiting nerve roots Electronically signed by Marcos Hodgson 09-20-2024 6:46 PM
--- NOTE | 2024-09-21 06:33 | Electrocardiogram Report ---
Test Reason : Blood Pressure : */* mmHG Vent. Rate : 64 BPM Atrial Rate : 64 BPM P-R Int : 198 ms QRS Dur : 86 ms QT Int : 424 ms P-R-T Axes : 56 44 39 degrees QTcB Int : 438 ms Atrial fibrillation Nonspecific T wave abnormality Abnormal ECG When compared with ECG of 14-Jul-2024 07:27, Questionable change in QRS axis Confirmed by Je Dye ([id number]) on 09/21/2024 6:33:13 AM Referred By: REFERRED SELF Confirmed By: Je Dye
[2024-09-21] MEDS: FUROSEMIDE 20 MG TAB PO SCH (08:11)
--- NOTE | 2024-09-21 10:24 | Consultation ---
Date of Consultation September 21, 2024 Assessment & Plan (1) Lumbar pain: Dr. 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 T12 fracture is old and healed. He does have multilevel spinal stenosis. His symptoms are new though. Would not recommend aggressive surgical intervention. Would work on continuing with pain control for his lower back pain. If this fails, may consider pain management consultation for further guidelines and recommendations. Ambulate ad hiram. Will sign off History of Present Illness Reason for Consultation: Back pain Attending Physician: Felicia Cintron MD History of Present Illness Is a pleasant 88-year-old gentleman who was admitted via the emergency room secondary to blood in his urine in his Goldsmith catheter and back pain. He reports his back pain has been ongoing for about 4 days. No fall. He has no radicular pain. As long as he is lying still he is comfortable. Any type of rotation or movement exacerbates his back pain. Pain is along the midline mid lumbar region. Allergies Allergy/AdvReac Type Severity Reaction Status Date / Time Iodinated Contrast Media Allergy Intermediate " Feels Verified 06/20/24 14:13 [Iodinated Contrast- Oral eliza hot and IV Dye] and painful" perflutren Allergy Unknown BODY GOT Verified 06/20/24 14:13 HOT AND BACK SPASMS propylene glycol Allergy Unknown BODY GOT Verified 06/20/24 14:13 HOT AND BACK SPASMS ragweed pollen Allergy Unknown UNKNOWN Verified 06/20/24 14:13 SANJAY Inhibitors AdvReac Intermediate Cough Verified 06/20/24 14:13 Home Medications Medication Instructions Recorded Confirmed Type bqfwqxde-ud-vqgfo 300 mcg-K 60 1 tab PO DAILY 12/22/18 09/19/24 History mcg-lycop 600 mcg-lutein 300 mcg tablet (Centrum Silver Men) nitroglycerin 0.4 mg sublingual 0.4 mg sublingual DIRECTED PRN 10/19/19 09/19/24 History tablet Chest Pain omega 5-qxi-qhi-fish oil 1,000 mg 1 cap PO DAILY 06/05/20 09/19/24 History (120 mg-180 mg) capsule (Fish Oil) acetaminophen 500 mg tablet 1,000 mg PO DIRECTED PRN 09/05/20 09/19/24 History Arthritis Pain polyethylene glycol 3350 17 17 g PO QPM 10/08/22 09/19/24 History gram/dose oral powder (Miralax) pravastatin 20 mg tablet 20 mg PO DAILY 10/08/22 09/19/24 History betamethasone valerate 0.1 % 1 applic topical BID PRN phimosis 09/04/23 09/19/24 Rx topical ointment #15 grams aspirin 81 mg tablet,delayed 81 mg PO DAILY 07/11/24 09/19/24 History release calcium 600 mg (as carbonate)-vit 1 tab PO DAILY 07/11/24 09/19/24 History D3 20 mcg (800 unit) chewable tablet (Caltrate plus D) apixaban 5 mg tablet (Eliquis) 5 mg PO BID #60 tabs 07/19/24 09/19/24 Rx clotrimazole 1 % topical cream 1 applic topical BID 09/19/24 09/19/24 History diclofenac sodium 1 % topical gel 4 g topical QID PRN joint pain 09/19/24 09/19/24 History escitalopram oxalate 5 mg tablet 5 mg PO DAILY 09/19/24 09/19/24 History furosemide 20 mg tablet See Rx Instructions .Route .COMPLEX 09/19/24 09/19/24 History metoprolol tartrate 25 mg tablet 25 mg PO BID 09/19/24 09/19/24 History triamcinolone acetonide 0.1 % 1 applic topical BID 09/19/24 09/19/24 History topical cream Patient History Medical History Fall Atrial fib/flutter, transient Acidosis, lactic Family History Father Cardiac disorder Mother Cardiac disorder Social History Smoking Status: Never smoker Hx Alcohol Use: No Hx Substance Use: No Preferred Language: Polish Communication Ability: Effective Visual Impairment: No Limitations Hearing Ability: Hard of Hearing Cake Knocker Required: No Beliefs That Will Affect Care: None marital status: Current Living Situation: Spouse Current Living Situation Comment: lives with at [facility] current occupational status: retired How many Children do You have: 2 Feels Safe at Home: Yes Assistive Devices: Walker Review of Systems Review of Systems: All systems reviewed & are unremarkable except as noted in HPI & below Physical Exam Physical Exam: He is laying in bed in no acute distress Alert and oriented x 3 He is able to roll over unassisted but with discomfort Strength is intact bilateral lower extremities Results & Data Vital Signs (Past 12 Hours) Vital Signs Temp Pulse Pulse Resp BP BP Pulse Ox 09/21/24 07:58 36.8 C 80 19 118/72 94 09/21/24 07:49 64 09/21/24 07:49 09/21/24 03:36 36.6 C 82 17 104/66 96 09/20/24 23:33 64 09/20/24 22:50 36.7 C 70 18 96/57 L 94 O2 Del Method 09/21/24 07:58 Room Air 09/21/24 07:49 09/21/24 07:49 Room Air 09/21/24 03:36 Room Air 09/20/24 23:33 09/20/24 22:50 Room Air Diagnostic Findings [place], [place] [phone] Magnetic Resonance Report Patient: BJ ARNETT Admit Date: 09/19/24 MR#: [id number] Address1: [address] [place] [address] [address] Acct ID:[id number] Address2: Date: 1935 [facility] Zip: [place] [address] Age: 88 Location: 2S Sex: M Room/Bed: [facility] Att Phy: Felicia Cintron MD Diagnosis: BACK PAIN, BLOOD IN URINE Elisabeth Phy: Annemarie Tomas PA-C Service Date: 09/19/24 Fam Phy: Interpreting Phy: Marcos Hodgson MDAdmit Phy: Yadira Chin MD Ordering Phy: Yadira Chin MD cc: ~ Technique: Sagittal and axial T1 and T2-weighted magnetic resonance images were obtained of the lumbar spine before and after the administration of intravenous gadolinium contrast. Comparison is made to the CT of the lumbar spine dated 09/19/2024 Findings: There is mild scoliosis. There is unchanged 3 mm of retrolisthesis of L2 on L3. There are degenerative endplate changes throughout the lumbar spine. There are several apparent vertebral hemangiomas with characteristic increased T1 and increased T2 signal intensity. No other focal osseous lesion is evident. No acute fracture is identified. There is an old compression fracture of the anterosuperior end of the T12 vertebral body with loss of up to 20% of the vertebral body height. There is no retropulsion of bone into the spinal canal. There is no definite sign of infection. There is no sign of acute ligamentous injury. The conus medullaris appears normal, terminating at the level of L2. No definite area of abnormal enhancement is seen At L1-L2, there is a disc bulge and a mild right paracentral broad-based disc protrusion that contacts but does not visibly compress or displace the traversing right L2 nerve root. There is no significant spinal stenosis. There is mild bilateral neural foramen narrowing At L2-L3, there is spinal stenosis due to a disc bulge. The traversing L3 nerve roots are contacted. There is bilateral neural foramen narrowing that may affect the exiting L2 nerve roots At L3-L4, there is spinal stenosis due to a disc bulge and facet osteoarthritis. The traversing L4 nerve roots are contacted. There is bilateral neural foramen narrowing that may affect the exiting L3 nerve roots At L4-L5, there is spinal stenosis due to a disc bulge and facet osteoarthritis. The traversing L5 nerve roots are contacted. There is bilateral neural foramen narrowing that may affect the exiting L4 nerve roots At L5-S1, there is a disc bulge and a central disc protrusion, without spinal stenosis or compression of the traversing nerve roots. There is facet osteoarthritis. There is bilateral neural foramen narrowing that may affect the exiting L5 nerve roots Impression: 1. Old T12 compression fracture 2. Scoliosis 3. Retrolisthesis at L2-3 4. Spinal stenosis from L2-3 through L4-5, which may affect the traversing nerve roots 5. L1-2 disc protrusion that contacts the right L2 nerve root 6. Bilateral neural foramen narrowing from L2-3 through L5-S1, which may affect the exiting nerve roots Electronically signed by Marcos Hodgson 09-20-2024 6:46 PM Dictated: 09/20/24 0214 Transcribed: [facility], [place] [phone] CT Scan Report Patient: BJ ARNETT Admit Date: 09/19/24 MR#: [id number] Address1: [address] [place] [address] [address] Acct ID:[id number] Address2: Date: 1935 [facility] Zip: [place] [address] Age: 88 Location: ED Sex: M Room/Bed: Att Phy: Diagnosis: UTI, BLOOD IN URINE Elisabeth Phy: Annemarie Tomas PA-C Service Date: 09/19/24 [facility] Phy: Interpreting Phy: Rock Burch MDAdmit Phy: Ordering Phy: Julito Vieira M.D. cc: ~ EXAM: CT lumbar spine wo con CLINICAL HISTORY: Low back pain. TECHNIQUE: CT non-contrast scan of lumbar spine done. Axial images were obtained with reformatted coronal and sagittal images and submitted for interpretation. One of the following dose reduction techniques were utilized for this exam: Automated exposure control, adjustment of the mA and/or kV according to patient size, use of iterative reconstruction. DLP: 1635.54 mGy-cm, CTDI: 34.7 mGy, COMPARISON: No prior studies available for comparison. FINDINGS: Vertebrae: Straightening of the lumbar spine possibly due to muscular spasm . Grade I retrolithesis of L2 over L3, and of L4 over L5 . Osteopenia. Ventral wedging of T12 vertebral body likely osteoporotic fracture. Moderate antrolateral osteophytosis of the lumbar vertebral end plates. Intervertebral Discs: Narrowed lumbar disc spaces. Multilevel vacuum phenomenon. OBX.5.1OBX.5.1.1 L2-L3, L3-L4 /OBX.5.1.1OBX.5.1.2 L4-L5 disc osteophyte complex with marked bilateral neural foraminal compromise. /OBX.5.1.2/OBX.5.1 Spinal Canal and Neural Foramina: Spinal canal is of normal caliber with no evidence of spinal stenosis. Facet Joints: Multilevel facet joint arthropathy. Soft Tissues: Normal appearance of the paraspinal soft tissues. No abnormal masses, fluid collections, or signs of inflammation. IMPRESSION: 1. Straightening of the lumbar spine possibly due to muscular spasm. 2. Grade I retrolithesis of L2 over L3, and of L4 over L5 . 3. Ventral wedging of T12 vertebral body likely osteoporotic fracture of indeterminate age. 4. Spondylodegenrative changes, multilevel disc space narrowing with facet hypertrophy. OBX.5.1OBX.5.1.15. L2-L3, L3-L4 /OBX.5.1.1OBX.5.1.2 L4-L5 disc osteophyte complex with marked bilateral neural foraminal compromise. /OBX.5.1.2/OBX.5.1 6. Further evaluation with MR recommended for better assessment. Electronically signed by Rock Burch 09-19-2024 8:00 PM Dictated: 09/19/24 3780 Transcribed:
--- NOTE | 2024-09-21 13:06 | Hospitalist Progress Note ---
Date of Service September 21, 2024 Assessment & Plan (1) Catheter-associated urinary tract infection: Plan: This is an 88 y/o with a PMHx of HLD, a fib on Eliquis, chronic indwelling Goldsmith catheter, BLE edema, prostate cancer presents with concern of blood in his urine. Patient has had blood in his urine for the last few days. Reportedly on cipro per urology. Additionally he is experiencing lower back pain more so on the left Urinalysis suggests UTI Urine cultures growing multiple organisms, no sensitivities to follow In the past, cultures grew klebsiella Started empirically on IV ceftriaxone will transition to PO abx prior to discharge (2) Lumbar pain: Plan: Acute on chronic back pain vs complicated UTI vs new mets vs osteoporotic fracture. CT Lumbar spine with multiple abnormal findings - old T12 fracture. 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 Continue PRN Tylenol, discontinue baclofen (3) Hx of prostatic malignancy: Plan A fib/flutter - continue Eliquis and metoprolol 25 mg BID BLE edema - continue furosemide and leg wraps, continue topicals as needed HLD - continue statin Code status: DNR/DNI DVT ppx: on Eliquis for a fib FENGI: regular diet, light maintenance @ 75 ml/hr x 1L Goldsmith: chronic indwelling Goldsmith Dispo: Hopefully d/c in the next 24 -48 hrs, awaitng PT eval Admission and Anticipated Discharge Date Admission Date: September 19, 2024 Subjective Patient seen and examined, states he feels better, back pain still there, but somewhat improved Review of Systems Review of Systems: All systems reviewed are negative, apart from the ones contained in the history. Physical Exam Physical Exam: The patient is awake, alert and oriented 3, well developed and well nourished, normocephalic and atraumatic, lying in bed and in no acute distress. HEENT--PERRL, EOMI, mucous membranes and oropharynx mildly dry Neck--supple. No JVD. No bruits. Thyroid normal, trachea midline, no adenopathy. Heart--normal S1 and S2. No murmurs, rubs or gallops. Lungs--clear bilaterally, no respiratory distress, no accessory muscle use. Abdomen--normal bowel sounds and soft. Extremities--no cyanosis or clubbing. No edema. Dermatologic--normal skin turgor, normal color, no abnormal lymph nodes, no rash. Neurologic--cranial nerves II through XII grossly intact. Rheumatologic--normal range of motion. Psychiatric--normal affect. Results & Data Results & Data Vital Signs (Past 12 Hours) Vital Signs Temp Pulse Pulse Resp BP BP Pulse Ox 09/21/24 11:25 98.1 F 69 17 91/55 L 93 09/21/24 07:58 98.2 F 80 19 118/72 94 09/21/24 07:49 64 09/21/24 07:49 09/21/24 03:36 97.9 F 82 17 104/66 96 O2 Del Method 09/21/24 11:25 Room Air 09/21/24 07:58 Room Air 09/21/24 07:49 09/21/24 07:49 Room Air 09/21/24 03:36 Room Air PG Care Time/CCT Total # of Minutes Spent Total Time Spent with Patient: Total time spent is greater than 50% in coordination of care (as documented) at patient's floor/unit and/or counseling patient: Coding Level of Care Code 30157 SUB INP/OBS CARE 2/35MIN Diagnoses Urinary tract infection associated with indwelling urethral catheter, initial encounter T83.511A; N39.0 Indwelling urinary catheter type: indwelling urethral catheter Encounter type: initial encounter Lumbar pain M54.5 Hx of prostatic malignancy Z85.46 Time Spent (min) 35 (1) Catheter-associated urinary tract infection Indwelling urinary catheter type: indwelling urethral catheter Encounter type: initial encounter Qualified Code(s): T83.511A - Infection and inflammatory reaction due to indwelling urethral catheter, initial encounter; N39.0 - Urinary tract infection, site not specified
[2024-09-21 19:53] LABS: Appearance Urine Clear (Clear); Bacteria Urine Automated None Seen (None Seen); Bilirubin Urine Negative (Negative); Blood Urine 2+ (Negative); Color Urine Yellow; Glucose Urine UA Negative (Negative); Hyaline Casts Urine Present /lpf (None Presnt); Ketones Urine Negative (Negative); Leukocyte Esterase Urine 2+ (Negative); Mucus Urine Present (None Prsent); Nitrite Urine Negative (Negative); Protein Urine Negative (Negative); RBC Urine Automated >20 /hpf (0-2); Specific Gravity Urine 1.026 (1.000-1.030); Urobilinogen Urine Negative (Negative); WBC Urine Automated 21-50 /hpf (0-5); pH Urine 5.5 (4.5-7.5)
--- NOTE | 2024-09-22 12:08 | Hospitalist Progress Note ---
Date of Service September 22, 2024 Assessment & Plan (1) Catheter-associated urinary tract infection: Plan: This is an 88 y/o with a PMHx of HLD, a fib on Eliquis, chronic indwelling Murillo catheter, BLE edema, prostate cancer presents with concern of blood in his urine. Patient has had blood in his urine for the last few days. Reportedly on cipro per urology. Additionally he is experiencing lower back pain more so on the left Urinalysis suggests UTI Urine cultures growing multiple organisms, no sensitivities to follow will recollect urine In the past, cultures grew klebsiella Started empirically on IV ceftriaxone (2) Lumbar pain: Plan: Acute on chronic back pain vs complicated UTI vs new mets vs osteoporotic fracture. CT Lumbar spine with multiple abnormal findings - old T12 fracture. 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 Continue PRN Tylenol, discontinue baclofen (3) Hematuria: Plan: Had one episode of hematuria in the ED while changing his murillo, most likely traumatic urine is clear now (4) Hx of prostatic malignancy: Plan A fib/flutter - continue Eliquis and metoprolol 25 mg BID BLE edema - continue furosemide and leg wraps, continue topicals as needed HLD - continue statin Code status: DNR/DNI DVT ppx: on Eliquis for a fib FENGI: regular diet, Murillo: chronic indwelling Murillo Dispo: PT recommends SNF Admission and Anticipated Discharge Date Admission Date: September 19, 2024 Subjective Patient seen and examined, states he feels better, back pain still there, but somewhat improved Review of Systems Review of Systems: All systems reviewed are negative, apart from the ones contained in the history. Physical Exam Physical Exam: The patient is awake, alert and oriented 3, well developed and well nourished, normocephalic and atraumatic, lying in bed and in no acute distress. HEENT--PERRL, EOMI, mucous membranes and oropharynx mildly dry Neck--supple. No JVD. No bruits. Thyroid normal, trachea midline, no adenopathy. Heart--normal S1 and S2. No murmurs, rubs or gallops. Lungs--clear bilaterally, no respiratory distress, no accessory muscle use. Abdomen--normal bowel sounds and soft. Extremities--no cyanosis or clubbing. No edema. Dermatologic--normal skin turgor, normal color, no abnormal lymph nodes, no rash. Neurologic--cranial nerves II through XII grossly intact. Rheumatologic--normal range of motion. Psychiatric--normal affect. Results & Data Results & Data Vital Signs (Past 12 Hours) Vital Signs Temp Pulse Resp BP BP Pulse Ox O2 Del Method 09/22/24 11:30 98.2 F 76 18 118/76 97 Room Air 09/22/24 08:30 Room Air 09/22/24 08:15 98.4 F 89 16 117/70 94 Room Air 09/22/24 03:41 97.8 F 78 18 112/65 96 Room Air PG Care Time/CCT Total # of Minutes Spent Total Time Spent with Patient: Total time spent is greater than 50% in coordination of care (as documented) at patient's floor/unit and/or counseling patient: Coding Level of Care Code 91814 SUB INP/OBS CARE 2/35MIN Diagnoses Urinary tract infection associated with indwelling urethral catheter, initial encounter T83.511A; N39.0 Indwelling urinary catheter type: indwelling urethral catheter Encounter type: initial encounter Lumbar pain M54.5 Hematuria R31.0 Hematuria type: gross Hx of prostatic malignancy Z85.46 Time Spent (min) 35 (1) Catheter-associated urinary tract infection Indwelling urinary catheter type: indwelling urethral catheter Encounter type: initial encounter Qualified Code(s): T83.511A - Infection and inflammatory reaction due to indwelling urethral catheter, initial encounter; N39.0 - Urinary tract infection, site not specified (3) Hematuria Hematuria type: gross Qualified Code(s): R31.0 - Gross hematuria
--- NOTE | 2024-09-22 14:42 | Urology Consultation ---
<Statement entered by Jluis Flanagan MD - 09/22/24 15:18> 88-year-old male with indwelling Goldsmith catheter, hematuria. Catheter seems to be draining. Okay to hand irrigate if needed or can upsize if catheter becomes clogged. He will require hematuria workup as an outpatient. Date of Consultation September 22, 2024 Assessment & Plan (1) Catheter-associated urinary tract infection: (2) Urinary retention: 88-year-old male with history of urinary retention managed with chronic indwelling Goldsmith catheter and history of prostate cancer status post external beam radiation and brachytherapy admitted for suspected UTI and lumbar back pain. Patient afebrile, hemodynamically stable Most recent labs reviewed (09/20)creatinine 0.64, WBC 6.2, hemoglobin 11.2 Urine culture on arrival did not identify any specific bacteria Repeat urine culture pending He has been on empiric ceftriaxone since arrival Goldsmith patent and draining appropriatelyurine clear, hematuria has resolved Discussed possible etiologies of hematuria including infection, irritation from Goldsmith catheter, possible radiation cystitis, other No acute intervention at this time Continue with Goldsmith catheter for management of urinary retention Continue with monthly catheter exchanges Continue course of antibiotics We discussed outpatient follow-up to discuss possible hematuria workup will sign off, please contact our service with any additional questions or concerns History of Present Illness Attending Physician: Felicia Cintron MD History of Present Illness This is an 88-year-old male who follows with urology for urinary retention managed with chronic indwelling Goldsmith catheter and history of prostate cancer status post external beam radiation and brachytherapy. He presented to the emergency department on 09/19/2024 for evaluation of back pain and hematuria. He was admitted to the hospital medicine service for further management of suspected UTI and lumbar back pain. Urology is consulted for episode of hematuria. Urinalysis 09/19/2024 showed 3+ blood, 3+ LE, >50 WBC, >20 RBC, negative for bacteria. Urine culture 09/19/2024 showed 3 types of organisms present, all high counts. Repeat urine culture 09/21/2024 pending. He is currently on IV ceftriaxone. CT abdomen pelvis 09/19/2024 showed no stones or hydronephrosis. Prostate with brachytherapy seeds. Labs today reviewedcreatinine 0.64, WBC 6.2, hemoglobin 11.2 Patient seen and examined at bedside. He is awake and resting in bed. Denies suprapubic or flank discomfort. He reports noticing hematuria in his catheter approximately 1 week ago, but urine has cleared since then. He denies fever or chills. Allergies Allergy/AdvReac Type Severity Reaction Status Date / Time Iodinated Contrast Media Allergy Intermediate " Feels Verified 06/20/24 14:13 [Iodinated Contrast- Oral eliza hot and IV Dye] and painful" perflutren Allergy Unknown BODY GOT Verified 06/20/24 14:13 HOT AND BACK SPASMS propylene glycol Allergy Unknown BODY GOT Verified 06/20/24 14:13 HOT AND BACK SPASMS ragweed pollen Allergy Unknown UNKNOWN Verified 06/20/24 14:13 SANJAY Inhibitors AdvReac Intermediate Cough Verified 06/20/24 14:13 Home Medications Medication Instructions Recorded Confirmed Type pustpxol-oj-zmnro 300 mcg-K 60 1 tab PO DAILY 12/22/18 09/19/24 History mcg-lycop 600 mcg-lutein 300 mcg tablet (Centrum Silver Men) nitroglycerin 0.4 mg sublingual 0.4 mg sublingual DIRECTED PRN 10/19/19 09/19/24 History tablet Chest Pain omega 1-ihk-kir-fish oil 1,000 mg 1 cap PO DAILY 06/05/20 09/19/24 History (120 mg-180 mg) capsule (Fish Oil) acetaminophen 500 mg tablet 1,000 mg PO DIRECTED PRN 09/05/20 09/19/24 History Arthritis Pain polyethylene glycol 3350 17 17 g PO QPM 10/08/22 09/19/24 History gram/dose oral powder (Miralax) pravastatin 20 mg tablet 20 mg PO DAILY 10/08/22 09/19/24 History betamethasone valerate 0.1 % 1 applic topical BID PRN phimosis 09/04/23 09/19/24 Rx topical ointment #15 grams aspirin 81 mg tablet,delayed 81 mg PO DAILY 07/11/24 09/19/24 History release calcium 600 mg (as carbonate)-vit 1 tab PO DAILY 07/11/24 09/19/24 History D3 20 mcg (800 unit) chewable tablet (Caltrate plus D) apixaban 5 mg tablet (Eliquis) 5 mg PO BID #60 tabs 07/19/24 09/19/24 Rx clotrimazole 1 % topical cream 1 applic topical BID 09/19/24 09/19/24 History diclofenac sodium 1 % topical gel 4 g topical QID PRN joint pain 09/19/24 09/19/24 History escitalopram oxalate 5 mg tablet 5 mg PO DAILY 09/19/24 09/19/24 History furosemide 20 mg tablet See Rx Instructions .Route .COMPLEX 09/19/24 09/19/24 History metoprolol tartrate 25 mg tablet 25 mg PO BID 09/19/24 09/19/24 History triamcinolone acetonide 0.1 % 1 applic topical BID 09/19/24 09/19/24 History topical cream Patient History Medical History Fall Atrial fib/flutter, transient Acidosis, lactic Family History Father Cardiac disorder Mother Cardiac disorder Social History Smoking Status: Never smoker Hx Alcohol Use: No Hx Substance Use: No Preferred Language: [place] Communication Ability: Effective Visual Impairment: No Limitations Hearing Ability: Hard of Hearing 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 Beliefs That Will Affect Care: None marital status: Current Living Situation: Spouse Current Living Situation Comment: lives with at [facility] current occupational status: retired How many Children do You have: 2 Feels Safe at Home: Yes Assistive Devices: Walker Review of Systems Constitutional: as per Subjective / HPI Genitourinary: + as per Subjective / HPI Physical Exam Constitutional: well developed and well nourished; no acute distress Respiratory: normal respiratory effort; no respiratory distress and no labored breathing Gastrointestinal (Abdomen): Inspection/Auscultation: abdomen normal to inspection Musculoskeletal: Head/Neck/Chest: normocephalic Neurologic: moves all extremities and awake Psychiatric: Orientation: alert and oriented x 3 Genitourinary: Goldsmith patent and draining clear yellow urine Results & Data Vital Signs (Past 12 Hours) Vital Signs Temp Pulse Pulse Resp BP BP Pulse Ox 09/22/24 11:30 36.8 C 76 18 118/76 97 09/22/24 08:30 09/22/24 08:15 36.9 C 89 16 117/70 94 09/22/24 07:00 82 03/13/25 03:41 36.6 C 78 18 112/65 96 O2 Del Method 09/22/24 11:30 Room Air 09/22/24 08:30 Room Air 09/22/24 08:15 Room Air 09/22/24 07:00 09/22/24 03:41 Room Air PG Care Time/CCT Total # of Minutes Spent Total Time Spent with Patient: Total time spent is greater than 50% in coordination of care (as documented) at patient's floor/unit and/or counseling patient: Coding Level of Care Code 74893 INT INP/OBS CARE MIN Diagnoses Urinary tract infection associated with indwelling urethral catheter, initial encounter T83.511A; N39.0 Indwelling urinary catheter type: indwelling urethral catheter Encounter type: initial encounter Urinary retention R33.9 (1) Catheter-associated urinary tract infection Indwelling urinary catheter type: indwelling urethral catheter Encounter type: initial encounter Qualified Code(s): T83.511A - Infection and inflammatory reaction due to indwelling urethral catheter, initial encounter; N39.0 - Urinary tract infection, site not specified
--- NOTE | 2024-09-22 15:37 | Operative Report ---
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 I identified the patient and participated in the time-out.: Yes Procedure Posterior Spinal Fusion C3-4 (00874) Posterior Spinal Fusion C6-7, C7-T1, T1-2 (46386 x 3) Posterior Segmental Instrumentation C3-T2 (14119) Ct Stereotactic Navigation for Spinal Instrumentation (81193) C7 Laminectomy (10794) Allograft and Autograft for fusion (20266, 04980) Implants: Medtronic Posterior Cervical Surgeon Julito Noel MD Material Control Clerk Archie Rose Estimated Blood Loss 900 Findings Consistent with Post-Op Diagnosis Specimens None Drains Richard x 2 Anesthesia Type General Complications none Disposition Disposition: Surgical ICU Description of Procedure Patient was brought to the operating room where general anesthesia was induced. [place] head positioner was attached to the patient. He was then placed prone on the Sridhar spine table and the [place] head positioner attached to the bed frame. All bony prominences were padded, Goldsmith catheter was in place and neuromonitoring leads were attached. He was then prepped and draped in the usual sterile fashion. Verbal timeout was performed identifying the patient by name date of and verifying the correct procedure. Skin incision was approximated using C arm fluoroscopy. Skin was incised with a 10 blade scalpel, Bovie electrocautery was used to dissect down to the dorsal fascia. Fascia was split midline and subperiosteal dissection was carried out along the posterior spinous processes lamina and lateral masses from C3-C7. The T1 and T2 lamina and transverse processes were also exposed. It was noted that there was excessive bleeding from muscle tissue facet joints much more than would be expected with a standard posterior cervical approach. I had verified the patient stop Plavix, platelet function test was sent intraoperatively which showed platelet function to be in normal limits. Aqua mantis Bovie electrocautery and bipolar as well as Surgiflo and Surgicel were all used to obtain adequate hemostasis. I then used the Dasient micro corner stone dissector to enter the C6-7 facet joints bilaterally, 2 mm rasp was used to roughen the facet joints at the site of a cervical pseudoarthrosis. Allograft bone chips were placed into the facet joint bilaterally to encourage posterior lateral fusion at the site of the pseudoarthrosis. I then attached a spinous process clamp to C2 and attached an array for the Everlanealth navigation. O-arm was brought in and intraoperative CT scan was performed. The images were uploaded to the in room Stealth navigation unit. I then used a navigated bur to cannulate lateral mass screw tracts at C3, C4, C5 and C6 bilaterally. Lateral mass screws of the appropriate side were then placed using a navigated screwdriver. I again used the navigated bur to breach the outer cortex and cannulated tracts into the T1 and T2 pedicles navigation. Navigated drill was used to further cannulate the tracts and finally a navigated tap. Pedicle screws were then placed into the pedicles of T1 and T2 bilaterally. The O-arm was brought back in and a repeat intraoperative CT scan was performed. The images were uploaded to the in room viewer. I personally verified good position of all lateral mass and pedicle screws. I then bent rods to fit within the t[place]ip heads of the lateral mass and pedicle screws. Pavan was placed into the tulip heads, setscrews were applied and final tightened. Next I performed a C7 laminectomy. High-speed bur was used again with navigation and a 4 mm match head bur to create troughs along the C7 lamina and lateral mass bilaterally. The ligamentum flavum underneath was identified and elevated with a micro nerve hook and finally transected with #1 and #2 Kerrison. The C7 lamina was then removed en bloc which provided excellent decompression of the dura and central spinal cord. There is excessive thickening of the ligamentum flavum at this level which was creating severe spinal canal stenosis, large epidural veins were also encountered which were cauterized with bipolar electrocautery. I then used a high-speed bur to decorticate the lateral masses and facet joints at C3-4 as well as C7-T1 and T1-T2. Bleeding bone was obtained. Mixture of demineralized bone matrix, Medtronic master graft and local morselized bone from the C7 lamina was then packed into the posterior lateral gutters at C3-4, C6-7, C7-T1 and T1-T2 to encourage posterior lateral fusion at these levels. Wound was copiously irrigated multiple times throughout the surgery. 2 deep 15 [place] Richard drains were placed below the fascia exiting out through the skin. Wound was closed in layers with strata fix in the fascia, interrupted Vicryl sutures to close the subcutaneous layer. Skin was closed with marin. Sterile dressing was applied after applying Xeroform, drains were sewn in. Sterile dressing was applied, drains attached to accordion suction. Patient was transferred back to the hospital bed, To head positioner was removed. He was sent to PACU and will plan on ICU stay overnight given his blood loss and to maintain blood pressure and ensure postoperative resuscitation. I attest to the content of the Intraoperative Record and any orders documented therein. Any exceptions are noted below.
[2024-09-22] MEDS: MELATONIN 3 MG TAB PO SCH (20:07)
[2024-09-23 03:26] VITALS: RESP 18
[2024-09-23] MEDS: KETOROLAC TROMETHAMINE 15 MG/ML VIAL IV PRN (10:58)
[2024-09-23 11:00] VITALS: TEMP 98.1; O2SAT 95
--- NOTE | 2024-09-23 11:13 | Hospitalist Progress Note ---
Date of Service September 23, 2024 Assessment & Plan (1) Catheter-associated urinary tract infection: Plan: This is an 88 y/o with a PMHx of HLD, a fib on Eliquis, chronic indwelling Murillo catheter, BLE edema, prostate cancer presents with concern of blood in his urine. Patient has had blood in his urine for the last few days. Reportedly on cipro per urology. Additionally he is experiencing lower back pain more so on the left Urinalysis suggests UTI Urine cultures growing multiple organisms, no sensitivities to follow repeat cultures pending In the past, cultures grew klebsiella Started empirically on IV ceftriaxone (2) Lumbar pain: Plan: Acute on chronic back pain vs complicated UTI vs new mets vs osteoporotic fracture. CT Lumbar spine with multiple abnormal findings - old T12 fracture. 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 Continue PRN Tylenol, Toradol, discontinue baclofen (3) Hematuria: Plan: Had one episode of hematuria in the ED while changing his murillo, most likely traumatic urine is clear now Evaluated by urology, no acute interventions for now (4) Hx of prostatic malignancy: Plan A fib/flutter - continue Eliquis and metoprolol 25 mg BID BLE edema - continue furosemide and leg wraps, continue topicals as needed HLD - continue statin Code status: DNR/DNI DVT ppx: on Eliquis for a fib FENGI: regular diet, Murillo: chronic indwelling Murillo Dispo: PT recommends SNF, patient is medically stable for discharge Admission and Anticipated Discharge Date Admission Date: September 19, 2024 Subjective Patient seen and examined, states he feels better, back pain still there, but somewhat improved Review of Systems Review of Systems: All systems reviewed are negative, apart from the ones contained in the history. Physical Exam Physical Exam: The patient is awake, alert and oriented 3, well developed and well nourished, normocephalic and atraumatic, lying in bed and in no acute distress. HEENT--PERRL, EOMI, mucous membranes and oropharynx mildly dry Neck--supple. No JVD. No bruits. Thyroid normal, trachea midline, no adenopathy. Heart--normal S1 and S2. No murmurs, rubs or gallops. Lungs--clear bilaterally, no respiratory distress, no accessory muscle use. Abdomen--normal bowel sounds and soft. Extremities--no cyanosis or clubbing. No edema. Dermatologic--normal skin turgor, normal color, no abnormal lymph nodes, no rash. Neurologic--cranial nerves II through XII grossly intact. Rheumatologic--normal range of motion. Psychiatric--normal affect. Results & Data Results & Data Vital Signs (Past 12 Hours) Vital Signs Temp Pulse Resp BP Pulse Ox O2 Del Method 09/23/24 10:59 98.1 F 73 18 117/69 95 Room Air 09/23/24 08:25 97.9 F 76 18 111/64 92 Room Air 09/23/24 02:19 97.7 F 59 L 18 100/65 95 Room Air PG Care Time/CCT Total # of Minutes Spent Total Time Spent with Patient: Total time spent is greater than 50% in coordination of care (as documented) at patient's floor/unit and/or counseling patient: Coding Level of Care Code 89604 SUB INP/OBS CARE 2/35MIN Diagnoses Urinary tract infection associated with indwelling urethral catheter, initial encounter T83.511A; N39.0 Indwelling urinary catheter type: indwelling urethral catheter Encounter type: initial encounter Lumbar pain M54.5 Hematuria R31.0 Hematuria type: gross Hx of prostatic malignancy Z85.46 Time Spent (min) 35 (1) Catheter-associated urinary tract infection Indwelling urinary catheter type: indwelling urethral catheter Encounter type: initial encounter Qualified Code(s): T83.511A - Infection and inflammatory reaction due to indwelling urethral catheter, initial encounter; N39.0 - Urinary tract infection, site not specified (3) Hematuria Hematuria type: gross Qualified Code(s): R31.0 - Gross hematuria
--- NOTE | 2024-09-23 12:29 | Discharge Summary ---
Date of Service September 23, 2024 Admission HPI Per Admitting Provider 88 y/o with a PMHx of HLD, a fib on Eliquis, chronic indwelling Murillo catheter, BLE edema, prostate cancer presents with concern of blood in his urine. Patient has had blood in his urine for the last few days. Reportedly on cipro per urology. Additionally he is experiencing lower back pain more so on the left. Worse with movement. No fever, vision changes, CP, headaches, abdominal pain, bowel incontinence, saddle paresthesia, trauma to the area, weakness. Does believe his left leg might be more numb. He feels anxious and SOB. O2 saturation 99% on RA while in the room. Did return to bedside a bit later and patient was more calm and resting more comfortably. He had his Murillo exchanged in the ED and that has helped with the hematuria. CT A&P without signs of pyelonephritis. CT Lumbar spine abnormal. Hospitalist service consulted for admission for pain control and further workup. Admission Exam (Per Admitting) Constitutional The patient is awake, alert and oriented 3, well developed and well nourished, normocephalic and atraumatic, lying in bed and in no acute distress. HEENT--PERRL, EOMI, mucous membranes and oropharynx mildly dry Neck--supple. No JVD. No bruits. Thyroid normal, trachea midline, no adenopathy. Heart--normal S1 and S2. No murmurs, rubs or gallops. Lungs--clear bilaterally, no respiratory distress, no accessory muscle use. Abdomen--normal bowel sounds and soft. Extremities--no cyanosis or clubbing. No edema. Dermatologic--normal skin turgor, normal color, no abnormal lymph nodes, no rash. Neurologic--cranial nerves II through XII grossly intact. Rheumatologic--normal range of motion. Psychiatric--normal affect. Discharge Data Consultations 09/19/24 20:17 ED Decision to Admit Stat 09/19/24 20:59 Consult Orthopedic Spine Surgery Routine 09/20/24 20:51 Consult Orthopedic Spine Surgery Routine 09/21/24 09:00 Consult Orthopedic Spine Surgery Routine 09/21/24 16:54 Consult Urology Routine Hospital Course (1) Catheter-associated urinary tract infection: This is an 88 y/o with a PMHx of HLD, a fib on Eliquis, chronic indwelling Murillo catheter, BLE edema, prostate cancer presents with concern of blood in his urine. Patient has had blood in his urine for the last few days. Reportedly on cipro per urology. Additionally he is experiencing lower back pain more so on the left Urinalysis suggests UTI Urine cultures growing multiple organisms, no sensitivities to follow repeat cultures no growth In the past, cultures grew klebsiella Started empirically on IV ceftriaxone will discharge on PO ciprofloxacin 500mg BID for 5 days (2) Lumbar pain: Acute on chronic back pain vs complicated UTI vs new mets vs osteoporotic fracture. CT Lumbar spine with multiple abnormal findings - old T12 fracture. 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 Continue PRN Tylenol, discontinue baclofen (3) Hematuria: Had one episode of hematuria in the ED while changing his murillo, most likely traumatic urine is clear now Evaluated by urology, no acute interventions for now (4) Hx of prostatic malignancy: Plan A fib/flutter - continue Eliquis and metoprolol 25 mg BID BLE edema - continue furosemide and leg wraps, continue topicals as needed HLD - continue statin Code status: DNR/DNI DVT ppx: on Eliquis for a fib FENGI: regular diet, Murillo: chronic indwelling Murillo Dispo: PT recommends SNF, patient is medically stable for discharge Coding Level of Care Code 61011 INP/OBS DISCH >30 MIN Diagnoses Urinary tract infection associated with indwelling urethral catheter, initial encounter T83.511A; N39.0 Indwelling urinary catheter type: indwelling urethral catheter Encounter type: initial encounter Lumbar pain M54.5 Hematuria R31.0 Hematuria type: gross Hx of prostatic malignancy Z85.46 Time Spent (min) 35
[2024-09-23 12:40] VITALS: BP 112/65
[2024-09-23 15:00] VITALS: PULSE 81
== END 2024-09-23 13:50 | DRG 699 ==
LOC: SUATTDRO → ED 16:26 → SUATTDRO 20:58 → 2S 20:58 → EDINP 22:38 → 2S 22:57